=== PATIENT | female | born 1965 | race Caucasian/White ===

== ENCOUNTER → 2017-12-04 13:34 | Outpatient (CLI) | payer OTHER, SELFPAY ==
--- NOTE | 2017-12-04 13:34 | GANG_PTH ---
PATIENT: ТАТЬЯНА BUSTILLOS LOC: [facility] U#:[id number] AGE/SX: 59/F ROOM: RE12/04/[address]: Dr. Pio Orona DO : 1965 BED: DIS: SPEC #: [id number] RECD: 12/04/17 15:37 STATUS: DEREK RETrinity #: [id number] MACK: 12/04/17 13:[address]: Pio Orona DEPT: SURGICAL PATHOLOGY RECD BY: Rona Nicole ENTERED: 12/07/17 08:18 SP TYPE: GANGLION OTHR DR: Dr. Mikayla Varela, [facility] Tissues: GANGLION CYST Procedures: Surgery Specimen Level III HEADER OPERATION: Left hand removal ganglion cyst PRE-OP DIAGNOSIS: Ganglion left hand TISSUE SUBMITTED: Ganglion left hand MICROSCOPIC DIAGNOSIS Ganglion left hand, biopsy: Consistent with ganglion cyst. SJ:brianne 12/07/17 MICROSCOPIC DESCRIPTION Slides are reviewed. GROSS DESCRIPTION Received is one container labeled with the patient's name and not further designated. The specimen consists of a piece of garcia-pink cyst measuring 1.2 x 0.6 x 0.5 cm. The specimen is bisected and reveals a cyst containing garcia-pink mucoid fluid. The entire specimen is submitted in one cassette. / SJ:rg 12/04/17 TC:5 CPT: 56261
== END ==
PROVIDERS: Family Provider Internal Medicine; PCP Internal Medicine; Referring Provider Orthopaedic Surgery; Visit Provider Orthopaedic Surgery
DX: M67.442 Ganglion, left hand (principal)
CPT/HCPCS: 88304

== ENCOUNTER → 2018-04-22 15:56 | Outpatient (CLI) | payer OTHER, SELFPAY ==
--- NOTE | 2018-04-22 16:01 | BD_ITS ---
STUDY: DUAL ENERGY X-RAY ABSORPTIOMETRY / DXA REASON FOR EXAM: Female, 52 years old. The patient is postmenopausal. No loss of height. TECHNIQUE: Bone Mineral Density (BMD) measurements of lumbar spine and bilateral hips were obtained. COMPARISON: Comparison is made with prior study dated April 17, 2015. FINDINGS: Lumbar Spine (L1-L4): g/cm2 (0.916) / T-score (-2.2) / Z-score (-1.5) Findings are suggestive of osteopenia with a moderate fracture risk. Left Femur Total: g/cm2 (0.784) / T-score (-1.8) / Z-score (-1.2) Left Femoral Neck: g/cm2 (0.799) / T-score (-1.7) / Z-score (-0.8) Right Femur Total: g/cm2 (0.804) / T-score (-1.6) / Z-score (-1.0) Right Femoral Neck: g/cm2 (0.800) / T-score (-1.7) / Z-score (-0.8) The T-Scores on the most recent prior examination were: Lumbar Spine (L1-L4): There has been worsening of bone density since the previous examination. Left Femur Total: which represents an improvement of 0.9%. Right Femur Total: which represents a worsening of 3.7%. BD/Dexa Bone Density Study IMPRESSION: The patient is considered osteopenic as outlined below according to World [place] Organization (WHO) criteria with a moderate fracture risk. There has been worsening of bone density since the previous examination. Reference Information: The T-score is the number of standard deviations above or below the standard which is normal for young adults at their peak bone mineral density. The World Health Organization (WHO) interprets the T-scores as follows: Above -1 Normal bone density Between -1 and -2.5 Osteopenia Equal to / or below -2.5 Osteoporosis As a practical clinical guideline, osteopenia may be graded as follows: Mild -1 through -1.5 Moderate -1.6 through -2.0 Severe -2.1 through -2.4 The Z-score is the number of standard deviations above or below age-matched controls. A Z-score of less than -1.5 would be considered abnormal. References: 1. NIH Osteoporosis and Related Bone Diseases http://www.osteo.org 2. International Society for Clinical Densitometry http://www.iscd.org 3. National Osteoporosis Foundation http://www.nof.org Electronically Signed: Ramon Soler, at 13:34 EDT , Service support ,
== END ==
PROVIDERS: Family Provider Internal Medicine; PCP Internal Medicine; Visit Provider Nurse Practitioner
DX: Z78.0 Asymptomatic menopausal state (principal)
CPT/HCPCS: 77080

== ENCOUNTER → 2018-10-16 09:28 | Outpatient (CLI) | payer OTHER, SELFPAY ==
--- NOTE | 2018-10-16 09:34 | US_ITS ---
STUDY: ABDOMINAL ULTRASOUND - RIGHT UPPER QUADRANT REASON FOR VISIT: Female, 53 years old. Elevated bilirubin. TECHNIQUE: Ultrasound evaluation of the right upper quadrant was performed with real-time and static mendoza-scale imaging. TECHNICAL QUALITY: Adequate. COMPARISON: None. FINDINGS: Liver: The liver measures 14.6 cm. There is normal echogenicity of the liver. The bile ducts are within normal limits. There is hepatic color flow. The direction of portal flow is hepatopetal. 1.9 x 2.4 x 1.5 cm echogenic focus in the anterior right liver at the level of the right portal vein suggesting hemangioma. Gallbladder: Normal distended gallbladder. The gallbladder wall measures 2 mm. There is a negative sonographic Kline's sign. There is no pericholecystic fluid. There are multiple echogenic structures within the gallbladder, consistent with multiple gallstones. Common Bile Duct (C.B.D.): The common bile duct measures 3 mm. Pancreas: Normal size of the head, body and proximal tail of the pancreas. The distal tail is obscured by bowel gas. There is normal echogenicity of the pancreas. There is no demonstrated pancreatic mass or cyst. Right Kidney: Normal size of the right kidney. The right kidney measures 10.1 cm. Normal renal cortex. The right cortex measures 1.6 question of a small calcification in the upper pole without hydronephrosis. cm. There is no demonstrated renal mass or cyst. US/Abdomen Limited IMPRESSION: 1. Gallstones without evidence of acute cholecystitis. 2. Small hemangioma in the right liver. The liver is otherwise unremarkable. 3. Question nonobstructing right renal calculus. Electronically Signed: Modesto Hernandez DO at 10:05 EDT Tel [phone], Service support ,
== END ==
PROVIDERS: Family Provider Nurse Practitioner; PCP Nurse Practitioner; Referring Provider Nurse Practitioner; Visit Provider Nurse Practitioner
DX: R17 Unspecified jaundice (principal)
CPT/HCPCS: 76705

== ENCOUNTER → 2018-10-20 07:57 | Outpatient (CLI) | payer OTHER, SELFPAY ==
[2018-10-20 07:33] VITALS: BMI 20.9
[2018-10-20 08:28] LABS: Absolute Lymphocyte Count 1.96 X10^3/uL (0.83-4.51); Basophil# 0.04 X10^3/uL; Basophil% 0.7 % (0-1); Eosinophil# 0.24 X10^3/uL; Eosinophils% 4.2 % (0-5); Hematocrit 43.3 % (37-47); Hemoglobin 14.3 g/dL (12.0-15.0); Lymphocyte # 1.96 X10^3/ul (4.0); Lymphocyte % 34.3 % (19-41); Mean Corpuscular Hgb 29.2 pg (27.0-32.0); Mean Corpuscular Volume 88.5 fL (81-99); Mean Platelet Vol. 9.7 fl (6.2-12.0); Monocyte# 0.42 X10^3/uL; Monocyte% 7.3 % (0-10); NRBC Flagged by Analyzer 0 % (0-5); Neutrophil # 3.04 X10^3/uL (2.7-7.7); Neutrophil % 53.2 % (47-70); Platelet Count 301 K/mm3 (150-450); RBC Distribution Width CV 12.2 % (11.6-14.6); RBC Distribution Width SD 40.2 fl (35.1-43.9); Red Blood Count 4.89 M/mm3 (4.2-5.4); White Blood Count 5.7 K/mm3 (4.4-11.0)
[2018-10-20 08:49] LABS: ALB/GLOB Ratio 1.1 RATIO (0.9-2.4); AST(SGOT) 18 U/L (15-37); Alanine Aminotransfer ALT/SGPT 20 U/L (13-56); Albumin, Serum 3.8 g/dL (3.2-5.0); Alkaline Phosphatase 97 U/L (45-117); Amylase 50 U/L (25-115); Anion Gap 7 (5-15); BUN 17 mg/dL (7-18); BUN/Creat Ratio 23.4 RATIO (10-20); Calcium,Total 8.9 mg/dL (8.5-10.1); Chloride 103 mmol/L (98-107); Creatinine, Serum 0.72 mg/dL (0.55-1.02); EST Glomerular Filtration Rate 89 mL/min (>60); Est Glom Filt Rate - Afr Amer 108 mL/min (>60); Globulin 3.6 g/dL (2.2-4.2); Glucose 88 mg/dL (74-106); Lipase 171 U/L (73-393); Potassium 3.6 mmol/L (3.5-5.1); Protein, Total 7.4 g/dL (6.4-8.2); Sodium Level 140 mmol/L (136-145)
== END ==
PROVIDERS: Family Provider Nurse Practitioner; PCP Nurse Practitioner; Referring Provider Surgery; Visit Provider Surgery
DX: K80.20 Calculus of gallbladder without cholecystitis without obstruction (principal)
CPT/HCPCS: 36415; 80053; 82150; 83690; 85025

== ENCOUNTER → 2018-11-22 10:03 | Outpatient (CLI) | payer OTHER, SELFPAY ==
[2018-10-20 07:33] VITALS: BMI 20.9
[2018-11-22 10:10] LABS: Hematocrit 40.7 % (37-47); Hemoglobin 13.5 g/dL (12.0-15.0); Mean Corp Hgb Conc 33.2 g/dL (32-36); Mean Corpuscular Hgb 30.1 pg (27.0-32.0); Mean Corpuscular Volume 90.8 fL (81-99); Platelet Count 282 K/mm3 (150-450); RBC Distribution Width CV 12.9 % (11.6-14.6); RBC Distribution Width SD 42.9 fl (35.1-43.9); Red Blood Count 4.48 M/mm3 (4.2-5.4); White Blood Count 4.7 K/mm3 (4.4-11.0)
[2018-11-22 10:40] LABS: ALB/GLOB Ratio 1.2 RATIO (0.9-2.4); AST(SGOT) 21 U/L (15-37); Alanine Aminotransfer ALT/SGPT 23 U/L (13-56); Albumin, Serum 3.6 g/dL (3.2-5.0); Alkaline Phosphatase 79 U/L (45-117); Anion Gap 5 (5-15); BUN 10 mg/dL (7-18); BUN/Creat Ratio 17.6 RATIO (10-20); Calcium,Total 8.7 mg/dL (8.5-10.1); Chloride 110 mmol/L (98-107); Creatinine, Serum 0.57 mg/dL (0.55-1.02); EST Glomerular Filtration Rate 118 mL/min (>60); Est Glom Filt Rate - Afr Amer 143 mL/min (>60); Globulin 3.1 g/dL (2.2-4.2); Glucose 83 mg/dL (74-106); Potassium 4.6 mmol/L (3.5-5.1); Protein, Total 6.7 g/dL (6.4-8.2); Sodium Level 141 mmol/L (136-145); Thyroid Stim Hormone (TSH) 2.16 uIU/mL (0.358-3.74)
== END ==
PROVIDERS: Family Provider Nurse Practitioner; PCP Nurse Practitioner; Referring Provider Nurse Practitioner Gerontology; Visit Provider Nurse Practitioner Gerontology
DX: R00.2 Palpitations (principal)
CPT/HCPCS: 80053; 84443; 85027

== ENCOUNTER → 2018-11-29 11:21 | Outpatient (CLI) | payer OTHER, SELFPAY ==
[2018-10-20 07:33] VITALS: BMI 20.9
--- NOTE | 2018-11-29 19:25 | STRESSREP ---
Stress Test Report Exercise stress test. 53-year-old lady with a history of chest pain. Stress protocol: Resting EKG demonstrates normal sinus rhythm with a rate of 69 beats minute normal intervals noted resting blood pressures 118/82 mmHg. The patient exercised according to regular Rashawn protocol for total duration of 10 minutes completing 1 minute into stage IV of the Rashawn protocol the maximum heart rate attained was 166 bpm which was 100% of maximum predicted heart rate the maximum workload was 11.7 metabolic equivalents. The patient maintained sinus rhythm throughout the recording there were no ST or T wave changes at rest to suggest ischemia at peak exercise no ST or T wave changes were noted. No clinical angina was noted the test was taken terminated due to attainment of target heart rate. The resting blood pressures 118/82 with a peak blood pressure 124/74 mmHg. Conclusion: Exercise stress test with no EKG criteria for ischemia at a high workload. No clinical angina noted Good functional capacity.
== END ==
PROVIDERS: Family Provider Nurse Practitioner; PCP Nurse Practitioner; Referring Provider Nurse Practitioner; Visit Provider Nurse Practitioner
DX: R00.2 Palpitations (principal)
CPT/HCPCS: 93017; 93225; 93226

== ENCOUNTER → 2018-12-08 07:57 | Outpatient (CLI) | payer OTHER, SELFPAY ==
[2018-10-20 07:33] VITALS: BMI 20.9
--- NOTE | 2018-12-08 07:59 | ECHOD_ITS ---
Reason For Study: Palpitations Procedure This was a 2D Doppler, Color Flow transthoracic echocardiogram. Exam performed in department. Left Ventricle Normal size and thickness. The estimated ejection fraction is 55 %. Normal diastology for age. No regional wall motion abnormalities noted. Right Ventricle Normal size and thickness. Normal systolic function. Atria Normal left atrium. Normal right atrium. Normal atrial septum. Mitral Valve The mitral valve is structurally normal. No prolapse or stenosis seen. Trivial mitral valve insufficiency. Tricuspid Valve Normal tricuspid valve. Trivial tricuspid valve insufficiency. Unable to estimate RV systolic pressure due to insufficient tricuspid regurgitant envelope. Aortic Valve Normal aortic valve. Trisinus/trileaflet aortic valve. Pulmonic Valve Normal pulmonic valve. Great Vessels Normal aortic root. Normal arch. Normal inferior vena cava. Inferior vena cava collapse with sniff. Pericardium/Pleural No pericardial effusion. MMode/2D Measurements & Calculations LVIDd: 3.9 cm IVSd: 0.67 cm Ao root diam: 2.6 cm LVIDs: 2.9 cm LVPWd: 0.58 cm RVDd: 2.7 cm FS: 26.6 % LAV(MOD-bp): 9.5 ml LVAd ap4: 20.6 cm2 SV(MOD-sp4): 27.1 ml LAV(MOD-bp) Indexed: 6.1 ml/m2 EDV(MOD-sp4): 47.3 ml LAV(MOD-sp2): 9.5 ml EDV(sp4-el): 48.4 ml LAV(MOD-sp4): 9.7 ml LVAs ap4: 12.2 cm2 ESV(MOD-sp4): 20.2 ml ESV(sp4-el): 20.2 ml EF(MOD-sp4): 57.3 % EF(sp4-el): 58.3 % SV(sp4-el): 28.2 ml LA A4 area: 6.2 cm2 LA dimension(2D): 2.1 cm RA A4 area: 8.8 cm2 Doppler Measurements & Calculations MV E max barak: 62.7 cm/sec Lat Peak E' Barak: 14.5 cm/sec Med Peak E' Barak: 8.4 cm/sec MV A max barak: 45.3 cm/sec E/E' lat: 4.3 E/E' med: 7.5 MV E/A: 1.4 Ao V2 max: 102.2 cm/sec LV V1 max: 80.4 cm/sec PA V2 max: 65.5 cm/sec Ao max P.2 mmHg LV V1 max P.6 mmHg Ao V2 mean: 74.9 cm/sec Ao mean P.4 mmHg Ao V2 VTI: 21.6 cm PI end-d barak: 80.9 cm/sec Interpretation Summary The estimated ejection fraction is 55 %. Normal diastology for age. Trivial mitral valve insufficiency. Trivial tricuspid valve insufficiency. Unable to estimate RV systolic pressure due to insufficient tricuspid regurgitant envelope. There is no comparison study available. Ordering Physician: Nargis Hernandez Referring Physician: Nargis Hernandez Performed By: Shannon Alfaro, DIANA, RVT
== END ==
PROVIDERS: Family Provider Nurse Practitioner; PCP Nurse Practitioner; Referring Provider Nurse Practitioner; Visit Provider Nurse Practitioner
DX: R00.2 Palpitations (principal)
CPT/HCPCS: 93306

== ENCOUNTER → 2018-12-24 13:29 | Outpatient (CLI) | payer SELFPAY ==
[2018-10-20 07:33] VITALS: BMI 20.9
--- NOTE | 2018-12-24 13:36 | CT_ITS ---
STUDY: CARDIAC CALCIUM SCORING - CT CHEST REASON FOR EXAM: Female, 53 years old. Screening RADIATION DOSAGE (If Supplied By Facility): CTDIvol = ( 12.19 ) mGy, DLP = ( 195.04 ) mGycm TECHNIQUE: Axial non-enhanced images were acquired through the heart for the sole purpose of measuring coronary artery calcium. Individualized dose optimization techniques were used for this CT. COMPARISON: None. FINDINGS: Please see the patient's medical record for a personalized calcium score. There is a 4 mm nodule in the right lower lobe (image 33 series 3). The visualized lungs are otherwise clear. The visualized soft tissues are within normal limits. CT/Limited Chest CT w/CCTA IMPRESSION: Please see the patient's medical record for a personalized calcium score. 4 mm nodule in the right lower lobe. A dedicated chest CT is recommended. Please go to: [email or web address] , for a description of the calculator. Electronically Signed: Reid Talbot, at 15:39 EST Tel , Service support ,
[2018-12-24 13:46] VITALS: BP 100/73; PULSE 68; RESP 18; TEMP 36.9; O2SAT 98; BMI 20.7
--- NOTE | 2018-12-24 15:14 | CA.SCORE ---
Calcium Scoring Date of Study:: 12/24/18 Coronary Calcium Scoring: High-resolution Computed Tomographic imaging of the chest was performed on 12/24/2018 with particular attention paid to the coronary arteries. Images from the examination were analyzed for the presence and extent of coronary artery calcification , using coronary calcium quantification software. The patient tolerated the procedure well and there were no complications. The results of the coronary calcification analysis are provided below. - Findings Left Main (LM): 0 Left Anterior Descending (LAD): 0 Left Circumflex (LCX): 0 Right Coronary Artery (RCA): 0 Total Agatston Score: 0 Percentile Ranking: Percentile rankin%: 50% of patients of the same gender/similar age had the same/lower scores Calcium Scoring Interpretation: 0 No identifiable atherosclerotic plaque. Very low cardiovascular disease risk. <5% chance of presence coronary artery disease A Negative Examination 1-10 Minimal Plaque burden. Significant coronary artery disease very unlikely. 11-100 Mild plaque burden. Likely mild or minimal coronary atherosclerosis. 101-400 Moderate plaque burden Moderate non-obstructive coronary artery disease highly likely. Over 400 Extensive plaque burden. High likelihood of at least one significant coronary stenosis (>50% diameter) Calcium Score: 0 Negative Examination - Continue cardiovascular evaluation / care as deemed appropriate
== END ==
PROVIDERS: Family Provider Nurse Practitioner; PCP Nurse Practitioner; Referring Provider Nurse Practitioner; Visit Provider Nurse Practitioner
DX: Z82.49 Family history of ischemic heart disease and other diseases of the circulatory system (principal)
CPT/HCPCS: 75571; 76380

== ENCOUNTER 2018-12-31 09:30 | Day surgery (SDC) | payer OTHER, SELFPAY ==
[2018-10-20 07:33] VITALS: BMI 20.9
[2018-12-24 13:46] VITALS: BMI 20.7
[2018-12-31] VITALS (7 sets, daily range): BP systolic 104–139; BP diastolic 81–94; PULSE 48–72; RESP 14–16; TEMP 36.1–37; O2SAT 98–100; BMI 21.0
--- NOTE | 2018-12-31 09:39 | EKG12_ITS ---
Test Reason : PRE OP Blood Pressure : / mmHG Vent. Rate : 085 BPM Atrial Rate : 085 BPM P-R Int : 158 ms QRS Dur : 074 ms QT Int : 354 ms P-R-T Axes : 026 056 -47 degrees QTc Int : 421 ms Normal sinus rhythm Septal infarct , age undetermined T wave abnormality, consider lateral ischemia Abnormal ECG No previous ECGs available Confirmed by DAVY CHEEK, EVY ([id number]), general expeditor JOEY LINDA ([id number]) on 01/03/2019 10:15:51 AM Referred By: Graeme Anderson Confirmed By:EVY BHATTI MD
[2018-12-31] MEDS: Lactated Ringers 1,000 ML 100 ML IV ×2 (10:14→13:18)
--- NOTE | 2018-12-31 10:28 | HP.PCM_ITS ---
History and Physical Date of Admission: 12/31/18 [facility] [address] [place] [id number] MR#: [id number] Acct: [id number] Name: ТАТЬЯНА BUSTILLOS Rep #: [id number] : 1965 Provider: Graeme flores MD Age/Sex: 53/F Location: [facility] Status: Signed Intake Vital Signs 10/20/18 Height 5 ft 3.25 in 10/20/18 Weight: 119 lb 2 oz 10/20/18 Body Mass Index (BMI) 20.9 10/20/18 Blood Pressure 110/72 10/20/18 Blood Pressure Location Rt brachial 10/20/18 Respiratory Rate 16 10/20/18 Pulse Ox 98 Intake Visit Reasons: Gall Stones US 10/16/2018 Chief Complaint: gallstones Yarn Weight And Strength Tester Required: No Is patient in pain?: No Allergies No Known Allergies Allergy (Verified 10/20/18 07:35) Medications cholecalciferol (vitamin D3) 1,000 unit capsule 1,000 unit PO DAILY 10/20/18 [History Confirmed 10/20/18] lorazepam 0.5 mg tablet 0.5 mg PO .as dir tab 10/20/18 [History Confirmed 10/20/18] multivitamin,kx-alwh-dkgjudgn tablet 1 tab PO DAILY PRN 10/20/18 [History Confirmed 10/20/18] potassium 99 mg tablet 2.5 meq PO DAILY 10/20/18 [History Confirmed 10/20/18] Is last menstrual period known: No Post menopausal: Yes Patient : No [facility] Medical History Anxiety (Acute) Cataract (Acute) Gall stones (Acute) Hypercalcemia (Acute) Osteopenia (Acute) Surgical History History of section (Acute) History of colonoscopy (Acute ~2014) History of dilation and curettage (Acute) History of hysterectomy (Acute) History of tubal ligation (Acute) Family History Brother Hypertension Father Hypertension Diabetes CAD (coronary artery disease) Myocardial infarction CVA (cerebral vascular accident) Cancer prostate Mother Hypertension Social History (Updated 10/24/18 @ 10:52 by Graeme Anderson MD) Smoking Status: Never smoker HPI HPI HPI: ТАТЬЯНА BUSTILLOS, is a 53 F who presents to the office today for HPI HPI Surgical H&P: Yes HPI: ТАТЬЯНА BUSTILLOS, is a 53 F who presents to the office today for Evaluation of a symptomatic cholelithiasis. Patient has had an episode of increasing bilirubin which worked up by her primary care physician showed that she had multiple gallstones within the gallbladder. The common bile duct measured 3 mm in size and there was no pericholecystic fluid. She had not been having any pain nor nausea vomiting or diarrhea she has had no bloating. ROS General General: No weight change, appetite, fatigue, colon cancer, breast cancer or weakness HEENT HEENT: No difficulty swallowing, eye injury, eye surgery, swollen glands or hoarseness Endo Endocrine: No thyroid disease, diabetes mellitus, thyroid cancer, Hair loss, heat intolerance or cold intolerance Cardio Cardiovascular: No murmur, pacemaker, heart disease, atrial fibrillation, high blood pressure, heart attack, heart stent, palpitations, shortness of breat with exertion or chest pain Resp Respiratory: No shortness of breath, No sleep apnea, No cough, No COPD, No asthma, No emphysema, No wheezing Gastro Gastrointestinal: No abdominal pain, No nausea or vomiting, No diarrhea, No constipation, No blood in stool, No acid reflux, No hemorrhoids, No ulcers, Yes gallbladder problem, No black,tarry stools Carl Hematologic: No blood thinners, No blood disorders, No bleeding, No anemia, No blood clots Neuro Neurologic: No weakness Exam Const General: no acute distress, well developed, well hydrated Orientation: oriented to person, oriented to place, oriented to time [facility] Head: normocephalic, atraumatic Ears: external ears normal Mouth: moist mucous membranes Eyes Sclera: sclerae normal Pupils: normal by confrontation Neck Neck: no lymphadenopathy noted Neck mass: No Thyroid: thyroid normal, symmetrical Chest Chest palpation & inspection: normal inspection of the chest Resp Effort & Inspection: normal respiratory effort Auscultation: clear to auscultation bilaterally Percussion: percussion normal Cardio Rate: regular rate Rhythm: regular rhythm Heart Sounds: no murmurs GI Palpation: soft, no hepatosplenomegaly, no masses, nontender Auscultation: normal bowel sounds Rectal Exam: other Other: Rectal exam deferred. Extrem General: normal to inspection, no clubbing, cyanosis or edema Assessment & Plan Problems 1. Calculus of gallbladder with chronic cholecystitis without obstruction K80.10 Plan My plan is to perform a laparoscopic cholecystectomy with intraoperative cholangiogram. The planned surgical procedure was discussed extensively with the patient. The risks, benefits, anticipated outcomes and possible complication were mentioned. My staff has also explained the procedure in understandable terms and the patient was given the option to take printed material concerning the planned procedure. The patient had the opportunity to ask questions concerning the planned procedure. The patient freely consents to the planned procedure. I am going to recheck some liver function test on her to make sure her total bilirubin is normal at this time. 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 Orders Orders: Amylase 10/20/18 K80.20 Comprehensive Metabolic Profil 10/20/18 K80.20 Lipase 10/20/18 K80.20 CBC W/Diff, Automated 10/20/18 K80.20 Coding Level of Care Code Off vis,new,level 3 Diagnoses Calculus of gallbladder with chronic cholecystitis without obstruction K80.10 ??Cholelithiasis location: gallbladder ??Cholecystitis acuity: chronic CC: WATER POLLUTION CONTROL INSPECTORLuis Manuel Hernandez ~ I have re-examined the patient. There are no clinical changes since date of exam.
[2018-12-31] MEDS: Cefazolin 2 GM in 0.9% Normal Saline 100 ML IV (11:35)
--- NOTE | 2018-12-31 11:35 | RAD_ITS ---
CLINICAL HISTORY: Female, 53 years old. Gallstones. PROCEDURE: CHOLANGIOGRAM - intraoperative. FLUOROSCOPY TIME (if supplied): (0/13) minutes/seconds. TECHNIQUE: (Single cine loop) Findings: Fluoroscopy utilized during intraoperative cholangiogram. There is contrast seen within nondilated intra and extrahepatic bile ducts and extending into the duodenum. Multiple gallstones are present. RAD/Cholangiogram/ O R,Initial IMPRESSION: Intraoperative fluoroscopy. Electronically Signed: Shamar Quevedo MD at 12:55 EST , Service support ,
--- NOTE | 2018-12-31 11:35 | GALL_PTH ---
PATIENT: ТАТЬЯНА BUSTILLOS LOC: [facility] [place] U#:[id number] AGE/SX: 53/F ROOM: RE12/31/[address]: Dr. Graeme Anderson MD : 1965 BED: DIS: 12/31/2018 SPEC #: [id number] RECD: 12/31/18 16:18 STATUS: DEREK COLTEN #: [id number] MACK: 12/31/18 11:[address]: Graeme Anderson DEPT: SURGICAL PATHOLOGY RECD BY: Mic Walsh ENTERED: 01/03/19 11:05 SP TYPE: HERVE PAUL DR: Nargis Hernandez, MC KAY MACHINE OPERATOR-C Tissues: Gallbladder, NOS Procedures: Surgery Specimen Level III HEADER OPERATION: Laparoscopic, cholecystectomy with possible IOC PRE-OP DIAGNOSIS: Calculus of gallbladder with chronic cholecystitis without obstruction TISSUE SUBMITTED: Gallbladder MICROSCOPIC DIAGNOSIS Gallbladder, cholecystectomy: Mild chronic cholecystitis and cholelithiasis. SJ:brianne 01/04/19 MICROSCOPIC DESCRIPTION Slides are reviewed. GROSS DESCRIPTION Received is one container labeled with the patient's name and designated gallbladder. The specimen consists of a gallbladder measuring 8 cm in length and 3 cm in diameter. The external surface is pink-garcia, smooth and glistening for the most part. Focally it is granular, hemorrhagic and contains cautery artifact. The gallbladder contains green-yellow mucoid bile and multiple multifaceted, irregular black stones and stone fragments measuring in aggregate 4 x 4 x 1 cm and 0.1 to 0.5 cm in greatest dimension. The mucosa is bile-stained and without any mass lesions. The gallbladder wall measures 0.1 cm in thickness. Ammonium Sulfate Operator sections from the gallbladder and the cystic duct are submitted in one cassette. / CARLOS:brianne 01/03/19 TC:3 CPT: 10787
[2018-12-31] MEDS: Bupivacaine Mpf 0.5% 30 ML VIAL (12:20)
--- NOTE | 2018-12-31 12:20 | PCM.OPRPT ---
Problem List (1) Calculus of gallbladder with chronic cholecystitis without obstruction Status: Chronic Report of Operation Date of Procedure: 12/31/18 Pre-Operative Diagnosis: Somatic cholelithiasis Post-Operative Diagnosis: Same Surgery/Procedure Performed:: Laparoscopic cholecystectomy with intraoperative cholangiograms Type of Anesthesia:: General Anesthesiologist: Hussain Escalona Specimen's removed: Gallbladder Drains: None Estimated Blood Loss (mL): < 25 cc Fluids Replaced: 800 cc lr Description of Procedure: Patient was brought into the operating room. Placed in the supine position. Under excellent general trach intubation the abdomen was sterilely prepped draped in usual fashion. Local was injected infraumbilically. Incision was made dissection was carried out to the fascia the fascia was grasped with a Matty. Varies needle was placed inside the abdomen. The abdomen was insufflated to 15 torr. A 10/12 trocar was placed. Patient was placed in the head up and rotated to the left. Subxiphoid #5 trochars placed inferior to this another #5 trocar was placed laterally a #5 trocar was placed. All these under direct visualization without injury to underlying structures. Patient was noted to have moderate amount of adhesions of with the duodenum to the gallbladder these were taken down without difficulty. Fundus of the gallbladder was grasped retracted cephalad direction. Infundibulum was grasped retracted laterally. I dissected out the cystic duct. Placed a Hemoclip proximally. Homer in the duct was made. Angiogram catheter was placed into the abdomen. [employer] Matt catheter through this. Cholangiogram was shot showing normal ductal anatomy. Remove the claims Matt catheter and another hemo-lock clip was placed distally on the duct. Cystic artery was identified hemoclips placed proximally distally was ligated. Deliver the gallbladder from the gallbladder bed with use of electrocautery. I had excellent hemostasis placed a specimen specimen bag delivered through the umbilical port without difficulty. Irrigated out the right upper quadrant good hemostasis was noted. I did not lose any stones I did lose a little bit of bile but that was all easily retrieved through the suction assistant toddler teacher. I remove the trochars under direct visualization good hemostasis was noted. I closed the fascia the umbilical port with a figure stitch of 0 Vicryl. Skin incisions were closed with subcuticular stitches of 4-0 Monocryl. Steri-Strips were applied sterile dressings were applied and the patient tolerated the procedure well. - Admit VTE Documentation VTE Present on Admission: No VTE Mechan Device Prophylaxis: SCD's VTE Pharm Prophylaxis ordered?: No Reason prophylaxis not ordered:: Procedure Not Indicated
--- NOTE | 2018-12-31 12:25 | DCINST_ITS ---
Discharge Diet: Light diet - advance as tolerated Discharge Activity: May Not Drive - for 2-3 days or while taking narcotic pain medications., - - Do not drive, work heavy equipment or sign legal documents for 24 hours. May shower in (days): 1 - with the bandage in place. Additional Activity Instructions:: Pain medication may cause nausea. You should typically eat light foods as you take your pain medications. Pain medication may also cause constipation. If this is a problem for you, please discuss with your doctor. Call your doctor if your incision/area has: Continuous Slow Oozing, Sudden Increased Bleeding, Increased Pain/ Swelling, Increased Redness, Foul Smelling Discharge Call your doctor if you observe: Fever of 101 or Higher Suture Line Care: Avoid Pulling/Pushing, Avoid Pinching/Bending Additional Dressing/Incision Instructions:: Leave operative bandaids on for 2 days. When you remove dressing, leave Steri-Strips on until your follow-up appointment, or until the Steri-Strips fall off on their own. Allergies/Adverse Reactions: Allergies No Known Allergies Allergy (Verified 12/31/18 09:53) Medications to take at Discharge cholecalciferol (vitamin D3) 1,000 unit capsule 1,000 unit PO DAILY 10/20/18 lorazepam 0.5 mg tablet 0.5 mg PO .as dir tab 10/20/18 multivitamin,yj-osgz-haihltyl tablet 1 tab PO DAILY 10/20/18 potassium 99 mg tablet 2.5 meq PO DAILY 10/20/18 Indapamide [Lozol] 2.5 mg PO DAILY 12/27/18 Oxycodone HCl/Acetaminophen [Percocet 5/325] 1 - 2 tab PO Q4H PRN PRN 7 Days #30 tab 12/31/18 The following prescriptions were given: Oxycodone HCl/Acetaminophen [Percocet 5/325] 1 - 2 tab PO Q4H PRN PRN 7 Days #30 tab PRN Reason: Pain Transmission Status: Received by [id number] Primary Care Physician: Nargis Hernandez NP-C [Primary Care Provider] - Test Results: Test results from this visit will be discussed in further detail at your follow- up appointment, if applicable. Please Follow Up With: Graeme Anderson MD - Please call [phone] to schedule an appointment. When: 7 days after your surgery.
[2018-12-31] MEDS: oxyCODONE 5 MG Tablet PO (14:22)
[2018-12-31] MEDS: Acetaminophen 325 MG Tablet PO (14:23)
== END 2018-12-31 15:53 | disposition home or self-care (01) ==
LOC: SDC 09:31 → AC 09:32
PROVIDERS: Family Provider Nurse Practitioner; PCP Nurse Practitioner; Referring Provider Surgery; Visit Provider Surgery
PROC: (CPT 47610; principal; 2018-12-31 11:15)
DX: K80.10 Calculus of gallbladder with chronic cholecystitis without obstruction (principal); F41.9 Anxiety disorder, unspecified; M85.80 Other specified disorders of bone density and structure, unspecified site; I49.3 Ventricular premature depolarization; E83.52 Hypercalcemia; Z86.2 Personal history of diseases of the blood and blood-forming organs and certain disorders involving the immune mechanism; Z78.0 Asymptomatic menopausal state; Z87.442 Personal history of urinary calculi; Z79.899 Other long term (current) drug therapy
CPT/HCPCS: 47563; 74300; 76000; 88304; 93005; J7120; J2405

== ENCOUNTER → 2019-11-22 09:55 | Outpatient (CLI) | payer OTHER, SELFPAY ==
[2018-12-31 09:54] VITALS: BMI 21.0
--- NOTE | 2019-11-22 10:06 | US_ITS ---
HISTORY: abdomen pain COMPARISON: 10/16/2018 TECHNIQUE: Sonographic images of the right upper quadrant of the abdomen using grayscale and color Doppler imaging. Number of images including paperwork: 90 FINDINGS: LIVER: Echogenic lesion measuring 2.2 x 1.4 x 1.8 cm, previously 2.4 x 1.6 x 1.8 cm near the same level and orientation. Right lobe measures 14.7 cm. GALLBLADDER: Surgically absent. BILE DUCTS: No significant biliary dilatation. CBD 3.1 mm. PANCREAS: Unremarkable visualized pancreas. Tail partially obscured by bowel gas. RIGHT KIDNEY: Normal in length measuring 10.3 cm. 8 mm simple appearing right renal cyst. Cortical thinning measuring 6 mm. AORTA: Unremarkable visualized portions of the aorta. INFERIOR VENA CAVA: Unremarkable visualized portions of the inferior vena cava. FREE FLUID: None detected. US/Abdomen Limited IMPRESSION: No acute abdominal abnormality is sonographically apparent. Unchanged hepatic lesion suggestive of hemangioma. Additional findings above. at 0628 Reported and signed by: Xiomara Alcaraz MD Electronically Signed: Xiomara Alcaraz MD at 6:27 EDT Tel , Service support ,
== END ==
PROVIDERS: PCP Nurse Practitioner; Referring Provider Nurse Practitioner; Visit Provider Nurse Practitioner
DX: R10.9 Unspecified abdominal pain (principal)
CPT/HCPCS: 76705

== ENCOUNTER → 2019-12-02 06:29 | Outpatient (CLI) | payer OTHER, SELFPAY ==
[2018-12-31 09:54] VITALS: BMI 21.0
--- NOTE | 2019-12-02 06:46 | MRI_ITS ---
STUDY: MR MRCP WITHOUT CONTRAST REASON FOR EXAM: Female, 54 years old. PAIN NEAR CHOLECYSTECTOMY SITE, ? BILE DUCT ISSUE TECHNIQUE: Standard MRCP technique was utilized. COMPARISON: None. FINDINGS: Gall Bladder: Gall bladder is surgically absent. Cystic duct: Normal with no demonstrated fixed filling defect. Intrahepatic ducts: Normal visualized intrahepatic ducts with no demonstrated fixed filling defect, dilation or stricture. Common hepatic duct: Normal with no demonstrated fixed filling defect, dilation or stricture. Common bile duct: Normal with no demonstrated fixed filling defect, dilation or stricture. Pancreatic duct: Normal with no demonstrated fixed filling defect, dilation or stricture. MRI/MRCP Abdomen without Contrast IMPRESSION: Normal MR Cholangiopancreatography (MRCP) after cholecystectomy.. Electronically Signed: Edwin Carr MD at 8:41 EDT Tel , Service support ,
== END ==
PROVIDERS: PCP Nurse Practitioner; Referring Provider Nurse Practitioner; Visit Provider Nurse Practitioner
DX: R10.9 Unspecified abdominal pain (principal)
CPT/HCPCS: 74181

== ENCOUNTER → 2019-12-26 08:23 | Outpatient (CLI) | payer OTHER, SELFPAY ==
[2018-12-31 09:54] VITALS: BMI 21.0
--- NOTE | 2019-12-26 08:26 | CT_ITS ---
STUDY: CT CHEST WITH CONTRAST REASON FOR EXAM: Female, 54 years old. FOLLOW UP LUNG NODULE RADIATION DOSAGE (If Supplied By Facility): CTDIvol = ( 10.12 ) mGy, DLP = ( 249.83 ) mGycm TECHNIQUE: Transaxial imaging was performed following intravenous administration of IV 100mL Isovue-300. Multiplanar coronal and sagittal images were reformatted. Individualized dose optimization techniques were used for this CT. COMPARISON: Comparison is made with prior examination dated 12/24/2018. FINDINGS: The lungs are normal. The previously seen 4 mm nodule in the peripheral aspect of the right lower lobe is not seen at this time. There is no demonstrated pleural abnormality. Normal heart and pericardium. Normal mediastinum. Normal hilar regions. Normal enhanced pulmonary arteries. Normal aorta arch and descending thoracic aorta. There are mild degenerative changes of the thoracic spine. There is no demonstrated abnormality of the visualized upper abdomen. CT/Chest WITH Contrast IMPRESSION: The previously seen 4 mm nodule in the peripheral aspect of the right lower lobe is not seen at this time. Electronically Signed: Ramon Soler, at 11:03 EST , Service support ,
== END ==
PROVIDERS: PCP Nurse Practitioner; Referring Provider Nurse Practitioner; Visit Provider Nurse Practitioner
DX: R91.1 Solitary pulmonary nodule (principal)
CPT/HCPCS: 71260; Q9967

== ENCOUNTER → 2020-04-25 08:56 | Outpatient (CLI) | payer OTHER, SELFPAY ==
[2018-12-31 09:54] VITALS: BMI 21.0
--- NOTE | 2020-04-25 08:59 | BD_ITS ---
STUDY: DUAL ENERGY X-RAY ABSORPTIOMETRY / DXA REASON FOR EXAM: Female, 54 years old. Z780. Patient is postmenopausal. Family history of osteoporosis porosis. TECHNIQUE: Bone Mineral Density (BMD) measurements of lumbar spine and bilateral hips were obtained. COMPARISON: Comparison is made with prior examination dated 04/22/2018. FINDINGS: Lumbar Spine (L1-L4): g/cm2 (0.917) / T-score (-2.2) / Z-score (-1.4) Findings are suggestive of osteopenia with a high fracture risk. Increased thoracic kyphosis. Left Femur Total: g/cm2 (0.767) / T-score (-1.9) / Z-score (-1.2) Left Femoral Neck: g/cm2 (0.812) / T-score (-1.6) / Z-score (-0.6) Right Femur Total: g/cm2 (0.74) / T-score (-1.8) / Z-score (-1.1) Right Femoral Neck: g/cm2 (0.830) / T-score (-1.5) / Z-score (-0.5) The T-Scores on the most recent prior examination were: Lumbar Spine (L1-L4): There has been no change of bone density since the previous examination. Left Femur Total: which represents a worsening of 2.2%. Right Femur Total: which represents a worsening of 2.5%. BD/Dexa Bone Density Study IMPRESSION: The patient is considered osteopenic as outlined below according to World [place] Organization (WHO) criteria with a high fracture risk. There has been worsening of bone density since the previous examination. Reference Information: The T-score is the number of standard deviations above or below the standard which is normal for young adults at their peak bone mineral density. The World Health Organization (WHO) interprets the T-scores as follows: Above -1 Normal bone density Between -1 and -2.5 Osteopenia Equal to / or below -2.5 Osteoporosis As a practical clinical guideline, osteopenia may be graded as follows: Mild -1 through -1.5 Moderate -1.6 through -2.0 Severe -2.1 through -2.4 The Z-score is the number of standard deviations above or below age-matched controls. A Z-score of less than -1.5 would be considered abnormal. References: 1. NIH Osteoporosis and Related Bone Diseases www osteo.org 2. International Society for Clinical Densitometry www iscd.org 3. National Osteoporosis Foundation www nof.org Electronically Signed: Ramon Soler MD at 15:11 EDT , Service support ,
== END ==
PROVIDERS: PCP Nurse Practitioner; Referring Provider Nurse Practitioner; Visit Provider Nurse Practitioner
DX: Z78.0 Asymptomatic menopausal state (principal)
CPT/HCPCS: 77080

== ENCOUNTER → 2020-11-19 | Outpatient (CLI) | payer OTHER, SELFPAY | END | disposition home or self-care (01) | LOC: LABSPEC 15:18 | PROVIDERS: PCP Nurse Practitioner; Referring Provider Internal Medicine; Visit Provider Internal Medicine | DX: Z20.822 Contact with and (suspected) exposure to COVID-19 (principal) | CPT/HCPCS: 87635; U0005; U0003 ==

== ENCOUNTER → 2022-06-03 | Outpatient (CLI) | payer OTHER, SELFPAY ==
--- NOTE | 2022-06-03 16:06 | BD_ITS ---
STUDY: DUAL ENERGY X-RAY ABSORPTIOMETRY / DXA REASON FOR EXAM: Female, 56 years old. M85.89 TECHNIQUE: Bone Mineral Density (BMD) measurements of lumbar spine and bilateral hips were obtained. COMPARISON: Comparison is made with prior study from April 25, 2020. FINDINGS: Lumbar Spine (L1-L4): g/cm2 (0.648) / T-score (-4.1) / Z-score (-2.8) Findings are suggestive of osteoporosis with a high fracture risk. Left Femur Total: g/cm2 (0.677) / T-score (-2.2) / Z-score (-1.4) Left Femoral Neck: g/cm2 (0.604) / T-score (-2.2) / Z-score (-1.0) Right Femur Total: g/cm2 (0.713) / T-score (-1.9) / Z-score (-1.1) Right Femoral Neck: g/cm2 (0.627) / T-score (-2.0) / Z-score (-0.8) The T-Scores on the most recent prior examination were: Lumbar Spine (L1-L4): There has been worsening of bone density since the previous examination. Left Femur Total: which represents a worsening of 4.3%. Right Femur Total: which represents a worsening of 1.4%. BD/Dexa Bone Density Study IMPRESSION: The patient is considered osteoporotic as outlined below according to World [employer] Organization (WHO) criteria with a high fracture risk. There has been worsening of bone density since the previous examination. Reference Information: The T-score is the number of standard deviations above or below the standard which is normal for young adults at their peak bone mineral density. The World Health Organization (WHO) interprets the T-scores as follows: Above -1 Normal bone density Between -1 and -2.5 Osteopenia Equal to / or below -2.5 Osteoporosis As a practical clinical guideline, osteopenia may be graded as follows: Mild -1 through -1.5 Moderate -1.6 through -2.0 Severe -2.1 through -2.4 The Z-score is the number of standard deviations above or below age-matched controls. A Z-score of less than -1.5 would be considered abnormal. References: 1. NIH Osteoporosis and Related Bone Diseases www osteo.org 2. International Society for Clinical Densitometry www iscd.org 3. National Osteoporosis Foundation www nof.org Electronically Signed: Ramon Soler MD at 14:54 EDT ,
== END | disposition home or self-care (01) ==
PROVIDERS: PCP Nurse Practitioner; Referring Provider Nurse Practitioner Family; Visit Provider Nurse Practitioner Family
DX: M85.89 Other specified disorders of bone density and structure, multiple sites (principal)
CPT/HCPCS: 77080

== ENCOUNTER → 2024-06-08 | Outpatient (CLI) | payer OTHER, SELFPAY ==
--- NOTE | 2024-06-08 10:28 | BD_ITS ---
PROCEDURE: DEXA BONE DENSITY STUDY 06/08/2024 REASON FOR EXAM: F, age 58 y/o . Postmenopausal. TECHNIQUE: DEXA scan of sites with data reported below. Scanner utilized: [employer]. REFERENCE LINKS: [facility] COMPARISON: DEXA examination dated 06/03/2022 FINDINGS: BMD and T-SCORES Lumbar spine: 0.691 g/cm2, T-score -3.7 Levels: L1 through L4 Change from prior: 6.5%. Left femoral neck: 0.561 g/cm2, T-score -2.6 Left total hip: 0.671 g/cm2, T-score -2.2 Change from prior: -0.9%. Right femoral neck: 0.586 g/cm2, T-score -2.4 Right total hip: 0.678 g/cm2, T-score -2.2 Change from prior:-5%. The World Health Organization has defined the following categories based on bone density: Normal bone density: T-score equal to or greater than -1.0 Osteopenia: T-score between -1.0 and -2.5 Osteoporosis: T-score equal to or less than -2.5 FRAX (or Comparable) Fracture Risk Assessment: 10 Year Probability of Fracture: Major Osteoporotic Fracture: 28% Hip Fracture: 7% (Note: FRAX is not to be reported in setting of normal range bone density, osteoporosis on DEXA, known history of osteoporosis, prior osteoporotic hip or vertebral fracture, or for any patient undergoing pharmacological treatment for bone loss.) The National Osteoporosis Foundation (NOF) recommends pharmacological treatment for patients with a FRAX 10-year risk of 3% or higher for a hip fracture, or 20% or higher for a major osteoporotic fracture, to prevent osteoporosis and reduce fracture risk. The patient does meet the pharmacological treatment recommendations for prevention of osteoporosis. BD/Dexa Bone Density Study IMPRESSION: OSTEOPOROSIS. Recommend follow-up as clinically warranted. Reading Location: [id number]
== END | disposition home or self-care (01) ==
LOC: OPBD 10:22
PROVIDERS: PCP Nurse Practitioner Family; Referring Provider Nurse Practitioner Family; Visit Provider Nurse Practitioner Family
DX: M81.0 Age-related osteoporosis without current pathological fracture (principal)
CPT/HCPCS: 77080

== ENCOUNTER → 2025-01-27 | Outpatient (CLI) | payer OTHER, SELFPAY ==
--- OUTSIDE RECORDS SUMMARY | 2025-01-27 07:24 | XMS RPT_ITS | CCD ---
Author Organization [facility] Care Team Providers Care Mechanical Detailer Name Role Phone Fast, Mikayla A Unavailable Cihayder Dorie Unavailable Connor Bravo Unavailable Heriberto Ferraro Unavailable Pio Orona Unavailable Kathy Baker Unavailable Unavailable Teodora Yun Unavailable Unavailable Unavailable Unavailable Cesar Corrales Unavailable Unavailable Aleena Molina Unavailable Unavailable Gia Gorman Unavailable Unavailable Graeme Anderson III Unavailable Sonja, Tasia Unavailable Unavailable Jennifer Sheriff Unavailable Unavailable Cesar Corrales Unavailable Unavailable Cesar Yun Unavailable Unavailable Unavailable Unavailable Gravius Aleena Unavailable Unavailable Star, Marie Unavailable Unavailable Graeme Anderson III P Unavailable Fast DO, Mikayla A Unavailable CiPaulo singletary CNP E Unavailable Dr. Connor Bravo Unavailable Dr. Heriberto Ferraro Unavailable Pio Orona DO Unavailable [phone] Justin MURILLO MD , Graeme Hooker Unavailable Cesar Yun LPN Unavailable Unavailable TIM Ware LPN Unavailable Unavailable Unavailable Unavailable Justin MURILLO MD , Graeme Hooker Unavailable [phone] Cesar Corrales Unavailable Unavailable Gia Gorman Unavailable Unavailable Sonja DOSS, Tasia Unavailable Unavailable Unavailable Unavailable Marie Graves LPN Unavailable Unavailable Ciesa CAROLINA, Dorie Primary Care Provider Fast DO, Mikayla A Unavailable Paulo Hernandez Unavailable Jesse FRAGOSO, Aleena Unavailable Unavailable David Paulo Unavailable Jose Gutierrez CNP Unavailable Geovany [employer] FACER, Byronyela Unavailable Unavailable Paulaesa CAROLINA, Dorie Primary Care Provider David Paulo Attending Unavailable Fast DO, Mikayla A Referring Unavailable Fast DO, Mikayla A Consulting Unavailable Khushi Lewis MA Unavailable Unavailable Tamra Gutierrez CNPyn Unavailable David FIGUEROA, Dorie Primary Care Provider Ciesa CAROLINA, Dorie Primary Care Provider Jose Gutierrez CNP Primary Care Provider Jose Fletcher E Unavailable JOSE GUTIERREZ E Referring Unavailable PIPER BO Referring Unavailable JOSE GUTIERREZ Primary Care Unavailable FLASH VERMA Attending Unavailable PIPER BO Referring Unavailable JOSE GUTIERREZ Primary Care Unavailable HIRAM GILBERT Attending Unavailable MATT, JOSE Primary Care Unavailable CORAL WARE Referring Unavailable PAULAESA, DORIE Primary Care Unavailable CORAL WARE Referring Unavailable PAULAESA, DORIE Primary Care Unavailable JOSE GUTIERREZ Primary Care Unavailable Jose Gutierrez Referring Unavailable Jose Gutierrez Attending Unavailable Matt Jose Primary Care Unavailable Allergies Allergy Classification Reported Allergen(s) Allergy Type Date of Onset Reaction(s) Facility (6 sources) environmental [Other] Propensity to adverse reactions 6 [facility] Work Phone: (1 source) ALLERGIES NOT ON FILE; Translations: [ALLERGIES NOT ON FILE] Propensity to adverse reactions (disorder) [facility] 2 Repository Medications Current Medications Medication Drug Class(es) Dates Sig (Normalized) Sig (Original) benzonatate 100 mg oral capsule (1 source) Non-narcotic Antitussive Start: 03-08-2023 End: 03-15-2023 take 1 capsule by mouth every eight hours as needed benzonatate (TESSALON PERLE) 100 mg capsule Take 1 capsule by mouth three times a day as needed for cough for up to 7 days. 21 capsule 0 03/08/2023 03/15/2023 Active Comment on above: Take 1 capsule by mo ut three times a day as needed for cough for up to 7 days. Calcium Carbonate / vitamin D3 (1 source) End: 05-31-2021 CALCIUM CARBONATE/VITAMIN D3 (VITAMIN D-3 ORAL) Take by mouth. 0 05/31/2021 Discontinued (Other) Comment on above: Take by mouth. cholecalciferol 0.025 mg oral capsule (20 sources) Vitamin D Start: 10-20-2018 take 1000 [IU] by mouth once daily Cholecalciferol (Vitamin D3) Active 1000 UNIT PO DAILY October 20, 2018 12:00am take 1 capsule by mouth every we ek Vitamin D3 25 MCG (1000 UT) Oral Tablet 1 cap 3x per week (25 MCG (1000 UT)) Active take 1 capsule by mouth once desire ly Vitamin D3 1000 UNIT Oral Tablet 1 cap daily (1000 UNIT) Active estradiol 0.1 mg/ml vaginal cream (5 sources) Estrogen Start: 04-07-2024 estradiol (EST RACE) 0.01 % (0.1 mg/gram) vaginal cream Indications: atrophic vaginitis associated with menopause Use 1g vaginally. Nightly for 2 weeks. Then every other day for 2 weeks. Then 2 times per week ongoing. 42.5 g 11 04/07/2024 Active LORazepam 0.5 mg oral tablet (20 sources) Benzodiazepine Start: 12-21-2023 LORazepam (ATI VAN) 0.5 mg 1 (one) Tablet 1hr before procedure or flight 12/21/2023 Active Start: 04-25-2022 Ativan 0.5 mg oral tablet 1 (one) Tablet 1hr before procedure or flight for 0 days Quantity: 5 {Tablet} Refills: 0 Ordered: 25-Apr-2022 Jose Gutierrez CNP Start : 25-Apr-2022 Active Comments: Manuel [id number] Start: 11-16-2019 Ativan 0.5 MG Oral Tablet 1 (one) Tablet 1hr before procedure for 0 days Quantity: 5 {Tablet} Refills: 0 Ordered: 16-Nov-2019 Paulo Hernandez Start : 16-Nov-2019 Active Comments: Manuel [id number] Start: 06-14-2018 End: 11-09-2019 Ativan 0.5 MG Oral Tablet 1 (one) Tablet 1 1/2 hr before flight for 0 days Quantity: 5 {Tablet} Refills: 0 Ordered: 09-Nov-2019 Jama DOSSCesar Start : 04-Feb-2019 End : 09-Nov-2019 Inactive Comments: Oarichmond kauffman Start: 07-21-2016 End: 11-17-2016 Ativan 0.5 MG Oral Tablet 1 (one) Tablet 1 1/2 hr before flight for 0 days Quantity: 5 {Tablet} Refills: 0 Ordered: 17-Nov-2016 Jama Teodora Start : 21-Jul-2016 End : 17-Nov-2016 Discontinued Comment on above: Oarrs run Oarrs [id number] Oarrs [id number] Multivitamin,Tx-Iron-M inerals (Complete Multivitamin) tablet (1 source) Start: take 1 tablet by mouth once daily Multivitamin,Tx-Iron-M inerals (Complete Multivitamin) tablet Active 1 TABLET PO DAILY October 20, 2018 12:00am nitrofurantoin, macrocrystals 25 mg / nitrofurantoin, monohydrate 75 mg oral capsule (1 source) Nitrofuran Antibacterial Start: End: take 1 capsule by mouth twice daily nitrofurantoin monohydrate and macrocrystal (MACROBID) 100 mg capsule Take 1 capsule by mouth two times a day for 5 days. 10 capsule 09/29/2023 10/04/2023 Active phenazopyridine hydrochloride 100 mg oral tablet (1 source) Start: End: take 100-200 mg by mouth every eight hours as needed phenazopyridine (PYRIDIUM) 100 mg tablet Take 1-2 tablets by mouth three times a day as needed for pain for up to 3 days. 12 tablet 09/29/2023 10/02/2023 Active potassium gluconate 2.5 meq oral tablet (20 sources) Start: take 2.5 mEq by mouth once daily Potassium Active 2.5 MEQ PO DAILY October 20, 2018 12:00am Start: 07-21-2016 take 1 tablet by carol th once daily Potassium 99 MG Oral Tablet 1 (one) Tablet Tablet daily for 30 days Quantity: 30 {Tablet} Refills: 0 Ordered: 21-Jul-2016 Paulo Hernandez Start : 21-Jul-2016 Active RED YEAST RICE ORAL (14 sources) RED YEAST RICE O RAL Take by mouth. Active RED YEAST RICE O RAL Take by mouth. 0 Active Comment on above: Take by mouth. triamcinolone acetonide 1 mg/ml topical cream (1 source) Corticosteroid Start: 08-27-2021 End: 09-06-2021 triamcinolone acetonide (KENALOG) 0.1 % cream Indications: Rhus dermatitis Apply 1 application to affected area three times daily for 10 days. Apply sparingly to area for rash/itching. 80 g 1 08/27/2021 09/06/2021 Active Comment on above: Apply 1 application to affected area three times daily for 10 days. Apply sparingly to area for rash/itching. Completed/Discontinued Medications Medication Drug Class(es) Dates Sig (Normalized) Sig (Original) 1.56 ml abaloparatide 2 mg/ml pen injector (20 sources) Parathyroid Hormone-Related Peptide Analog Start: 12-12-2022 End: 06-09-2024 TYMLOS 80 mcg (3,120 mcg/1.56 mL) pen injector 12/12/2022 06/09/2024 Discontinued Start: 11-07-2022 inject 80 ug by subc utaneous injection once daily Tymlos 80 mcg/dose (3,120 mcg/1.56 mL) subcutaneous pen injector 80 mcg SC daily for 0 days Quantity: 30 {Each} Refills: 11 Ordered: 07-Nov-2022 Jose Gutierrez CNP Start : 07-Nov-2022 Active Comments: Mail order. M81.0one month supply Start: 11-05-2022 Tymlos 80 mcg/ dose (3,120 mcg/1.56 mL) subcutaneous pen injector 0.04 Milliliter once;inject into abdomen; do not inject within 2 inches of belly button/navel; rotate sites for 0 days Quantity: 3 {Each} Refills: 0 Ordered: 05-Nov-2022 Jose Gutierrez CNP Start : 05-Nov-2022 Active Comments: Mail order. M81.0 Start: 10-03-2022 Tymlos 80 mcg/ dose (3,120 mcg/1.56 mL) subcutaneous pen injector 0.04 Milliliter once;inject into abdomen; do not inject within 2 inches of belly button/navel; rotate sites for 0 days Quantity: 3 {Each} Refills: 0 Ordered: 10-Oct-2022 Matt CNPJose Start : 10-Oct-2022 Active Comments: Mail order. M81.0 Comment on above: Mail order. M81.0 Mail order. M81.0one month supply acetaminophen 325 mg / oxyCODONE hydrochloride 5 mg oral tablet (1 source) Opioid Agonist Start: 01-01-20 End: 01-08-20 take 1 tablet by mouth every four hours as needed Oxycodone-Acetaminop hen Discontinued 1 - 2 TABLET PO EVERY 4 HOURS NEEDED 30 7 December 31, 2018 January 07, 2019 1:09am alendronic acid 70 mg oral tablet (20 sources) Bisphosphonate Start: 06-12-19 23 End: 10-21-19 23 take 1 tablet by mouth every week alendronate 70 mg oral tablet 1 Tablet every week for 0 days Quantity: 12 {Tablet} Refills: 3 Ordered: 20-Oct-2022 TIM Ware LPN Start : 11-Jun-2022 End : 20-Oct-2022 Inactive amoxicillin 875 mg / clavulanate 125 mg oral tablet (20 sources) Penicillin-class Antibacterial Start: 06-20-19 End: 06-30-19 22 take 1 tablet by mouth twice daily Amoxicillin-Pot Clavulanate 875-125 MG Oral Tablet 1 (one) Tablet bid for 10 days Quantity: 20 {Tablet} Refills: 0 Ordered: 19-Jun-2021 Gravius [employer] FACER, Aleena Start : 19-Jun-2021 End : 29-Jun-2021 Inactive benzyl alcohol 0.1 ml/ml / camphor 5 mg/ml / menthol 2.5 mg/ml topical spray (20 sources) Pediculicide Start: 07-13-19 15 End: 06-20-19 16 MELINDA DRY SUPER, 2-10-0.5-0.25% (External Liquid) 1 (one) Liquid TAD for 0 days Quantity: 1 {Bottle} Refills: 0 Ordered: 20-Jun-2015 Oxana Suarez Start : 12-Jul-2014 End : 20-Jun-2015 Discontinued Comments: This order discontinued per [employer]. Comment on above: This order discontin ued per [employer]. CHOLECALCIFEROL, VITAMIN D3, (VITAMIN D3 ORAL) (19 sources) End: 06-10-19 25 CHOLECALCIFEROL, VITAMIN D3, (VITAMIN D3 ORAL) Take by mouth. 06/09/2024 Discontinued CHOLECALCIFEROL, VITAMIN D3, (VITAMIN D3 ORAL) Take by mouth. Active CHOLECALCIFEROL, VITAMIN D3, (VITAMIN D3 ORAL) Take by mouth. 0 Active Comment on above: Take by mouth. ciprofloxacin 500 mg oral tablet (20 sources) Quinolone Antimicrobial Start: 10-11-19 16 End: 07-22-19 17 take 1 tablet by mouth twice daily Cipro 500 MG Oral Tablet 1 (one) Tablet bid for 0 days Quantity: 20 {Tablet} Refills: 0 Ordered: 21-Jul-2016 Dayana Wellington CMA Start : 11-Oct-2015 End : 21-Jul-2016 Inactive clobetasol propionate 0.5 mg/ml topical cream (20 sources) Corticosteroid Start: 09-05-19 22 End: 05-10-19 23 clobetasoL 0.05 % topical cream 1 (one) Application twice per day until improvement up to 2 weeks duration for 0 days Quantity: 60 {Gram} Refills: 0 Ordered: 09-May-2022 Jose Gutierrez CNP Start : 04-Sep-2021 End : 09-May-2022 Inactive Comments: apply to affected areas after cleansing and pat dry skin Comment on above: apply to affected ar eas after cleansing and pat dry skin DAILY MULTIVITAMIN TAB (19 sources) Start: 04-15-19 06 End: 06-10-19 25 DAILY MULTIVITAMIN TAB 0 04/14/2005 06/09/2024 Discontinued Start: 04-14-2005 DAILY MULTIVIT MORALES TAB 0 04/14/2005 Active Start: 04-14-2005 DAILY MULTIVIT MORALES TAB diphenhydrAMINE hydrochloride 25 mg oral capsule (20 sources) Histamine-1 Receptor Antagonist Start: 07-18-2013 End: 06-20-2015 take 1 capsule by mouth once daily BENADRYL ALLERGY, 25MG (Oral Capsule) 1 (one) Capsule Capsule daily for 0 days Quantity: 30 {Capsule} Refills: 0 Ordered: 20-Jun-2015 Oxana Suarez Start : 18-Jul-2013 End : 20-Jun-2015 Discontinued hydroCHLOROthiazide 25 mg oral tablet (20 sources) Thiazide Diuretic Start: 04-12-2018 End: 10-05-2018 take 0.5 tablet by mouth once daily hydroCHLOROthiazide 25 MG Oral Tablet 1/2 (one half) Tablet daily for 30 days Quantity: 15 {Tablet} Refills: 6 Ordered: 05-Oct-2018 David Paulo Start : 12-Apr-2018 End : 05-Oct-2018 Inactive Start: 03-15-2018 take 0.5 tablet by m outh once daily HydroCHLOROthiazide 25 MG Oral Tablet 1/2 (one half) Tablet daily for 30 days Quantity: 15 {Tablet} Refills: 0 Ordered: 15-Mar-2018 David FIGUEROA Paulo Kohli Start : 15-Mar-2018 Active Start: 07-21-2017 take 0.5 tablet by m outh once daily HydroCHLOROthiazide 25 MG Oral Tablet 1/2 (one half) Tablet daily for 30 days Quantity: 30 {Tablet} Refills: 3 Ordered: 21-Jul-2017 David FIGUEROA Paulo Kohli Start : 21-Jul-2017 Active indapamide 2.5 mg oral tablet (20 sources) Thiazide-like Diuretic Start: 11-03-2022 take 1 tablet by mouth once daily indapamide 2.5 mg oral tablet 1 (one) Tablet daily for 0 days Quantity: 90 {Tablet} Refills: 3 Ordered: 03-Nov-2022 Jose Gutierrez CNP Start : 03-Nov-2022 Active Comments: Mail order. Start: 12-13-2018 take 1 tablet by carol th once daily Indapamide 2.5 MG Oral Tablet 1 (one) Tablet daily for 0 days Quantity: 30 {Tablet} Refills: 6 Ordered: 15-Nov-2021 Jose Gutierrez CNP Start : 15-Nov-2021 Active Start: 12-08-2018 take 1 tablet by carol th once daily Indapamide 2.5 MG Oral Tablet 1 (one) Tablet daily for 0 days Quantity: 30 {Tablet} Refills: 6 Ordered: 08-Dec-2018 David FIGUEROA Dorie Start : 08-Dec-2018 Active Start: 10-05-2018 take 1 tablet by carol th every twenty-four hours indapamide (LOZOL) 2.5 mg tablet Take by mouth q 24 HR. 10/05/2018 Active Start: 10-05-2018 take 1 tablet by carol th once daily Indapamide 2.5 MG Oral Tablet 1 (one) Tablet daily for 0 days Quantity: 30 {Tablet} Refills: 6 Ordered: 05-Oct-2018 Cesar Corrales Start : 05-Oct-2018 Active Comment on above: Mail order. Take by mouth q 24 H R. metoprolol tartrate 50 mg oral tablet (20 sources) beta-Adrenergic Pili Start: 12-13-2018 End: 11-09-2019 Metoprolol Tartrate 50 MG Oral Tablet 1 (one) Tablet take 1 hr before test for 0 days Quantity: 1 {Tablet} Refills: 0 Ordered: 09-Nov-2019 Cesar Yun LPN Start : 13-Dec-2018 End : 09-Nov-2019 Inactive Multivitamin preparation (20 sources) take 1 tablet by mouth once daily MULTIVITAMIN (PO Tab) 1 (one) daily Active potassium 99 mg extended release oral tablet (20 sources) Start: 07-21-2016 take 1 tablet by mouth once daily Potassium 99 MG Oral Tablet 1 (one) Tablet Tablet daily for 30 days Quantity: 30 {Tablet} Refills: 0 Ordered: 21-Jul-2016 Paulo Hernandez Start : 21-Jul-2016 Active POTASSIUM ORAL T evangelina by mouth. Active POTASSIUM ORAL T evangelina by mouth. 0 Active Comment on above: Take by mouth. potassium,chelated 99 mg oral tablet (20 sources) Start: 07-21-2016 take 1 tablet by mouth once daily Potassium 99 MG Oral Tablet 1 (one) Tablet Tablet daily for 30 days Quantity: 30 {Tablet} Refills: 0 Ordered: 21-Jul-2016 Paulo Hernandez CNP Start : 21-Jul-2016 Active predniSONE 10 mg oral tablet (20 sources) Start: 08-27-2021 End: 05-09-2022 predniSONE 10 mg oral tablet 1 (one) tablet as directed for 0 days Quantity: 30 {Tablet} Refills: 0 Ordered: 09-May-2022 Jose Gutierrez CNP Start : 04-Sep-2021 End : 09-May-2022 Inactive Comments: take 40mg by mouth for 3 days, 30mg x 3 days, 20mg x3 days, then 10mg x3 days Start: 07-17-2014 End: 07-24-2014 take 3 tablets by mouth once daily at mealtime PREDNISONE, 10MG (Oral Tablet) 3 (three) Tablet daily for 7 days Quantity: 21 {Tablet} Refills: 0 Ordered: 17-Jul-2014 Paulo Hernandez Start : 17-Jul-2014 End : 24-Jul-2014 Inactive Comments: with food Start: 07-18-2013 End: 07-25-2013 take 3 tablets by mouth once daily at mealtime PREDNISONE, 10MG (Oral Tablet) 3 (three) Tablet daily for 7 days Quantity: 21 {Tablet} Refills: 0 Ordered: 18-Jul-2013 Paulo Hernandez Start : 18-Jul-2013 End : 25-Jul-2013 Inactive Comments: take with food Comment on above: with food take with food Take 4 tabs daily fo r 3 days, then 2 tabs daily for 3 days, then 1 tab daily for 3 days with food. take 40mg by mouth f or 3 days, 30mg x 3 days, 20mg x3 days, then 10mg x3 days 72 hr scopolamine 0.0139 mg/hr transdermal system (20 sources) Anticholinergic Start: 07-21-2016 End: 11-17-2016 Transderm-Scop (1.5 MG) 1 MG/3DAYS Transdermal Patch 72 Hour 1 (one) Patch 72HR Apply 1 patch q3days prn for 0 days Quantity: 4 {Patch} Refills: 0 Ordered: 17-Nov-2016 Teodora Yun Start : 21-Jul-2016 End : 17-Nov-2016 Discontinued Comments: start >4 prior to event Comment on above: start >4 prior to ev ent Problems Active Problems Problem Classification Problem Date Documented Date Episodic/Chronic Abdominal pain (20 sources) Abdominal pain; Translations: [Abdominal pain] Resolved: 3 11-14-2019 Episodic Comment on above: at site of cholecyst ectomy and elevated bilirubin Anxiety disorders (20 sources) Anxiety; Translations: [Anxiety] 10-27-2017 Chronic Comment on above: with flying Biliary tract disease (20 sources) Gallstone; Translations: [Disorder of gallbladder] Resolved: 0 10-18-2018 Episodic Cardiac dysrhythmias (20 sources) Palpitations; Translations: [Palpitation] Resolved: 2 11-22-2018 Episodic Comment on above: resolved, work up st ress test, holter, echo good,all good, palpitations improved Cataract (20 sources) Cataract; Translations: [Cataract] 10-27-2017 Chronic Coronary atherosclerosis and other heart disease (18 sources) Coronary atherosclerosis and other heart disease Deficiency and other anemia (20 sources) Anemia; Translations: [Anemia] Resolved: 4 12-26-2014 Episodic Deficiency and other anemia (20 sources) Deficiency and other anemia Disorders of lipid metabolism (20 sources) Hypercholesterolemia; Translations: [Hypercholesteremia] Onset: 4 11-11-2019 Chronic Comment on above: lab with high HDL ma ke ratio ok, would consider ca score in future HDL/LDL ratio good m onitor yearly lab with high HDL ma ke ratio ok, would consider ca score in future04/19/21: chol 253, HDL 80, LDL 160, trig 78 Genitourinary symptoms and ill-defined conditions (20 sources) Dysuria; Translations: [Dysuria] Resolved: 2 10-27-2017 Episodic Headache; including migraine (20 sources) Headache; Translations: [Headache] 10-27-2017 Episodic Immunizations and screening for infectious disease (20 sources) Need for prophylactic vaccination and inoculation against influenza; Translations: [Contact with or exposure to other viral diseases] Onset: 5 Resolved: 3 11-19-2020 Episodic Nonmalignant breast conditions (1 source) Breast finding ; Translations: [Dense breast tissue] 06-08-2024 Episodic Nutritional deficiencies (20 sources) Vitamin D deficiency; Translations: [Vitamin D deficiency] 05-14-2020 Chronic Comment on above: back off on D back off on D in pas t, last level 89.9 04/2021.goal level 60 Osteoporosis (20 sources) Osteoporosis; Translations: [Osteoporosis] Onset: 5 06-11-2022 Chronic Comment on above: start alendronate 70 mg weeklyno contraindications to starting oral therapy. she is eating better and exercising. Med instructions given in detail. also gave handouts on osteoporosis and alendronate. Other and unspecified benign neoplasm (20 sources) Hemangioma; Translations: [Hemangioma] 11-23-2019 Episodic Comment on above: Unchanged in size wi th abd US now 2.2x1.8 was 2.4 Other connective tissue disease (20 sources) Ganglion, left hand; Translations: [Ganglion cyst of tendon sheath of left hand] Resolved: 9 10-27-2017 Episodic Other female genital disorders (1 source) Cyst of vulva; Translations: [Vulvar cyst] 01-08-2023 Episodic Other female genital disorders (1 source) Pruritus of vagina; Translations: [Other specified noninflammatory disorders of vagina] 04-07-2024 Episodic Other infections; including parasitic (20 sources) Personal history of other infectious and parasitic diseases; Translations: [History of COVID-19] 05-14-2020 Episodic Comment on above: Jan 31, 2020 Other inflammatory condition of skin (20 sources) Itching ; Translations: [Itching] Resolved: 6 06-20-2015 Episodic Other liver diseases (20 sources) Increased bilirubin level; Translations: [Elevated bilirubin] Resolved: 2 05-25-2020 Episodic Other lower respiratory disease (20 sources) Solitary pulmonary nodule; Translations: [Nodule of lung] Resolved: 3 11-09-2019 Episodic Comment on above: previously seen nodu le is gone per CT Other nutritional; endocrine; and metabolic disorders (20 sources) Hypercalcemia; Translations: [Hypercalcemia] 10-27-2017 Chronic Other nutritional; endocrine; and metabolic disorders (20 sources) Hypercalciuria; Translations: [Hypercalciuria] 10-27-2017 Chronic Other nutritional; endocrine; and metabolic disorders (20 sources) Gilbert's syndrome; 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 Other screening for suspected conditions (not mental disorders or infectious disease) (20 sources) Increased bilirubin level; Translations: [Elevated bilirubin] 10-04-2018 Chronic Other screening for suspected conditions (not mental disorders or infectious disease) (20 sources) Electrocardiogram abnormal; Translations: [Abnormal EKG] Onset: 4 Resolved: 2 11-22-2018 Episodic Other upper respiratory disease (20 sources) Allergic rhinitis; Translations: [Allergic rhinitis] 10-27-2017 Chronic Other upper respiratory disease (20 sources) Nasal congestion; Translations: [Nasal congestion] 01-31-2020 Episodic Other upper respiratory infections (1 source) Sore throat symptom; Translations: [Acute pharyngitis, unspecified] 03-08-2023 Episodic Residual codes; unclassified (20 sources) Family history of diabetes mellitus; Translations: [FH: Diabetes mellitus] 10-27-2017 Episodic Residual codes; unclassified (20 sources) Body Mass Index between 19-24, adult; Translations: [Finding of body mass index] 11-17-2016 Episodic Residual codes; unclassified (20 sources) Family history of ischemic heart disease; Translations: [Family history of ischemic heart disease] 10-27-2017 Episodic Comment on above: mother 78, f ather triple bypass age 82 Residual codes; unclassified (20 sources) Postmenopausal state; Translations: [Post-menopausal] 10-27-2017 Episodic Residual codes; unclassified (20 sources) Body mass index (BMI) 21.0-21.9, adult; Translations: [Body mass index 20-24 - normal] Resolved: 3 10-27-2017 Episodic Residual codes; unclassified (20 sources) History of cholecystectomy; Translations: [History of cholecystectomy] 11-09-2019 Episodic Comment on above: Dec 2018 Residual codes; unclassified (18 sources) Needs influenza immunization; Translations: [Need for prophylactic vaccination and inoculation against influenza (Renamed from Need for immunization against influenza)] 11-09-2019 Episodic Residual codes; unclassified (20 sources) Non-smoker; Translations: [Nonsmoker] 05-25-2020 Episodic Unclassified (20 sources) Nonsmoker; Translations: [Non-smoker] 10-27-2017 Unclassified (20 sources) Unclassified (20 sources) screening 10-27-2017 Unclassified (20 sources) Post-menopausal Unclassified (20 sources) skin check 10-27-2017 Unclassified (20 sources) 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,adult; Translations: [Finding of body mass index] 04-06-2018 Unclassified (20 sources) BMI 21.0-21.9, adult; Translations: [Body mass index 20-24 - normal] 10-04-2018 Unclassified (20 sources) Elevated bilirubin Unclassified (20 sources) Patient encounter status; Translations: [Encounter for screening for lipid disorder (Renamed from Screening for hyperlipidemia)] 11-09-2019 Unclassified (20 sources) Pulmonary nodule Unclassified (20 sources) Encounter for screening mammogram for breast cancer (Renamed from Encounter for screening mammogram for malignant neoplasm of breast) Unclassified (20 sources) Encounter for screening for other suspected endocrine disorder Unclassified (20 sources) Hypercholesteremia Unclassified (20 sources) BMI 20.0-20.9, adult Unclassified (11 sources) History of COVID-19 Urinary tract infections (20 sources) Acute hemorrhagic cystitis; Translations: [Acute cystitis with hematuria] Resolved: 3 10-27-2017 Episodic Viral infection (20 sources) Other specified viral infection; Translations: [COVID-19] 02-02-2020 Episodic Past or Other Problems Problem Classification Problem Date Documented Da te Episodic/Chronic Allergic reactions (20 sources) Contact dermatitis due to poison melinda; Translations: [Contact dermatitis due to poison melinda] Onset: 12-07-2006 Resolved: 05-09-2022 06-20-2015 Episodic Comment on above: -oatmeal baths and c ool, wet compresses-topical ointment such as calamine for symptomatic relief. avoid topical atb-send to derm if does not resolve. she sees Dr. Bardales in past for 2/2 infection r/t poison melinda-solu medrol injection today-longer steroid taper, 9 days too short of course Cancer of cervix (12 sources) Cervical atypism; Translations: [Atypical squamous cells of undetermined significance on cytologic smear of cervix (ASC-US)] Onset: 01-01-2011 Resolved: 01-05-2012 01-05-2012 Episodic Headache; including migraine (20 sources) Headache; including migraine Menopausal disorders (13 sources) Menopausal symptom; Translations: [Menopausal and female climacteric states] Onset: 01-01-2011 Resolved: 02-23-2019 02-23-2019 Chronic Menstrual disorders (20 sources) Excessive and frequent menstruation; Translations: [Excessive and frequent menstruation with regular cycle] Onset: 07-09-2007 Resolved: 01-05-2012 01-01-2011 Chronic Other and unspecified benign neoplasm (12 sources) Benign neoplasm of skin of trunk; Translations: [Other benign neoplasm of skin of trunk] Onset: 12-07-2006 Resolved: 01-05-2012 01-05-2012 Episodic Other and unspecified benign neoplasm (12 sources) Benign tumor of head and neck; Translations: [Other benign neoplasm of skin of scalp and neck] Onset: 12-07-2006 Resolved: 01-05-2012 01-05-2012 Episodic Other and unspecified benign neoplasm (12 sources) Benign neoplasm of skin of face; Translations: [Other benign neoplasm of skin of unspecified part of face] Onset: 12-07-2006 Resolved: 01-05-2012 01-05-2012 Episodic Other and unspecified benign neoplasm (12 sources) Benign neoplasm of skin of upper limb; Translations: [Other benign neoplasm of skin of unspecified upper limb, including shoulder] Onset: 12-07-2006 Resolved: 01-05-2012 01-05-2012 Episodic Other and unspecified benign neoplasm (20 sources) Benign neoplasm of skin of lower limb; Translations: [Other benign neoplasm of skin of unspecified lower limb, including hip] Onset: 12-07-2006 Resolved: 02-23-2019 01-05-2012 Episodic Other and unspecified benign neoplasm (12 sources) Melanocytic nevus of scalp; Translations: [Melanocytic nevi of scalp and neck] Onset: 08-05-2009 Resolved: 01-05-2012 01-05-2012 Episodic Other and unspecified benign neoplasm (20 sources) Melanocytic nevi of unspecified part of face; Translations: [Benign neoplasm of skin of other and unspecified parts of face] Onset: 08-05-2009 Resolved: 02-23-2019 08-18-2011 Episodic Other and unspecified benign neoplasm (12 sources) Melanocytic nevus of neck; Translations: [Melanocytic nevi of scalp and neck] Onset: 08-05-2009 Resolved: 01-05-2012 01-05-2012 Episodic Other and unspecified benign neoplasm (20 sources) Melanocytic nevus of upper limb; Translations: [Melanocytic nevi of unspecified upper limb, including shoulder] Onset: 08-05-2009 Resolved: 02-23-2019 01-05-2012 Episodic Other and unspecified benign neoplasm (20 sources) Melanocytic nevus of trunk; Translations: [Melanocytic nevi of trunk] Onset: 08-05-2009 Resolved: 02-23-2019 01-05-2012 Episodic Other and unspecified benign neoplasm (20 sources) Melanocytic nevus of lower limb; Translations: [Melanocytic nevi of unspecified lower limb, including hip] Onset: 08-05-2009 Resolved: 02-23-2019 08-18-2011 Episodic Other and unspecified benign neoplasm (12 sources) Dermatofibroma; Translations: [Other benign neoplasm of skin, unspecified] Onset: 08-05-2009 Resolved: 02-23-2019 02-23-2019 Episodic Other and unspecified benign neoplasm (12 sources) Melanocytic nevus of skin ; Translations: [Melanocytic nevi of scalp and neck] Onset: 03-23-2013 Resolved: 02-23-2019 02-23-2019 Episodic Other bone disease and musculoskeletal deformities (20 sources) Osteopenia; Translations: [Osteopenia] Onset: 05-04-2020 10-27-2017 Episodic Comment on above: worsening rt femur, on hctz worsening rt femur, on indapamide, potassium Vit D and multivit, bone density due April 2020 worsening rt femur, on indapamide, potassium Vit D and multivit, last BD 04/2020 Other congenital anomalies (12 sources) Benign neoplasm of skin of buttock; Translations: [Congenital non-neoplastic nevus] Onset: 03-23-2013 Resolved: 02-23-2019 02-23-2019 Chronic Other connective tissue disease (20 sources) Ganglion cyst of tendon sheath of left hand; Translations: [Ganglion cyst of tendon sheath of left hand] Resolved: 10-04-2018 04-06-2018 Other injuries and conditions due to external causes (12 sources) Open wound; Translations: [Other injury of unspecified body region, initial encounter] Onset: 02-20-2010 Resolved: 08-18-2011 08-18-2011 Episodic Other skin disorders (12 sources) Disorder of skin pigmentation; Translations: [Disorder of pigmentation, unspecified] Onset: 12-07-2006 Resolved: 01-05-2012 01-05-2012 Episodic Other skin disorders (12 sources) Epidermoid cyst of skin; Translations: [Epidermal cyst] Onset: 08-05-2009 Resolved: 01-05-2012 01-05-2012 Episodic Other skin disorders (20 sources) Solar lentigo; Translations: [Other melanin hyperpigmentation] Onset: 08-05-2009 Resolved: 02-23-2019 01-05-2012 Episodic Other skin disorders (20 sources) Cafe au lait spots; Translations: [Cafe au lait spots] Onset: 08-05-2009 Resolved: 02-23-2019 02-23-2019 Episodic Other skin disorders (12 sources) Seborrheic keratosis; Translations: [Other seborrheic keratosis] Onset: 03-23-2013 Resolved: 02-23-2019 02-23-2019 Episodic Other skin disorders (12 sources) Scar; Translations: [Scar conditions and fibrosis of skin] Onset: 03-23-2013 Resolved: 02-23-2019 02-23-2019 Episodic Unclassified (20 sources) menopausal 10-27-2017 Unclassified (20 sources) family hx of high chol 10-27-2017 Unclassified (20 sources) Deliveries (Parity); Translations: [Deliveries (Parity)] 10-27-2017 Comment on above: 4. Unclassified (20 sources) CONTACT DERMATITIS D/T POISON MELINDA, (692.6) Unclassified (20 sources) Pregnancies (); Translations: [Pregnancies ()] 10-27-2017 Comment on above: 4. Unclassified (20 sources) Ganglion cyst of tendon sheath of left hand Unclassified (20 sources) Body mass index 20-24 - normal; Translations: [BMI 22.0-22.9, adult] 11-22-2018 Unclassified (20 sources) Palpitation Unclassified (20 sources) Abnormal EKG Unclassified (20 sources) Unspecified Diagnosis 11-09-2019 Unclassified (3 sources) Screening status; Translations: [Encounter for screening for lipid disorder (Renamed from Screening for hyperlipidemia)] 11-09-2019 Unclassified (11 sources) COVID-19 virus detected Unclassified (5 sources) Exposure to COVID-19 virus Unclassified (1 source) Dermatitis due to plants, including poison melinda, sumac, and oak Unclassified (1 source) Breast finding 08-08-2024 Results Test Name Value Interpretation Reference Range Facility CNOVon 06-09-2024 CNOV Office Visit (OBGYWM ) ----- ТАТЬЯНА GONZALEZ ([id number]) 1965 F Date Time Provider Department 06/09/24 4:00 PM FLASH VERMA During your visit today, we recorded the following information about you: Blood pressure Weight Height 108/60 54.4 kg 1.635 m Flash Verma APRN.BUSINESS SERVICES SALES AGENT 06/09/2024 4:47 PM Signed Wire Repairer offered: Patient declines. 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 Has daughters as well. Mom was a [employer] M[employer] HELPER here. Postmenopausal: Yes hysterectomy at 45 yo HRT use: Yes, vaginal estrace cream Age at Menarche: 12 Still get period: No Menses: no menses- hysterectomy Sexually active: Yes Contraception: Surgical HPV vaccine: No Last pap smear: 01/01/2011 normal, HPV negative History of abnormal pap: No Colposcopy: No. Leep: No. Cone biopsy: No. Bothersome pelvic pain: No Last mammogram: 05/2024 [facility] normal History of abnormal mammogram: No OB History Gravida4 Para4 Term0 Preterm0 AB0 Living4 SAB0 IAB0 Ectopic0 Multiple0 Live Births0 FAMILY HISTORY Problem Relation Age of Onset Hypertension Mother Diabetes Father Hypertension Father Blood Disease Sister polycythenia Hypertension Sister Hypertension Brother Heart Maternal Grandfather Heart Paternal Grandmother CONGESTIVE HEART FAILURE Cancer Paternal Grandfather ? KIDNEY CANCER No Known Problems Daughter No Known Problems Daughter Hypertension Son No Known Problems Son SOCIAL HISTORY Social History Tobacco Use Smoking status: Never Smokeless tobacco: Never Vaping Use Vaping status: Never Used Substance Use Topics Alcohol use: Yes Comment: occasional Drug use: No REVIEW OF SYSTEMS Abdomen: No abdominal pain, nausea, vomiting, diarrhea, or constipation. No bloating, early satiety, indigestion, or increased flatulence. Bladder: No dysuria, gross hematuria, urinary frequency, urinary urgency, or incontinence Breast: No breast lumps, nipple d/c, overlying skin changes, redness or skin retraction Allergies and current medication updated:Yes SENSITIVE EXAM: The sensitive examination was discussed with the Patient or Patient's Authorized Toe Lining Closer. As applicable, any other physician, advance practice provider, medical student, or other health professional student that will be observing or involved in the sensitive examination for educational or training purposes was discussed with the Patient or Authorized Toe Lining Closer. The Patient or Authorized Toe Lining Closer has agreed to proceed with the sensitive examination. (Sensitive examination includes inspection and/or palpation of the breasts, pelvis, prostate and anorectal regions). EXAM: BP 108/60 Ht 5' 4.382 (1.64m) Wt 120 lb (54.4kg) LMP 06/27/2011 BMI 20.36 kg/(m2). GENERAL: pleasant, female in no apparent distress HEENT: Normocephalic, atraumatic, mucus membranes moist, and no lesions NECK: Supple, full range of motion, no adenopathy, and thyroid normal DERMATOLOGY: Normal, without lesions, non-icteric, and non-hirsute BREAST: soft, non-tender, symmetric, no dominant mass, normal nipple-areolar complex, no lymphadenopathy, and no nipple discharge CHEST: Normal inspiratory effort ABDOMEN: soft, non-tender, and no masses PELVIC: external genitalia normal, normal Bartholin's glands, urethra, Neola's glands, no vulvar lesions, good vaginal support, physiologic discharge present, normal appearing perineal body and perianal region, cervix surgically absent BIMANUAL: no adnexal masses, non-tender, and uterus surgically absent RECTOVAGINAL: deferred. NEURO: alert and oriented x3,exam grossly non-focal EXTREMITIES: normal ASSESSMENT/PLAN: 1) Health maintenance: Pap/HPV screening no longer needed Mammogram up to date Nutrition, exercise and routine health maintenance exams reviewed. Reviewed Vitamin D/Calcium. Colon cancer screening: planning for this year TSH/lipids/glucose: followed by PCP BMD: followed by PCP, osteoporosis 2) Follow up one year or sooner as needed Flash Verma APRN.CAROLINA Referring Provider: PIPER BO [[id number]] Allergies As of Date: 06/09/2024 (No Known Allergies) Date Reviewed: 06/09/2024 Reviewed by: Flash Verma APRN.BUSINESS SERVICES SALES AGENT - Fully Assessed Reason for Visit: Well Woman [[id number]] Primary Visit Diagnosis:Encounter for gynecological examination (general) (routine) without abnormal findings [Z01.419] Other Visit Diagnoses:Encounter for screening for human papillomavirus (HPV) [Z11.51] Pap smear for cervical cancer screening [Z12.4] Encounter for screening mammogram for breast cancer [Z12.31] Order(s):RAMIN SCREENING W MARÍA ELENA [[id number]] Order #: [id number] FUTURE Prescriptions as of 06/09/2024 - LORazepam (ATIVAN) 0.5 mg (more content not included)... Normal [facility] DBT Breast - bilateral scree naifn 06-08-2024 IMPRESSION: There is no mammographic evidence of malignancy in either breast. Routine screening mammogram is recommended. Annual mammogram will be due in 1 year. BI-RADS Category 1: Negative RISK: Based on the Tyrer-Cuzick (TC) risk assessment model, this patient has a 4.7% lifetime risk of developing breast cancer, meaning they are at average risk for developing breast cancer. However, this is only an estimate based on available history provided on the patient's questionnaire. We encourage all patients to talk with their providers about these results, further recommendations for managing breast health, and appropriate supplemental screening options if the patient has dense breast tissue. Interpreting Radiologist: Lonny Thomson M.D. Electronically signed on: 06/08/2024 Recyclable Products Sorter: VU Transcribe Date/Time: Jun 08 2024 8:54A Dictated by: LONNY THOMSON MD This examination was interpreted and the report reviewed and electronically signed by: LONNY THOMSON MD on Jun 08 2024 9:51AM [facility] DIVISION OF RADIOLOGY * * *Final Report* * * DATE OF EXAM: Jun 08 2024 9:20AM [facility] 0582 - [facility] SCREENING W MARÍA ELENA / PROCEDURE REASON: Encounter for screening mammogram for breast cancer * * * * Physician Interpretation * * * * RESULT: [place] [address] #[id number] - [facility]IN SCREENING W MARÍA ELENA HISTORY: 58 year-old patient seen for screening. Patient is asymptomatic in both breasts. Patient states no personal history of breast cancer. COMPARISON STUDIES: The present examination has been compared to prior imaging studies dated 05/28/2020 (mammogram), 05/31/2021 (mammogram), 06/05/2022 (mammogram), 06/08/2023 (mammogram) and 06/30/2023 (mammogram). MAMMOGRAM TECHNIQUE: The study was acquired using full field digital technology and interpreted from soft copy. Digital Breast Tomosynthesis (DBT) images were obtained and used to assist in the interpretation of this examination. MAMMOGRAM FINDINGS: The breasts are heterogeneously dense, which may obscure small masses. No suspicious masses, calcifications or other abnormalities are seen in either breast. There are no significant interval changes. DIVISION OF RADIOLOGY Provider, [facility] - 06/08/2024 * * *Final Report* * * DATE OF EXAM: Jun 08 2024 9:20AM [facility] 0582 - [facility] SCREENING W MARÍA ELENA / PROCEDURE REASON: Encounter for screening mammogram for breast cancer * * * * Physician Interpretation * * * * RESULT: [place] [address] #[id number] - [facility] SCREENING W MARÍA ELENA HISTORY: 58 year-old patient seen for screening. Patient is asymptomatic in both breasts. Patient states no personal history of breast cancer. COMPARISON STUDIES: The present examination has been compared to prior imaging studies dated 05/28/2020 (mammogram), 05/31/2021 (mammogram), 06/05/2022 (mammogram), 06/08/2023 (mammogram) and 06/30/2023 (mammogram). MAMMOGRAM TECHNIQUE: The study was acquired using full field digital technology and interpreted from soft copy. Digital Breast Tomosynthesis (DBT) images were obtained and used to assist in the interpretation of this examination. MAMMOGRAM FINDINGS: The breasts are heterogeneously dense, which may obscure small masses. No suspicious masses, calcifications or other abnormalities are seen in either breast. There are no significant interval changes. IMPRESSION IMPRESSION: There is no mammographic evidence of malignancy in either breast. Routine screening mammogram is recommended. Annual mammogram will be due in 1 year. BI-RADS Category 1: Negative RISK: Based on the Tyrer-Cuzick (TC) risk assessment model, this patient has a 4.7% lifetime risk of developing breast cancer, meaning they are at average risk for developing breast cancer. However, this is only an estimate based on available history provided on the patient's questionnaire. We encourage all patients to talk with their providers about these results, further recommendations for managing breast health, and appropriate supplemental screening options if the patient has dense breast tissue. Interpreting Radiologist: Lonny Thomson M.D. Electronically signed on: 06/08/2024 Recyclable Products Sorter: VU Transcribe Date/Time: Jun 08 2024 8:54A Dictated by: LONNY THOMSON MD This examination was interpreted and the report reviewed and electronically signed by: LONNY THOMSON MD on Jun 08 2024 9:51AM EST [facility] Radiology Study observation (narrative) [facility] DBT Breast - bilateral scree ningOrdered By: [facility] Provider on 06-08-2024 [facility] Dexa Bone Density Studyon Dexa Bone Density Study [facility] Imaging Services [address] [place] [address] [id number] Dexa Bone Density Study MR#: [id number] Acct: [id number] Name: ТАТЬЯНА GONZALEZ Rep #: [id number] : 1965 F 58 From: Doris Leon PCP: ANUSHA Ahumada Status: [facility] CLI Study: Dexa Bone Density Study Date of Exam: 06/08/24 Exam# [id number] Ordering Dr: Jose Gutierrez PROCEDURE: DEXA BONE DENSITY STUDY 06/08/2024 REASON FOR EXAM: F, age 58 y/o . Postmenopausal. TECHNIQUE: DEXA scan of sites with data reported below. Scanner utilized: [employer]. REFERENCE LINKS: [facility] Adult Positions COMPARISON: DEXA examination dated 06/03/2022 FINDINGS: BMD and T-SCORES Lumbar spine: 0.691 g/cm2, T-score -3.7 Levels: L1 through L4 Change from prior: 6.5%. Left femoral neck: 0.561 g/cm2, T-score -2.6 Left total hip: 0.671 g/cm2, T-score -2.2 Change from prior: -0.9%. Right femoral neck: 0.586 g/cm2, T-score -2.4 Right total hip: 0.678 g/cm2, T-score -2.2 Change from prior:-5%. The World Health Organization has defined the following categories based on bone density: Normal bone density: T-score equal to or greater than -1.0 Osteopenia: T-score between -1.0 and -2.5 Osteoporosis: T-score equal to or less than -2.5 FRAX (or Comparable) Fracture Risk Assessment: 10 Year Probability of Fracture: Major Osteoporotic Fracture: 28% Hip Fracture: 7% (Note: FRAX is not to be reported in setting of normal range bone density, osteoporosis on DEXA, known history of osteoporosis, prior osteoporotic hip or vertebral fracture, or for any patient undergoing pharmacological treatment for bone loss.) The National Osteoporosis Foundation (NOF) recommends pharmacological treatment for patients with a FRAX 10-year risk of 3% or higher for a hip fracture, or 20% or higher for a major osteoporotic fracture, to prevent osteoporosis and reduce fracture risk. The patient does meet the pharmacological treatment recommendations for prevention of osteoporosis. BD/Dexa Bone Density Study IMPRESSION: OSTEOPOROSIS. Recommend follow-up as clinically warranted. Reading Location: [facility] CC: ANUSHA Gutierrez Recyclable Products Sorter: Signed Normal [facility] SCREENING W TOMOon 06-08 [facility] SCREENING W MARÍA ELENA * * *Final Report* * * DATE OF EXAM: Jun 08 2024 9:20AM [facility] 0582 - [facility] SCREENING W MARÍA ELENA / PROCEDURE REASON: Encounter for screening mammogram for breast cancer * * * * Physician Interpretation * * * * RESULT: [facility] [address] [id number] #[id number] - [facility] SCREENING W MARÍA ELENA HISTORY: 58 year-old patient seen for screening. Patient is asymptomatic in both breasts. Patient states no personal history of breast cancer. COMPARISON STUDIES: The present examination has been compared to prior imaging studies dated 05/28/2020 (mammogram), 05/31/2021 (mammogram), 06/05/2022 (mammogram), 06/08/2023 (mammogram) and 06/30/2023 (mammogram). MAMMOGRAM TECHNIQUE: The study was acquired using full field digital technology and interpreted from soft copy. Digital Breast Tomosynthesis (DBT) images were obtained and used to assist in the interpretation of this examination. MAMMOGRAM FINDINGS: The breasts are heterogeneously dense, which may obscure small masses. No suspicious masses, calcifications or other abnormalities are seen in either breast. There are no significant interval changes. IMPRESSION: There is no mammographic evidence of malignancy in either breast. Routine screening mammogram is recommended. Annual mammogram will be due in 1 year. BI-RADS Category 1: Negative RISK: Based on the Tyrer-Cuzick (TC) risk assessment model, this patient has a 4.7% lifetime risk of developing breast cancer, meaning they are at average risk for developing breast cancer. However, this is only an estimate based on available history provided on the patient's questionnaire. We encourage all patients to talk with their providers about these results, further recommendations for managing breast health, and appropriate supplemental screening options if the patient has dense breast tissue. Interpreting Radiologist: Lonny Thomson M.D. Electronically signed on: 06/08/2024 Recyclable Products Sorter: VU Transcribe Date/Time: Jun 08 2024 8:54A Dictated by: LONNY THOMSON MD This examination was interpreted and the report reviewed and electronically signed by: LONNY THOMSON MD on Jun 08 2024 9:51AM EST [id number] Normal [facility] BACTERIAL VAGINOSIS NAATon 0 04-07-2024 Lactobacillus crispatus+gasseri+glenn senii + Gardnerella vaginalis + Atopobium vaginae rRNA MARGARITA+probe Ql (Vag fld) Not detected Normal Not detected [facility] Comment on above: Order Comment: Speci men Type: SWAB Ordering Facility: [facility] Address: [address] [place] [address] Performed By: #### C VTV, BVAMP #### [facility] CLIA [id number] [address] [place] [address] AB JOSE/TRICHOMONAS NAATon 0 04-07-2024 C. glabrata RNA MARGARITA+probe Ql (Vag fld) Not detected Normal Not detected [facility] Comment on above: Order Comment: Speci men Type: SWAB Ordering Facility: [facility] Address: [address] [place] [address] Performed By: #### C VTV, BVAMP #### [facility] CLIA [id number] [address] [place] [address] OF [facility] Jose sp DNA MARGARITA+probe Ql (Vag fld) Not detected Normal Not detected [facility] Comment on above: Order Comment: Speci men Type: SWAB Ordering Facility: [facility] Address: [address] [place] [address] Result Comment: The Jose species group target includes C. albicans, C. tropicalis, C. parapsilosis, and C. dubliniensis. Performed By: #### C VTV, BVAMP #### [facility] CLIA [id number] [address] [place] [address] OF [facility] T. vaginalis DNA MARGARITA+probe Ql (Unsp spec) Not detected Normal Not detected [facility] Comment on above: Order Comment: Speci men Type: SWAB Ordering Facility: [facility] Address: [address] [place] [address] Performed By: #### C VTV, BVAMP #### [facility] CLIA [id number] [address] [place] [address] [place] CNOVon 04-07-2024 CNOV Office Visit (OBGYWM ) ----- ТАТЬЯНА GONZALEZ ([id number]) 1965 F Date Time Provider Department 04/07/24 3:40 PM HIRAM GILBERT OBGYWAgueda During your visit today, we recorded the following information about you: Blood pressure Weight 110/66 55.3 kg Hiram Gilbert MD 04/07/2024 3:58 PM Signed Татьяна Gonzalez is a 58 year old female who presents for problem visit. HPI: Patient presents with vaginal irritation, itching and pain/dryness with intercourse. OB History Gravida4 Para4 Term0 Preterm0 AB0 Living4 SAB0 IAB0 Ectopic0 Multiple0 Live Births0 Delivery Room Supervisor History LMP: 06/27/2011, Hysterectomy Age at Menarche: Age at First : Age at Menopause: Delivery Room Supervisor History Comments: Sexual Activity: Yes; No partner data on record; TVH Contraception: Surgical PAST MEDICAL HISTORY Diagnosis Date Excessive or frequent menstruation Heavy periods resolved but prolonged High calcium levels Irregular menstrual cycle Irregular periods and prolonged Osteopenia Osteoporosis PAST SURGICAL HISTORY Procedure Laterality Date DELIVERY ONLY , low cervical X2 DILATION AND CURETTAGE DXAND/THER NONOBSTETRIC 07/11/2007 Dilation AND curettage LIG/TRNSXJ FLP TUBE ABDL/VAG APPR UNI/BI Tubal ligation NOVASURE 02/27/2009 hysteroscopy PAST SURGICAL HISTORY OF 01/09/2010 removal of cyst on (L) thigh REMOVAL GALLBLADDER 12/2018 VAGINAL HYSTERECTOMY UTERUS 250 GM/< 08/26/2011 TVH, heavy menses FAMILY HISTORY Problem Relation Age of Onset Hypertension Mother Diabetes Father Hypertension Father Blood Disease Sister polycythenia Hypertension Sister Hypertension Brother Heart Maternal Grandfather Heart Paternal Grandmother CONGESTIVE HEART FAILURE Cancer Paternal Grandfather ? KIDNEY CANCER No Known Problems Daughter No Known Problems Daughter Hypertension Son No Known Problems Son Social History Tobacco Use Smoking status: Never Smokeless tobacco: Never Vaping Use Vaping status: Never Used Substance Use Topics Alcohol use: Yes Comment: occasional Drug use: No Current Outpatient Medications Medication Sig TYMLOS 80 mcg (3,120 mcg/1.56 mL) pen injector RED YEAST RICE ORAL Take by mouth. indapamide (LOZOL) 2.5 mg tablet Take by mouth q 24 HR. CHOLECALCIFEROL, VITAMIN D3, (VITAMIN D3 ORAL) Take by mouth. (Patient not taking: Reported on 09/29/2023) POTASSIUM ORAL Take by mouth. DAILY MULTIVITAMIN TAB No current facility-administered medications for this visit. Allergies As of Date: 04/07/2024 (No Known Allergies) Fully Assessed 09/29/2023 Allergies and current medication updated:Yes SENSITIVE EXAM: The sensitive examination was discussed with the Patient or Patient's Authorized Toe Lining Closer. As applicable, any other physician, advance practice provider, medical student, or other health professional student that will be observing or involved in the sensitive examination for educational or training purposes was discussed with the Patient or Authorized Toe Lining Closer. The Patient or Authorized Toe Lining Closer has agreed to proceed with the sensitive examination. (Sensitive examination includes inspection and/or palpation of the breasts, pelvis, prostate and anorectal regions). EXAM: LMP 06/27/2011 GENERAL: pleasant, female in no apparent distress PELVIC: external genitalia normal, no vulvar lesions, no cervical lesions, normal appearing perineal body and perianal region; atrophic vagina ASSESSMENT AND PLAN: Assessment AND Plan Vaginal itching Orders: JOSE/TRICHOMONAS NAAT BACTERIAL VAGINOSIS NAAT Postmenopausal atrophic vaginitis Discussed R/B/a of treatment options. Estrace cream given AND use reviewed. Medical Decision Making: Problems: Moderate: New problem with uncertain prognosis Data: Unique test(s) ordered: 2 Risk: Moderate: Drug management Medical Decision Making Level: 4 - Moderate Hiram Gilbert MD Allergies As of Date: 04/07/2024 (No Known Allergies) Date Reviewed: 04/07/2024 Reviewed by: Hiram Gilbert MD - Fully Assessed Reason for Visit: Vaginal Problem [117] Cmt: Vaginal itching Primary Visit Diagnosis:Vaginal itching [N89.8] Other Visit Diagnosis:Postmenopausal atrophic vaginitis [N95.2] Order(s):JOSE/TRICHOMO OLIVER NAAT [SQCVTV] Order #: [id number] BACTERIAL VAGINOSIS NAAT [SQBVAMP] Order #: [id number] estradiol (ESTRACE) 0.01 % (0.1 mg/gram) vaginal creamUse 1g vaginally. Nightly for 2 weeks. Then every other day for 2 weeks. Then 2 times per week ongoing.Disp: 42.5 gRfl: 11 Prescriptions as of 04/07/2024 - LORazepam (ATIVAN) 0.5 mg 1 (one) Tablet 1hr before procedure or flight - estradiol (ESTRACE) 0.01 % (0.1 mg/gram) vaginal cream Use 1g vaginally. Nightly for 2 weeks. Then every other day for 2 weeks. Then 2 times per week ongoing. - TYMLOS 80 mcg (3,120 mcg/1.56 mL) pen injector - (more content not included)... Normal [facility] CT CARDIAC SCORING WO IV CON TRASTon 12-21-2023 CT CARDIAC SCORING WO IV CONTRAST Interpreted By: Usman Ramirez, STUDY: CT CARDIAC SCORING WO IV CONTRAST; 12/21/2023 8:15 am INDICATION: Signs/Symptoms:HYPERCHOLE STEROLEMIA. ,E78.00 Pure hypercholesterolemia, unspecified COMPARISON: None. ACCESSION NUMBER(S): [id number] ORDERING CLINICIAN: JOSE GUTIERREZ TECHNIQUE: Using prospective ECG gating, CT scan of the coronary arteries was performed without intravenous contrast. Coronary calcium scoring was performed according to the method of Agatston. FINDINGS: The score and distribution of calcium in the coronary arteries is as follows: LM 0 LAD 0 LCx 0 RCA 0 Total 0 The visualized mid/lower ascending thoracic aorta measures 3.4 cm in diameter. The heart is normal in size. No pericardial effusion is present. No gross evidence of mediastinal or hilar lymphadenopathy or masses is identified. The visualized segments of the lungs are normally expanded. The visualized subdiaphragmatic structures appear intact. IMPRESSION: 1. Coronary artery calcium score of 0*. *Coronary artery calcium scoring may be helpful in predicting the risk for future coronary heart disease events. According to the [employer] [employer] Clinical Expert Consensus Task Force, such testing provides important prognostic information in patients with more than one coronary heart disease risk factor. The coronary artery calcium score correlates with the annual risk of a non-fatal myocardial infarction or coronary heart disease . Coronary artery score Annual Risk 0-99 0.4% 100-399 1.3% >400 2.4% These three breakpoints correspond to lower, intermediate and high risk states for future coronary events. Such information should be used, along with appropriate clinical judgment, to make decisions regarding the intensity of risk factor management strategies to treat blood lipids and to modify other non-lipid coronary risk factors. Reference: Moses P et al. Circulation. 2007; 115:402-426 MACRO: None Signed by: Usman Ramirez 12/22/2023 2:06 PM Dictation workstation: [id number] [facility] Bacteria Ur Culton 4 Bacteria identified Cx Nom (U) ORGANISM ID: 1 >=100,000 CFU/ml Escherichia coli ORGANISM ID: 1 (ESCHERICHIA COLI) ANTIBIOTIC INTERPRETATION TENZIN STATUS REFERENCE RANGE Ampicillin R >=32 F Susceptible <=8 , Intermediate >8 , Resistant >16 Cefazolin S <=4 F Susceptible 0-16 , Intermediate <0 or >16 , Resistant >16 For uncomplicated urinary tract infections, cefazolin results can be used to predict susceptibility or resistance to cephalexin. Ceftriaxone S <=1 F Susceptible <=1 , Intermediate >1 , Resistant >=4 Cefepime S <=1 F Susceptible <=2 , Susceptible-Dose Dependent >2 , Resistant >=16 Ertapenem S <=0.5 F Susceptible <=0.5 , Intermediate >.5 , Resistant >1 Meropenem S <=0.25 F Susceptible <=1 , Intermediate >1 , Resistant >2 Ampicillin/Sulbact I 16 F Susceptible <=8 , Intermediate >8 , Resistant >16 Piperacillin/Tazobac S <=4 F Susceptible <16 , Susceptible-Dose Dependent >=16 , Resistant >=32 Gentamicin S <=1 F Susceptible <=2 , Intermediate >2 , Resistant >=8 Tobramycin S <=1 F Susceptible <4 , Intermediate >=4 , Resistant >=8 Trimeth sulfameth S <=20 F Susceptible <=40 , Resistant >40 Ciprofloxacin S <=0.25 F Susceptible <0.5 , Intermediate >=.5 , Resistant >=1 Nitrofurantoin S <=16 F Susceptible <=32 , Intermediate >32 , Resistant >64 Abnormal [facility] Comment on above: Performed By: #### 6 30-4 #### [facility] CANDACEIA [id number] [address] [place] [address] [place] CNOVon 09-29-2023 CNOV Office Visit (UCWSTR ) ----- ТАТЬЯНА GONZALEZ ([id number]) 1965 F Date Time Provider Department 09/29/23 8:00 AM RITA ZULUAGA WSTR During your visit today, we recorded the following information about you: Temperature Pulse Respiration Blood pressure 98.3 degrees 85/minute 18/minute 107/72 Weight 55 kg Rita Zuluaga, HEALTHCARE ACCOUNT MANAGER.BUSINESS SERVICES SALES AGENT 09/29/2023 8:31 AM Signed Patient presents with: Urinary Problem: Burning,frequency, hematuria,flank pain x 2 days Symptoms started yesterday Last week she had back pain and is wondering if she may have passed a kidney stone The history is provided by the patient. Review of Systems Constitutional: Negative for chills and fever. Genitourinary: Positive for dysuria, frequency, hematuria and urgency. Negative for flank pain. Physical Exam Vitals reviewed. Constitutional: Appearance: Normal appearance. HENT: Head: Normocephalic. Eyes: Extraocular Movements: Extraocular movements intact. Cardiovascular: Rate and Rhythm: Normal rate and regular rhythm. Heart sounds: Normal heart sounds. Pulmonary: Effort: Pulmonary effort is normal. No respiratory distress. Breath sounds: Normal breath sounds. No wheezing, rhonchi or rales. Abdominal: Palpations: Abdomen is soft. Tenderness: There is no abdominal tenderness. There is no right CVA tenderness or left CVA tenderness. Neurological: Mental Status: She is alert. ASSESSMENT/PLAN: 1. Burning with urination - ICD9: 788.1, ICD10: R30.0 acute - UA positive for gretchen esterase, hematuria, and proteinuria - Send urine for culture - Begin treatment with Macrobid 100 mg BID for 5 days - Patient education for prevention given - UA DIP, URINE (POC) - URINE CULTURE - Will notify patient if need to stop or change antibiotics based on culture results - Reviewed follow up instructions and symptoms to present to ER - She verbalized understanding and agreement with this plan. THU Cespedes Samantha L, APRN.CNP 09/29/2023 8:25 AM Signed - Macrobid twice daily for 5 days - Will call if need to stop or change your antibiotics based on culture - If your symptoms continue after treatment or worsen please follow up with your primary care doctor or [facility] - Follow up with your primary care doctor in 2-3 weeks to make sure there is no longer blood in your urine - ER if you are unable to urinate, fever, or other severe or concerning symptoms URINARY TRACT INFECTION PATIENT INSTRUCTIONS: BLADDER INFECTION OVERVIEW Bladder infections are one of the most common infections, causing symptoms of burning with urination and needing to urinate frequently. A bladder infection is a type of urinary tract infection (UTI). Bladder infections are more common is women than men. Most women have an uncomplicated bladder infection that is easily treated with a short course of antibiotics. In men, bladder infections may also affect the prostate gland, and a longer course of treatment may be needed. BLADDER INFECTION CAUSES The urinary tract includes the kidneys (which filter urine), ureters (the tube that carries urine from the kidneys to the bladder), the bladder (which stores urine), and urethra (the tube that carries urine out of the bladder). Bacteria do not normally live in these areas. However, bacteria normally live close to the urethra in women and men who are not circumcised. Bladder infections occur when bacteria travel up the urethra into the bladder. Factors that increase the risk of developing a bladder infection include: Vaginal sex Use of spermicides History of past bladder infections Diabetes In men, not being circumcised or having anal sex increase the risk of bladder infections. BLADDER INFECTION SYMPTOMS The typical symptoms of a bladder infection include: Pain or burning when urinating Frequent need to urinate Urgent need to urinate Blood in the urine Fever, back pain, nausea, or vomiting are not common symptoms of a bladder infection, but can occur in people with a kidney infection (pyelonephritis). If you have these symptoms, you should call your doctor or nurse immediately. Is it a bladder infection or something else? -- Burning with urination can also occur in people with vaginitis (eg, yeast infection) or urethritis (inflammation of the urethra). For this reason, it is important to call your healthcare provider before assuming you have a bladder infection. BLADDER INFECTION DIAGNOSIS Simple bladder infections are usually diagnosed based upon your symptoms alone. However, most patients, especially those who have bladder infection symptoms for the first time, should see a healthcare provider for urine testing. Urine culture -- A urine culture is a test that uses a sample of urine to try and grow bacteria in a laboratory. It usually requires about (more content not included)... Normal [facility] UA DIP, URINE (POC)on 2023 BILIRUBIN UA (POCT) Small Abnormal Negative [facility] CLARITY UA (POCT) Turbid [facility] COLOR UA (POCT) Red [facility] GLUCOSE UA (POCT) Negative Negative mg/dL [facility] Hemoglobin Ql (U) Large Abnormal Negative [facility] Interpretation and review of laboratory results Abnormal [facility] KETONE UA (POCT) Negative Negative mg/dL [facility] LEUKOCYTES UA (POCT) Large Abnormal Negative [facility] NITRITE UA (POCT) Negative Negative [facility] PH UA (POCT) 7.0 4.5 - 8.0 [facility] Protein Ql (U) 100 mg/dL Abnormal Negative [facility] SPECIFIC GRAVITY UA (POCT) 1.015 1.005 - 1.030 [facility] UROBILINOGEN UA (POCT) 0.2 Normal E.U./dL [facility] Location:[address], [place], [place], [id number] [place] [address] POINT OF CARE [facility] DBT Breast - left diagnostic for implanton 06-30-2023 * * *Final Report* * * DATE OF EXAM: Jun 30 2023 3:31PM ELINORW [id number] - [facility] BERTRAM W MARÍA ELENA LT / PROCEDURE REASON: Abnormal mammogram * * * * Physician Interpretation * * * * RESULT: #[id number] - [facility] BERTRAM W MARÍA ELENA LT #[id number] - [facility] BREAST LTD LT UNILATERAL LEFT DIGITAL DIAGNOSTIC MAMMOGRAM TOMOSYNTHESIS WITH CAD: 06/30/2023 HISTORY: Abnormal Mammogram / Call back/abnormal mamm: Left /priors available for comparison Abnormal Mammogram. RESULT: TECHNIQUE: The study was acquired using full field digital technology and interpreted from soft copy. Digital Breast Tomosynthesis (DBT) images were obtained and used to assist in the interpretation of this examination. Current study was also evaluated with a Computer Aided Detection (CAD). Comparison is made to exams dated: 06/08/2023 mammogram, 06/05/2022 mammogram, 05/31/2021 mammogram, and 05/28/2020 mammogram - [facility]. The left breast is heterogeneously dense, which may obscure small masses. Prior asymmetry is no longer seen in the left breast. No significant masses, calcifications, or other findings are seen in the breast. DIVISION OF RADIOLOGY Provider, [facility] - 06/30/2023 * * *Final Report* * * DATE OF EXAM: Jun 30 2023 3:31PM W [id number] - [facility] DIAG W MARÍA ELENA LT / PROCEDURE REASON: Abnormal mammogram * * * * Physician Interpretation * * * * RESULT: #[id number] - [facility] DIAG W MARÍA ELENA LT #[id number] - [facility] flux - neutrinity LTD LT UNILATERAL LEFT DIGITAL DIAGNOSTIC MAMMOGRAM TOMOSYNTHESIS WITH CAD: 06/30/2023 HISTORY: Abnormal Mammogram / Call back/abnormal mamm: Left /priors available for comparison Abnormal Mammogram. RESULT: TECHNIQUE: The study was acquired using full field digital technology and interpreted from soft copy. Digital Breast Tomosynthesis (DBT) images were obtained and used to assist in the interpretation of this examination. Current study was also evaluated with a Computer Aided Detection (CAD). Comparison is made to exams dated: 06/08/2023 mammogram, 06/05/2022 mammogram, 05/31/2021 mammogram, and 05/28/2020 mammogram - [facility]. The left breast is heterogeneously dense, which may obscure small masses. Prior asymmetry is no longer seen in the left breast. No significant masses, calcifications, or other findings are seen in the breast. IMPRESSION IMPRESSION: NEGATIVE There is no mammographic evidence of malignancy. LIMITED ULTRASOUND OF LEFT BREAST: 06/30/2023 RESULT: Comparison is made to exams dated: 06/08/2023 mammogram, 06/05/2022 mammogram, 05/31/2021 mammogram, and 05/28/2020 mammogram - [facility]. Color flow and real-time ultrasound of the left breast 12 o'clock region were performed. Mares scale images of the real-time examination were reviewed. IMPRESSION: NEGATIVE There is no sonographic evidence of malignancy. There is no abnormality seen in the left breast to correspond with the mammographic density. Return to annual mammogram screening schedule is recommended. Mely jordan/emil:06/30/2023 15:50:59 Multiple national specialty organizations have released breast cancer screening guidelines for women at average risk for developing breast cancer - guidelines that are based on both evidence and opinion, yet differ on when to start and how often to screen for breast cancer. With representation from Breast Imaging, Internal Medicine, Women's Health, Family Medicine, and Medical/Surgical Oncology, the [facility] has carefully reviewed the data and reached the following consensus: 1) All women should engage in shared decision-making with their providers to decide when to start and how often to screen; 2) All women should have the opportunity to start screening mammography at age 40; 3) For women ages 45-55, we recommend annual screening mammograms; 4) For women ages 55 and over, we support both the transition from an annual to a biennial interval if this aligns more with patient's values and preferences, or continuation with annual screening; 5) All women should discuss with their providers when to stop screening mammograms. Air Defense Specialist(s): Laura Faulkner, [facility]; Bere Hinton, [facility] OVERALL STUDY BIRADS: 1 Negative Recyclable Products Sorter: Emil Transcribe Date/Time: Jun 30 2023 3:31P Dictated by: MELY SHIELDS MD This examination was interpreted and the report reviewed and electronically signed by: MELY SHIELDS MD on Jun 30 2023 3:50PM [facility] RAMIN RING LTon 024 RAMIN BURDEN W MARÍA ELENA LT * * *Final Report* * * DATE OF EXAM: Jun 30 2023 3:31PM WRW 0628 - [facility] DIAG W MARÍA ELENA LT / PROCEDURE REASON: Abnormal mammogram * * * * Physician Interpretation * * * * RESULT: #[id number] - [facility] PATRICIAG W MARÍA ELENA LT #[id number] - [facility] US BREAST LTD LT UNILATERAL LEFT DIGITAL DIAGNOSTIC MAMMOGRAM TOMOSYNTHESIS WITH CAD: 06/30/2023 HISTORY: Abnormal Mammogram / Call back/abnormal mamm: Left /priors available for comparison Abnormal Mammogram. RESULT: TECHNIQUE: The study was acquired using full field digital technology and interpreted from soft copy. Digital Breast Tomosynthesis (DBT) images were obtained and used to assist in the interpretation of this examination. Current study was also evaluated with a Computer Aided Detection (CAD). Comparison is made to exams dated: 06/08/2023 mammogram, 06/05/2022 mammogram, 05/31/2021 mammogram, and 05/28/2020 mammogram - [facility]. The left breast is heterogeneously dense, which may obscure small masses. Prior asymmetry is no longer seen in the left breast. No significant masses, calcifications, or other findings are seen in the breast. IMPRESSION: NEGATIVE There is no mammographic evidence of malignancy. LIMITED ULTRASOUND OF LEFT BREAST: 06/30/2023 RESULT: Comparison is made to exams dated: 06/08/2023 mammogram, 06/05/2022 mammogram, 05/31/2021 mammogram, and 05/28/2020 mammogram - [facility]. Color flow and real-time ultrasound of the left breast 12 o'clock region were performed. Mares scale images of the real-time examination were reviewed. IMPRESSION: NEGATIVE There is no sonographic evidence of malignancy. There is no abnormality seen in the left breast to correspond with the mammographic density. Return to annual mammogram screening schedule is recommended. Mely jordan/emil:06/30/2023 15:50:59 Multiple national specialty organizations have released breast cancer screening guidelines for women at average risk for developing breast cancer - guidelines that are based on both evidence and opinion, yet differ on when to start and how often to screen for breast cancer. With representation from Breast Imaging, Internal Medicine, Women's Health, Family Medicine, and Medical/Surgical Oncology, the [facility] has carefully reviewed the data and reached the following consensus: 1) All women should engage in shared decision-making with their providers to decide when to start and how often to screen; 2) All women should have the opportunity to start screening mammography at age 40; 3) For women ages 45-55, we recommend annual screening mammograms; 4) For women ages 55 and over, we support both the transition from an annual to a biennial interval if this aligns more with patient's values and preferences, or continuation with annual screening; 5) All women should discuss with their providers when to stop screening mammograms. Air Defense Specialist(s): Laura Faulkner, [facility]; Bere Hinton, [facility] OVERALL STUDY BIRADS: 1 Negative Recyclable Products Sorter: Emil Transcribe Date/Time: Jun 30 2023 3:31P Dictated by: MELY SHIELDS MD This examination was interpreted and the report reviewed and electronically signed by: MELY SHIELDS MD on Jun 30 2023 3:50PM EST [id number] Normal [facility] [employer] BREAST LTD LTon 06-29 [employer] BREAST LTD LT * * *Final Report* * * DATE OF EXAM: Jun 30 2023 3:49PM WRU [id number] - [employer] BREAST LTD LT / PROCEDURE REASON: Abnormal mammogram * * * * Physician Interpretation * * * * #[id number] - [facility] DIAG W MARÍA ELENA LT #[id number] - [employer] [facility] BREAST LTD LT UNILATERAL LEFT DIGITAL DIAGNOSTIC MAMMOGRAM TOMOSYNTHESIS WITH CAD: 06/30/2023 HISTORY: Abnormal Mammogram / Call back/abnormal mamm: Left /priors available for comparison Abnormal Mammogram. RESULT: TECHNIQUE: The study was acquired using full field digital technology and interpreted from soft copy. Digital Breast Tomosynthesis (DBT) images were obtained and used to assist in the interpretation of this examination. Current study was also evaluated with a Computer Aided Detection (CAD). Comparison is made to exams dated: 06/08/2023 mammogram, 06/05/2022 mammogram, 05/31/2021 mammogram, and 05/28/2020 mammogram - [facility]. The left breast is heterogeneously dense, which may obscure small masses. Prior asymmetry is no longer seen in the left breast. No significant masses, calcifications, or other findings are seen in the breast. IMPRESSION: NEGATIVE There is no mammographic evidence of malignancy. LIMITED ULTRASOUND OF LEFT BREAST: 06/30/2023 RESULT: Comparison is made to exams dated: 06/08/2023 mammogram, 06/05/2022 mammogram, 05/31/2021 mammogram, and 05/28/2020 mammogram - [facility]. Color flow and real-time ultrasound of the left breast 12 o'clock region were performed. Mares scale images of the real-time examination were reviewed. IMPRESSION: NEGATIVE There is no sonographic evidence of malignancy. There is no abnormality seen in the left breast to correspond with the mammographic density. Return to annual mammogram screening schedule is recommended. Mely jordan/emil:06/30/2023 15:50:59 Multiple national specialty organizations have released breast cancer screening guidelines for women at average risk for developing breast cancer - guidelines that are based on both evidence and opinion, yet differ on when to start and how often to screen for breast cancer. With representation from Breast Imaging, Internal Medicine, Women's Health, Family Medicine, and Medical/Surgical Oncology, the [facility] has carefully reviewed the data and reached the following consensus: 1) All women should engage in shared decision-making with their providers to decide when to start and how often to screen; 2) All women should have the opportunity to start screening mammography at age 40; 3) For women ages 45-55, we recommend annual screening mammograms; 4) For women ages 55 and over, we support both the transition from an annual to a biennial interval if this aligns more with patient's values and preferences, or continuation with annual screening; 5) All women should discuss with their providers when to stop screening mammograms. Air Defense Specialist(s): Laura Faulkner, [facility]; Bere Hinton, [facility] OVERALL STUDY BIRADS: 1 Negative Recyclable Products Sorter: Emil Transcribe Date/Time: Jun 30 2023 3:31P Dictated by : MELY SHIELDS MD This examination was interpreted and the report reviewed and electronically signed by: MELY SHIELDS MD on Jun 30 2023 3:50PM EST [id number] Normal [facility] Panel Informationon 06-29 Radiology Study observation (narrative) [facility] IMPRESSION: NEGATIVE There is no mammographic evidence of malignancy. LIMITED ULTRASOUND OF LEFT BREAST: 06/30/2023 RESULT: Comparison is made to exams dated: 06/08/2023 mammogram, 06/05/2022 mammogram, 05/31/2021 mammogram, and 05/28/2020 mammogram - [facility]. Color flow and real-time ultrasound of the left breast 12 o'clock region were performed. Mares scale images of the real-time examination were reviewed. IMPRESSION: NEGATIVE There is no sonographic evidence of malignancy. There is no abnormality seen in the left breast to correspond with the mammographic density. Return to annual mammogram screening schedule is recommended. Mely jordan/emil:06/30/2023 15:50:59 Multiple national specialty organizations have released breast cancer screening guidelines for women at average risk for developing breast cancer - guidelines that are based on both evidence and opinion, yet differ on when to start and how often to screen for breast cancer. With representation from Breast Imaging, Internal Medicine, Women's Health, Family Medicine, and Medical/Surgical Oncology, the [facility] has carefully reviewed the data and reached the following consensus: 1) All women should engage in shared decision-making with their providers to decide when to start and how often to screen; 2) All women should have the opportunity to start screening mammography at age 40; 3) For women ages 45-55, we recommend annual screening mammograms; 4) For women ages 55 and over, we support both the transition from an annual to a biennial interval if this aligns more with patient's values and preferences, or continuation with annual screening; 5) All women should discuss with their providers when to stop screening mammograms. Air Defense Specialist(s): Laura Faulkner, [facility]; Bere Hinton, [facility] OVERALL STUDY BIRADS: 1 Negative Recyclable Products Sorter: Emil Transcribe Date/Time: Jun 30 2023 3:31P Dictated by : MELY SHIELDS MD This examination was interpreted and the report reviewed and electronically signed by: MELY SHIELDS MD on Jun 30 2023 3:50PM [facility] DIVISION OF RADIOLOGY No Panel InformationOrdered By: Ccf Provider on 06-30-2023 [facility] US Breast - left limitedon 0 06-30-2023 * * *Final Report* * * DATE OF EXAM: Jun 30 2023 3:49PM [facility] 0593 - [employer] BREAST LTD LT / PROCEDURE REASON: Abnormal mammogram * * * * Physician Interpretation * * * * #[id number] - RAMIN DIAG W MARÍA ELENA LT #[id number] - [facility] [employer] BREAST LTD LT UNILATERAL LEFT DIGITAL DIAGNOSTIC MAMMOGRAM TOMOSYNTHESIS WITH CAD: 06/30/2023 HISTORY: Abnormal Mammogram / Call back/abnormal mamm: Left /priors available for comparison Abnormal Mammogram. RESULT: TECHNIQUE: The study was acquired using full field digital technology and interpreted from soft copy. Digital Breast Tomosynthesis (DBT) images were obtained and used to assist in the interpretation of this examination. Current study was also evaluated with a Computer Aided Detection (CAD). Comparison is made to exams dated: 06/08/2023 mammogram, 06/05/2022 mammogram, 05/31/2021 mammogram, and 05/28/2020 mammogram - [facility]. The left breast is heterogeneously dense, which may obscure small masses. Prior asymmetry is no longer seen in the left breast. No significant masses, calcifications, or other findings are seen in the breast. DIVISION OF RADIOLOGY Provider, [facility] - 06/30/2023 * * *Final Report* * * DATE OF EXAM: Jun 30 2023 3:49PM [facility] 0593 [employer] LT / PROCEDURE REASON: Abnormal mammogram * * * * Physician Interpretation * * * * #[id number] - RAMIN DIAG W MARÍA ELENA LT #[id number] - [facility] [employer] BREAST LTD LT UNILATERAL LEFT DIGITAL DIAGNOSTIC MAMMOGRAM TOMOSYNTHESIS WITH CAD: 06/30/2023 HISTORY: Abnormal Mammogram / Call back/abnormal mamm: Left /priors available for comparison Abnormal Mammogram. RESULT: TECHNIQUE: The study was acquired using full field digital technology and interpreted from soft copy. Digital Breast Tomosynthesis (DBT) images were obtained and used to assist in the interpretation of this examination. Current study was also evaluated with a Computer Aided Detection (CAD). Comparison is made to exams dated: 06/08/2023 mammogram, 06/05/2022 mammogram, 05/31/2021 mammogram, and 05/28/2020 mammogram - [facility]. The left breast is heterogeneously dense, which may obscure small masses. Prior asymmetry is no longer seen in the left breast. No significant masses, calcifications, or other findings are seen in the breast. IMPRESSION IMPRESSION: NEGATIVE There is no mammographic evidence of malignancy. LIMITED ULTRASOUND OF LEFT BREAST: 06/30/2023 RESULT: Comparison is made to exams dated: 06/08/2023 mammogram, 06/05/2022 mammogram, 05/31/2021 mammogram, and 05/28/2020 mammogram - [facility]. Color flow and real-time ultrasound of the left breast 12 o'clock region were performed. Mares scale images of the real-time examination were reviewed. IMPRESSION: NEGATIVE There is no sonographic evidence of malignancy. There is no abnormality seen in the left breast to correspond with the mammographic density. Return to annual mammogram screening schedule is recommended. Mely jordan/emil:06/30/2023 15:50:59 Multiple national specialty organizations have released breast cancer screening guidelines for women at average risk for developing breast cancer - guidelines that are based on both evidence and opinion, yet differ on when to start and how often to screen for breast cancer. With representation from Breast Imaging, Internal Medicine, Women's Health, Family Medicine, and Medical/Surgical Oncology, the [facility] has carefully reviewed the data and reached the following consensus: 1) All women should engage in shared decision-making with their providers to decide when to start and how often to screen; 2) All women should have the opportunity to start screening mammography at age 40; 3) For women ages 45-55, we recommend annual screening mammograms; 4) For women ages 55 and over, we support both the transition from an annual to a biennial interval if this aligns more with patient's values and preferences, or continuation with annual screening; 5) All women should discuss with their providers when to stop screening mammograms. Air [employer] Specialist(s): Laura Faulkner, [facility]; Bere Hinton, [facility] OVERALL STUDY BIRADS: 1 Negative Recyclable Products Sorter: Emil Transcribe Date/Time: Jun 30 2023 3:31P Dictated by : MELY SHIELDS MD This examination was interpreted and the report reviewed and electronically signed by: MELY SHIELDS MD on Jun 30 2023 3:50PM EST [facility] DBT Breast - bilateral sunday leon 06-08-2023 * * *Final Report* * * DATE OF EXAM: Jun 08 2023 7:56AM W 0582 - RAMIN SCREENING W MARÍA ELENA / PROCEDURE REASON: multiple diagnoses * * * * Physician Interpretation * * * * RESULT: #[id number] - RAMIN SCREENING W MARÍA ELENA BILATERAL DIGITAL SCREENING MAMMOGRAM TOMOSYNTHESIS WITH CAD: 06/08/2023 HISTORY: /Screening Mammogram with MARÍA ELENA - patient reports NO breast symptoms /priors available for comparison Multiple Diagnoses. RESULT: TECHNIQUE: The study was acquired using full field digital technology and interpreted from soft copy. Digital Breast Tomosynthesis (DBT) images were obtained and used to assist in the interpretation of this examination. Current study was also evaluated with a Computer Aided Detection (CAD). Comparison is made to exams dated: 06/05/2022 mammogram, 05/31/2021 mammogram, 05/28/2020 mammogram, 03/11/2019 mammogram - [facility], and 03/04/2018 mammogram - [facility]. The breasts are heterogeneously dense, which may obscure small masses. There is a focal asymmetry in the left breast upper inner aspect. No other significant masses, calcifications, or other findings are seen in either breast. DIVISION OF RADIOLOGY Provider, [facility] - 06/08/2023 * * *Final Report* * * DATE OF EXAM: Jun 08 2023 7:56AM [facility] 0582 - [facility] SCREENING W MARÍA ELENA / PROCEDURE REASON: multiple diagnoses * * * * Physician Interpretation * * * * RESULT: #[id number] - RAMIN SCREENING W MARÍA ELENA BILATERAL DIGITAL SCREENING MAMMOGRAM TOMOSYNTHESIS WITH CAD: 06/08/2023 HISTORY: /Screening Mammogram with MARÍA ELENA - patient reports NO breast symptoms /priors available for comparison Multiple Diagnoses. RESULT: TECHNIQUE: The study was acquired using full field digital technology and interpreted from soft copy. Digital Breast Tomosynthesis (DBT) images were obtained and used to assist in the interpretation of this examination. Current study was also evaluated with a Computer Aided Detection (CAD). Comparison is made to exams dated: 06/05/2022 mammogram, 05/31/2021 mammogram, 05/28/2020 mammogram, 03/11/2019 mammogram - [facility], and 03/04/2018 mammogram - [facility]. The breasts are heterogeneously dense, which may obscure small masses. There is a focal asymmetry in the left breast upper inner aspect. No other significant masses, calcifications, or other findings are seen in either breast. IMPRESSION IMPRESSION: INCOMPLETE: NEEDS ADDITIONAL IMAGING EVALUATION The focal asymmetry in the left breast is indeterminate. Additional views with possible ultrasound are recommended. Isa dhillon/emil:06/08/2023 11:56:42 Air Defense Specialist(s): RT Melita(R)(M), [facility] letter sent: Additional Imaging Needed Mammogram BI-RADS: 0 Incomplete: needs additional imaging evaluation If this report indicates you need additional imaging, and it has NOT yet been performed, please call , to schedule. We sincerely thank you for choosing the [facility] for your breast imaging needs. Multiple national specialty organizations have released breast cancer screening guidelines for women at average risk for developing breast cancer - guidelines that are based on both evidence and opinion, yet differ on when to start and how often to screen for breast cancer. With representation from Breast Imaging, Internal Medicine, Women's Health, Family Medicine, and Medical/Surgical Oncology, the [facility] has carefully reviewed the data and reached the following consensus: 1) All women should engage in shared decision-making with their providers to decide when to start and how often to screen; 2) All women should have the opportunity to start screening mammography at age 40; 3) For women ages 45-55, we recommend annual screening mammograms; 4) For women ages 55 and over, we support both the transition from an annual to a biennial interval if this aligns more with patient's values and preferences, or continuation with annual screening; 5) All women should discuss with their providers when to stop screening mammograms. Recyclable Products Sorter: Emil Transcribe Date/Time: Jun 08 2023 7:40A Dictated by: ISA ZHONG MD This examination was interpreted and the report reviewed and electronically signed by: ISA ZHONG MD on Jun 08 2023 11:56AM EST [facility] Radiology Study observation (narrative) [facility] DBT Breast - bilateral scree ningOrdered By: Ccf Provider on 06-08-2023 [facility] STREP A MOLECULAR (POC)on Procedural Control Valid Clepending sale to [facility] Strep A (POCT) Negative Negative [facility] METABOLIC PANEL, COMPREHENSI VE ([id number])Ordered By: Phlebotomy Services Representative on 10-02-2022 Albumin [Mass/Vol] 5.1 g/dL Abnormal 3.8-4.9 [facility] Internal Medicine; [facility] Work Phone: Comment on above: PATIENT WAS FASTINGP ERFORMED BY: ELVIN Lab[place] [id number] [facility] [place] [id number] Albumin/Globulin [Mass ratio] 2.7 {ratio} Abnormal 1.2-2.2 [facility]; [facility] Work Phone: Comment on above: PATIENT WAS FASTINGP ERFORMED BY: ELVIN Labcoone[place] PatelDthrhv1579 [facility]At[facility] [id number] ALP [Catalytic activity/Vol] 81 U/L Normal 44-121 [facility]; [facility] Work Phone: Comment on above: PATIENT WAS FASTINGP ERFORMED BY: ELVIN [facility]co[place] Qfrfdq0880 [facility] [place] [id number] ALT [Catalytic activity/Vol] 17 U/L Normal 0-32 [facility]; [facility] Work Phone: Comment on above: PATIENT WAS FASTINGP ERFORMED BY: ELVIN Laballison PatelWctrxy7228 [facility] [id number] AST [Catalytic activity/Vol] 23 U/L Normal 0-40 [facility]; [facility] Work Phone: Comment on above: PATIENT WAS FASTINGP ERFORMED BY: ELVIN Labco[place] PatelMdipfw0146 [facility] [place] [id number] Bilirubin [Mass/Vol] 1.5 mg/dL Abnormal 0.0-1.2 [facility] Internal Medicine; [facility] Work Phone: Comment on above: PATIENT WAS FASTINGP ERFORMED BY: ELVIN [facility] Ufyjfe1125 [address] RoadDublin [place] [id number] Calcium [Mass/Vol] 9.9 mg/dL Normal 8.7-10.2 [facility] Internal Medicine; [facility] Work Phone: Comment on above: PATIENT WAS FASTINGP ERFORMED BY: ELVIN [facility] Myiekt9419 [address] RoadDublin [place] [id number] Chloride [Moles/Vol] 103 mmol/L Normal 96-106 [facility]; [facility] Work Phone: Comment on above: PATIENT WAS FASTINGP ERFORMED BY: ELVIN [facility] Aqjfgq6550 [address] RoadDublin [place] [id number] CO2 [Moles/Vol] 25 mmol/L Normal 20-29 [facility] Internal Medicine; [facility] Work Phone: Comment on above: PATIENT WAS FASTINGP ERFORMED BY: ELVIN [facility] Ppjqzk6865 [address] RoadD[address] [place] [id number] Creatinine [Mass/Vol] 0.67 mg/dL Normal 0.57-1.00 [facility] Internal Medicine; [facility] Work Phone: Comment on above: PATIENT WAS FASTINGP ERFORMED BY: ELVIN Labco Vpanbb1826 [address] Roadbl[address] [place] [id number] GFR/1.73 sq M.predicted among non-blacks MDRD (S/P/Bld) [Vol rate/Area] 102 mL/min/{1.73_m2} Normal [facility]; [facility] Work Phone: Comment on above: PATIENT WAS FASTINGP ERFORMED BY: [facility] Oytnli6436 [address] RoadD[address] [place] [id number] Globulin (S) [Mass/Vol] 1.9 g/dL Normal 1.5-4.5 [facility]; [facility] Work Phone: Comment on above: PATIENT WAS FASTINGP ERFORMED BY: ELVIN [facility] Lshkcg0203 [address] RoadD[address] [place] [id number] Glucose [Mass/Vol] 85 mg/dL Normal 70-99 [facility] Internal Medicine; [facility] Work Phone: Comment on above: PATIENT WAS FASTINGP ERFORMED BY: ELVIN [facility] Rfvjug8599 [address] Roadbl[address] [place] [id number] Potassium [Moles/Vol] 4.6 mmol/L Normal 3.5-5.2 [facility] Internal Medicine; [facility] Work Phone: Comment on above: PATIENT WAS FASTINGP ERFORMED BY: CB [facility] Qfxfxr0556 [address] RoadWashington [facility] Medical Centerin [place] [id number] Protein [Mass/Vol] 7.0 g/dL Normal 6.0-8.5 [facility] Internal Medicine; [facility] Work Phone: Comment on above: PATIENT WAS FASTINGP ERFORMED BY: ELVIN [facility] Qktsds9448 [address] RoadWashington Regional Medical Centerin [place] [id number] Sodium [Moles/Vol] 142 mmol/L Normal 134-144 [facility] Internal Medicine; [facility] Work Phone: Comment on above: PATIENT WAS FASTINGP ERFORMED BY: [facility] Qcxoyf9373 [address] [facility] [place] [id number] Urea nitrogen [Mass/Vol] 19 mg/dL Normal 6-24 [facility] Internal Medicine; [facility] Work Phone: Comment on above: PATIENT WAS FASTINGP ERFORMED BY: [facility] Podeer9357 [address] [facility] [place] [facility] [id number] Urea nitrogen/Creatinine [Mass ratio] 28 mg/mg Abnormal 9-23 [facility] Internal Medicine; [facility] Work Phone: Comment on above: PATIENT WAS FASTINGP ERFORMED BY: CB [facility] Awlguh1248 [facility] Hospitalbl[facility] [place] [id number] CBC, PLATELETS & AUT DIFF ([id number])Ordered By: Phlebotomy Services Representative on 05-16-2022 Basophils (Bld) [#/Vol] 0.1 10*3/uL Normal 0.0-0.2 [facility]; [facility] Work Phone: Comment on above: PATIENT WAS FASTINGP ERFORMED BY: ELVIN [facility] Emcvks4406 Good RoadDublin [place] [id number] BY: [facility] [address] [id number] Basophils/100 WBC (Bld) 1 % Normal [facility]; [facility] Work Phone: Comment on above: PATIENT WAS FASTINGP ERFORMED BY: ELVIN [facility] Pdqrrz5294 [address] RoadDublin [place] [id number] BY: [facility] [address] [id number] Eosinophils (Bld) [#/Vol] 0.2 10*3/uL Normal 0.0-0.4 [facility]; [facility] Work Phone: Comment on above: PATIENT WAS FASTINGP ERFORMED BY: ELVIN [facility] Ptmdfa1270 [address] RoadDublin [place] [id number] BY: Labco[address] [id number] Eosinophils/100 WBC (Bld) 4 % Normal [facility]; [facility] Work Phone: Comment on above: PATIENT WAS FASTINGP ERFORMED BY: ELVIN [facility] Pslkai2125 [address] RoadDublin [place] [id number] BY: Lab[facility] [id number] Erythrocyte distribution width (RBC) [Ratio] 12.7 % Normal 11.7-15.4 [facility]; [facility] Work Phone: Comment on above: PATIENT WAS FASTINGP ERFORMED BY: ELVIN [facility] Etzdqb9833 [address] RoadDublin [place] [id number] BY: Lab[address] [id number] Hematocrit (Bld) [Volume fraction] 43.4 % Normal 34.0-46.6 [facility]; [facility] Work Phone: Comment on above: PATIENT WAS FASTINGP ERFORMED BY: ELVIN [facility] Wugxur5897 Good RoadDuin [place] [id number] BY: [address] [id number] Hemoglobin (Bld) [Mass/Vol] 14.1 g/dL Normal 11.1-15.9 [facility]; [facility] Work Phone: Comment on above: PATIENT WAS FASTINGP ERFORMED BY: ELVIN [facility] Pqjggm1489 [facility] [id number] BY: [address] [id number] Immature granulocytes (Bld) [#/Vol] 0.0 10*3/uL Normal 0.0-0.1 [facility]; [facility] Work Phone: Comment on above: PATIENT WAS FASTINGP ERFORMED BY: ELVIN [facility] Dejlaq4243 [facility] [id number] BY: [address] [id number] Immature granulocytes/100 WBC (Bld) 0 % Normal [facility]; [facility] Work Phone: Comment on above: PATIENT WAS FASTINGP ERFORMED BY: ELVIN Labcoone[place] PatelNwonka9346 [facility] [id number] BY: [address] [id number] Lymphocytes (Bld) [#/Vol] 2.3 10*3/uL Normal 0.7-3.1 [facility]; [facility] Work Phone: Comment on above: PATIENT WAS FASTINGP ERFORMED BY: [facility] Gqzkxw8355 [facility] [id number] BY: [address] [id number] Lymphocytes/100 WBC (Bld) 43 % Normal [facility]; [facility] Work Phone: Comment on above: PATIENT WAS FASTINGP ERFORMED BY: [facility] Xlxnkl7529 [facility] [id number] BY: [address] [id number] MCH (RBC) [Entitic mass] 28.6 pg Normal 26.6-33.0 [facility]; [facility] Work Phone: Comment on above: PATIENT WAS FASTINGP ERFORMED BY: [facility] Tmtwoj6776 [facility] [id number] BY: [address] [id number] MCHC (RBC) [Mass/Vol] 32.5 g/dL Normal 31.5-35.[address] [facility] prehensive Internal Medicine; [facility] Work Phone: Comment on above: PATIENT WAS FASTINGP ERFORMED BY: ELVIN [facility] Uliwtw3271 [facility] [id number] BY: [address] [id number] MCV (RBC) [Entitic vol] 88 fL Normal 79-97 [facility]; [facility] Work Phone: Comment on above: PATIENT WAS FASTINGP ERFORMED BY: ELVIN LabJohn Ville 9842370 [facility] [id number] BY: [address] [id number] Monocytes (Bld) [#/Vol] 0.3 10*3/uL Normal 0.1-0.9 [facility]; [facility] Work Phone: Comment on above: PATIENT WAS FASTINGP ERFORMED BY: [facility] Mkszvs5097 [facility] [id number] BY: [address] [id number] Monocytes/100 WBC (Bld) 6 % Normal [facility]; [facility] Work Phone: Comment on above: PATIENT WAS FASTINGP ERFORMED BY: [facility] Xupuql5372 [facility] [id number] BY: [facility] [address] [id number] Neutrophils (Bld) [#/Vol] 2.5 10*3/uL Normal 1.4-7.0 [facility]; [facility] Work Phone: Comment on above: PATIENT WAS FASTINGP ERFORMED BY: ELVIN [facility] Okezny9948 [address] RoadD[address] [place] [id number] BY: [facility] [address] [id number] Neutrophils/100 WBC (Bld) 46 % Normal [facility]; [facility] Work Phone: Comment on above: PATIENT WAS FASTINGP ERFORMED BY: ELVIN [facility] Rundwc5992 [facility] [id number] BY: [facility] [id number] Platelets (Bld) [#/Vol] 343 10*3/uL Normal 150-450 [facility]; [facility] Work Phone: Comment on above: PATIENT WAS FASTINGP ERFORMED BY: ELVIN [facility] Umhsjo3735 [facility] [id number] BY: [facility] [address] [id number] RBC (Bld) [#/Vol] 4.93 10*6/uL Normal 3.77-5.28 Compr ehensive Internal Medicine; [facility] Work Phone: Comment on above: PATIENT WAS FASTINGP ERFORMED BY: CB [facility] Iwpabq7181 [facility] [id number] BY: [facility] [address] [id number] WBC (Bld) [#/Vol] 5.4 10*3/uL Normal 3.4-10.8 [facility]pre [facility] Internal [facility]; [facility] Work Phone: Comment on above: PATIENT WAS FASTINGP ERFORMED BY: CB [facility] Buknmh3362 [facility] [id number] BY: Lab[address] [id number] LIPID PANEL (33034)Ordered B y: Phlebotomy Services Representative on 05-16-2022 Cholesterol [Mass/Vol] 267 mg/dL Abnormal 100-199 [facility]; [facility] Work Phone: Comment on above: PATIENT WAS FASTINGP ERFORMED BY: ELVIN [facility] Ubtush0087 Good RoadDublin [place] [id number] BY: [facility] [address] [id number] Cholesterol in HDL [Mass/Vol] 78 mg/dL Normal [facility]; [facility] Work Phone: Comment on above: PATIENT WAS FASTINGP ERFORMED BY: ELVIN [facility] Phwkva4514 Good Roadblin [place] [id number] BY: [facility] [address] [id number] Triglyceride [Mass/Vol] 95 mg/dL Normal 0-149 [facility]; [facility] Work Phone: Comment on above: PATIENT WAS FASTINGP ERFORMED BY: ELVIN [facility] Oqzjbf1752 Good RoadDublin [place] [id number] BY: [facility] [address] [id number] LIPID PANEL (27806) 16 mg/dL Normal 5-40 Compr ehensive Internal Medicine; [facility] Work Phone: Comment on above: PATIENT WAS FASTINGP ERFORMED BY: ELVIN [facility] Hdimne1229 Good RoadDublin [place] [id number] BY: [facility] [address] [id number] LIPID PANEL (82349) 173 mg/dL Abnormal 0-99 Compr ehensive Internal Medicine; [facility] Work Phone: Comment on above: PATIENT WAS FASTINGP ERFORMED BY: ELVIN [facility] Fltnwf6714 Good RoadDublin [place] [id number] BY: Go[employer]y[address] [id number] LIPID PANEL (84899) 2.2 {ratio} Normal 0.0-3.2 [facility] Internal Medicine; [facility] Work Phone: Comment on above: LDL/HDL Ratio Men Wo men 1/2 Avg.Risk 1.0 1.5 Avg.Risk 3.6 3.2 2X Avg.Risk 6.2 5.0 3X Avg.Risk 8.0 6.1 PATIENT WAS FASTINGP ERFORMED BY: [employer] LabPatriot National Insurance Grouprp Tjfkok4224 [facility] [id number] BY: Go[employer] [id number] METABOLIC PANEL, COMPREHENSI VE (11203)Ordered By: Phlebotomy Services Representative on 05-16-2022 Albumin [Mass/Vol] 4.6 g/dL Normal 3.8-4.9 [facility] Internal Medicine; [facility] Work Phone: Comment on above: PATIENT WAS FASTINGP ERFORMED BY: [employer] LabPat[employer] National Insurance Grouprp Vshzar4134 [facility] [id number] BY: Go[employer] [id number] Albumin/Globulin [Mass ratio] 2.0 {ratio} Normal 1.2-2.2 [facility]; [facility] Work Phone: Comment on above: PATIENT WAS FASTINGP ERFORMED BY: [employer] LabPatriot National Insurance Grouprp Bmzbmk0883 [facility] [id number] BY: Go[employer] [id number] ALP [Catalytic activity/Vol] 93 U/L Normal 44-121 [facility]; [facility] Work Phone: Comment on above: PATIENT WAS FASTINGP ERFORMED BY: [employer] LabPat[employer] Grouprp Dfrarh2805 [facility] [id number] BY: Go[employer] [id number] ALT [Catalytic activity/Vol] 14 U/L Normal 0-32 [facility]; [facility] Work Phone: Comment on above: PATIENT WAS FASTINGP ERFORMED BY: [facility] Csrrjv7840 [facility] [id number] BY: [address] [id number] AST [Catalytic activity/Vol] 18 U/L Normal 0-40 [facility]; [facility] Work Phone: Comment on above: PATIENT WAS FASTINGP ERFORMED BY: [facility] Lmffjr7171 [facility] [id number] BY: [address] [id number] Bilirubin [Mass/Vol] 1.4 mg/dL Abnormal 0.0-1.2 Comp rehensive Internal Medicine; [facility] Work Phone: Comment on above: PATIENT WAS FASTINGP ERFORMED BY: [facility] Qvvpff8408 [facility] [id number] BY: [address] [id number] Calcium [Mass/Vol] 9.8 mg/dL Normal 8.7-10.2 [facility] Internal Medicine; [facility] Work Phone: Comment on above: PATIENT WAS FASTINGP ERFORMED BY: [facility] Jgggwi3041 [facility] [id number] BY: [address] [id number] Chloride [Moles/Vol] 101 mmol/L Normal 96-106 Comp rehensive Internal Medicine; [facility] Work Phone: Comment on above: PATIENT WAS FASTINGP ERFORMED BY: CB [facility] Cozspy3354 [facility] [id number] BY: [address] [id number] CO2 [Moles/Vol] 26 mmol/L Normal 20-29 Comprehen [facility] Internal Medicine; [facility] Work Phone: Comment on above: PATIENT WAS FASTINGP ERFORMED BY: CB [facility] Zvzngv7808 [facility] [id number] BY: Go[employer] [id number] Creatinine [Mass/Vol] 0.65 mg/dL Normal 0.57-1.00 [facility]; [facility] Work Phone: Comment on above: PATIENT WAS FASTINGP ERFORMED BY: CB [facility] Ikvwgb9079 [facility] [id number] BY: [employer] [id number] GFR/1.73 sq M.predicted among non-blacks MDRD (S/P/Bld) [Vol rate/Area] 103 mL/min/{1.73_m2} Normal Comprehensi Internal Medicine; [facility] Work Phone: Comment on above: PATIENT WAS FASTINGP ERFORMED BY: CB [facility] Frsflg5706 [facility] [id number] BY: Go[employer] [id number] Globulin (S) [Mass/Vol] 2.3 g/dL Normal 1.5-4.5 [facility]; [facility] Work Phone: Comment on above: PATIENT WAS FASTINGP ERFORMED BY: CB [facility] Sxbrxi9650 [facility] [id number] BY: LabPat[employer] [id number] Glucose [Mass/Vol] 82 mg/dL Normal 70-99 [facility] Internal [facility]; [facility] Work Phone: Comment on above: PATIENT WAS FASTINGP ERFORMED BY: CB [facility] Ldwntk7218 [facility] [id number] BY: [employer] [id number] Potassium [Moles/Vol] 3.9 mmol/L Normal 3.5-5.[address] [facility] prehensive Internal Medicine; [facility] Work Phone: Comment on above: PATIENT WAS FASTINGP ERFORMED BY: CB [facility] Xihwgw6316 [address] [facility] [place] [facility]in [place] [id number] BY: [employer] [id number] Protein [Mass/Vol] 6.9 g/dL Normal 6.0-8.5 [facility] Internal Medicine; [facility] Work Phone: Comment on above: PATIENT WAS FASTINGP ERFORMED BY: CB [facility] Exsfyq6691 [facility] [id number] BY: [employer] [id number] Sodium [Moles/Vol] 141 mmol/L Normal 134-144 [facility] Internal Medicine; [facility] Work Phone: Comment on above: PATIENT WAS FASTINGP ERFORMED BY: CB [facility] Lngtnm7398 [facility] [id number] BY: [employer] [id number] Urea nitrogen [Mass/Vol] 13 mg/dL Normal 6-24 [facility] Internal Medicine; [facility] Work Phone: Comment on above: PATIENT WAS FASTINGP ERFORMED BY: CB [facility] Mbrviw8776 [facility] [id number] BY: [facility] [address] [id number] Urea nitrogen/Creatinine [Mass ratio] 20 mg/mg Normal 9-23 [facility]; [facility] Work Phone: Comment on above: PATIENT WAS FASTINGP ERFORMED BY: CB [facility] Artyjz9435 [facility] [place] [facility] [id number] BY: Labco[address] [id number] TSH (THYROID STIMULATING HOR DESTINEE) (06889)Ordered By: Phlebotomy Services Representative on 05-16-2022 TSH Qn 3.540 {uIU/mL} Normal 0.450-4.50 0 [facility]; [facility] Work Phone: Comment on above: PATIENT WAS FASTINGP ERFORMED BY: [employer] LabAc[employer] Apvitc5370 Good RoadDublin [place] [id number] BY: [place] 708787 [facility] [id number] VITAMIN D, 1, 25-DIHYDROXY ( 51641)Ordered By: Phlebotomy Services Representative on 05-16-2022 1,25-dihydroxyvitamin D3 [Mass/Vol] 38.3 pg/mL Normal 24.8-81.5 [facility]; [facility] Work Phone: Comment on above: PATIENT WAS FASTINGP ERFORMED BY: [employer]6[address] RoadDublin [place] [id number] BY: WeShow[address] [id number] RAMIN SCREENING W TOMOon 05-31 [facility] CALCIFEDIOL (48336)Ordered B y: Phlebotomy Services Representative on 04-19-2021 25-hydroxyvitamin D [Mass/Vol] 89.9 ng/mL Normal 30.0-100.0 [facility]; [facility] Work Phone: Comment on above: Vitamin D deficiency has been defined by the [place] of[place]icine and an Endocrine Society practice guideline as alevel of serum 25-OH vitamin D less than 20 ng/mL (1,2).The Endocrine Society went on to further define vitamin Dinsufficiency as a level between 21 and 29 ng/mL (2).1. IOM ([place] [employer]). 2010. Dietary reference intakes for calcium and D. [place]: The National Academies Press.2. Thiago MF, Brigida LIMA, Harvey MONTEMAYOR, et al. Evaluation, treatment, and prevention of vitamin D deficiency: an Endocrine Society clinical practice guideline. JCEM. 2010; 96(7):1911-30. PATIENT WAS FASTINGP ERFORMED BY: [employer] [facility] Whrhkq5347 Good RoadDublin [place] [id number] CBC & PLATELETS (AUTO) (8502 7)Ordered By: Phlebotomy Services Representative on 04-19-2021 Erythrocyte distribution width (RBC) [Ratio] 12.6 % Normal 11.7-15.4 [facility]; [facility] Work Phone: Comment on above: PATIENT WAS FASTINGP ERFORMED BY: [facility] Vwsljh4018 [facility] [id number] Hematocrit (Bld) [Volume fraction] 43.8 % Normal 34.0-46.6 [facility]; [facility] Work Phone: Comment on above: PATIENT WAS FASTINGP ERFORMED BY: [facility] Ubqlma2539 [facility] [id number] Hemoglobin (Bld) [Mass/Vol] 14.9 g/dL Normal 11.1-15.9 [facility]; [facility] Work Phone: Comment on above: PATIENT WAS FASTINGP ERFORMED BY: [facility] Dyrrym8660 [facility] [id number] MCH (RBC) [Entitic mass] 29.7 pg Normal 26.6-33.0 [facility]; [facility] Work Phone: Comment on above: PATIENT WAS FASTINGP ERFORMED BY: [facility] Yxvpcy1642 [facility] [id number] MCHC (RBC) [Mass/Vol] 34.0 g/dL Normal 31.5-35.[address] [facility] prehensive Internal Medicine; [facility] Work Phone: Comment on above: PATIENT WAS FASTINGP ERFORMED BY: [facility] Psyqwa1655 [facility] [id number] MCV (RBC) [Entitic vol] 87 fL Normal 79-97 [facility]; [facility] Work Phone: Comment on above: PATIENT WAS FASTINGP ERFORMED BY: [facility] Fkwjcn3332 [facility] [id number] Platelets (Bld) [#/Vol] 327 10*3/uL Normal 150-450 [facility]; [facility] Work Phone: Comment on above: PATIENT WAS FASTINGP ERFORMED BY: ELVIN Patellin6[address] RoadDublin [place] [id number] RBC (Bld) [#/Vol] 5.02 10*6/uL Normal 3.77-5.28 [facility] Internal Medicine; [facility] Work Phone: Comment on above: PATIENT WAS FASTINGP ERFORMED BY: ELVIN Patellin6[address] RoadDublin [place] [id number] WBC (Bld) [#/Vol] 5.2 10*3/uL Normal 3.4-10.8 [facility] Internal Medicine; [facility] Work Phone: Comment on above: PATIENT WAS FASTINGP ERFORMED BY: ELVIN Palm6[address] RoadDublin [place] [id number] LIPID PANEL (36217)Ordered B y: Phlebotomy Services Representative on 04-19-2021 Cholesterol [Mass/Vol] 253 mg/dL Abnormal 100-199 [facility]; [facility] Work Phone: Comment on above: PATIENT WAS FASTINGP ERFORMED BY: ELVIN aPlm6370 [address] RoadDublin [place] [id number] Cholesterol in HDL [Mass/Vol] 80 mg/dL Normal [facility]; [facility] Work Phone: Comment on above: PATIENT WAS FASTINGP ERFORMED BY: ELVIN Palm6[address] RoadD[address] [place] [id number] Triglyceride [Mass/Vol] 78 mg/dL Normal 0-149 [facility]; [facility] Work Phone: Comment on above: PATIENT WAS FASTINGP ERFORMED BY: ELVIN Laballison PatelMpipzp7620 [address] RoadDublin [place] [id number] LIPID PANEL (62134) 13 mg/dL Normal 5-40 [facility]; [facility] Work Phone: Comment on above: PATIENT WAS FASTINGP ERFORMED BY: ELVIN Patellin6[address] RoadDublin [place] [id number] LIPID PANEL (32156) 160 mg/dL Abnormal 0-99 [facility]; [facility] Work Phone: Comment on above: PATIENT WAS FASTINGP ERFORMED BY: ELVIN Shelbyallison PatelStzsrg2515 [facility] [id number] LIPID PANEL (57314) 2.0 {ratio} Normal 0.0-3.2 [facility] Internal Medicine; [facility] Work Phone: Comment on above: LDL/HDL Ratio Men Wo men 1/2 Avg.Risk 1.0 1.5 Avg.Risk 3.6 3.2 2X Avg.Risk 6.2 5.0 3X Avg.Risk 8.0 6.1 PATIENT WAS FASTINGP ERFORMED BY: ELVIN Patellin6370 [facility] [id number] Metabolic Panel, Comprehensi ve (79119)Ordered By: Phlebotomy Services Representative on 04-19-2021 Albumin [Mass/Vol] 4.8 g/dL Normal 3.8-4.9 [facility] Internal Medicine; [facility] Work Phone: Comment on above: PATIENT WAS FASTINGP ERFORMED BY: ELVIN Patellin6370 [facility] [id number] Albumin/Globulin [Mass ratio] 2.1 {ratio} Normal 1.2-2.2 [facility]; [facility] Work Phone: Comment on above: PATIENT WAS FASTINGP ERFORMED BY: ELVIN Patellin6370 [facility] [id number] ALP [Catalytic activity/Vol] 91 U/L Normal 44-121 [facility]; [facility] Work Phone: Comment on above: PATIENT WAS FASTINGP ERFORMED BY: ELVIN Laballison PatelSkwsmi3000 [facility] [id number] ALT [Catalytic activity/Vol] 15 U/L Normal 0-32 [facility]; [facility] Work Phone: Comment on above: PATIENT WAS FASTINGP ERFORMED BY: ELVIN Laballison PatelIeuazh4676 [facility] [id number] AST [Catalytic activity/Vol] 16 U/L Normal 0-40 [facility]; [facility] Work Phone: Comment on above: PATIENT WAS FASTINGP ERFORMED BY: ELVIN Palm6[address] [place] [id number] Bilirubin [Mass/Vol] 1.2 mg/dL Normal 0.0-1.2 [facility] rehensive Internal Medicine; [facility] Work Phone: Comment on above: PATIENT WAS FASTINGP ERFORMED BY: [facility] Mknius6725 [facility] [id number] Calcium [Mass/Vol] 10.1 mg/dL Normal 8.7-10.2 [facility] Internal Medicine; [facility] Work Phone: Comment on above: PATIENT WAS FASTINGP ERFORMED BY: LabMcLaren Thumb Region6370 [facility] [id number] Chloride [Moles/Vol] 100 mmol/L Normal 96-106 [facility] rehensive Internal Medicine; [facility] Work Phone: Comment on above: PATIENT WAS FASTINGP ERFORMED BY: [facility] Isibar5836 [address] [facility] [place] [facility]in [place] [id number] CO2 [Moles/Vol] 23 mmol/L Normal 20-29 [facility] Internal Medicine; [facility] Work Phone: Comment on above: PATIENT WAS FASTINGP ERFORMED BY: [facility] Rknddy0919 [facility] [id number] Creatinine [Mass/Vol] 0.89 mg/dL Normal 0.57-1.00 [facility]; [facility] Work Phone: Comment on above: PATIENT WAS FASTINGP ERFORMED BY: [facility] Oismpi0733 [facility] [id number] GFR/1.73 sq M.predicted among non-blacks MDRD (S/P/Bld) [Vol rate/Area] 76 mL/min/{1.73_m2} Normal Comprehensiv e Internal Medicine; [facility] Work Phone: Comment on above: PATIENT WAS FASTINGP ERFORMED BY: [facility] Nxgjzb1513 [address] RoadDublin [place] [id number] Globulin (S) [Mass/Vol] 2.3 g/dL Normal 1.5-4.5 [facility]; [facility] Work Phone: Comment on above: PATIENT WAS FASTINGP ERFORMED BY: CB [facility] Nhpztd4180 [address] RoadD[address] [place] [id number] Glucose [Mass/Vol] 88 mg/dL Normal 65-99 [facility] Internal Medicine; [facility] Work Phone: Comment on above: PATIENT WAS FASTINGP ERFORMED BY: [facility] Susbnu5598 [address] RoadDublin [place] [id number] Potassium [Moles/Vol] 4.4 mmol/L Normal 3.5-5.2 [facility]; [facility] Work Phone: Comment on above: PATIENT WAS FASTINGP ERFORMED BY: [facility] Aaoxge9947 [address] RoadDublin [place] [id number] Protein [Mass/Vol] 7.1 g/dL Normal 6.0-8.5 [facility] Internal Medicine; [facility] Work Phone: Comment on above: PATIENT WAS FASTINGP ERFORMED BY: [facility] Lliggv4309 [address] RoadDublin [place] [id number] Sodium [Moles/Vol] 140 mmol/L Normal 134-144 [facility] Internal Medicine; [facility] Work Phone: Comment on above: PATIENT WAS FASTINGP ERFORMED BY: [facility] Pxphxq3219 [address] RoadDublin [place] [id number] Urea nitrogen [Mass/Vol] 19 mg/dL Normal 6-24 [facility] Internal Medicine; [facility] Work Phone: Comment on above: PATIENT WAS FASTINGP ERFORMED BY: [facility] Coeztz4222 [address] RoadDublin [place] [id number] Urea nitrogen/Creatinine [Mass ratio] 21 mg/mg Normal 9-23 [facility]; [facility] Work Phone: Comment on above: PATIENT WAS FASTINGP ERFORMED BY: ELVIN [facility] Hgbjbp4255 [address] Roadbl[address] [place] [id number] TSH (THYROID STIMULATING HOR DESTINEE) (02373)Ordered By: Phlebotomy Services Representative on 04-19-2021 TSH Qn 2.520 {uIU/mL} Normal 0.450-4.50 0 [facility]; [facility] Work Phone: Comment on above: PATIENT WAS FASTINGP ERFORMED BY: [facility] Lyuqdm5746 Good Roadblin [place] [id number] CALCIFEDIOL (99681)Ordered B y: Phlebotomy Services Representative on 05-17-2020 25-Hydroxyvitamin D2+25-Hydroxyvitamin D3 [Mass/Vol] 63.9 ng/mL Normal 30.0-100.0 [facility]; [facility] Work Phone: Comment on above: Vitamin D deficiency has been defined by the [place] of[place]icine and an Endocrine Society practice guideline as alevel of serum 25-OH vitamin D less than 20 ng/mL (1,2).The Endocrine Society went on to further define vitamin Dinsufficiency as a level between 21 and 29 ng/mL (2).1. IOM ([place] [employer]). 2010. Dietary reference intakes for calcium and D. [place]: The National Academies Press.2. Thiago MF, Brigida [place], Harvey MONTEMAYOR, et al. Evaluation, treatment, and prevention of vitamin D deficiency: an Endocrine Society clinical practice guideline. JCEM. 2010; 96(7):1911-30. PATIENT WAS FASTINGP ERFORMED BY: [facility] Ddkcnu5284 Good Sher[facility] HospitalDuin [place] [id number] LIPID PANEL (17901)Ordered B y: Phlebotomy Services Representative on 05-17-2020 Cholesterol [Mass/Vol] 239 mg/dL Abnormal 100-199 [facility]; [facility] Work Phone: Comment on above: PATIENT WAS FASTINGP ERFORMED BY: [facility] Uuzgdf4168 [address] RoadD[address] [place] [id number] Cholesterol in HDL [Mass/Vol] 81 mg/dL Normal [facility]; [facility] Work Phone: Comment on above: PATIENT WAS FASTINGP ERFORMED BY: ELVIN ShelbyAllison PatelLzikwt8418 Good BioSETAtrium Health [id number] Cholesterol in LDL/Cholesterol in HDL [Mass ratio] 1.8 {ratio} Normal 0.0-3.2 [facility]; [facility] Work Phone: Comment on above: LDL/HDL Ratio Men Wo men 1/2 Avg.Risk 1.0 1.5 Avg.Risk 3.6 3.2 2X Avg.Risk 6.2 5.0 3X Avg.Risk 8.0 6.1 PATIENT WAS FASTINGP ERFORMED BY: ELVIN LabAllison PatelLcsdzi2064 [facility] [id number] Triglyceride [Mass/Vol] 74 mg/dL Normal 0-149 [facility]; [facility] Work Phone: Comment on above: PATIENT WAS FASTINGP ERFORMED BY: ELVIN Patellin6370 Good BioSETAtrium Health [id number] LIPID PANEL (26063) 145 mg/dL Abnormal 0-99 [facility]; [facility] Work Phone: Comment on above: PATIENT WAS FASTINGP ERFORMED BY: ELVIN ShelbyAllison PatelUuvlru7290 [facility] [id number] LIPID PANEL (57651) 13 mg/dL Normal 5-40 [facility]; [facility] Work Phone: Comment on above: PATIENT WAS FASTINGP ERFORMED BY: ELVIN LabChris Loiwoi6390 [facility] [id number] LIPID PANEL (54092) 1.8 {ratio} Normal 0.0-3.2 [facility]; [facility] Work Phone: Comment on above: LDL/HDL Ratio Men Wo men 1/2 Avg.Risk 1.0 1.5 Avg.Risk 3.6 3.2 2X Avg.Risk 6.2 5.0 3X Avg.Risk 8.0 6.1 PATIENT WAS FASTINGP ERFORMED BY: ELVIN LabCo Apamgh0999 [address] RoadD[address] [place] [id number] Metabolic Panel, Comprehensi ve (51401)Ordered By: Phlebotomy Services Representative on 05-17-2020 Albumin [Mass/Vol] 4.6 g/dL Normal 3.8-4.9 [facility] Internal Medicine; [facility] Work Phone: Comment on above: PATIENT WAS FASTINGP ERFORMED BY: CB [facility] Eufwvm8047 [address] RoadDublin [place] [id number] Albumin/Globulin [Mass ratio] 1.9 {ratio} Normal 1.2-2.2 [facility]; [facility] Work Phone: Comment on above: PATIENT WAS FASTINGP ERFORMED BY: CB [facility] Npluvo9557 [address] RoadDublin [place] [id number] ALP [Catalytic activity/Vol] 75 [iU]/L Normal 39-117 [facility]; [facility] Work Phone: Comment on above: PATIENT WAS FASTINGP ERFORMED BY: CB [facility] Uwtgfk9743 [address] RoadDublin [place] [id number] ALP [Catalytic activity/Vol] 75 U/L Normal 39-117 [facility]; [facility] Work Phone: Comment on above: PATIENT WAS FASTINGP ERFORMED BY: CB [facility] Wyfjtq7651 [address] RoadDublin [place] [id number] ALT [Catalytic activity/Vol] 17 [iU]/L Normal 0-32 [facility]; [facility] Work Phone: Comment on above: PATIENT WAS FASTINGP ERFORMED BY: CB [facility] Whdwwc6849 [address] RoadDublin [place] [id number] ALT [Catalytic activity/Vol] 17 U/L Normal 0-32 [facility]; [facility] Work Phone: Comment on above: PATIENT WAS FASTINGP ERFORMED BY: CB [facility] Dsdnro9625 [address] RoadDublin [place] [id number] AST [Catalytic activity/Vol] 20 [iU]/L Normal 0-40 [facility]; [facility] Work Phone: Comment on above: PATIENT WAS FASTINGP ERFORMED BY: CB [facility] Ewevqt6987 [address] RoadDublin [place] [id number] AST [Catalytic activity/Vol] 20 U/L Normal 0-40 [facility]; [facility] Work Phone: Comment on above: PATIENT WAS FASTINGP ERFORMED BY: CB [facility] Fdjcwj6224 [address] RoadDublin [place] [id number] Bilirubin [Mass/Vol] 1.2 mg/dL Normal 0.0-1.2 Comp rehensive [facility]; [facility] Work Phone: Comment on above: PATIENT WAS FASTINGP ERFORMED BY: CB [facility] Agetkm9834 [address] RoadDublin [place] [id number] Calcium [Mass/Vol] 9.7 mg/dL Normal 8.7-10.2 [facility] Medicine; [facility] Work Phone: Comment on above: PATIENT WAS FASTINGP ERFORMED BY: [facility] Ejakiv1240 [address] RoadDublin [place] [id number] Chloride [Moles/Vol] 105 mmol/L Normal 96-106 Comp rehensive [facility]; [facility] Work Phone: Comment on above: PATIENT WAS FASTINGP ERFORMED BY: [facility] Omwhfn5482 [address] RoadD[address] [place] [id number] CO2 [Moles/Vol] 24 mmol/L Normal 20-29 [facility] Internal Medicine; [facility] Work Phone: Comment on above: PATIENT WAS FASTINGP ERFORMED BY: [facility] Sfylyo5769 [address] RoadD[address] [place] [id number] Creatinine [Mass/Vol] 0.69 mg/dL Normal 0.57-1.00 [facility]; [facility] Work Phone: Comment on above: PATIENT WAS FASTINGP ERFORMED BY: CB [facility] Bipgdz5506 [address] RoadDublin [place] [id number] GFR/1.73 sq M predicted among blacks CKD-EPI (S/P/Bld) [Vol rate/Area] 113 mL/min/1.73 Normal [facility]; [facility] Work Phone: Comment on above: PATIENT WAS FASTINGP ERFORMED BY: ELVIN [facility] Tsywwx9160 [address] [facility] Hospitalbl[facility] [place] [id number] GFR/1.73 sq M predicted among non-blacks CKD-EPI (S/P/Bld) [Vol rate/Area] 98 mL/min/1.73 Normal [facility]; [facility] Work Phone: Comment on above: PATIENT WAS FASTINGP ERFORMED BY: ELVIN [facility] Xqtfag7884 [address] RoadWashington Regional Medical Centerin [place] [id number] Globulin (S) [Mass/Vol] 2.4 g/dL Normal 1.5-4.5 [facility] Internal Medicine; [facility] Work Phone: Comment on above: PATIENT WAS FASTINGP ERFORMED BY: ELVIN [facility] Auijye[address] [facility]in [place] [id number] Glucose [Mass/Vol] 89 mg/dL Normal 65-99 [facility] Medicine; [facility] Work Phone: Comment on above: PATIENT WAS FASTINGP ERFORMED BY: ELVIN [facility] Bsuiia6[address] [place] Centerin [place] [id number] Potassium [Moles/Vol] 4.5 mmol/L Normal 3.5-5.[address] [facility] prehensive Internal Medicine; [facility] Work Phone: Comment on above: PATIENT WAS FASTINGP ERFORMED BY: ELVIN [facility] Gvidqn3630 [address] [place] Centerin [place] [id number] Protein [Mass/Vol] 7.0 g/dL Normal 6.0-8.5 [facility] Medicine; [facility] Work Phone: Comment on above: PATIENT WAS FASTINGP ERFORMED BY: ELVIN [facility] Tlgead1935 [address] [facility] Hospitalblin [place] [id number] Sodium [Moles/Vol] 144 mmol/L Normal 134-144 [facility]; [facility] Work Phone: Comment on above: PATIENT WAS FASTINGP ERFORMED BY: ELVIN [facility] Hgfhzy6436 [facility] [id number] Urea nitrogen [Mass/Vol] 12 mg/dL Normal 6-24 [facility]; [facility] Work Phone: Comment on above: PATIENT WAS FASTINGP ERFORMED BY: ELVIN [facility]6370 [facility] [id number] Urea nitrogen/Creatinine [Mass ratio] 17 mg/mg Normal 9-23 [facility]; [facility] Work Phone: Comment on above: PATIENT WAS FASTINGP ERFORMED BY: [facility]6370 [facility] [id number] 2019 Novel Coronavirus (COVI D-19), MARGARITA ([id number])Ordered By: Phlebotomy Services Representative on 01-31-20202018 Novel Coronavirus (COVID-19), MARGARITA ([id number]) Detected Abnormal [facility]; [facility] Work Phone: Comment on above: Client Requested Tna gThis nucleic acid amplification test was developed and its performancecharacteristics determined by [facility]. Nucleic acidamplification tests include PCR and TMA. This test has not been FDAcleared or approved. This test has been authorized by FDA under anEmergency Use Authorization (EUA). This test is only authorized forthe duration of time the declaration that circumstances existjustifying the authorization of the emergency use of in vitrodiagnostic tests for detection of SARS-CoV-2 virus and/or diagnosisof COVID-19 infection under section 564(b)(1) of the Act, 21 U.S.C.360bbb-3(b) (1), unless the authorization is terminated or revokedsooner.When diagnostic testing is negative, the possibility of a falsenegative result should be considered in the context of a patient'srecent exposures and the presence of clinical signs and symptomsconsistent with COVID-19. An individual without symptoms of COVID-19and who is not shedding SARS-CoV-2 virus would expect to have anegative (not detected) result in this assay. PATIENT NOT FASTINGP ERFORMED BY: [facility]6370 [facility] [id number] 2019 Novel Coronavirus (COVID-19), MARGARITA ([id number]) Detected Abnormal [facility]; [facility] Work Phone: Comment on above: Client Requested Flkandy gT nucleic acid amplification test was developed and its performancecharacteristics determined by [facility]. Nucleic acidamplification tests include PCR and TMA. This test has not been FDAcleared or approved. This test has been authorized by FDA under anEmergency Use Authorization (EUA). This test is only authorized forthe duration of time the declaration that circumstances existjustifying the authorization of the emergency use of in vitrodiagnostic tests for detection of SARS-CoV-2 virus and/or diagnosisof COVID-19 infection under section 564(b)(1) of the Act, 21 U.S.C.360bbb-3(b) (1), unless the authorization is terminated or revokedsooner.When diagnostic testing is negative, the possibility of a falsenegative result should be considered in the context of a patient'srecent exposures and the presence of clinical signs and symptomsconsistent with COVID-19. An individual without symptoms of COVID-19and who is not shedding SARS-CoV-2 virus would expect to have anegative (not detected) result in this assay. PATIENT NOT FASTINGP ERFORMED BY: [facility] Xnevad5880 [facility] [id number] CBC, PLATELETS & AUT DIFF ([id number])Ordered By: Phlebotomy Services Representative on 11-10-2019 Basophils (Bld) [#/Vol] 0.1 {x10E3/uL} Normal 0.0-0.2 [facility] Work Phone: Comment on above: PATIENT WAS FASTINGP ERFORMED BY: [employer] Ohdqjm3030 [facility] [id number] Basophils (Bld) [#/Vol] 0.1 10*3/uL Normal 0.0-0.2 [facility]; [facility] Work Phone: Comment on above: PATIENT WAS FASTINGP ERFORMED BY: [employer] Isoehd4530 [facility] [id number] Basophils/100 WBC (Bld) 1 % Normal [facility] Work Phone: Comment on above: PATIENT WAS FASTINGP ERFORMED BY: [facility] Yczrip9193 [address] RoadDublin [place] [id number] Eosinophils (Bld) [#/Vol] 0.2 {x10E3/uL} Normal 0.0-0.4 [facility] Work Phone: Comment on above: PATIENT WAS FASTINGP ERFORMED BY: [facility] Qzqapi2741 [address] RoadDublin [place] [id number] Eosinophils (Bld) [#/Vol] 0.2 10*3/uL Normal 0.0-0.4 [facility]; [facility] Work Phone: Comment on above: PATIENT WAS FASTINGP ERFORMED BY: LabCoClara Maass Medical CenterHpnnun7928 Good RoadWashington Regional Medical Centerin [place] [id number] Eosinophils/100 WBC (Bld) 3 % Normal [facility] Work Phone: Comment on above: PATIENT WAS FASTINGP ERFORMED BY: [facility] Aiozbj6[address] [place] Centerin [place] [id number] Erythrocyte distribution width (RBC) [Ratio] 12.5 % Normal 11.7-15.4 [facility] Work Phone: Comment on above: PATIENT WAS FASTINGP ERFORMED BY: [facility] Ceszub0441 [address] [facility]in [place] [id number] Hematocrit (Bld) [Volume fraction] 43.4 % Normal 34.0-46.6 [facility] Work Phone: Comment on above: PATIENT WAS FASTINGP ERFORMED BY: [facility] Kffbko6821 [address] RoadDublin [place] [id number] Hemoglobin (Bld) [Mass/Vol] 14.8 g/dL Normal 11.1-15.9 [facility] Work Phone: Comment on above: PATIENT WAS FASTINGP ERFORMED BY: [facility] Rdkfrx3813 [address] RoadDublin [place] [id number] Immature granulocytes (Bld) [#/Vol] 0.0 {x10E3/uL} Normal 0.0-0.1 [facility] Work Phone: Comment on above: PATIENT WAS FASTINGP ERFORMED BY: ELVIN LabCooneida PatelWomrkm6504 [address] RoadDublin [place] [id number] Immature granulocytes (Bld) [#/Vol] 0.0 10*3/uL Normal 0.0-0.1 [facility]; [facility] Work Phone: Comment on above: PATIENT WAS FASTINGP ERFORMED BY: ELVIN [facility] Svkcow5249 [address] RoadDublin [place] [id number] Immature granulocytes/100 WBC (Bld) 0 % Normal [facility] Work Phone: Comment on above: PATIENT WAS FASTINGP ERFORMED BY: ELVIN LabAllison Palm6370 [address] RoadD[address] [place] [id number] Lymphocytes (Bld) [#/Vol] 1.4 {x10E3/uL} Normal 0.7-3.1 [facility] Work Phone: Comment on above: PATIENT WAS FASTINGP ERFORMED BY: ELVIN [facility] Vircnx2883 [address] RoadDublin [place] [id number] Lymphocytes (Bld) [#/Vol] 1.4 10*3/uL Normal 0.7-3.1 [facility]; [facility] Work Phone: Comment on above: PATIENT WAS FASTINGP ERFORMED BY: [facility] Hfqyku3416 [address] RoadDublin [place] [id number] Lymphocytes/100 WBC (Bld) 24 % Normal [facility] Work Phone: Comment on above: PATIENT WAS FASTINGP ERFORMED BY: ELVIN [facility] Rbtqad4667 [address] RoadDublin [place] [id number] MCH (RBC) [Entitic mass] 29.6 pg Normal 26.6-33.0 [facility] Work Phone: Comment on above: PATIENT WAS FASTINGP ERFORMED BY: ELVIN [facility] Bhbzio8574 [address] RoadD[address] [place] [id number] MCHC (RBC) [Mass/Vol] 34.1 g/dL Normal 31.5-35.[address] [facility] prehensive Internal Medicine Work Phone: Comment on above: PATIENT WAS FASTINGP ERFORMED BY: ELVIN LabCooneida Nkeyzy9325 Good Roadblin [place] [id number] MCV (RBC) [Entitic vol] 87 fL Normal 79-97 [facility] Work Phone: Comment on above: PATIENT WAS FASTINGP ERFORMED BY: ELVIN [facility] Wmjpwi2829 [address] Roadblin [place] [id number] Monocytes (Bld) [#/Vol] 0.6 {x10E3/uL} Normal 0.1-0.9 [facility] Work Phone: Comment on above: PATIENT WAS FASTINGP ERFORMED BY: ELVIN [facility] Hqzvpb7250 Good RoadAtrium Health [id number] Monocytes (Bld) [#/Vol] 0.6 10*3/uL Normal 0.1-0.9 [facility]; [facility] Work Phone: Comment on above: PATIENT WAS FASTINGP ERFORMED BY: ELVIN [facility] Eczndv5512 [address] Roadbl[address] [place] [id number] Monocytes/100 WBC (Bld) 10 % Normal [facility] Work Phone: Comment on above: PATIENT WAS FASTINGP ERFORMED BY: ELVIN [facility] Hgnotc5545 [address] [place] Centerin [place] [id number] Neutrophils (Bld) [#/Vol] 3.7 {x10E3/uL} Normal 1.4-7.0 [facility] Work Phone: Comment on above: PATIENT WAS FASTINGP ERFORMED BY: [facility] Xvwwkv5336 [address] RoadD[address] [place] [id number] Neutrophils (Bld) [#/Vol] 3.7 10*3/uL Normal 1.4-7.0 [facility]; [facility] Work Phone: Comment on above: PATIENT WAS FASTINGP ERFORMED BY: [facility] Hbgnyh0493 [address] Roadbl[address] [place] [id number] Neutrophils/100 WBC (Bld) 62 % Normal [facility] Work Phone: Comment on above: PATIENT WAS FASTINGP ERFORMED BY: ELVIN ShelbyAllison Iqvlfq1140 Latisha RomanoAtrium Health [id number] Platelets (Bld) [#/Vol] 325 {x10E3/uL} Normal 150-450 [facility] Work Phone: Comment on above: PATIENT WAS FASTINGP ERFORMED BY: ELVIN LabAllison PatelTpmtto7790 [facility] [id number] Platelets (Bld) [#/Vol] 325 10*3/uL Normal 150-450 [facility]; [facility] Work Phone: Comment on above: PATIENT WAS FASTINGP ERFORMED BY: ELVIN Patellin6370 [facility] [id number] RBC (Bld) [#/Vol] 5.00 {x10E6/uL} Normal 3.77-5.28 [facility] Internal Medicine Work Phone: Comment on above: PATIENT WAS FASTINGP ERFORMED BY: ELVIN Patellin6370 [facility] [id number] RBC (Bld) [#/Vol] 5.00 10*6/uL Normal 3.77-5.28 [facility] Internal Medicine; [facility] Work Phone: Comment on above: PATIENT WAS FASTINGP ERFORMED BY: ELVIN LabAllison Bkueie6425 [facility] [id number] WBC (Bld) [#/Vol] 5.9 {x10E3/uL} Normal 3.4-10.8 [facility] Internal Medicine Work Phone: Comment on above: PATIENT WAS FASTINGP ERFORMED BY: ELVIN LabCooneida Sncanl9958 [facility] [id number] WBC (Bld) [#/Vol] 5.9 10*3/uL Normal 3.4-10.8 [facility] Internal Medicine; [facility] Work Phone: Comment on above: PATIENT WAS FASTINGP ERFORMED BY: ELVIN [facility] Jbloln4736 [address] RoadD[address] [place] [id number] IRON ([id number])Ordered By: Syst em Data Administrator on 11-10-2019 Iron [Mass/Vol] 73 ug/dL Normal 27-159 [facility] Work Phone: Comment on above: PATIENT WAS FASTINGP ERFORMED BY: ELVIN [facility] Vbvasc9732 [address] RoadD[address] [place] [id number] LIPID PANEL ([id number])Ordered B y: Phlebotomy Services Representative on 11-10-2019 Cholesterol [Mass/Vol] 239 mg/dL Abnormal 100-199 [facility] Work Phone: Comment on above: PATIENT WAS FASTINGP ERFORMED BY: ELVIN LabAllison PatelWfvtyi8591 [address] RoadDublin [place] [id number] Cholesterol in HDL [Mass/Vol] 75 mg/dL Normal [facility] Work Phone: Comment on above: PATIENT WAS FASTINGP ERFORMED BY: ELVIN LabCooneida Ngegyp4568 [address] [place] Centerin [place] [id number] Cholesterol in LDL/Cholesterol in HDL [Mass ratio] 1.9 {ratio} Normal 0.0-3.2 [facility] Work Phone: Comment on above: LDL/HDL Ratio Men Wo men 1/2 Avg.Risk 1.0 1.5 Avg.Risk 3.6 3.2 2X Avg.Risk 6.2 5.0 3X Avg.Risk 8.0 6.1 PATIENT WAS FASTINGP ERFORMED BY: ELVIN LabCooneida Tenprj0390 [address] [place] Centerin [place] [id number] Triglyceride [Mass/Vol] 119 mg/dL Normal 0-149 [facility] Work Phone: Comment on above: PATIENT WAS FASTINGP ERFORMED BY: ELVIN [facility] Wepbqq4396 [address] RoadDublin [place] [id number] LIPID PANEL (39205) 143 mg/dL Abnormal 0-99 [facility] Internal [facility] Work Phone: Comment on above: PATIENT WAS FASTINGP ERFORMED BY: ELVIN [facility] Ocyivy1356 [address] RoadDublin [place] [id number] LIPID PANEL (45140) 21 mg/dL Normal 5-40 [facility] Internal Medicine Work Phone: Comment on above: PATIENT WAS FASTINGP ERFORMED BY: ELVIN Sagar Palm6370 [facility] [id number] LIPID PANEL (04049) 1.9 {ratio} Normal 0.0-3.2 [facility] Internal Medicine; [facility] Work Phone: Comment on above: LDL/HDL Ratio Men Wo men 1/2 Avg.Risk 1.0 1.5 Avg.Risk 3.6 3.2 2X Avg.Risk 6.2 5.0 3X Avg.Risk 8.0 6.1 PATIENT WAS FASTINGP ERFORMED BY: ELVIN Lesley Fuhuyb2680 [facility] [id number] Metabolic Panel, Comprehensi ve (09161)Ordered By: Phlebotomy Services Representative on 11-10-2019 Albumin [Mass/Vol] 4.5 g/dL Normal 3.8-4.9 [facility] Internal Medicine Work Phone: Comment on above: PATIENT WAS FASTINGP ERFORMED BY: ELVIN Sagar Patellin6370 [facility] [id number] Albumin/Globulin [Mass ratio] 1.7 {ratio} Normal 1.2-2.2 [facility] Internal Medicine Work Phone: Comment on above: PATIENT WAS FASTINGP ERFORMED BY: [facility] Vobnkm7662 [facility] [id number] ALP [Catalytic activity/Vol] 84 [iU]/L Normal 39-117 [facility] Work Phone: Comment on above: PATIENT WAS FASTINGP ERFORMED BY: ELVIN [facility] Vrbscc9743 [facility] [id number] ALP [Catalytic activity/Vol] 84 U/L Normal 39-117 [facility]; [facility] Work Phone: Comment on above: PATIENT WAS FASTINGP ERFORMED BY: ELVIN [facility] Hbiyvc6197 [facility] [id number] ALT [Catalytic activity/Vol] 13 [iU]/L Normal 0-32 [facility] Work Phone: Comment on above: PATIENT WAS FASTINGP ERFORMED BY: [facility] Dnecwy7042 [address] RoadDublin [place] [id number] ALT [Catalytic activity/Vol] 13 U/L Normal 0-32 [facility]; [facility] Work Phone: Comment on above: PATIENT WAS FASTINGP ERFORMED BY: [facility] Snysan0590 [address] RoadD[address] [place] [id number] AST [Catalytic activity/Vol] 20 [iU]/L Normal 0-40 [facility] Work Phone: Comment on above: PATIENT WAS FASTINGP ERFORMED BY: [facility] Ciaojd2336 [address] RoadDublin [place] [id number] AST [Catalytic activity/Vol] 20 U/L Normal 0-40 [facility]; [facility] Work Phone: Comment on above: PATIENT WAS FASTINGP ERFORMED BY: [facility] Dhezvw5651 [address] RoadD[address] [place] [id number] Bilirubin [Mass/Vol] 1.9 mg/dL Abnormal 0.0-1.2 [facility] Work Phone: Comment on above: PATIENT WAS FASTINGP ERFORMED BY: [facility] Nejhyg7110 [address] RoadD[address] [place] [id number] Calcium [Mass/Vol] 10.0 mg/dL Normal 8.7-10.2 [facility] Internal Medicine Work Phone: Comment on above: PATIENT WAS FASTINGP ERFORMED BY: [facility] Ragnbk2355 [address] RoadD[address] [place] [id number] Chloride [Moles/Vol] 102 mmol/L Normal 96-106 [facility] Work Phone: Comment on above: PATIENT WAS FASTINGP ERFORMED BY: [facility] Xjtqwf7556 [address] RoadD[address] [place] [id number] CO2 [Moles/Vol] 26 mmol/L Normal 20-29 [facility] Internal Medicine Work Phone: Comment on above: PATIENT WAS FASTINGP ERFORMED BY: ELVIN [facility] Jrjwqh2332 [address] RoadDublin [place] [id number] Creatinine [Mass/Vol] 0.73 mg/dL Normal 0.57-1.00 [facility] Internal Medicine Work Phone: Comment on above: PATIENT WAS FASTINGP ERFORMED BY: CB [facility] Ydgdfa7645 [address] RoadD[address] [place] [id number] GFR/1.73 sq M predicted among blacks CKD-EPI (S/P/Bld) [Vol rate/Area] 107 mL/min/1.73 Normal [facility] Work Phone: Comment on above: PATIENT WAS FASTINGP ERFORMED BY: CB [facility] Oniryt9467 [address] RoadD[address] [place] [id number] GFR/1.73 sq M predicted among non-blacks CKD-EPI (S/P/Bld) [Vol rate/Area] 93 mL/min/1.73 Normal [facility] Internal Medicine Work Phone: Comment on above: PATIENT WAS FASTINGP ERFORMED BY: ELVIN [facility] Gptdut3550 [address] RoadD[address] [place] [id number] Globulin (S) [Mass/Vol] 2.6 g/dL Normal 1.5-4.5 [facility] Internal Medicine Work Phone: Comment on above: PATIENT WAS FASTINGP ERFORMED BY: CB [facility] Wxomvp7592 [address] RoadD[address] [place] [id number] Glucose [Mass/Vol] 99 mg/dL Normal 65-99 [facility] Internal Medicine Work Phone: Comment on above: PATIENT WAS FASTINGP ERFORMED BY: CB [facility] Fxzhrr2968 [address] RoadD[address] [place] [id number] Potassium [Moles/Vol] 4.6 mmol/L Normal 3.5-5.2 [facility] Internal Medicine Work Phone: Comment on above: PATIENT WAS FASTINGP ERFORMED BY: CB [facility] Mueqfg8657 [address] RoadD[address] [place] [id number] Protein [Mass/Vol] 7.1 g/dL Normal 6.0-8.5 [facility] Internal Medicine Work Phone: Comment on above: PATIENT WAS FASTINGP ERFORMED BY: [facility] Rrlcnk4751 [address] RoadD[address] [place] [id number] Sodium [Moles/Vol] 142 mmol/L Normal 134-144 [facility] Internal Medicine Work Phone: Comment on above: PATIENT WAS FASTINGP ERFORMED BY: [facility] Fjzwtr9855 [address] RoadD[address] [place] [id number] Urea nitrogen [Mass/Vol] 11 mg/dL Normal 6-24 [facility] Work Phone: Comment on above: PATIENT WAS FASTINGP ERFORMED BY: [facility] Bhplmn1020 [address] RoadD[address] [place] [id number] Urea nitrogen/Creatinine [Mass ratio] 15 mg/mg Normal 9-23 [facility] Work Phone: Comment on above: PATIENT WAS FASTINGP ERFORMED BY: [facility] Sgvyzd2227 [address] RoadDublin [place] [id number] TSH (THYROID STIMULATING HOR DESTINEE) ([id number])Ordered By: Phlebotomy Services Representative on 11-10-2019 TSH Qn 2.780 {uIU/mL} Normal 0.450-4.50 0 [facility] Work Phone: Comment on above: PATIENT WAS FASTINGP ERFORMED BY: [facility] Lxzbyq4847 [address] RoadDublin [place] [id number] VITAMIN B12 AND FOLATES (826 07)Ordered By: Phlebotomy Services Representative on 11-10-2019 Cobalamin (Vitamin B12) [Mass/Vol] 714 pg/mL Normal 232-1245 [facility] Work Phone: Comment on above: PATIENT WAS FASTINGP ERFORMED BY: [facility] Bpimjj9028 [address] RoadDublin [place] [id number] Folate [Mass/Vol] ng/mL Normal Compreh [facility] Internal Medicine Work Phone: Comment on above: A serum folate samantha ntration of less than 3.1 ng/mL isconsidered to represent clinical deficiency. PATIENT WAS FASTINGP ERFORMED BY: ELVIN [facility]6370 [facility] [id number] URINE CALCIUM ALVERTO TIMED (82 340)Ordered By: Phlebotomy Services Representative on 11-08-2018 Calcium (24H U) [Mass/Time] 257.0 {mg/24_hr} Normal 100.0-300. 0 [facility] Work Phone: Comment on above: PATIENT NOT FASTINGP ERFORMED BY: [facility]6370 [facility] [id number] Calcium (24H U) [Mass/Vol] 10.0 mg/dL Normal [facility] Work Phone: Comment on above: PATIENT NOT FASTINGP ERFORMED BY: [place] [id number] [facility] [id number] BILIRUBIN, TOTAL (51051)Orde red By: Phlebotomy Services Representative on 05-06-2018 Bilirubin [Mass/Vol] 1.5 mg/dL Abnormal 0.0-1.2 [facility] Work Phone: Comment on above: PATIENT NOT FASTINGP ERFORMED BY: ELVIN [facility]6370 [facility] [id number] Bilirubin.direct [Mass/Vol] 0.30 mg/dL Normal 0.00-0.40 [facility] Work Phone: Comment on above: PATIENT NOT FASTINGP ERFORMED BY: [facility]6370 [facility] [id number] Bilirubin.indirect [Mass/Vol] 1.20 mg/dL Abnormal 0.10-0.80 [facility] Work Phone: Comment on above: PATIENT NOT FASTINGP ERFORMED BY: [place] [id number] [facility] [id number] Bilirubin, Total/Direct, Ser umOrdered By: Phlebotomy Services Representative on 04-08-2018 Bilirubin mass conc 1.1 mg/dL Normal 0.0-1.2 [facility] Work Phone: Comment on above: PATIENT WAS FASTINGP ERFORMED BY: ELVIN [facility] Kyrepx8094 [address] RoadDublin [place] [id number] Bilirubin.direct mass conc 0.25 mg/dL Normal 0.00-0.40 [facility] Work Phone: Comment on above: PATIENT WAS FASTINGP ERFORMED BY: CB [facility] Mvnqtf2602 [address] RoadDublin [place] [id number] Bilirubin.indirect mass conc 0.85 mg/dL Abnormal 0.10-0.80 [facility] Work Phone: Comment on above: PATIENT WAS FASTINGP ERFORMED BY: CB [facility] Bwrzjn7065 Good RoadDublin [place] [id number] CALCIFEDIOL ([id number])Ordered B y: Phlebotomy Services Representative on 04-08-2018 25-Hydroxyvitamin D2+25-Hydroxyvitamin D3 mass conc 58.4 ng/mL Normal 30.0-100.0 [facility] Work Phone: Comment on above: Vitamin D deficiency has been defined by the [place] and an Endocrine Society practice guideline as alevel of serum 25-OH vitamin D less than 20 ng/mL (1,2).The Endocrine Society went on to further define vitamin Dinsufficiency as a level between 21 and 29 ng/mL (2).1. IOM ([place] [employer]). 2010. Dietary reference intakes for calcium and D. [place]: The National Academies Press.2. Thiago MF, Brigida NC, Harvey MONTEMAYOR, et al. Evaluation, treatment, and prevention of vitamin D deficiency: an Endocrine Society clinical practice guideline. JCEM. 2010; 96(7):1911-30. PATIENT WAS FASTINGP ERFORMED BY: CB [facility] Vzjwvo9617 [address] RoadDublin [place] [id number] CBC & PLATELETS (AUTO) ([id number])Ordered By: Phlebotomy Services Representative on 04-08-2018 Erythrocyte distribution width Ratio (RBC) 13.7 % Normal 12.3-15.4 [facility] Work Phone: Comment on above: PATIENT WAS FASTINGP ERFORMED BY: CB [facility] Jwgnpj2184 [address] RoadDublin [place] [id number] Hematocrit Volume Fraction (Bld) 42.0 % Normal 34.0-46.6 [facility] Work Phone: Comment on above: PATIENT WAS FASTINGP ERFORMED BY: ELVIN [facility] Wqnsov8914 [facility] [id number] Hemoglobin mass conc (Bld) 13.9 g/dL Normal 11.1-15.9 [facility] Work Phone: Comment on above: PATIENT WAS FASTINGP ERFORMED BY: CB [facility] Enuseh5700 [facility] [id number] MCH Entitic mass (RBC) 29.4 pg Normal 26.6-33.0 [facility] Work Phone: Comment on above: PATIENT WAS FASTINGP ERFORMED BY: [facility] Irycdn8431 [facility] [id number] MCHC mass conc (RBC) 33.1 g/dL Normal 31.5-35.7 [facility] Internal Medicine Work Phone: Comment on above: PATIENT WAS FASTINGP ERFORMED BY: [facility] Gginhz6419 [facility] [id number] MCV Entitic volume (RBC) 89 fL Normal 79-97 [facility] Work Phone: Comment on above: PATIENT WAS FASTINGP ERFORMED BY: [facility] Fantsw6977 [facility] [id number] Platelets #/vol (Bld) 290 {x10E3/uL} Normal 150-379 [facility] Work Phone: Comment on above: PATIENT WAS FASTINGP ERFORMED BY: [facility] Msfwhs3832 [facility] [id number] Platelets (Bld) [#/Vol] 290 10*3/uL Normal 150-379 [facility] Work Phone: Comment on above: PATIENT WAS FASTINGP ERFORMED BY: [facility] Clffgo3082 [facility] [id number] RBC #/vol (Bld) 4.73 {x10E6/uL} Normal 3.77-5.28 [facility] Internal Medicine Work Phone: Comment on above: PATIENT WAS FASTINGP ERFORMED BY: CB [facility] Ospdof0218 [address] RoadDublin [place] [id number] RBC (Bld) [#/Vol] 4.73 10*6/uL Normal 3.77-5.28 [facility] Internal Medicine Work Phone: Comment on above: PATIENT WAS FASTINGP ERFORMED BY: CB [facility] Soqbyt0761 [address] [place] [id number] WBC #/vol (Bld) 5.5 {x10E3/uL} Normal 3.4-10.8 [facility] Internal Medicine Work Phone: Comment on above: PATIENT WAS FASTINGP ERFORMED BY: CB [facility] Jfrdjx8426 [address] RoadDublin [place] [id number] WBC (Bld) [#/Vol] 5.5 10*3/uL Normal 3.4-10.8 [facility] Work Phone: Comment on above: PATIENT WAS FASTINGP ERFORMED BY: CB [facility] Cgmpfj0809 [address] RoadDublin [place] [id number] LIPID PANEL ([id number])Ordered B y: Phlebotomy Services Representative on 04-08-2018 Cholesterol in HDL mass conc 73 mg/dL Normal [facility] Work Phone: Comment on above: PATIENT WAS FASTINGP ERFORMED BY: CB [facility] Qxgkvu0736 [address] RoadDublin [place] [id number] Cholesterol in LDL mass conc 134 mg/dL Abnormal 0-99 [facility] Work Phone: Comment on above: PATIENT WAS FASTINGP ERFORMED BY: CB [facility] Bibvfb2439 [address] RoadD[address] [place] [id number] Cholesterol in LDL/Cholesterol in HDL mass ratio 1.8 {ratio} Normal 0.0-3.2 [facility] Work Phone: Comment on above: LDL/HDL Ratio Men Wo men 1/2 Avg.Risk 1.0 1.5 Avg.Risk 3.6 3.2 2X Avg.Risk 6.2 5.0 3X Avg.Risk 8.0 6.1 PATIENT WAS FASTINGP ERFORMED BY: ELIVN Patellin6370 [facility] [id number] Cholesterol in VLDL mass conc 14 mg/dL Normal 5-40 [facility] Work Phone: Comment on above: PATIENT WAS FASTINGP ERFORMED BY: ELVIN Patellin6370 [facility] [id number] Cholesterol mass conc 221 mg/dL Abnormal 100-199 Com prehensive Internal Medicine Work Phone: Comment on above: PATIENT WAS FASTINGP ERFORMED BY: ELVIN Patellin6370 [facility] [id number] Triglyceride mass conc 71 mg/dL Normal 0-149 [facility] Work Phone: Comment on above: PATIENT WAS FASTINGP ERFORMED BY: ELVIN Patellin6370 [facility] [id number] Metabolic Panel, Comprehensi ve ([id number])Ordered By: Phlebotomy Services Representative on 04-08-2018 Albumin mass conc 4.5 g/dL Normal 3.5-5.5 Compreh ensive Internal Medicine Work Phone: Comment on above: PATIENT WAS FASTINGP ERFORMED BY: ELVIN Patellin6370 [facility] [id number] Albumin/Globulin mass ratio 2.0 {ratio} Normal 1.2-2.2 [facility] Work Phone: Comment on above: PATIENT WAS FASTINGP ERFORMED BY: ELVIN [facility]6370 [facility] [id number] ALP [Catalytic activity/Vol] 71 U/L Normal 39-117 [facility] Work Phone: Comment on above: PATIENT WAS FASTINGP ERFORMED BY: ELVIN [facility] HealthChrisClara [facility] CenterCestxf6424 [facility] [id number] ALP enzyme act/vol 71 [iU]/L Normal 39-117 Compre [facility] Internal Medicine Work Phone: Comment on above: PATIENT WAS FASTINGP ERFORMED BY: CB [facility] Vesmkv4026 [address] RoadDublin [place] [id number] ALT [Catalytic activity/Vol] 10 U/L Normal 0-32 [facility] Work Phone: Comment on above: PATIENT WAS FASTINGP ERFORMED BY: [facility] Cyrrea6683 [address] RoadD[address] [place] [id number] ALT enzyme act/vol 10 [iU]/L Normal 0-32 [facility] Internal Medicine Work Phone: Comment on above: PATIENT WAS FASTINGP ERFORMED BY: [facility] Zmoxlm9773 [address] RoadD[address] [place] [id number] AST [Catalytic activity/Vol] 19 U/L Normal 0-40 [facility] Internal Medicine Work Phone: Comment on above: PATIENT WAS FASTINGP ERFORMED BY: [facility] Mxomta9974 [address] RoadD[address] [place] [id number] AST enzyme act/vol 19 [iU]/L Normal 0-40 [facility] Internal Medicine Work Phone: Comment on above: PATIENT WAS FASTINGP ERFORMED BY: [facility] Eiuegj6693 [address] RoadD[address] [place] [id number] Bilirubin mass conc 1.7 mg/dL Abnormal 0.0-1.2 Compr [facility] Internal Medicine Work Phone: Comment on above: PATIENT WAS FASTINGP ERFORMED BY: [facility] Zjlowi5493 [address] RoadD[address] [place] [id number] Calcium mass conc 9.6 mg/dL Normal 8.7-10.2 Compreh ensive Internal Medicine Work Phone: Comment on above: PATIENT WAS FASTINGP ERFORMED BY: [facility] Rfieku0540 [address] RoadD[address] [place] [id number] Chloride molar conc 103 mmol/L Normal 96-106 Compr ensive Internal Medicine Work Phone: Comment on above: PATIENT WAS FASTINGP ERFORMED BY: [facility] Ofolee4003 [address] RoadD[address] [place] [id number] CO2 molar conc 24 mmol/L Normal 20-29 Comprehens chris Internal Medicine Work Phone: Comment on above: PATIENT WAS FASTINGP ERFORMED BY: ELVIN [facility] Bnfycg0332 [address] RoadD[address] [place] [id number] Creatinine mass conc 0.73 mg/dL Normal 0.57-1.00 Comp rehensive Internal Medicine Work Phone: Comment on above: PATIENT WAS FASTINGP ERFORMED BY: ELVIN [facility] Pjectv9103 [address] RoadD[address] [place] [id number] GFR/1.73 sq M predicted among blacks CKD-EPI vol rate/area (S/P/Bld) 109 mL/min/1.73 Normal Comprehensiv e Internal Medicine Work Phone: Comment on above: PATIENT WAS FASTINGP ERFORMED BY: ELVIN [facility] Usdrup2224 [address] RoadD[address] [place] [id number] GFR/1.73 sq M predicted among non-blacks CKD-EPI vol rate/area (S/P/Bld) 94 mL/min/1.73 Normal [facility] Work Phone: Comment on above: PATIENT WAS FASTINGP ERFORMED BY: ELVIN [facility] Lbillx2698 [address] RoadD[address] [place] [id number] Globulin mass conc (S) 2.3 g/dL Normal 1.5-4.5 [facility] Work Phone: Comment on above: PATIENT WAS FASTINGP ERFORMED BY: [facility] Xtadqc6224 [address] RoadD[address] [place] [id number] Glucose mass conc 83 mg/dL Normal 65-99 Compreh ensive Internal Medicine Work Phone: Comment on above: PATIENT WAS FASTINGP ERFORMED BY: [facility] Lqlsls5982 [address] RoadD[address] [place] [id number] Potassium molar conc 4.4 mmol/L Normal 3.5-5.2 Comp rehensive Internal Medicine Work Phone: Comment on above: PATIENT WAS FASTINGP ERFORMED BY: [facility] Bpqwbt9762 [address] RoadD[address] [place] [id number] Protein mass conc 6.8 g/dL Normal 6.0-8.5 Compreh ensive Internal Medicine Work Phone: Comment on above: PATIENT WAS FASTINGP ERFORMED BY: CB [facility] Uduqso1893 [address] RoadD[address] [place] [id number] Sodium molar conc 142 mmol/L Normal 134-144 Compreh ensive Internal Medicine Work Phone: Comment on above: PATIENT WAS FASTINGP ERFORMED BY: CB [facility] Mrzipb2448 [address] RoadD[address] [place] [id number] Urea nitrogen mass conc 12 mg/dL Normal 6-24 [facility] Work Phone: Comment on above: PATIENT WAS FASTINGP ERFORMED BY: CB [facility] Fcddeh8525 [address] RoadD[address] [place] [id number] Urea nitrogen/Creatinine mass ratio 16 mg/mg Normal 9- [facility] Work Phone: Comment on above: PATIENT WAS FASTINGP ERFORMED BY: ELVIN [facility] Dlnxuz6180 Good BioSETWashington Regional Medical Centerin [place] [id number] Please noteOrdered By: Theresa m Data Administrator on 04-08-2018 Please note SPRCS Normal [facility] Work Phone: Comment on above: We have received you r request for additional testing or testverification. You will be notified if we are unable to processyour request. PATIENT WAS FASTINGP ERFORMED BY: ELVIN [facility] Xqtkov6740 Good BioSETDublin [place] [id number] Written AuthorizationOrdered By: Phlebotomy Services Representative on 04-08-2018 Written Authorization WAR Normal Com prehensive Internal Medicine Work Phone: Comment on above: Written Authorizatio n Received.Authorization received from Windy request [id number] by Marlene De Santiago PATIENT WAS FASTINGP ERFORMED BY: CB [facility] Qfdbmr7843 [address] [facility] Hospitalblin [place] [id number] GANGLIONOrdered By: Ines escoto on 12-04-2017 GANGLION See Note Normal [facility] Work Phone: Comment on above: Patient: RAJINDER GONZALEZ AM : 1965 (52/F) Acct Num: [id number] Phys: Pio Orona DO Unit Num: [id number] Loc: LABSPEC Specimen: [id number] Received: 12/04/171536 Spec Type: GANGLION TISSUES 1 TISSUES: GANGLION CYST - LEFT HAND GROSS DESCRIPTION Received is one container labeled with the patient's name and not further designated. The specimen consists of a piece of garcia-pink cyst measuring 1.2 x 0.6 x 0.5 cm. The specimen is bisected and reveals a cyst containing garcia-pink mucoid fluid. The entire specimen is submitted in one cassette. / SJ:brianne 12/04/17 TC:5 CPT: 36684 HEADER OPERATION: Left hand removal ganglion cyst PRE-OP DIAGNOSIS: Ganglion left hand TISSUE SUBMITTED: Ganglion left hand MICROSCOPIC DESCRIPTION Slides are reviewed. MICROSCOPIC DIAGNOSIS Ganglion left hand, biopsy: Consistent with ganglion cyst. SJ:brianne 12/07/17 Signed Steven Mason 12/07/17 [facility] Aorazuquxb8752 [facility] [place], [place], [address] BILIRUBIN, TOTAL ([id number])Orde red By: Phlebotomy Services Representative on 03-19-2017 Bilirubin mass conc 0.7 mg/dL Normal 0.0-1.2 [facility] Internal Medicine Work Phone: Comment on above: PATIENT NOT FASTINGP ERFORMED BY: ELVIN [facility] Gjbecc3187 [facility] [id number] Bilirubin.direct mass conc 0.17 mg/dL Normal 0.00-0.40 [facility] Work Phone: Comment on above: PATIENT NOT FASTINGP ERFORMED BY: ELVIN [facility] Yohwsx5352 [facility] [id number] Bilirubin.indirect mass conc 0.53 mg/dL Normal 0.10-0.80 [facility] Work Phone: Comment on above: PATIENT NOT FASTINGP ERFORMED BY: ELVIN [facility] Knoxyn8066 [facility] [id number] Metabolic Panel, Comprehensi ve ([id number])Ordered By: Phlebotomy Services Representative on 03-05-2017 Albumin mass conc 4.6 g/dL Normal 3.5-5.5 Compreh [facility] Internal Medicine Work Phone: Comment on above: Feb 2017; PATIENT WA S FASTINGPERFORMED BY: CB [facility] Gnxcsn9125 [address] RoadD[address] [place] [id number] Albumin/Globulin mass ratio 1.8 {ratio} Normal 1.2-2.2 [facility] Work Phone: Comment on above: Feb 2017; PATIENT WA S FASTINGPERFORMED BY: CB [facility] Mjxsgc9052 [address] RoadDublin [place] [id number] ALP [Catalytic activity/Vol] 73 U/L Normal 39-117 [facility] Work Phone: Comment on above: Feb 2017; PATIENT WA S FASTINGPERFORMED BY: CB [facility] Srydgv7887 [address] RoadDublin [place] [id number] ALP enzyme act/vol 73 [iU]/L Normal 39-117 [facility] Work Phone: Comment on above: Feb 2017; PATIENT WA S FASTINGPERFORMED BY: CB [facility] Fcktqr6570 [address] RoadD[address] [place] [id number] ALT [Catalytic activity/Vol] 14 U/L Normal 0-32 [facility] Work Phone: Comment on above: Feb 2017; PATIENT WA S FASTINGPERFORMED BY: CB [facility] Cgfqux8141 [address] RoadD[address] [place] [id number] ALT enzyme act/vol 14 [iU]/L Normal 0-32 [facility] Internal [facility] Work Phone: Comment on above: Feb 2017; PATIENT WA S FASTINGPERFORMED BY: CB [facility] Jqsiqy4251 [address] RoadD[address] [place] [id number] AST [Catalytic activity/Vol] 21 U/L Normal 0-40 [facility] Work Phone: Comment on above: Feb 2017; PATIENT WA S FASTINGPERFORMED BY: CB [facility] Skeabv7069 [address] RoadDublin [place] [id number] AST enzyme act/vol 21 [iU]/L Normal 0-40 Compre hensive Internal Medicine Work Phone: Comment on above: Feb 2017; PATIENT RAMON S FASTINGPERFORMED BY: CB [facility] Hmejmy7093 [address] RoadD[address] [place] [id number] Bilirubin mass conc 1.3 mg/dL Abnormal 0.0-1.2 Compr ensive Internal Medicine Work Phone: Comment on above: Feb 2017; PATIENT RAMON S FASTINGPERFORMED BY: CB [facility] Cwzlyg9548 [address] RoadDublin [place] [id number] Calcium mass conc 9.7 mg/dL Normal 8.7-10.2 Compreh ensive Internal Medicine Work Phone: Comment on above: Feb 2017; PATIENT RAMON S FASTINGPERFORMED BY: CB [facility] Thmzqr1113 [address] RoadD[address] [place] [id number] Chloride molar conc 99 mmol/L Normal 96-106 Compr ensive Internal Medicine Work Phone: Comment on above: Feb 2017; PATIENT RAMON S FASTINGPERFORMED BY: CB [facility] Vlkmva3702 [address] RoadDublin [place] [id number] CO2 molar conc 23 mmol/L Normal 18-29 Comprehens chris Internal Medicine Work Phone: Comment on above: Feb 2017; PATIENT RAMON S FASTINGPERFORMED BY: CB [facility] Grnhvj3231 [address] RoadDublin [place] [id number] Creatinine mass conc 0.71 mg/dL Normal 0.57-1.00 Comp [facility] Internal [facility] Work Phone: Comment on above: Feb 2017; PATIENT RAMON S FASTINGPERFORMED BY: CB [facility] Eerhww9257 [address] RoadD[address] [place] [id number] GFR/1.73 sq M predicted among blacks CKD-EPI vol rate/area (S/P/Bld) 113 mL/min/1.73 Normal Comprehensiv e Internal Medicine Work Phone: Comment on above: Feb 2017; PATIENT RAMON S FASTINGPERFORMED BY: CB [facility] Ptjfqm8627 [address] RoadD[address] [place] [id number] GFR/1.73 sq M predicted among non-blacks CKD-EPI vol rate/area (S/P/Bld) 98 mL/min/1.73 Normal [facility] Work Phone: Comment on above: Feb 2017; PATIENT WA S FASTINGPERFORMED BY: CB [facility] Amnnbd5586 [address] RoadD[address] [place] [id number] Globulin mass conc (S) 2.6 g/dL Normal 1.5-4.5 [facility] Work Phone: Comment on above: Feb 2017; PATIENT WA S FASTINGPERFORMED BY: CB [facility] Crgcoj8687 [address] RoadD[address] [place] [id number] Glucose mass conc 74 mg/dL Normal 65-99 Compreh ensive Internal Medicine Work Phone: Comment on above: Feb 2017; PATIENT WA S FASTINGPERFORMED BY: [facility] Xvsaht5158 Good RoadWashington Regional Medical Centerin [place] [id number] Potassium molar conc 4.2 mmol/L Normal 3.5-5.2 Comp rehensive Internal Medicine Work Phone: Comment on above: Feb 2017; PATIENT WA S FASTINGPERFORMED BY: CB [facility] Zqfvlj6595 [address] [facility] Centerin [place] [id number] Protein mass conc 7.2 g/dL Normal 6.0-8.5 Compreh ensive Internal Medicine Work Phone: Comment on above: Feb 2017; PATIENT WA S FASTINGPERFORMED BY: [facility] Nriyvo8678 [address] [facility] [place] [facility]in [place] [id number] Sodium molar conc 141 mmol/L Normal 134-144 Compreh ensive Internal Medicine Work Phone: Comment on above: Feb 2017; PATIENT WA S FASTINGPERFORMED BY: CB [facility] Muzsux9584 [address] [place] [place] [facility]in [place] [id number] Urea nitrogen mass conc 17 mg/dL Normal 6-24 [facility] Work Phone: Comment on above: Feb 2017; PATIENT WA S FASTINGPERFORMED BY: [facility] Xlettk6759 [address] [facility] [id number] Urea nitrogen/Creatinine mass ratio 24 mg/mg Abnormal 9- [facility] Work Phone: Comment on above: Feb 2017; PATIENT WA S FASTINGPERFORMED BY: [employer]6370 Controlusbl[address] [place] [id number] CALCIFEDIOL ([id number])Ordered B y: Phlebotomy Services Representative on 07-24-2016 25-Hydroxyvitamin D2+25-Hydroxyvitamin D3 mass conc 64.6 ng/mL Normal 30.0-100.0 [facility] Work Phone: Comment on above: Vitamin D deficiency has been defined by the [place] ofReg[facility] Companycine and an Endocrine Society practice guideline as alevel of serum 25-OH vitamin D less than 20 ng/mL (1,2).The Endocrine Society went on to further define vitamin Dinsufficiency as a level between 21 and 29 ng/mL (2).1. IOM ([place] [employer]). 2010. Dietary reference intakes for calcium and D. [place]: The National Academies Press.2. Thiago MF, Brigida LIMA, Harvey MONTEMAYOR, et al. Evaluation, treatment, and prevention of vitamin D deficiency: an Endocrine Society clinical practice guideline. JCEM. 2010; 96(7):1911-30. PATIENT WAS FASTINGP ERFORMED BY: [employer]6370 Controlusin [place] [id number] CBC, Platelets & Auto Diff ( [id number])Ordered By: Phlebotomy Services Representative on 07-24-2016 Basophils #/vol (Bld) 0.0 {x10E3/uL} Normal 0.0-0.2 [facility] Work Phone: Comment on above: PATIENT WAS FASTINGP ERFORMED BY: [employer]6370 Controlusbl[address] [place] [id number] Basophils (Bld) [#/Vol] 0.0 10*3/uL Normal 0.0-0.2 [facility] Work Phone: Comment on above: PATIENT WAS FASTINGP ERFORMED BY: IForem70 Good [facility] [place] [facility]in [place] [id number] Basophils/100 WBC (Bld) 0 % Normal [facility] Work Phone: Comment on above: PATIENT WAS FASTINGP ERFORMED BY: [facility] Tjjjsl3001 [address] [facility] [id number] Eosinophils #/vol (Bld) 0.2 {x10E3/uL} Normal 0.0-0.4 [facility] Work Phone: Comment on above: PATIENT WAS FASTINGP ERFORMED BY: [facility]6370 [facility] [id number] Eosinophils (Bld) [#/Vol] 0.2 10*3/uL Normal 0.0-0.4 [facility] Work Phone: Comment on above: PATIENT WAS FASTINGP ERFORMED BY: [facility]6370 [facility] [id number] Eosinophils/100 WBC (Bld) 4 % Normal [facility] Work Phone: Comment on above: PATIENT WAS FASTINGP ERFORMED BY: [facility]6370 [facility] [id number] Erythrocyte distribution width Ratio (RBC) 13.8 % Normal 12.3-15.4 [facility] Work Phone: Comment on above: PATIENT WAS FASTINGP ERFORMED BY: [facility]6370 [facility] [id number] Hematocrit Volume Fraction (Bld) 42.1 % Normal 34.0-46.6 [facility] Work Phone: Comment on above: PATIENT WAS FASTINGP ERFORMED BY: [facility]6370 [facility] [id number] Hemoglobin mass conc (Bld) 13.9 g/dL Normal 11.1-15.9 [facility] Work Phone: Comment on above: PATIENT WAS FASTINGP ERFORMED BY: LabCoClara Maass Medical CenterXpolev0860 [facility] [id number] Immature granulocytes #/vol (Bld) 0.0 {x10E3/uL} Normal 0.0-0.1 [facility] Work Phone: Comment on above: PATIENT WAS FASTINGP ERFORMED BY: ELVIN [facility]6370 [facility] [id number] Immature granulocytes (Bld) [#/Vol] 0.0 10*3/uL Normal 0.0-0.1 [facility] Work Phone: Comment on above: PATIENT WAS FASTINGP ERFORMED BY: [facility] Deijhd0922 [facility] [id number] Immature granulocytes/100 WBC (Bld) 0 % Normal [facility] Work Phone: Comment on above: PATIENT WAS FASTINGP ERFORMED BY: ELVIN [facility]Both[facility] Itscqb7452 [facility] [id number] Lymphocytes #/vol (Bld) 1.8 {x10E3/uL} Normal 0.7-3.1 [facility] Work Phone: Comment on above: PATIENT WAS FASTINGP ERFORMED BY: [facility] Ilzgkt7614 [facility] [id number] Lymphocytes (Bld) [#/Vol] 1.8 10*3/uL Normal 0.7-3.1 [facility] Work Phone: Comment on above: PATIENT WAS FASTINGP ERFORMED BY: ELVIN [facility]6370 [facility] [id number] Lymphocytes/100 WBC (Bld) 40 % Normal [facility] Work Phone: Comment on above: PATIENT WAS FASTINGP ERFORMED BY: [facility]6370 [facility] [id number] MCH Entitic mass (RBC) 29.0 pg Normal 26.6-33.0 [facility] Work Phone: Comment on above: PATIENT WAS FASTINGP ERFORMED BY: ELVIN [facility]6370 Saint [facility] [id number] MCHC mass conc (RBC) 33.0 g/dL Normal 31.5-35.7 Comp [facility] Internal Medicine Work Phone: Comment on above: PATIENT WAS FASTINGP ERFORMED BY: ELVIN LabCo Qfqbxk8740 Good RoadDublin [place] [id number] MCV Entitic volume (RBC) 88 fL Normal 79-97 [facility] Work Phone: Comment on above: PATIENT WAS FASTINGP ERFORMED BY: ELVIN Lab[facility] Lauqnp1073 Good RoadDublin [place] [id number] Monocytes #/vol (Bld) 0.3 {x10E3/uL} Normal 0.1-0.9 [facility] Work Phone: Comment on above: PATIENT WAS FASTINGP ERFORMED BY: EL[facility]IN [facility] Prjsbq3365 Good RoadDublin [place] [id number] Monocytes (Bld) [#/Vol] 0.3 10*3/uL Normal 0.1-0.9 [facility] Work Phone: Comment on above: PATIENT WAS FASTINGP ERFORMED BY: ELVIN RyanTnoneida PatelCbdfjr8842 Good RoadDublin [place] [id number] Monocytes/100 WBC (Bld) 7 % Normal [facility] Medicine Work Phone: Comment on above: PATIENT WAS FASTINGP ERFORMED BY: ELVIN [facility]Both[facility] Aiqebs6737 Good RoadDublin [place] [id number] Neutrophils #/vol (Bld) 2.2 {x10E3/uL} Normal 1.4-7.0 [facility] Medicine Work Phone: Comment on above: PATIENT WAS FASTINGP ERFORMED BY: [facility]Both[facility] Glvbun3906 [address] RoadDublin [place] [id number] Neutrophils (Bld) [#/Vol] 2.2 10*3/uL Normal 1.4-7.0 [facility] Medicine Work Phone: Comment on above: PATIENT WAS FASTINGP ERFORMED BY: LabCo Hdvdzq4377 [address] RoadDublin [place] [id number] Neutrophils/100 WBC (Bld) 49 % Normal [facility] Medicine Work Phone: Comment on above: PATIENT WAS FASTINGP ERFORMED BY: [facility]Both[facility] Jqufjq2235 [address] RoadDublin [place] [id number] Platelets #/vol (Bld) 320 {x10E3/uL} Normal 150-379 [facility] Medicine Work Phone: Comment on above: PATIENT WAS FASTINGP ERFORMED BY: ELVIN Palm6370 [address] [facility] [id number] Platelets (Bld) [#/Vol] 320 10*3/uL Normal 150-379 [facility] Internal Medicine Work Phone: Comment on above: PATIENT WAS FASTINGP ERFORMED BY: [facility] Fgbgry0788 [facility] [id number] RBC #/vol (Bld) 4.80 {x10E6/uL} Normal 3.77-5.28 Comp [facility] Internal Medicine Work Phone: Comment on above: PATIENT WAS FASTINGP ERFORMED BY: ELVIN ShelbyBoth[facility] Beckgk7338 [facility] [id number] RBC (Bld) [#/Vol] 4.80 10*6/uL Normal 3.77-5.28 Compr [facility] Internal Medicine Work Phone: Comment on above: PATIENT WAS FASTINGP ERFORMED BY: [facility]Both[facility] Gcpafk9405 [facility] [id number] WBC #/vol (Bld) 4.6 {x10E3/uL} Normal 3.4-10.8 Compr [facility] Internal Medicine Work Phone: Comment on above: PATIENT WAS FASTINGP ERFORMED BY: [facility]Former[facility]6370 [facility] [id number] WBC (Bld) [#/Vol] 4.6 10*3/uL Normal 3.4-10.8 [facility] Work Phone: Comment on above: PATIENT WAS FASTINGP ERFORMED BY: [facility] Klcojz6170 [facility] [id number] Lipid Panel ([id number])Ordered B y: Phlebotomy Services Representative on 07-24-2016 Cholesterol in HDL mass conc 58 mg/dL Normal [facility] Medicine Work Phone: Comment on above: PATIENT WAS FASTINGP ERFORMED BY: ELVIN [facility] Omwswe6450 [address] RoadDublin [place] [id number] Cholesterol in LDL mass conc 99 mg/dL Normal 0-99 [facility] Medicine Work Phone: Comment on above: PATIENT WAS FASTINGP ERFORMED BY: ELVIN LabCooneida Muvnlc4693 [address] RoadD[address] [place] [id number] Cholesterol in LDL/Cholesterol in HDL mass ratio 1.7 {ratio_units} Normal 0.0-3.2 [facility] Medicine Work Phone: Comment on above: LDL/HDL Ratio Men Wo men 1/2 Avg.Risk 1.0 1.5 Avg.Risk 3.6 3.2 2X Avg.Risk 6.2 5.0 3X Avg.Risk 8.0 6.1 PATIENT WAS FASTINGP ERFORMED BY: ELVIN LabCooneida Ibotjt1024 Good RoadWashington Regional Medical Centerin [place] [id number] Cholesterol in VLDL mass conc 29 mg/dL Normal 5-40 [facility] Medicine Work Phone: Comment on above: PATIENT WAS FASTINGP ERFORMED BY: ELVIN LabCooneida Xvknew8957 [address] RoadDublin [place] [id number] Cholesterol mass conc 186 mg/dL Normal 100-[address] [facility] prehensive Internal Medicine Work Phone: Comment on above: PATIENT WAS FASTINGP ERFORMED BY: ELVIN LabCooneida Qkafnp6351 Good [facility] [place] [id number] Triglyceride mass conc 143 mg/dL Normal 0-149 [facility] Medicine Work Phone: Comment on above: PATIENT WAS FASTINGP ERFORMED BY: ELVIN [facility] Pabhst7268 Good [facility] HospitalDublin [place] [id number] Metabolic Panel, Comprehensi ve ([id number])Ordered By: Phlebotomy Services Representative on 07-24-2016 Albumin mass conc 4.2 g/dL Normal 3.5-5.5 Compreh ensive Internal Medicine Work Phone: Comment on above: PATIENT WAS FASTINGP ERFORMED BY: ELVIN [facility] Aoadrg6806 [address] RoadDublin [place] [id number] Albumin/Globulin mass ratio 1.7 {ratio} Normal 1.2-2.2 [facility] Work Phone: Comment on above: PATIENT WAS FASTINGP ERFORMED BY: ELVIN Sagar Palm6370 [address] Roadbl[address] [place] [id number] ALP [Catalytic activity/Vol] 66 U/L Normal 39-117 [facility] Internal Medicine Work Phone: Comment on above: PATIENT WAS FASTINGP ERFORMED BY: ELVIN Lesley Nbpptl3352 Good RoadWashington Regional Medical Centerin [place] [id number] ALP enzyme act/vol 66 [iU]/L Normal 39-117 [facility] Internal Medicine Work Phone: Comment on above: PATIENT WAS FASTINGP ERFORMED BY: ELVIN Lesley Wvyekt2659 Good RoadWashington Regional Medical Centerin [place] [id number] ALT [Catalytic activity/Vol] 17 U/L Normal 0-32 [facility] Internal Medicine Work Phone: Comment on above: PATIENT WAS FASTINGP ERFORMED BY: ELVIN RyanBoth[facility] Rlukxz3548 Good [facility] [id number] ALT enzyme act/vol 17 [iU]/L Normal 0-32 [facility] Internal Medicine Work Phone: Comment on above: PATIENT WAS FASTINGP ERFORMED BY: ELVIN Lesley Yvjzcz5346 Good [facility] [id number] AST [Catalytic activity/Vol] 22 U/L Normal 0-40 [facility] Internal Medicine Work Phone: Comment on above: PATIENT WAS FASTINGP ERFORMED BY: ELVIN ShelbyBoth[facility] Copjgj5631 Good [facility] [id number] AST enzyme act/vol 22 [iU]/L Normal 0-40 [facility] Internal Medicine Work Phone: Comment on above: PATIENT WAS FASTINGP ERFORMED BY: ELVIN Lesley Kcizsx6377 Good [facility]in [place] [id number] Bilirubin mass conc 0.8 mg/dL Normal 0.0-1.2 [facility] Internal Medicine Work Phone: Comment on above: PATIENT WAS FASTINGP ERFORMED BY: ELVIN [facility] Ugwwse2372 [address] RoadDublin [place] [id number] Calcium mass conc 9.2 mg/dL Normal 8.7-10.2 Compreh ensive Internal Medicine Work Phone: Comment on above: PATIENT WAS FASTINGP ERFORMED BY: ELVIN [facility] Qnssxo0474 Good RoadDublin [place] [id number] Chloride molar conc 101 mmol/L Normal 96-106 Compr ehensive Internal Medicine Work Phone: Comment on above: PATIENT WAS FASTINGP ERFORMED BY: ELVIN [facility] Ueldqb3588 [address] RoadDublin [place] [id number] CO2 molar conc 22 mmol/L Normal 18-29 Comprehens chris Internal Medicine Work Phone: Comment on above: PATIENT WAS FASTINGP ERFORMED BY: ELVIN [facility] Uszuhw4461 [address] Roadblin [place] [id number] Creatinine mass conc 0.70 mg/dL Normal 0.57-1.00 Comp [facility] Internal [facility] Work Phone: Comment on above: PATIENT WAS FASTINGP ERFORMED BY: ELVIN [facility] Cvhdwa3513 Good Roadblin [place] [id number] GFR/1.73 sq M predicted among blacks CKD-EPI vol rate/area (S/P/Bld) 116 mL/min/1.73 Normal Comprehensiv e Internal Medicine Work Phone: Comment on above: PATIENT WAS FASTINGP ERFORMED BY: LabCo Fcmqty2217 Good RoadWashington Regional Medical Centerin [place] [id number] GFR/1.73 sq M predicted among non-blacks CKD-EPI vol rate/area (S/P/Bld) 101 mL/min/1.73 Normal [facility] Medicine Work Phone: Comment on above: PATIENT WAS FASTINGP ERFORMED BY: ELVIN [facility] Pljwvx1946 [address] RoadD[address] [place] [id number] Globulin mass conc (S) 2.5 g/dL Normal 1.5-4.5 [facility] Work Phone: Comment on above: PATIENT WAS FASTINGP ERFORMED BY: [facility] Wvgzis4083 Good RoadDublin [place] [id number] Glucose mass conc 82 mg/dL Normal 65-99 Compreh ensive Internal Medicine Work Phone: Comment on above: PATIENT WAS FASTINGP ERFORMED BY: [facility] Vodegt1626 [address] RoadDublin [place] [id number] Potassium molar conc 4.4 mmol/L Normal 3.5-5.2 Comp rehensive Internal Medicine Work Phone: Comment on above: PATIENT WAS FASTINGP ERFORMED BY: [facility] Rlblso1736 [address] RoadDublin [place] [id number] Protein mass conc 6.7 g/dL Normal 6.0-8.5 Compreh ensive Internal Medicine Work Phone: Comment on above: PATIENT WAS FASTINGP ERFORMED BY: [facility] Rrtamj9057 [address] RoadDublin [place] [id number] Sodium molar conc 141 mmol/L Normal 134-144 Compreh ensive Internal Medicine Work Phone: Comment on above: PATIENT WAS FASTINGP ERFORMED BY: [facility] Emubpq1544 Good RoadDuin [place] [id number] Urea nitrogen mass conc 16 mg/dL Normal 6-24 [facility] Medicine Work Phone: Comment on above: PATIENT WAS FASTINGP ERFORMED BY: [facility] Tzdoas2901 [address] RoadDublin [place] [id number] Urea nitrogen/Creatinine mass ratio 23 mg/mg Normal 9-23 [facility] Medicine Work Phone: Comment on above: PATIENT WAS FASTINGP ERFORMED BY: [facility] Vvquex7541 Good RoadDublin [place] [id number] URINE ERICA CULTURE-IDENTIFICA TN (80073)Ordered By: Phlebotomy Services Representative on 10-11-2015 Bacteria identified Cx Nom (U) Escherichia coli Abnormal [facility] Medicine Work Phone: Comment on above: Greater than 100,000 colony forming units per mL PERFORMED BY: Lab Allison Uxmkyl2149 [address] RoadDublin [place] [id number] Information: SRC:UC Bacteria identified Cx Nom (U) Final report Abnormal [facility] Medicine Work Phone: Comment on above: PERFORMED BY: [employer]70 ControlusWakeMed North Hospital [id number] Information: SRC:ABRIL Other Antibiotic susc MIHEAD Normal Com prehensive Internal Medicine Work Phone: Comment on above: S = Susceptible; I = Intermediate; R = Resistant P = Positive; N = Negative MICS are expressed in micrograms per mL Antibiotic RSLT#1 RSLT#2 RSLT#3 RSLT#4Amoxicillin/Clavulanic Acid SAmpicillin SCefepime SCeftriaxone SCefuroxime SCephalothin SCiprofloxacin SErtapenem SGentamicin SImipenem SLevofloxacin SNitrofurantoin SPiperacillin STetracycline STobramycin STrimethoprim/Sulfa S PERFORMED BY: [employer]6370 ControlusWakeMed North Hospital [id number] Information: SRC:ABRIL Urinalysis, Office ([id number])Or dered By: Lizabeth Knott on 10-11-2015 Bilirubin Ql (U) Negative Normal Comprehe nsive Internal Medicine Work Phone: Bilirubin Ql (U) Negative Normal Comprehe nsive Internal Medicine Work Phone: Glucose Test strip (U) [Mass/Vol] Negative Normal [facility] Work Phone: Glucose Test strip mass conc (U) Negative Normal [facility] Work Phone: Hemoglobin Ql (U) Hemolyzed Small Normal Co mprehensive Internal Medicine Work Phone: Ketones Ql (U) Negative Normal Comprehens chris Internal Medicine Work Phone: Ketones Ql (U) Negative Normal Comprehens chris Internal Medicine Work Phone: Leukocyte esterase Test strip Ql (U) Small Normal [facility] Medicine Work Phone: Nitrite Ql (U) Negative Normal Comprehens chris Internal Medicine Work Phone: Nitrite Ql (U) Negative Normal Comprehens chris Internal Medicine Work Phone: pH (U) 6 [pH] Abnormal [facility] Work Phone: Protein Ql (U) Negative Normal Comprehens chris Internal Medicine Work Phone: Protein Ql (U) Negative Normal Comprehens chris Internal Medicine Work Phone: Specific gravity Relative Density (U) 1.010 1 Normal Comprehensi ve Internal Medicine Work Phone: Urobilinogen mass/time (24H U) Normal Normal [facility] Work Phone: CBC with auto diff ([id number])Or dered By: Phlebotomy Services Representative on 08-08-2015 Basophils #/vol (Bld) 0.0 {x10E3/uL} Normal 0.0-0.2 [facility] Work Phone: Comment on above: PATIENT WAS FASTINGP ERFORMED BY: [address] [id number] Information: [id number] Basophils (Bld) [#/Vol] 0.0 10*3/uL Normal 0.0-0.2 [facility] Work Phone: Comment on above: PATIENT WAS FASTINGP ERFORMED BY: [address] [id number] Information: [id number] Basophils/100 WBC (Bld) 1 % Normal [facility] Medicine Work Phone: Comment on above: PATIENT WAS FASTINGP ERFORMED BY: [facility]6370 [facility] [id number] Information: [id number] Eosinophils #/vol (Bld) 0.2 {x10E3/uL} Normal 0.0-0.4 [facility] Work Phone: Comment on above: PATIENT WAS FASTINGP ERFORMED BY: [place] 8248170 [facility] [id number] Information: [id number] Eosinophils (Bld) [#/Vol] 0.2 10*3/uL Normal 0.0-0.4 [facility] Work Phone: Comment on above: PATIENT WAS FASTINGP ERFORMED BY: ELVIN Ryan[address] [id number] Information: [id number] Eosinophils/100 WBC (Bld) 4 % Normal [facility] Work Phone: Comment on above: PATIENT WAS FASTINGP ERFORMED BY: [address] [id number] Information: [id number] Erythrocyte distribution width Ratio (RBC) 13.5 % Normal 12.3-15.4 [facility] Work Phone: Comment on above: PATIENT WAS FASTINGP ERFORMED BY: [address] [id number] Information: [id number] Hematocrit Volume Fraction (Bld) 43.0 % Normal 34.0-46.6 [facility] Work Phone: Comment on above: PATIENT WAS FASTINGP ERFORMED BY: [address] [id number] Information: [id number] Hemoglobin mass conc (Bld) 14.4 g/dL Normal 11.1-15.9 [facility] Work Phone: Comment on above: PATIENT WAS FASTINGP ERFORMED BY: [address] [id number] Information: [id number] Immature granulocytes #/vol (Bld) 0.0 {x10E3/uL} Normal 0.0-0.1 [facility] Work Phone: Comment on above: PATIENT WAS FASTINGP ERFORMED BY: [address] [id number] Information: [id number] Immature granulocytes (Bld) [#/Vol] 0.0 10*3/uL Normal 0.0-0.1 [facility] Work Phone: Comment on above: PATIENT WAS FASTINGP ERFORMED BY: ELVIN Sagar Desouza [facility] [id number] Information: [id number] Immature granulocytes/100 WBC (Bld) 0 % Normal [facility] Work Phone: Comment on above: PATIENT WAS FASTINGP ERFORMED BY: Shelby[address] [id number] Information: [id number] Lymphocytes #/vol (Bld) 2.4 {x10E3/uL} Normal 0.7-3.1 [facility] Work Phone: Comment on above: PATIENT WAS FASTINGP ERFORMED BY: ELVIN [facility]Both[facility] Oghaeb38[address] [id number] Information: [id number] Lymphocytes (Bld) [#/Vol] 2.4 10*3/uL Normal 0.7-3.1 [facility] Work Phone: Comment on above: PATIENT WAS FASTINGP ERFORMED BY: ELIVN Lesley Ggovqp3003 [facility] [id number] Information: [id number] Lymphocytes/100 WBC (Bld) 38 % Normal [facility] Work Phone: Comment on above: PATIENT WAS FASTINGP ERFORMED BY: ELVIN Shelby[address] [id number] Information: [id number] MCH Entitic mass (RBC) 30.1 pg Normal 26.6-33.0 [facility] Work Phone: Comment on above: PATIENT WAS FASTINGP ERFORMED BY: ELVIN [facility] Jjspyw7201 [facility] [id number] Information: [id number] MCHC mass conc (RBC) 33.5 g/dL Normal 31.5-35.7 Comp [facility] Work Phone: Comment on above: PATIENT WAS FASTINGP ERFORMED BY: ELVIN [facility] Gxhuhk2587 [facility] [id number] Information: [id number] MCV Entitic volume (RBC) 90 fL Normal 79-97 [facility] Work Phone: Comment on above: PATIENT WAS FASTINGP ERFORMED BY: [facility] Wqbglt6860 [facility] [id number] Information: [id number] Monocytes #/vol (Bld) 0.5 {x10E3/uL} Normal 0.1-0.9 [facility] Work Phone: Comment on above: PATIENT WAS FASTINGP ERFORMED BY: [facility] Jegfsz0023 [facility] [id number] Information: [id number] Monocytes (Bld) [#/Vol] 0.5 10*3/uL Normal 0.1-0.9 [facility] Work Phone: Comment on above: PATIENT WAS FASTINGP ERFORMED BY: [facility] Vlpwar5145 [facility] [id number] Information: [id number] Monocytes/100 WBC (Bld) 7 % Normal [facility] Work Phone: Comment on above: PATIENT WAS FASTINGP ERFORMED BY: [facility] Mrxusf1890 [facility] [id number] Information: [id number] Morphology Interp Maicol (Bld) Note: Normal [facility] Work Phone: Comment on above: Verified by microsco pic examination. PATIENT WAS FASTINGP ERFORMED BY: [facility] Ibwoct5140 [facility] [id number] Information: [id number] Neutrophils #/vol (Bld) 3.2 {x10E3/uL} Normal 1.4-7.0 [facility] Work Phone: Comment on above: PATIENT WAS FASTINGP ERFORMED BY: ELVIN Patellin6370 [facility] [id number] Information: [id number],[id number] Neutrophils (Bld) [#/Vol] 3.2 10*3/uL Normal 1.4-7.0 [facility] Work Phone: Comment on above: PATIENT WAS FASTINGP ERFORMED BY: ELVIN ShelbyAllison PatelZxgnsp5213 [facility] [id number] Information: [id number] Neutrophils/100 WBC (Bld) 50 % Normal [facility] Work Phone: Comment on above: PATIENT WAS FASTINGP ERFORMED BY: ELVIN Patel[address] [id number] Information: [id number] Platelets #/vol (Bld) 271 {x10E3/uL} Normal 150-379 [facility] Work Phone: Comment on above: PATIENT WAS FASTINGP ERFORMED BY: ELVIN Patellin6370 [facility] [id number] Information: [id number] Platelets (Bld) [#/Vol] 271 10*3/uL Normal 150-379 [facility] Work Phone: Comment on above: PATIENT WAS FASTINGP ERFORMED BY: ELVIN Patellin6370 [facility] [id number] Information: [id number] RBC #/vol (Bld) 4.79 {x10E6/uL} Normal 3.77-5.28 [facility] Internal Medicine Work Phone: Comment on above: PATIENT WAS FASTINGP ERFORMED BY: ELVIN ShelbyAllison PatelCmqyqw3675 [facility] [id number] Information: [id number] RBC (Bld) [#/Vol] 4.79 10*6/uL Normal 3.77-5.28 [facility] Internal Medicine Work Phone: Comment on above: PATIENT WAS FASTINGP ERFORMED BY: ELVIN Palm6370 [facility] [id number] Information: [id number] WBC #/vol (Bld) 6.2 {x10E3/uL} Normal 3.4-10.8 [facility] Internal Medicine Work Phone: Comment on above: PATIENT WAS FASTINGP ERFORMED BY: ELVIN Sutton Xiypdj8547 [facility] [id number] Information: [id number] WBC (Bld) [#/Vol] 6.2 10*3/uL Normal 3.4-10.8 Compre [facility] Internal Medicine Work Phone: Comment on above: PATIENT WAS FASTINGP ERFORMED BY: ELVIN Patellin6370 [facility] [id number] Information: [id number] LIPID PANEL ([id number])Ordered B y: Phlebotomy Services Representative on 08-08-2015 Cholesterol in HDL mass conc 63 mg/dL Normal [facility] Work Phone: Comment on above: According to ATP-III Guidelines, HDL-C >59 mg/dL is considered anegative risk factor for CHD. PATIENT WAS FASTINGP ERFORMED BY: ELVIN Palm6370 [facility] [id number] Cholesterol in LDL mass conc 128 mg/dL Abnormal 0-99 [facility] Work Phone: Comment on above: PATIENT WAS FASTINGP ERFORMED BY: ELVIN [facility]Both[facility] Ehxvsr5470 [facility] [id number] Cholesterol in LDL/Cholesterol in HDL mass ratio 2.0 {ratio_units} Normal 0.0-3.2 [facility] Work Phone: Comment on above: LDL/HDL Ratio Men Wo men 1/2 Avg.Risk 1.0 1.5 Avg.Risk 3.6 3.2 2X Avg.Risk 6.2 5.0 3X Avg.Risk 8.0 6.1 PATIENT WAS FASTINGP ERFORMED BY: [place] 8248170 [facility] [id number] Cholesterol in VLDL mass conc 18 mg/dL Normal 5-40 [facility] Work Phone: Comment on above: PATIENT WAS FASTINGP ERFORMED BY: ELVIN [facility] Hgqlzg4532 [facility] [place] [id number] Cholesterol mass conc 209 mg/dL Abnormal 100-199 Com prehensive Internal Medicine Work Phone: Comment on above: PATIENT WAS FASTINGP ERFORMED BY: ELVIN [facility] Jkjkzs0151 Good [facility] [place] [id number] Triglyceride mass conc 89 mg/dL Normal 0-149 [facility] Work Phone: Comment on above: PATIENT WAS FASTINGP ERFORMED BY: ELVIN [facility] Okhfif7758 Good [facility] [id number] METABOLIC PANEL, COMPREHENSI VE ([id number])Ordered By: Phlebotomy Services Representative on 08-08-2015 Albumin mass conc 4.5 g/dL Normal 3.5-5.5 Compreh ensive Internal Medicine Work Phone: Comment on above: PATIENT WAS FASTINGP ERFORMED BY: ELVIN [facility] Mrqqqk9162 Good [facility] [place] [id number] Albumin/Globulin mass ratio 1.8 {ratio} Normal 1.1-2.5 [facility] Work Phone: Comment on above: PATIENT WAS FASTINGP ERFORMED BY: ELVIN [facility] Oyrxqs7827 Good [facility] [place] [id number] ALP [Catalytic activity/Vol] 65 U/L Normal 39-117 [facility] Work Phone: Comment on above: PATIENT WAS FASTINGP ERFORMED BY: ELVIN [facility] Ttlvgf1882 [facility] [place] [id number] ALP enzyme act/vol 65 [iU]/L Normal 39-117 Compre [facility] Internal Medicine Work Phone: Comment on above: PATIENT WAS FASTINGP ERFORMED BY: ELVIN [facility] Tuvlxh3038 [facility] [place] [id number] ALT [Catalytic activity/Vol] 17 U/L Normal 0-32 [facility] Work Phone: Comment on above: PATIENT WAS FASTINGP ERFORMED BY: ELVIN [facility] Pnhdbi7867 [address] RoadDublin [place] [id number] ALT enzyme act/vol 17 [iU]/L Normal 0-32 [facility] Internal Medicine Work Phone: Comment on above: PATIENT WAS FASTINGP ERFORMED BY: ELVIN [facility] Islrmr3642 [address] RoadD[address] [place] [id number] AST [Catalytic activity/Vol] 23 U/L Normal 0-40 [facility] Work Phone: Comment on above: PATIENT WAS FASTINGP ERFORMED BY: ELVIN [facility] Adeilf9536 [address] RoadD[address] [place] [id number] AST enzyme act/vol 23 [iU]/L Normal 0-40 [facility] Internal Medicine Work Phone: Comment on above: PATIENT WAS FASTINGP ERFORMED BY: ELVIN [facility] Tdpohw1902 [address] RoadDublin [place] [id number] Bilirubin mass conc 1.2 mg/dL Normal 0.0-1.2 Compr [facility] [facility] Internal Medicine Work Phone: Comment on above: PATIENT WAS FASTINGP ERFORMED BY: ELVIN [facility] Kmwujf8575 Good RoadDublin [place] [id number] Calcium mass conc 9.4 mg/dL Normal 8.7-10.[address] [facility] Work Phone: Comment on above: PATIENT WAS FASTINGP ERFORMED BY: ELVIN [facility] Ydmrql2950 Good RoadDublin [place] [id number] Chloride molar conc 99 mmol/L Normal 97-108 Compr ensive Internal Medicine Work Phone: Comment on above: PATIENT WAS FASTINGP ERFORMED BY: CB [facility] Csqjrg9164 [address] RoadDublin [place] [id number] CO2 molar conc 20 mmol/L Normal 18-29 Comprehens chris Internal Medicine Work Phone: Comment on above: PATIENT WAS FASTINGP ERFORMED BY: ELVIN [facility] Wpamie4914 [address] RoadDublin [place] [id number] Creatinine mass conc 0.71 mg/dL Normal 0.57-1.00 Comp rehensive Internal Medicine Work Phone: Comment on above: PATIENT WAS FASTINGP ERFORMED BY: ELVIN Sagar Palm[address] [facility] [place] [facility] [id number] GFR/1.73 sq M predicted among blacks CKD-EPI vol rate/area (S/P/Bld) 115 mL/min/1.73 Normal Comprehensiv e Internal Medicine Work Phone: Comment on above: PATIENT WAS FASTINGP ERFORMED BY: ELVIN ShelbyChris Ebcehx1581 Good [facility] [id number] GFR/1.73 sq M predicted among non-blacks CKD-EPI vol rate/area (S/P/Bld) 100 mL/min/1.73 Normal [facility] Work Phone: Comment on above: PATIENT WAS FASTINGP ERFORMED BY: ELVIN ShelbyAllison PatelGuwdoy4430 [facility] [id number] Globulin mass conc (S) 2.5 g/dL Normal 1.5-4.5 [facility] Work Phone: Comment on above: PATIENT WAS FASTINGP ERFORMED BY: ELVIN Lesleyoneida PatelPhirld1453 [facility] [id number] Glucose mass conc 76 mg/dL Normal 65-99 Compreh ensive Internal Medicine Work Phone: Comment on above: PATIENT WAS FASTINGP ERFORMED BY: ELVIN Lesley Kmrqpr5977 [facility] [id number] Potassium molar conc 4.3 mmol/L Normal 3.5-5.2 Comp rehensive Internal Medicine Work Phone: Comment on above: PATIENT WAS FASTINGP ERFORMED BY: ELVIN LabChrisoneida Dvuwoo8867 [facility] [id number] Protein mass conc 7.0 g/dL Normal 6.0-8.5 Compreh ensive Internal Medicine Work Phone: Comment on above: PATIENT WAS FASTINGP ERFORMED BY: ELVIN LabChris Lcwuul4862 [facility] [id number] Sodium molar conc 140 mmol/L Normal 134-144 Compreh ensive Internal Medicine Work Phone: Comment on above: PATIENT WAS FASTINGP ERFORMED BY: ELVIN [facility] Taogal3136 [address] RoadDublin [place] [id number] Urea nitrogen mass conc 16 mg/dL Normal 6-24 [facility] Work Phone: Comment on above: PATIENT WAS FASTINGP ERFORMED BY: ELVIN [facility] Lpfnul0516 [address] RoadD[address] [place] [id number] Urea nitrogen/Creatinine mass ratio 23 mg/mg Normal 9-23 [facility] Work Phone: Comment on above: PATIENT WAS FASTINGP ERFORMED BY: ELVIN [facility] Qelerb6083 [address] RoadDublin [place] [id number] PARATHORMONE ([id number])Ordered By: Phlebotomy Services Representative on 08-08-2015 Parathyrin.intact mass conc 16 pg/mL Normal 15-65 [facility] Work Phone: Comment on above: PATIENT WAS FASTINGP ERFORMED BY: ELVIN [facility] Oomttn6804 [address] RoadDublin [place] [id number] SPEP ([id number])Ordered By: Syst em Data Administrator on 08-08-2015 Albumin mass conc 4.0 g/dL Normal 2.9-4.4 Compreh ensive Internal Medicine Work Phone: Comment on above: PATIENT WAS FASTINGP ERFORMED BY: ELVIN [facility] Mhatit3637 [address] RoadDublin [place] [id number] Albumin/Globulin mass ratio 1.3 {ratio} Normal 0.7-1.7 [facility] Work Phone: Comment on above: PATIENT WAS FASTINGP ERFORMED BY: ELVIN [facility] Giaond4322 [address] RoadDublin [place] [id number] Alpha 1 globulin Elph mass conc 0.2 g/dL Normal 0.0-0.4 [facility] Work Phone: Comment on above: PATIENT WAS FASTINGP ERFORMED BY: ELVIN [facility] Dtvqkh7173 [address] RoadDublin [place] [id number] Alpha 2 globulin Elph mass conc 0.7 g/dL Normal 0.4-1.0 [facility] Work Phone: Comment on above: PATIENT WAS FASTINGP ERFORMED BY: [facility] Oynpfc2437 [address] [facility] [place] [facility] [id number] Beta globulin Elph mass conc 1.0 g/dL Normal 0.7-1.3 [facility] Work Phone: Comment on above: PATIENT WAS FASTINGP ERFORMED BY: CB [facility] Zljygd7312 [address] [facility] [id number] Gamma globulin Elph mass conc 1.0 g/dL Normal 0.4-1.8 [facility] Work Phone: Comment on above: PATIENT WAS FASTINGP ERFORMED BY: [facility] Eorohl4886 [address] [facility] [id number] Globulin mass conc (S) 3.0 g/dL Normal 2.2-3.9 [facility] Work Phone: Comment on above: PATIENT WAS FASTINGP ERFORMED BY: [facility] Xtjbvj5690 [address] [facility] [id number] Protein.monoclonal Elph mass conc Not Observed Normal [facility] Work Phone: Comment on above: PATIENT WAS FASTINGP ERFORMED BY: [facility] Qtdcwy0684 Good [facility] [id number] TSH ([id number])Ordered By: Syste m Data Administrator on 08-08-2015 Thyrotropin Qn 2.830 {uIU/mL} Normal 0.450-4.50 0 [facility] Work Phone: Comment on above: PATIENT WAS FASTINGP ERFORMED BY: [facility] Usfpei6111 [address] [facility] [place] [facility] [id number] UPEP ([id number])Ordered By: Syst em Data Administrator on 08-08-2015 Albumin/Protein.total Elph mass fraction (U) 27.4 % Normal [facility] Work Phone: Comment on above: PATIENT WAS FASTINGP ERFORMED BY: [facility] Fnjmjh8010 [address] RoadD[address] [place] [id number] Alpha 1 globulin/Protein.tota l Elph mass fraction (U) 5.8 % Normal [facility] Work Phone: Comment on above: PATIENT WAS FASTINGP ERFORMED BY: CB [facility] Pehzew5261 [address] RoadD[address] [place] [id number] Alpha 2 globulin/Protein.tota l Elph mass fraction (U) 24.6 % Normal [facility] Work Phone: Comment on above: PATIENT WAS FASTINGP ERFORMED BY: CB [facility] Zturjn7978 [address] RoadD[address] [place] [id number] Beta globulin/Protein.tota l Elph mass fraction (U) 32.8 % Normal [facility] Work Phone: Comment on above: PATIENT WAS FASTINGP ERFORMED BY: CB [facility] Ipjiwx8420 [address] RoadD[address] [place] [id number] Gamma globulin/Protein.tota l Elph mass fraction (U) 9.4 % Normal [facility] Work Phone: Comment on above: PATIENT WAS FASTINGP ERFORMED BY: CB [facility] Onewgl0655 [address] RoadDublin [place] [id number] Laboratory comment Maicol (Report) SPR Normal [facility] Work Phone: Comment on above: Protein electrophore sis scan will follow via computer, mail, orcourier delivery. PATIENT WAS FASTINGP ERFORMED BY: CB [facility] Ttowyu1714 [address] RoadD[address] [place] [id number] Protein mass conc (U) 10.1 mg/dL Normal [facility] prehensive Internal Medicine Work Phone: Comment on above: PATIENT WAS FASTINGP ERFORMED BY: CB [facility] Xhdhjv6645 [address] RoadD[address] [place] [id number] Protein.monoclonal/Pr otein.total Elph mass fraction (U) Not Observed Normal [facility] Work Phone: Comment on above: PATIENT WAS FASTINGP ERFORMED BY: CB [facility] Iqxkev3368 [address] RoadDublin [place] [id number] URINE CALCIUM ALVERTO TIMED 24 Hour (09598)Ordered By: Phlebotomy Services Representative on 08-08-2015 Calcium mass conc (24H U) 9.8 mg/dL Normal [facility] Work Phone: Comment on above: PATIENT NOT FASTINGP ERFORMED BY: ELVIN [facility] Wwlthm8915 [facility] [id number] Information: [id number] 3,000ML S TART Calcium mass/time (24H U) 294.0 {mg/24_hr} Normal 100.0-300. 0 [facility] Work Phone: Comment on above: PATIENT NOT FASTINGP ERFORMED BY: [facility] Bubwkf4907 [facility] [id number] Information: [id number] 3,000ML S TART Vitamin D Hydroxy (87045)Ord ered By: Phlebotomy Services Representative on 08-08-2015 25-Hydroxyvitamin D2+25-Hydroxyvitamin D3 mass conc 57.3 ng/mL Normal 30.0-100.0 [facility] Work Phone: Comment on above: Vitamin D deficiency has been defined by the [place] and an Endocrine Society practice guideline as alevel of serum 25-OH vitamin D less than 20 ng/mL (1,2).The Endocrine Society went on to further define vitamin Dinsufficiency as a level between 21 and 29 ng/mL (2).1. IOM ([place] [employer]). 2010. Dietary reference intakes for calcium and D. [place]: The National Academies Press.2. Thiago MF, Brigida LIMA, Harvey MONTEMAYOR, et al. Evaluation, treatment, and prevention of vitamin D deficiency: an Endocrine Society clinical practice guideline. JCEM. 2010; 96(7):1911-30. PATIENT WAS FASTINGP ERFORMED BY: [facility] Wysyut8899 [facility] [id number] CBC W/Diff, AutomatedOrdered By: Phlebotomy Services Representative on 07-01-2014 Absolute Neut 3.2 {X10_3/uL} Normal 2.0-7.7 Compreh ensive Internal Medicine Work Phone: Comment on above: Test performed at:[facility] [address] [place] [address] Basophils/100 WBC (Bld) 0.5 % Normal 0-1 [facility] Work Phone: Comment on above: Test performed at:[facility] [address] [place] [address] Eosinophils/100 WBC (Bld) 3.2 % Normal 0-5 [facility] Work Phone: Comment on above: Test performed at:[facility] [address] [place] [address] Erythrocyte distribution width Ratio (RBC) 12.7 % Normal 11.6-14.6 [facility] Work Phone: Comment on above: Test performed at:[facility] [address] [place] [address] Hematocrit Volume Fraction (Bld) 41.7 % Normal 37-47 [facility] Work Phone: Comment on above: Test performed at:[facility] [address] [place] [address] Hemoglobin mass conc (Bld) 14.0 g/dL Normal 12.0-15.0 [facility] Work Phone: Comment on above: Test performed at:[facility] [address] [place] [address] IM GRAN % 0.300 % Normal 0.0-0.9 [facility] Work Phone: Comment on above: IG% - Immature Granu locytes (promyelocytes, myelocytes andmetamyelocytes) > 1% indicates that a LEFT SHIFT is Present. Test performed at:[facility] [address] [place] [address] Lymphocytes #/vol (Bld) 2.04 {X10_3/ul} Normal 0.83-4.51 [facility] Work Phone: Comment on above: Test performed at:[facility] [address] [place] [address] Lymphocytes/100 WBC (Bld) 34.5 % Normal 19-41 [facility] Work Phone: Comment on above: Test performed at:[facility] [address] [place] [address] MCH Entitic mass (RBC) 29.9 pg Normal 27.0-32.0 [facility] Work Phone: Comment on above: Test performed at:[facility] [address] [place] [address] MCHC mass conc (RBC) 33.6 {g/gl} Normal 32-[address] [facility] prehensive Internal Medicine Work Phone: Comment on above: Test performed at:[facility] [address] [place] [address] MCV Entitic volume (RBC) 88.9 fL Normal 81-99 [facility] Work Phone: Comment on above: Test performed at:[facility] [address] [place] [address] Monocytes/100 WBC (Bld) 6.9 % Normal 0-10 [facility] Work Phone: Comment on above: Test performed at:[facility] [address] [place] [address] Neutrophils/100 WBC (Bld) 54.6 % Normal 47-70 [facility] Work Phone: Comment on above: Test performed at:[facility] [address] [place] [address] Platelet mean volume Entitic volume (Bld) 10.0 fL Normal 6.2-12.0 Comprehensi Internal Medicine Work Phone: Comment on above: Test performed at:[facility] [address] [place] [address] Platelets #/vol (Bld) 302 10*3/uL Normal 150-450 Co mprehensive Internal Medicine Work Phone: Comment on above: Test performed at:[facility] [address] [place] [address] RBC #/vol (Bld) 4.69 {M/mm3} Normal 4.2-5.4 Compreh ensive Internal Medicine Work Phone: Comment on above: Test performed at:[facility] [address] [place] [address] RDW SD 40.7 fL Normal 35.1-43.9 [facility] Work Phone: Comment on above: Test performed at:[facility] [address] [place] [address] WBC #/vol (Bld) 5.9 10*3/uL Normal 4.4-11.0 Comprehe nsive Internal Medicine Work Phone: Comment on above: Test performed at:[facility] [address] [place] [address] Comprehensive Metabolic Prof ilOrdered By: Phlebotomy Services Representative on 07-01-2014 Comprehensive metabolic 2000 panel 6 1 Normal 5-15 Comprehensi ve Internal Medicine Work Phone: Comment on above: Test performed at:[facility] [address] [place] [address] Comprehensive metabolic 2000 panel 86 U/L Normal 50-136 Comprehensi ve Internal Medicine Work Phone: Comment on above: Test performed at:[facility] [address] [place] [address] Comprehensive metabolic 2000 panel 25 U/L Normal 12-78 Comprehensi ve Internal Medicine Work Phone: Comment on above: Test performed at:[facility] [address] [place] [address] Comprehensive metabolic 2000 panel 20 U/L Normal 15-37 Comprehensi ve Internal Medicine Work Phone: Comment on above: Test performed at:[facility] [address] [place] [address] Comprehensive metabolic 2000 panel 8.6 mg/dL Normal 8.5-10.1 Comprehensi ve Internal Medicine Work Phone: Comment on above: Test performed at:[facility] [address] [place] [address] Comprehensive metabolic 2000 panel 0.80 mg/dL Normal 0.00-4.00 Comprehensi ve Internal Medicine Work Phone: Comment on above: Test performed at:[facility] [address] [place] [address] Comprehensive metabolic 2000 panel 1.1 {RATIO} Normal 0.9-2.4 Comprehensi ve Internal Medicine Work Phone: Comment on above: Test performed at:[facility] [address] [place] [address] Comprehensive metabolic 2000 panel 138 mmol/L Normal 136-145 Comprehensi ve Internal Medicine Work Phone: Comment on above: Test performed at:[facility] [address] [place] [address] Comprehensive metabolic 2000 panel 3.4 g/dL Normal 2.7-4.2 Comprehensi ve Internal Medicine Work Phone: Comment on above: Test performed at:[facility] [address] [place] [address] Comprehensive metabolic 2000 panel 3.8 g/dL Normal 3.4-5.0 Comprehensi ve Internal Medicine Work Phone: Comment on above: Test performed at:[facility] [address] [place] [address] Comprehensive metabolic 2000 panel 3.9 mmol/L Normal 3.5-5.1 Comprehensi ve Internal Medicine Work Phone: Comment on above: Test performed at:[facility] [address] [place], [place] [address] Comprehensive metabolic 2000 panel 7.2 g/dL Normal 6.4-8.2 Comprehensi ve Internal Medicine Work Phone: Comment on above: Test performed at:[facility] [address] [place], [place] [address] Comprehensive metabolic 2000 panel 23.8 {RATIO} Abnormal 10-20 Comprehensi ve Internal Medicine Work Phone: Comment on above: Test performed at:[facility] [address] [place], [place] [address] Comprehensive metabolic 2000 panel 104 mmol/L Normal 98-107 Comprehensi ve Internal Medicine Work Phone: Comment on above: Test performed at:[facility] [address] [place], [place] [address] Comprehensive metabolic 2000 panel 98 mL/min Normal Comprehensi ve Internal Medicine Work Phone: Comment on above: Test performed at:[facility] [address] [place], [place] [address] Comprehensive metabolic 2000 panel 81 mL/min Normal Comprehensi ve Internal Medicine Work Phone: Comment on above: Test performed at:[facility] [address] [place], [place] [address] Comprehensive metabolic 2000 panel 0.8 mg/dL Normal 0.6-1.0 Comprehensi ve Internal Medicine Work Phone: Comment on above: Test performed at:[facility] [address] [place], [place] [address] Comprehensive metabolic 2000 panel 19 mg/dL Abnormal 7-18 Comprehensi ve Internal Medicine Work Phone: Comment on above: Test performed at:[facility] [address] [place], [place] [address] Comprehensive metabolic 2000 panel 87 mg/dL Normal 70-110 Comprehensi ve Internal Medicine Work Phone: Comment on above: Test performed at:[facility] [address] [place] [id number] Comprehensive metabolic 2000 panel 28.0 mmol/L Normal 21.0-32.0 Comprehensi ve Internal Medicine Work Phone: Comment on above: Test performed at:[facility] [address] [place] [id number] Thyroid Stim Hormone (TSH)Or dered By: Phlebotomy Services Representative on 07-01-2014 Thyrotropin Qn 2.85 {uIU/mL} Normal 0.358-3.74 Compreh ensive Internal Medicine Work Phone: Comment on above: Test performed at:[facility] [address] [place] [address] CALCIUM SERUM (47958)Ordered By: Phlebotomy Services Representative on 08-29-2013 Calcium mass conc 8.9 mg/dL Normal 8.7-10.2 Compreh ensive Internal Medicine Work Phone: Comment on above: PATIENT NOT FASTINGP ERFORMED BY: ELVIN Desouza [facility] [id number] Information: [id number] URINE CALCIUM ALVERTO TIMED 24 Hour (20641)Ordered By: Phlebotomy Services Representative on 07-25-2013 Calcium mass conc (24H U) 29.0 mg/dL Normal [facility] Work Phone: Comment on above: PATIENT NOT FASTINGP ERFORMED BY: ELVIN Ruiz70 [facility] [id number] Information: [id number] START 07/22/13@8AM E ND 07/23/13@8AM 1650ML Calcium mass/time (24H U) 478.5 {mg/24_hr} Abnormal 100.0-300. 0 [facility] Work Phone: Comment on above: PATIENT NOT FASTINGP ERFORMED BY: ELVIN WiFi RailAllison PatelRtepfj4977 [facility] [id number] Information: [id number] START 07/22/13@8AM E ND 07/23/13@8AM 1650ML CALCIFEDIOL (33918)Ordered B y: Phlebotomy Services Representative on 05-25-2013 25-Hydroxyvitamin D2+25-Hydroxyvitamin D3 mass conc 42.5 ng/mL Normal 30.0-100.0 [facility] Work Phone: Comment on above: Vitamin D deficiency has been defined by the [place] and an Endocrine Society practice guideline as alevel of serum 25-OH vitamin D less than 20 ng/mL (1,2).The Endocrine Society went on to further define vitamin Dinsufficiency as a level between 21 and 29 ng/mL (2).1. IOM ([place] [employer]). 2010. Dietary reference intakes for calcium and D. [place]: The National Academies Press.2. Thiago MF, Brigida [place], Harvey MONTEMAYOR, et al. Evaluation, treatment, and prevention of vitamin D deficiency: an Endocrine Society clinical practice guideline. JCEM. 2010; 96(7):1911-30. PATIENT NOT FASTINGP ERFORMED BY: [employer] [facility] Rtugsl6474 [address] RoadDublin [place] [id number] PARATHORMONE (64430)Ordered By: Phlebotomy Services Representative on 05-25-2013 Parathyrin.intact mass conc 20 pg/mL Normal 15-65 [facility] Work Phone: Comment on above: PATIENT NOT FASTINGP ERFORMED BY: CB [facility] Snemns4539 [address] RoadDublin [place] [id number] Protein Electrophoresis, Ser um (SPEP) (63814)Ordered By: Phlebotomy Services Representative on 05-25-2013 Albumin mass conc 4.1 g/dL Normal 3.2-5.6 Compreh ensive Internal Medicine Work Phone: Comment on above: PATIENT NOT FASTINGP ERFORMED BY: CB [facility] Jqagnl8842 [address] RoadD[address] [place] [id number] Information: [id number] Albumin/Globulin mass ratio 1.6 {ratio} Normal 0.7-2.0 [facility] Work Phone: Comment on above: PATIENT NOT FASTINGP ERFORMED BY: ELVIN ShelbyCo Gqegnb3268 [facility] [id number] Information: [id number] Alpha 1 globulin Elph mass conc 0.2 g/dL Normal 0.1-0.4 [facility] Work Phone: Comment on above: PATIENT NOT FASTINGP ERFORMED BY: LabCoClara [facility]ass Medical CenterFtrfue4167 [facility] [id number] Information: [id number] Alpha 2 globulin Elph mass conc 0.6 g/dL Normal 0.4-1.2 [facility] Work Phone: Comment on above: PATIENT NOT FASTINGP ERFORMED BY: ELVIN Lesley Tiumop5068 [facility] [id number] Information: [id number] Beta globulin Elph mass conc 0.8 g/dL Normal 0.6-1.3 [facility] Work Phone: Comment on above: PATIENT NOT FASTINGP ERFORMED BY: ELVIN LesleyClara Maass Medical CenterDzenkr3038 [facility] [id number] Information: [id number] Gamma globulin Elph mass conc 1.0 g/dL Normal 0.5-1.6 [facility] Work Phone: Comment on above: PATIENT NOT FASTINGP ERFORMED BY: ELVIN ShelbyFormerly [facility]6370 [facility] [id number] Information: [id number] Globulin mass conc (S) 2.6 g/dL Normal 2.0-4.5 [facility] Work Phone: Comment on above: PATIENT NOT FASTINGP ERFORMED BY: LabFormerly [facility]6370 [facility] [id number] Information: [id number] Protein mass conc 6.7 g/dL Normal 6.0-8.5 Compreh ensive Internal Medicine Work Phone: Comment on above: PATIENT NOT FASTINGP ERFORMED BY: [facility] Tagcfo7222 [address] RoadD[address] [place] [id number] Information: [id number] Protein.monoclonal Elph mass conc Not Observed Normal [facility] Work Phone: Comment on above: PATIENT NOT FASTINGP ERFORMED BY: CB [facility] Pcsptd0880 [address] Roadbl[address] [place] [id number] Information: [id number] TSH (THYROID STIMULATING HOR DESTINEE) (10726)Ordered By: Phlebotomy Services Representative on 05-25-2013 Thyrotropin Qn 2.650 {uIU/mL} Normal 0.450-4.50 0 [facility] Work Phone: Comment on above: PATIENT NOT FASTINGP ERFORMED BY: CB [facility] Iflsvu9147 [facility]bl[facility] [place] [id number] UPEP (72333)Ordered By: Syst em Data Administrator on 05-25-2013 Albumin/Protein.total Elph mass fraction (U) 25.7 % Normal [facility] Work Phone: Comment on above: PATIENT NOT FASTINGP ERFORMED BY: [facility] Jxzyrv8692 [address] RoadWashington [facility] Medical Centerin [place] [id number] Alpha 1 globulin/Protein.tota l Elph mass fraction (U) 1.4 % Normal [facility] Work Phone: Comment on above: PATIENT NOT FASTINGP ERFORMED BY: [facility] Rbekvo[address] [facility] [place] [id number] Alpha 2 globulin/Protein.tota l Elph mass fraction (U) 33.8 % Normal [facility] Work Phone: Comment on above: PATIENT NOT FASTINGP ERFORMED BY: [facility] Xfuyph2279 [address] Road[address] [place] [id number] Beta globulin/Protein.tota l Elph mass fraction (U) 25.5 % Normal [facility] Work Phone: Comment on above: PATIENT NOT FASTINGP ERFORMED BY: CB [facility] Kcrsow9270 [address] RoadD[address] [place] [id number] Gamma globulin/Protein.tota l Elph mass fraction (U) 13.6 % Normal [facility] Work Phone: Comment on above: PATIENT NOT FASTINGP ERFORMED BY: ELVIN LabChris Ofjzfh6569 [facility] [id number] Laboratory comment Maicol (Report) [facility] Normal [facility] Work Phone: Comment on above: Protein electrophore sis scan will follow via computer, mail, orcourier delivery. PATIENT NOT FASTINGP ERFORMED BY: ELVIN [facility] Zegjke2921 [facility] [id number] PATIENT NOT FASTINGP ERFORMED BY: [facility]6370 [facility] [id number] Information: [id number] Protein mass conc (U) 16.6 mg/dL Abnormal 0.0-15.0 Com prehensive Internal Medicine Work Phone: Comment on above: PATIENT NOT FASTINGP ERFORMED BY: [facility]IN [facility] Rbjzhd5873 [facility] [id number] Protein.monoclonal/Pr otein.total Elph mass fraction (U) Not Observed Normal [facility] Work Phone: Comment on above: PATIENT NOT FASTINGP ERFORMED BY: ELVIN LabCo Ixsoto6271 [facility] [id number] CBC With Differential/Platel etOrdered By: Phlebotomy Services Representative on 04-08-2013 Basophils #/vol (Bld) 0.0 {x10E3/uL} Normal 0.0-0.2 [facility] Work Phone: Comment on above: PATIENT WAS FASTINGP ERFORMED BY: [facility]IN [facility] Wyzofc1388 [facility] [id number] Information: [id number], [id number] Basophils/100 WBC (Bld) 1 % Normal 0-3 [facility] Work Phone: Comment on above: PATIENT WAS FASTINGP ERFORMED BY: [facility]IN [facility] Lmlhop1238 [facility] [id number] Information: [id number], [id number] Eosinophils #/vol (Bld) 0.2 {x10E3/uL} Normal 0.0-0.4 [facility] Work Phone: Comment on above: PATIENT WAS FASTINGP ERFORMED BY: [facility]6370 [facility] [id number] Information: [id number], [id number] Eosinophils/100 WBC (Bld) 3 % Normal 0-5 [facility] Work Phone: Comment on above: PATIENT WAS FASTINGP ERFORMED BY: [address] [id number] Information: [id number], [id number] Erythrocyte distribution width Ratio (RBC) 14.5 % Normal 12.3-15.4 [facility] Work Phone: Comment on above: PATIENT WAS FASTINGP ERFORMED BY: [address] [id number] Information: [id number], [id number] Hematocrit Volume Fraction (Bld) 41.9 % Normal 34.0-46.6 [facility] Work Phone: Comment on above: PATIENT WAS FASTINGP ERFORMED BY: [address] [id number] Information: [id number], [id number] Hemoglobin mass conc (Bld) 13.8 g/dL Normal 11.1-15.9 [facility] Work Phone: Comment on above: PATIENT WAS FASTINGP ERFORMED BY: [place] 8248170 [facility] [id number] Information: [id number], [id number] Immature granulocytes #/vol (Bld) 0.0 {x10E3/uL} Normal 0.0-0.1 [facility] Work Phone: Comment on above: PATIENT WAS FASTINGP ERFORMED BY: [place] 8248170 [facility] [id number] Information: [id number], [id number] Immature granulocytes/100 WBC (Bld) 0 % Normal 0-2 [facility] Work Phone: Comment on above: PATIENT WAS FASTINGP ERFORMED BY: [place] 8248170 [facility] [id number] Information: [id number], [id number] Lymphocytes #/vol (Bld) 1.7 {x10E3/uL} Normal 0.7-3.1 [facility] Work Phone: Comment on above: PATIENT WAS FASTINGP ERFORMED BY: [place] 8248170 [facility] [id number] Information: [id number], [id number] Lymphocytes/100 WBC (Bld) 25 % Normal 14-46 [facility] Work Phone: Comment on above: PATIENT WAS FASTINGP ERFORMED BY: [address] [id number] Information: [id number], [id number] MCH Entitic mass (RBC) 29.2 pg Normal 26.6-33.0 [facility] Work Phone: Comment on above: PATIENT WAS FASTINGP ERFORMED BY: [place] 8248170 [facility] [id number] Information: [id number], [id number] MCHC mass conc (RBC) 32.9 g/dL Normal 31.5-35.7 [facility] Internal Medicine Work Phone: Comment on above: PATIENT WAS FASTINGP ERFORMED BY: [facility]6370 [facility] [id number] Information: [id number], [id number] MCV Entitic volume (RBC) 89 fL Normal 79-97 [facility] Work Phone: Comment on above: PATIENT WAS FASTINGP ERFORMED BY: [facility]6370 [facility] [id number] Information: [id number], [id number] Monocytes #/vol (Bld) 0.4 {x10E3/uL} Normal 0.1-0.9 [facility] Work Phone: Comment on above: PATIENT WAS FASTINGP ERFORMED BY: ELVIN Lesley Yzbzfp1892 [facility] [id number] Information: [id number], [id number] Monocytes/100 WBC (Bld) 6 % Normal 4-12 [facility] Work Phone: Comment on above: PATIENT WAS FASTINGP ERFORMED BY: ELVIN [facility] Knmufk5079 [facility] [id number] Information: [id number], [id number] Neutrophils #/vol (Bld) 4.4 {x10E3/uL} Normal 1.4-7.0 [facility] Work Phone: Comment on above: PATIENT WAS FASTINGP ERFORMED BY: ELVIN Sagar Patellin6370 [facility] [id number] Information: [id number], [id number] Neutrophils/100 WBC (Bld) 65 % Normal 40-74 [facility] Work Phone: Comment on above: PATIENT WAS FASTINGP ERFORMED BY: ELVIN Lesley Deggjv7507 [facility] [id number] Information: [id number], [id number] Platelets #/vol (Bld) 300 {x10E3/uL} Normal 155-379 [facility] Work Phone: Comment on above: PATIENT WAS FASTINGP ERFORMED BY: [facility]IN [facility] Docgdd8198 [facility] [id number] Information: [id number], [id number] RBC #/vol (Bld) 4.73 {x10E6/uL} Normal 3.77-5.28 [facility] Internal Medicine Work Phone: Comment on above: PATIENT WAS FASTINGP ERFORMED BY: ELVIN Lesley Udhwcs6560 [facility] [id number] Information: [id number], [id number] WBC #/vol (Bld) 6.8 {x10E3/uL} Normal 3.4-10.8 [facility] Internal Medicine Work Phone: Comment on above: PATIENT WAS FASTINGP ERFORMED BY: CB [facility] Boyqpg9847 [address] RoadD[address] [place] [id number] Information: [id number], [id number] Comp. Metabolic Panel (14)Or dered By: Phlebotomy Services Representative on 04-08-2013 Albumin mass conc 4.5 g/dL Normal 3.5-5.5 Compreh ensive Internal Medicine Work Phone: Comment on above: PATIENT WAS FASTINGP ERFORMED BY: CB [facility] Ihmbqg0420 [address] RoadDublin [place] [id number] Albumin/Globulin mass ratio 1.9 {ratio} Normal 1.1-2.5 [facility] Work Phone: Comment on above: PATIENT WAS FASTINGP ERFORMED BY: CB [facility] Lcaane0875 [address] RoadD[address] [place] [id number] ALP enzyme act/vol 72 [iU]/L Normal 39-117 Compre [facility] Internal Medicine Work Phone: Comment on above: PATIENT WAS FASTINGP ERFORMED BY: CB [facility] Xqvkrj6305 [address] RoadDublin [place] [id number] ALT enzyme act/vol 12 [iU]/L Normal 0-32 Compre [facility] Internal Medicine Work Phone: Comment on above: PATIENT WAS FASTINGP ERFORMED BY: CB [facility] Scqwfh0097 [address] RoadD[address] [place] [id number] AST enzyme act/vol 16 [iU]/L Normal 0-40 Compre [facility] Internal [facility] Work Phone: Comment on above: PATIENT WAS FASTINGP ERFORMED BY: CB [facility] Furgdy7631 [address] RoadD[address] [place] [id number] Bilirubin mass conc 0.7 mg/dL Normal 0.0-1.2 Compr [facility] Internal Medicine Work Phone: Comment on above: PATIENT WAS FASTINGP ERFORMED BY: CB [facility] Utayar3629 [address] RoadD[address] [place] [id number] Calcium mass conc 9.2 mg/dL Normal 8.7-10.[address] [facility] Work Phone: Comment on above: PATIENT WAS FASTINGP ERFORMED BY: CB [facility] Yjsozi3187 [address] RoadDublin [place] [id number] Chloride molar conc 103 mmol/L Normal 97-108 Compr ehensive Internal Medicine Work Phone: Comment on above: PATIENT WAS FASTINGP ERFORMED BY: CB [facility] Jhoonv9634 [address] RoadD[address] [place] [id number] CO2 molar conc 24 mmol/L Normal 19-28 Comprehens chris Internal Medicine Work Phone: Comment on above: PATIENT WAS FASTINGP ERFORMED BY: CB [facility] Nkqcru8779 [address] RoadD[address] [place] [id number] Creatinine mass conc 0.66 mg/dL Normal 0.57-1.00 Comp [facility] Work Phone: Comment on above: PATIENT WAS FASTINGP ERFORMED BY: CB [facility] Jqicdg7788 [address] RoadD[address] [place] [id number] GFR/1.73 sq M predicted among blacks CKD-EPI vol rate/area (S/P/Bld) 121 mL/min/1.73 Normal Comprehensiv e Internal Medicine Work Phone: Comment on above: PATIENT WAS FASTINGP ERFORMED BY: CB [facility] Dzusax4424 [address] RoadD[address] [place] [id number] GFR/1.73 sq M predicted among non-blacks CKD-EPI vol rate/area (S/P/Bld) 105 mL/min/1.73 Normal [facility] Work Phone: Comment on above: PATIENT WAS FASTINGP ERFORMED BY: CB [facility] Cxdkvo3667 [address] RoadD[address] [place] [id number] Globulin mass conc (S) 2.4 g/dL Normal 1.5-4.5 [facility] Work Phone: Comment on above: PATIENT WAS FASTINGP ERFORMED BY: CB [facility] Aufgzh4746 [address] RoadD[address] [place] [id number] Glucose mass conc 74 mg/dL Normal 65-99 Compreh ensive Internal Medicine Work Phone: Comment on above: PATIENT WAS FASTINGP ERFORMED BY: ELVIN LabCooneida Ynpsiv1050 Good [facility] [id number] Potassium molar conc 4.3 mmol/L Normal 3.5-5.2 Comp rehensive Internal Medicine Work Phone: Comment on above: PATIENT WAS FASTINGP ERFORMED BY: ELVIN [facility] Edrzlz4759 Good [facility] [id number] Protein mass conc 6.9 g/dL Normal 6.0-8.5 Compreh ensive Internal Medicine Work Phone: Comment on above: PATIENT WAS FASTINGP ERFORMED BY: ELVIN LabCooneida PatelNwkxni3444 Good [facility] [id number] Sodium molar conc 141 mmol/L Normal 134-144 Compreh ensive Internal Medicine Work Phone: Comment on above: PATIENT WAS FASTINGP ERFORMED BY: ELVIN LabAllison PatelCajwfs2186 [facility] [id number] Urea nitrogen mass conc 15 mg/dL Normal 6-24 [facility] Work Phone: Comment on above: PATIENT WAS FASTINGP ERFORMED BY: ELVIN LabAllison PatelKaascl2197 [facility] [id number] Urea nitrogen/Creatinine mass ratio 23 mg/mg Normal 9-23 [facility] Work Phone: Comment on above: PATIENT WAS FASTINGP ERFORMED BY: ELVIN LabAllison PatelHxrhbw1920 [facility] [id number] Lipid Panel With LDL/HDL Rat ioOrdered By: Phlebotomy Services Representative on 04-08-2013 Cholesterol in HDL mass conc 66 mg/dL Normal [facility] Work Phone: Comment on above: According to ATP-III Guidelines, HDL-C >59 mg/dL is considered anegative risk factor for CHD. PATIENT WAS FASTINGP ERFORMED BY: ELVIN [facility] Kkueve6083 [facility] [id number] Cholesterol in LDL mass conc 115 mg/dL Abnormal 0-99 [facility] Work Phone: Comment on above: PATIENT WAS FASTINGP ERFORMED BY: CB [facility] Lbknsv5356 [address] RoadD[address] [place] [id number] Cholesterol in LDL/Cholesterol in HDL mass ratio 1.7 {ratio_units} Normal 0.0-3.2 [facility] Work Phone: Comment on above: PATIENT WAS FASTINGP ERFORMED BY: CB [facility] Ccvdli2286 [address] RoadD[address] [place] [id number] Cholesterol in VLDL mass conc 16 mg/dL Normal 5-40 [facility] Work Phone: Comment on above: PATIENT WAS FASTINGP ERFORMED BY: CB [facility] Rmcjhm4773 [address] RoadD[address] [place] [id number] Cholesterol mass conc 197 mg/dL Normal 100-199 [facility] Internal Medicine Work Phone: Comment on above: PATIENT WAS FASTINGP ERFORMED BY: CB [facility] Lhtdsq0629 [address] RoadD[address] [place] [id number] Triglyceride mass conc 79 mg/dL Normal 0-149 [facility] Work Phone: Comment on above: PATIENT WAS FASTINGP ERFORMED BY: CB [facility] Qnifpk6215 [address] RoadD[address] [place] [id number] Vital Signs Date Time Vital Sign Value Performing Clinician Facility 06-09-2024 15:57-0400 Body height 163.5 cm Flash Verma APRN.BUSINESS SERVICES SALES AGENT Work Phone: [facility] 06-09-2024 15:57-0400 Body mass index (BMI) [Ratio] 20.35 kg/m2 Flash Verma APRN.BUSINESS SERVICES SALES AGENT Work Phone: [facility] 06-09-2024 15:57-0400 Body weight 54.43 kg Flash Verma APRN.BUSINESS SERVICES SALES AGENT Work Phone: [facility] 06-09-2024 15:57-0400 Diastolic blood pressure 60 mm[Hg] Flash Verma APRN.BUSINESS SERVICES SALES AGENT Work Phone: [facility] 06-09-2024 15:57-0400 Systolic blood pressure 108 mm[Hg] Flash Verma APRN.BUSINESS SERVICES SALES AGENT Work Phone: [facility] 04-07-2024 15:37-0500 Body mass index (BMI) [Ratio] 21.27 kg/m2 Hiram Gilbert MD Work Phone: [facility] 04-07-2024 15:37-0500 Body weight 55.34 kg Hiram Gilbert MD Work Phone: [facility] 04-07-2024 15:37-0500 Diastolic blood pressure 66 mm[Hg] Hiram Gilbert MD Work Phone: [facility] 04-07-2024 15:37-0500 Systolic blood pressure 110 mm[Hg] Hiram Gilbert MD Work Phone: [facility] 09-29-2023 08:05-0400 Body mass index (BMI) [Ratio] 21.14 kg/m2 Rita Brigotti HEALTHCARE ACCOUNT MANAGER.BUSINESS SERVICES SALES AGENT Work Phone: [facility] 09-29-2023 08:05-0400 Body temperature 98.29 [degF] Rita Brigotti HEALTHCARE ACCOUNT MANAGER.BUSINESS SERVICES SALES AGENT Work Phone: [facility] 09-29-2023 08:05-0400 Body weight 55 kg Rita Brigotti HEALTHCARE ACCOUNT MANAGER.BUSINESS SERVICES SALES AGENT Work Phone: [facility] 09-29-2023 08:05-0400 Diastolic blood pressure 72 mm[Hg] Rita Brigotti HEALTHCARE ACCOUNT MANAGER.BUSINESS SERVICES SALES AGENT Work Phone: [facility] 09-29-2023 08:05-0400 Heart rate 85 /min Rita Brigotti HEALTHCARE ACCOUNT MANAGER.BUSINESS SERVICES SALES AGENT Work Phone: [facility] 09-29-2023 08:05-0400 Respiratory rate 18 /min Rita Brigotti HEALTHCARE ACCOUNT MANAGER.BUSINESS SERVICES SALES AGENT Work Phone: [facility] 09-29-2023 08:05-0400 SaO2% (BldA) [Mass fraction] 100 % Rita Brigotti HEALTHCARE ACCOUNT MANAGER.BUSINESS SERVICES SALES AGENT Work Phone: [facility] 09-29-2023 08:05-0400 Systolic blood pressure 107 mm[Hg] Rita Zuluaga HEALTHCARE ACCOUNT MANAGER.BUSINESS SERVICES SALES AGENT Work Phone: [facility] 06-08-2023 08:00-0400 Body height 161.3 cm Piper Realjasbir HEALTHCARE ACCOUNT MANAGER.CNM Work Phone: [facility] 06-08-2023 08:00-0400 Body mass index (BMI) [Ratio] 20.92 kg/m2 Piper Bo HEALTHCARE ACCOUNT MANAGER.CNM Work Phone: [facility] 06-08-2023 08:00-0400 Body weight 54.43 kg Piper Realjasbir HEALTHCARE ACCOUNT MANAGER.CNM Work Phone: [facility] 06-08-2023 08:00-0400 Diastolic blood pressure 70 mm[Hg] Piper Bo HEALTHCARE ACCOUNT MANAGER.CNM Work Phone: [facility] 06-08-2023 08:00-0400 Systolic blood pressure 106 mm[Hg] Piper Bo HEALTHCARE ACCOUNT MANAGER.CNM Work Phone: [facility] 03-08-2023 08:21-0500 Body temperature 100.09 [degF] Cb Zimmer HEALTHCARE ACCOUNT MANAGER.BUSINESS SERVICES SALES AGENT Work Phone: [facility] 03-08-2023 08:21-0500 Body weight 55.79 kg Cb Zimmer HEALTHCARE ACCOUNT MANAGER.BUSINESS SERVICES SALES AGENT Work Phone: [facility] 03-08-2023 08:21-0500 Diastolic blood pressure 77 mm[Hg] Cb Zimmer HEALTHCARE ACCOUNT MANAGER.BUSINESS SERVICES SALES AGENT Work Phone: [facility] 03-08-2023 08:21-0500 Heart rate 97 /min Cb Zimmer HEALTHCARE ACCOUNT MANAGER.BUSINESS SERVICES SALES AGENT Work Phone: [facility] 03-08-2023 08:21-0500 Respiratory rate 18 /min Cb Zimmer HEALTHCARE ACCOUNT MANAGER.BUSINESS SERVICES SALES AGENT Work Phone: [facility] 03-08-2023 08:21-0500 SaO2% (BldA) [Mass fraction] 99 % Cb Zimmer HEALTHCARE ACCOUNT MANAGER.BUSINESS SERVICES SALES AGENT Work Phone: [facility] 03-08-2023 08:21-0500 Systolic blood pressure 120 mm[Hg] Cb Sandyaleidajim WALKERBUSINESS SERVICES SALES AGENT Work Phone: [facility] 01-08-2023 14:25-0500 Body weight 54.88 kg Coral Ware MD Work Phone: [facility] 01-08-2023 14:25-0500 Diastolic blood pressure 76 mm[Hg] Coral Ware MD Work Phone: [facility] 01-08-2023 14:25-0500 Systolic blood pressure 112 mm[Hg] Coral Ware MD Work Phone: [facility] 06-11-2022 14:03-0400 Body height 160.02 cm Khushi Lewis MA [facility]; [facility] Work Phone: 06-11-2022 14:03-0400 Body mass index (BMI) [Ratio] 21.61 kg/m2 Khushi Lewis MA [facility]; [facility] Work Phone: 06-11-2022 14:03-0400 Body surface area Derived from formula 1.57 m2 Khushi Lewis MA [facility]; [facility] Work Phone: 06-11-2022 14:03-0400 Body temperature 96.5 [degF] Khushi Lewis MA [facility]; [facility] Work Phone: 06-11-2022 14:03-0400 Body weight 55.34 kg Khushi Lewis MA [facility]; [facility] Work Phone: 06-11-2022 14:03-0400 Diastolic blood pressure 82 mm[Hg] Khushi Lewis MA [facility]; [facility] Work Phone: Comment on above: Patient Position: Sitting; Cuff Location : Left Arm; Cuff Size: Standard 06-11-2022 14:03-0400 Heart rate 87 /min Khushi Lewis MA [facility]; [facility] Work Phone: Comment on above: Pattern: Regular 06-11-2022 14:03-0400 SaO2% (BldA) [Mass fraction] 99 % Khushi Lewis MA [facility]; [facility] Work Phone: Comment on above: Room air 06-11-2022 14:03-0400 Systolic blood pressure 120 mm[Hg] Khushi Lewis MA [facility]; [facility] Work Phone: Comment on above: Patient Position: Sitting; Cuff Location : Left Arm; Cuff Size: Standard 06-05-2022 09:06-0400 Body height 161.3 cm Coral Ware MD Work Phone: [facility] 06-05-2022 09:06-0400 Body weight 53.52 kg Coral Ware MD Work Phone: [facility] 06-05-2022 09:06-0400 Diastolic blood pressure 66 mm[Hg] Coral Ware MD Work Phone: [facility] 06-05-2022 09:06-0400 Systolic blood pressure 114 mm[Hg] Coral Ware MD Work Phone: [facility] 05-09-2022 14:28-0400 Body height 160.02 cm Tasia Casillas LPN [facility]; [facility] Work Phone: 05-09-2022 14:28-0400 Body mass index (BMI) [Ratio] 21.61 kg/m2 Tasia Miltonrb SELAM [facility]; [facility] Work Phone: 05-09-2022 14:28-0400 Body surface area Derived from formula 1.57 m2 Tasia Slarb PRINTING WORKER SUPERVISOR [facility]; [facility] Work Phone: 05-09-2022 14:28-0400 Body temperature 97.7 [degF] Tasia Slarb PRINTING WORKER SUPERVISOR [facility]; [facility] Work Phone: Comment on above: Method: Temporal 05-09-2022 14:28-0400 Body weight 55.34 kg Tasia Slarb PRINTING WORKER SUPERVISOR [facility]; [facility] Work Phone: 05-09-2022 14:28-0400 Diastolic blood pressure 72 mm[Hg] Tasia Slarb PRINTING WORKER SUPERVISOR [facility]; [facility] Work Phone: Comment on above: Patient Position: Sitting; Cuff Location : Left Arm; Cuff Size: Standard 05-09-2022 14:28-0400 Heart rate 78 /min Tasia Slarb PRINTING WORKER SUPERVISOR [facility]; [facility] Work Phone: Comment on above: Pattern: Regular 05-09-2022 14:28-0400 Respiratory rate 17 /min Tasia Slarb PRINTING WORKER SUPERVISOR [facility]; [facility] Work Phone: Comment on above: Pattern: Unlabored 05-09-2022 14:28-0400 SaO2% (BldA) [Mass fraction] 99 % Tasia Slarb PRINTING WORKER SUPERVISOR [facility]; [facility] Work Phone: Comment on above: Room air 05-09-2022 14:28-0400 Systolic blood pressure 116 mm[Hg] Tasia Slarb PRINTING WORKER SUPERVISOR [facility]; [facility] Work Phone: Comment on above: Patient Position: Sitting; Cuff Location : Left Arm; Cuff Size: Standard 09-04-2021 09:08-0400 Body height 160.02 cm Tasia Slarb PRINTING WORKER SUPERVISOR [facility]; [facility] Work Phone: 09-04-2021 09:08-0400 Body mass index (BMI) [Ratio] 21.15 kg/m2 Tasia Slarb PRINTING WORKER SUPERVISOR [facility]; [facility] Work Phone: 09-04-2021 09:08-0400 Body surface area Derived from formula 1.55 m2 Tasia Slarb PRINTING WORKER SUPERVISOR [facility]; [facility] Work Phone: 09-04-2021 09:08-0400 Body temperature 97.1 [degF] Tasia Slarb PRINTING WORKER SUPERVISOR [facility]; [facility] Work Phone: 09-04-2021 09:08-0400 Body weight 54.15 kg Tasia Slarb PRINTING WORKER SUPERVISOR [facility]; [facility] Work Phone: 09-04-2021 09:08-0400 Diastolic blood pressure 76 mm[Hg] Tasia Slarb PRINTING WORKER SUPERVISOR [facility]; [facility] Work Phone: Comment on above: Patient Position: Sitting; Cuff Location : Left Arm; Cuff Size: Standard 09-04-2021 09:08-0400 Heart rate 78 /min Tasia Slarb PRINTING WORKER SUPERVISOR [facility]; [facility] Work Phone: Comment on above: Pattern: Regular 09-04-2021 09:08-0400 Respiratory rate 16 /min Tasia Slarb PRINTING WORKER SUPERVISOR [facility]; [facility] Work Phone: Comment on above: Pattern: Unlabored 09-04-2021 09:08-0400 SaO2% (BldA) [Mass fraction] 98 % Tasia Slarb PRINTING WORKER SUPERVISOR [facility]; [facility] Work Phone: Comment on above: Room air 09-04-2021 09:08-0400 Systolic blood pressure 116 mm[Hg] Tasia Slarb PRINTING WORKER SUPERVISOR [facility]; [facility] Work Phone: Comment on above: Patient Position: Sitting; Cuff Location : Left Arm; Cuff Size: Standard 08-27-2021 08:16-0400 Body temperature 97.11 [degF] Raman Dhaliwal HEALTHCARE ACCOUNT MANAGER.BUSINESS SERVICES SALES AGENT Work Phone: [facility] 08-27-2021 08:16-0400 Body weight 52.53 kg Raman Dhaliwal HEALTHCARE ACCOUNT MANAGER.BUSINESS SERVICES SALES AGENT Work Phone: [facility] 08-27-2021 08:16-0400 Diastolic blood pressure 72 mm[Hg] Raman Isra HEALTHCARE ACCOUNT MANAGER.BUSINESS SERVICES SALES AGENT Work Phone: [facility] 08-27-2021 08:16-0400 Heart rate 76 /min Raman Isra HEALTHCARE ACCOUNT MANAGER.BUSINESS SERVICES SALES AGENT Work Phone: [facility] 08-27-2021 08:16-0400 Respiratory rate 16 /min Raman Isra HEALTHCARE ACCOUNT MANAGER.BUSINESS SERVICES SALES AGENT Work Phone: [facility] 08-27-2021 08:16-0400 SaO2% (BldA) [Mass fraction] 100 % Raman Isra HEALTHCARE ACCOUNT MANAGER.BUSINESS SERVICES SALES AGENT Work Phone: [facility] 08-27-2021 08:16-0400 Systolic blood pressure 118 mm[Hg] Raman Dhaliwal APRN.BUSINESS SERVICES SALES AGENT Work Phone: [facility] 05-31-2021 08:47-0400 Body height 162.6 cm Coral Ware MD Work Phone: [facility] 05-31-2021 08:47-0400 Body weight 53.98 kg Coral Ware MD Work Phone: [facility] 05-31-2021 08:47-0400 Diastolic blood pressure 78 mm[Hg] Coral Ware MD Work Phone: [facility] 05-31-2021 08:47-0400 Systolic blood pressure 122 mm[Hg] Coral Ware MD Work Phone: [facility] 04-29-2021 11:36-0400 Body height 160.02 cm [facility]; [facility] Work Phone: Comment on above: virtual, none reported 04-29-2021 11:36-0400 Body mass index (BMI) [Ratio] 21.15 kg/m2 [facility]; [facility] Work Phone: Comment on above: virtual, none reported 04-29-2021 11:36-0400 Body surface area Derived from formula 1.55 m2 [facility]; [facility] Work Phone: Comment on above: virtual, none reported 04-29-2021 11:36-0400 Body weight 54.15 kg [facility]; [facility] Work Phone: Comment on above: virtual, none reported 04-15-2021 14:33-0500 Body height 160.02 cm [facility]; [facility] Work Phone: 04-15-2021 14:33-0500 Body mass index (BMI) [Ratio] 21.15 kg/m2 Marie Graves PRINTING WORKER SUPERVISOR [facility]; [facility] Work Phone: 04-15-2021 14:33-0500 Body surface area Derived from formula 1.55 m2 Marie Graves PRINTING WORKER SUPERVISOR [facility]; [facility] Work Phone: 04-15-2021 14:33-0500 Body temperature 97.1 [degF] Marie Graves PRINTING WORKER SUPERVISOR [facility]; [facility] Work Phone: 04-15-2021 14:33-0500 Body weight 54.15 kg Marie Graves PRINTING WORKER SUPERVISOR [facility]; [facility] Work Phone: 04-15-2021 14:33-0500 Diastolic blood pressure 82 mm[Hg] Marie Graves PRINTING WORKER SUPERVISOR [facility]; [facility] Work Phone: Comment on above: Patient Position: Sitting; Cuff Location : Left Arm; Cuff Size: Standard 04-15-2021 14:33-0500 Heart rate 78 /min Marie Graves PRINTING WORKER SUPERVISOR [facility]; [facility] Work Phone: Comment on above: Pattern: Regular 04-15-2021 14:33-0500 Respiratory rate 16 /min Marie Graves PRINTING WORKER SUPERVISOR [facility]; [facility] Work Phone: Comment on above: Pattern: Unlabored 04-15-2021 14:33-0500 SaO2% (BldA) [Mass fraction] 98 % Marie Graves PRINTING WORKER SUPERVISOR [facility]; [facility] Work Phone: Comment on above: Room air 04-15-2021 14:33-0500 Systolic blood pressure 118 mm[Hg] Marie Graves PRINTING WORKER SUPERVISOR [facility]; [facility] Work Phone: Comment on above: Patient Position: Sitting; Cuff Location : Left Arm; Cuff Size: Standard 05-25-2020 10:06-0400 BMI (Body Mass Index) 20.55 kg/m2 Cesar Jama DOSS [facility]; [facility] Work Phone: 05-25-2020 10:06-0400 Body weight 52.62 kg Cesar Yun LPN [facility]; [facility] Work Phone: 05-25-2020 10:06-0400 BSA (Body Surface Area) 1.53 m2 Cesar Yun LPN [facility]; [facility] Work Phone: 05-25-2020 10:06-0400 Height 160.02 cm Cesar Yun LPN [facility]; [facility] Work Phone: 05-14-2020 15:15-0400 BMI (Body Mass Index) 21.26 kg/m2 Mikayla Varela [facility]; [facility] Work Phone: 05-14-2020 15:15-0400 BMI (Body Mass Index) 20.55 kg/m2 Cesar Yun LPN [facility]; [facility] Work Phone: 05-14-2020 15:15-0400 Body Temperature 97.8 [degF] Cesar Yun LPN [facility]; [facility] Work Phone: Comment on above: Method: Infrared 05-14-2020 15:15-0400 Body weight 54.44 kg Mikayla Varela [facility]; [facility] Work Phone: 05-14-2020 15:15-0400 Body weight 52.62 kg Cesar Yun LPN [facility]; [facility] Work Phone: 05-14-2020 15:15-0400 BP Diastolic 70 mm[Hg] Cesar Yun LPN [facility]; [facility] Work Phone: Comment on above: Patient Position: Sitting; Cuff Location : Left Arm; Cuff Size: Standard 05-14-2020 15:15-0400 BP Systolic 100 mm[Hg] Cesar Yun LPN [facility]; [facility] Work Phone: Comment on above: Patient Position: Sitting; Cuff Location : Left Arm; Cuff Size: Standard 05-14-2020 15:15-0400 BSA (Body Surface Area) 1.56 m2 Mikayla Varela [facility]; [facility] Work Phone: 05-14-2020 15:15-0400 BSA (Body Surface Area) 1.53 m2 Cesar Yun LPN [facility]; [facility] Work Phone: 05-14-2020 15:15-0400 Height 160.02 cm Cesar Yun LPN [facility]; [facility] Work Phone: 05-14-2020 15:15-0400 Pulse (Heart Rate) 72 /min Cesar Yun LPN [facility]; [facility] Work Phone: Comment on above: Pattern: Regular 05-14-2020 15:15-0400 Pulse Oximetry 99 % Mikayla Fast [facility]; [facility] Work Phone: Comment on above: Room air 05-14-2020 15:15-0400 Respiratory Rate 16 /min Cesar Yun LPN [facility]; [facility] Work Phone: Comment on above: Pattern: Unlabored 05-14-2020 15:15-0400 SaO2% (BldA) [Mass fraction] 99 % Cesar Yun LPN [facility]; [facility] Work Phone: Comment on above: Room air 01-31-2020 10:04-0500 BMI (Body Mass Index) 21.26 kg/m2 DorieSeun Hernandez CNP Work Phone: [facility]; [facility] Work Phone: 01-31-2020 10:04-0500 Body Temperature 98.3 [degF] DorieSeun Hernandez BUSINESS SERVICES SALES AGENT Work Phone: [facility]; [facility] Work Phone: 01-31-2020 10:04-0500 Body weight 54.44 kg DorieSeun Hernandez BUSINESS SERVICES SALES AGENT Work Phone: [facility]; [facility] Work Phone: 01-31-2020 10:04-0500 BSA (Body Surface Area) 1.56 m2 Paulo Hernandez CNP Work Phone: [facility]; [facility] Work Phone: 01-31-2020 10:04-0500 Height 160.02 cm Paulo Hernandez BUSINESS SERVICES SALES AGENT Work Phone: [facility]; [facility] Work Phone: 01-11-2020 09:16-0500 BMI (Body Mass Index) 21.26 kg/m2 Cesar Yun LPN [facility] Work Phone: 01-11-2020 09:16-0500 Body weight 54.44 kg Cesar Yun LPN [facility] Work Phone: 01-11-2020 09:16-0500 BSA (Body Surface Area) 1.56 m2 Cesar Yun LPN [facility] Work Phone: 01-11-2020 09:16-0500 Height 160.02 cm Cesar Yun LPN [facility] Work Phone: 11-09-2019 07:45-0400 BMI (Body Mass Index) 21.26 kg/m2 Cesar Yun LPN [facility] Work Phone: 11-09-2019 07:45-0400 Body Temperature 97.8 [degF] Cesar Yun LPN [facility] Work Phone: Comment on above: Method: Infrared 11-09-2019 07:45-0400 Body weight 54.44 kg Cesar Yun LPN [facility] Work Phone: 11-09-2019 07:45-0400 BP Diastolic 78 mm[Hg] Cesar Yun LPN [facility] Work Phone: Comment on above: Patient Position: Sitting; Cuff Location : Left Arm; Cuff Size: Standard 11-09-2019 07:45-0400 BP Systolic 122 mm[Hg] Cesar Yun LPN [facility] Work Phone: Comment on above: Patient Position: Sitting; Cuff Location : Left Arm; Cuff Size: Standard 11-09-2019 07:45-0400 BSA (Body Surface Area) 1.56 m2 Cesar Yun LPN [facility] Work Phone: 11-09-2019 07:45-0400 Height 160.02 cm Cesar Yun LPN [facility] Work Phone: 11-09-2019 07:45-0400 Pulse (Heart Rate) 88 /min eCsar Yun LPN [facility] Work Phone: Comment on above: Pattern: Regular 11-09-2019 07:45-0400 Pulse Oximetry 98 % Mikayla Fast [facility] Work Phone: Comment on above: Room air 11-09-2019 07:45-0400 Respiratory Rate 16 /min Cesar Yun LPN [facility] Work Phone: Comment on above: Pattern: Unlabored 11-09-2019 07:45-0400 SaO2% (BldA) [Mass fraction] 98 % Cesar Yun LPN [facility]; [facility] Work Phone: Comment on above: Room air 12-13-2018 13:29-0500 BMI (Body Mass Index) 21.62 kg/m2 Cesar Yun LPN [facility] Work Phone: 12-13-2018 13:29-0500 Body Temperature 97.8 [degF] Cesar Yun LPN [facility] Work Phone: Comment on above: Method: Temporal 12-13-2018 13:29-0500 Body weight 55.35 kg Cesar Yun LPN [facility] Work Phone: 12-13-2018 13:29-0500 BP Diastolic 68 mm[Hg] Cesar Yun LPN [facility] Work Phone: Comment on above: Patient Position: Sitting; Cuff Location : Left Arm; Cuff Size: Standard 12-13-2018 13:29-0500 BP Systolic 122 mm[Hg] Cesar Yun LPN [facility] Work Phone: Comment on above: Patient Position: Sitting; Cuff Location : Left Arm; Cuff Size: Standard 12-13-2018 13:29-0500 BSA (Body Surface Area) 1.57 m2 Cesar Yun LPN [facility] Work Phone: 12-13-2018 13:29-0500 Height 160.02 cm Cesar Yun LPN [facility] Work Phone: 12-13-2018 13:29-0500 Pulse (Heart Rate) 100 /min Cesar Yun LPN [facility] Work Phone: Comment on above: Pattern: Regular 12-13-2018 13:29-0500 Pulse Oximetry 98 % Mikayla Varela [facility] Work Phone: Comment on above: Room air 12-13-2018 13:29-0500 Respiratory Rate 16 /min Cesar Yun LPN [facility] Work Phone: Comment on above: Pattern: Unlabored 12-13-2018 13:29-0500 SaO2% (BldA) [Mass fraction] 98 % Cesar Yun LPN [facility]; [facility] Work Phone: Comment on above: Room air 11-22-2018 08:13-0400 BMI (Body Mass Index) 22.33 kg/m2 Cesar Yun LPN [facility] Work Phone: 11-22-2018 08:13-0400 Body Temperature 97.9 [degF] Cesar Yun LPN [facility] Work Phone: Comment on above: Method: Temporal 11-22-2018 08:13-0400 Body weight 57.17 kg Cesar Yun LPN [facility] Work Phone: 11-22-2018 08:13-0400 BP Diastolic 78 mm[Hg] Cesar Yun LPN [facility] Work Phone: Comment on above: Patient Position: Sitting; Cuff Location : Left Arm; Cuff Size: Standard 11-22-2018 08:13-0400 BP Systolic 120 mm[Hg] Cesar Yun LPN [facility] Work Phone: Comment on above: Patient Position: Sitting; Cuff Location : Left Arm; Cuff Size: Standard 11-22-2018 08:13-0400 BSA (Body Surface Area) 1.59 m2 Cesar Yun LPN [facility] Work Phone: 11-22-2018 08:13-0400 Height 160.02 cm Cesar Yun LPN [facility] Work Phone: 11-22-2018 08:13-0400 Pulse (Heart Rate) 89 /min Cesar Yun LPN [facility] Work Phone: Comment on above: Pattern: Regular 11-22-2018 08:13-0400 Pulse Oximetry 99 % Mikayla Varela [facility] Work Phone: Comment on above: Room air 11-22-2018 08:13-0400 Respiratory Rate 16 /min Cesar Jama DOSS [facility] Work Phone: Comment on above: Pattern: Unlabored 11-22-2018 08:13-0400 SaO2% (BldA) [Mass fraction] 99 % Cesar Jama PRINTING WORKER SUPERVISOR [facility]; [facility] Work Phone: Comment on above: Room air 10-04-2018 09:49-0400 BMI (Body Mass Index) 21.43 kg/m2 Mikayla Varela [facility] Work Phone: 10-04-2018 09:49-0400 BMI (Body Mass Index) 21.35 kg/m2 Gia Fidbacks [facility] Work Phone: 10-04-2018 09:49-0400 Body Temperature 97.7 [degF] Gia Fidbacks [facility] Work Phone: Comment on above: Method: Temporal 10-04-2018 09:49-0400 Body weight 54.89 kg Mikayla Varela [facility] Work Phone: 10-04-2018 09:49-0400 Body weight 54.66 kg Gia Fidbacks [facility] Work Phone: 10-04-2018 09:49-0400 BP Diastolic 78 mm[Hg] [employer]li [facility] Work Phone: Comment on above: Patient Position: Sitting; Cuff Location : Left Arm; Cuff Size: Standard 10-04-2018 09:49-0400 BP Systolic 124 mm[Hg] [employer] [facility] Work Phone: Comment on above: Patient Position: Sitting; Cuff Location : Left Arm; Cuff Size: Standard 10-04-2018 09:49-0400 BSA (Body Surface Area) 1.56 m2 [employer] [facility] Work Phone: 10-04-2018 09:49-0400 Height 160.02 cm Gia Gorman [facility] Work Phone: 10-04-2018 09:49-0400 Pulse (Heart Rate) 80 /min Gia Gorman [facility] Work Phone: Comment on above: Pattern: Regular 10-04-2018 09:49-0400 Pulse Oximetry 96 % Mikayla Fast [facility] Work Phone: Comment on above: Room air 10-04-2018 09:49-0400 Respiratory Rate 16 /min Gia Gorman [facility] Work Phone: Comment on above: Pattern: Unlabored 10-04-2018 09:49-0400 SaO2% (BldA) [Mass fraction] 96 % Gia Gorman [facility] Work Phone: Comment on above: Room air 04-06-2018 13:20-0500 BMI (Body Mass Index) 21.43 kg/m2 Aleena Molina [facility] Work Phone: 04-06-2018 13:20-0500 Body Temperature 97.5 [degF] Aleena Molina [facility] Work Phone: Comment on above: Method: Temporal 04-06-2018 13:20-0500 Body weight 54.89 kg Aleena Molina [facility] Work Phone: 04-06-2018 13:20-0500 BP Diastolic 80 mm[Hg] Aleena Molina [facility] Work Phone: Comment on above: Patient Position: Sitting; Cuff Location : Left Arm; Cuff Size: Standard 04-06-2018 13:20-0500 BP Systolic 118 mm[Hg] Aleena Molina [facility] Work Phone: Comment on above: Patient Position: Sitting; Cuff Location : Left Arm; Cuff Size: Standard 04-06-2018 13:20-0500 BSA (Body Surface Area) 1.56 m2 Aleena Molina [facility] Work Phone: 04-06-2018 13:20-0500 Height 160.02 cm Aleena Molina [facility] Work Phone: 04-06-2018 13:20-0500 Pulse (Heart Rate) 79 /min Aleena Molina CMA [facility] Work Phone: Comment on above: Pattern: Regular 04-06-2018 13:20-0500 Pulse Oximetry 100 % Mikayla Fast [facility] Work Phone: Comment on above: Room air 04-06-2018 13:20-0500 Respiratory Rate 16 /min Aleena Molina CMA [facility] Work Phone: Comment on above: Pattern: Unlabored 04-06-2018 13:20-0500 SaO2% (BldA) [Mass fraction] 100 % Aleena Molina [facility] Work Phone: Comment on above: Room air 04-06-2018 13:20-0500 Weight 54.89 kg [facility] Work Phone: 10-27-2017 15:17-0400 BMI (Body Mass Index) 21.43 kg/m2 Aleena Molina [facility] Work Phone: 10-27-2017 15:17-0400 Body Temperature 98.8 [degF] Aleena Molina CMA [facility] Work Phone: Comment on above: Method: Temporal 10-27-2017 15:17-0400 Body weight 54.89 kg Aleena Molina [facility] Work Phone: 10-27-2017 15:17-0400 BP Diastolic 82 mm[Hg] Aleena Molina [facility] Work Phone: Comment on above: Patient Position: Sitting; Cuff Location : Left Arm; Cuff Size: Standard 10-27-2017 15:17-0400 BP Systolic 110 mm[Hg] Aleena Molina [facility] Work Phone: Comment on above: Patient Position: Sitting; Cuff Location : Left Arm; Cuff Size: Standard 10-27-2017 15:17-0400 BSA (Body Surface Area) 1.56 m2 Aleena Molina [facility] Work Phone: 10-27-2017 15:17-0400 Height 160.02 cm Aleena Molina CMA [facility] Work Phone: 10-27-2017 15:17-0400 Pulse (Heart Rate) 80 /min Aleena Molina CMA [facility] Work Phone: Comment on above: Pattern: Regular 10-27-2017 15:17-0400 Pulse Oximetry 98 % Mikayla [facility] Work Phone: Comment on above: Room air 10-27-2017 15:17-0400 Respiratory Rate 16 /min Aleena Molina CMA [facility] Work Phone: Comment on above: Pattern: Unlabored 10-27-2017 15:17-0400 SaO2% (BldA) [Mass fraction] 98 % Aleena Molina [facility] Work Phone: Comment on above: Room air 10-27-2017 15:17-0400 Weight 54.89 kg Mikayla [facility] Work Phone: 11-17-2016 15:27-0400 BMI (Body Mass Index) 21.48 kg/m2 [facility] Work Phone: 11-17-2016 15:27-0400 Body Temperature 96.3 [degF] [facility] Work [facility]: 11-17-2016 15:27-0400 Body weight 55 kg [facility] Work Phone: 11-17-2016 15:27-0400 BP Diastolic 68 mm[Hg] [facility] Work Phone: Comment on above: Patient Position: Sitting; Cuff Location : Left Arm; Cuff Size: Standard 11-17-2016 15:27-0400 BP Systolic 92 mm[Hg] [facility] Work Phone: Comment on above: Patient Position: Sitting; Cuff Location : Left Arm; Cuff Size: Standard 11-17-2016 15:27-0400 BSA (Body Surface Area) 1.56 m2 Teodora Yun [facility] Work Phone: 11-17-2016 15:27-0400 Height 160.02 cm Teodora Yun [facility] Medicine Work Phone: 11-17-2016 15:27-0400 Pulse (Heart Rate) 69 /min Teodora Yun [facility] Medicine Work Phone: Comment on above: Pattern: Regular 11-17-2016 15:27-0400 Pulse Oximetry 98 % Mikayla Varela [facility] Work Phone: Comment on above: Room air 11-17-2016 15:27-0400 Respiratory Rate 18 /min Teodora Yun [facility] Medicine Work Phone: Comment on above: Pattern: Unlabored 11-17-2016 15:27-0400 SaO2% (BldA) [Mass fraction] 98 % Teodora Yun [facility] Medicine Work Phone: Comment on above: Room air 11-17-2016 15:27-0400 Weight 55 kg Mikayla Varela [facility] Medicine Work Phone: 07-21-2016 09:27-0400 BMI (Body Mass Index) 20.73 kg/m2 Dayana Wellington [facility] Work Phone: 07-21-2016 09:27-0400 Body Temperature 98.5 [degF] Dayana Wellington [facility] Work Phone: Comment on above: Method: Temporal 07-21-2016 09:27-0400 Body weight 53.07 kg Dayana Wellington [facility] Work Phone: 07-21-2016 09:27-0400 BP Diastolic 68 mm[Hg] Dayana Wellington [facility] Work Phone: Comment on above: Patient Position: Sitting; Cuff Location : Left Arm; Cuff Size: Standard 07-21-2016 09:27-0400 BP Systolic 115 mm[Hg] Dayana Wellington [facility] Work Phone: Comment on above: Patient Position: Sitting; Cuff Location : Left Arm; Cuff Size: Standard 07-21-2016 09:27-0400 BSA (Body Surface Area) 1.54 m2 Dayana Wellington [facility] Work Phone: 07-21-2016 09:27-0400 Height 160.02 cm Dayana Wellington [facility] Work Phone: 07-21-2016 09:27-0400 Pulse (Heart Rate) 73 /min Dayana Wellington [facility] Work Phone: Comment on above: Pattern: Regular 07-21-2016 09:27-0400 Pulse Oximetry 98 % Mikayla Varela [facility] Work Phone: Comment on above: Room air 07-21-2016 09:27-0400 Respiratory Rate 16 /min Dayana Wellington [facility] Work Phone: Comment on above: Pattern: Unlabored 07-21-2016 09:27-0400 SaO2% (BldA) [Mass fraction] 98 % Dayana Wellington [facility] Work Phone: Comment on above: Room air 07-21-2016 09:27-0400 Weight 53.07 kg Mikayla Varela [facility] Work Phone: 10-11-2015 14:17-0400 BMI (Body Mass Index) 21.26 kg/m2 Jennifer Junior RN [facility] Work Phone: 10-11-2015 14:17-0400 Body weight 54.43 kg Jennifer Junior RN [facility] Work Phone: 10-11-2015 14:17-0400 BP Diastolic 62 mm[Hg] Jennifer Junior RN [facility] Work Phone: Comment on above: Patient Position: Sitting; Cuff Location : Left Arm; Cuff Size: Standard 10-11-2015 14:17-0400 BP Systolic 102 mm[Hg] Jennifer Junior RN [facility] Work Phone: Comment on above: Patient Position: Sitting; Cuff Location : Left Arm; Cuff Size: Standard 10-11-2015 14:17-0400 BSA (Body Surface Area) 1.56 m2 Jennifer Junior RN [facility] Work Phone: 10-11-2015 14:17-0400 Height 160.02 cm Jennifer Junior RN [facility] Work Phone: 10-11-2015 14:17-0400 Pulse (Heart Rate) 93 /min Jennifer Junior RN [facility] Work Phone: Comment on above: Pattern: Regular 10-11-2015 14:17-0400 Pulse Oximetry 99 % Mikayla Fast [facility] Work Phone: Comment on above: Room air 10-11-2015 14:17-0400 Respiratory Rate 18 /min Jennifer Junior RN [facility] Work Phone: Comment on above: Pattern: Unlabored 10-11-2015 14:17-0400 SaO2% (BldA) [Mass fraction] 99 % Jennifer Junior RN [facility] Work Phone: Comment on above: Room air 10-11-2015 14:17-0400 Weight 54.43 kg Mikayla [facility] Work Phone: 06-20-2015 15:48-0400 BMI (Body Mass Index) 21.26 kg/m2 Oxana Suarez [facility] Work Phone: 06-20-2015 15:48-0400 Body Temperature 99.4 [degF] Oxana Suarez [facility] Work Phone: Comment on above: Method: Temporal 06-20-2015 15:48-0400 Body weight 54.43 kg Oxana Suarez [facility] Work Phone: 06-20-2015 15:48-0400 BP Diastolic 68 mm[Hg] Oxana Suarez [facility] Work Phone: Comment on above: Patient Position: Sitting; Cuff Location : Left Arm; Cuff Size: Standard 06-20-2015 15:48-0400 BP Systolic 102 mm[Hg] Oxana Suarez [facility] Work Phone: Comment on above: Patient Position: Sitting; Cuff Location : Left Arm; Cuff Size: Standard 06-20-2015 15:48-0400 BSA (Body Surface Area) 1.56 m2 Oxana Suarez [facility] Work Phone: 06-20-2015 15:48-0400 Height 160.02 cm Oxana Suarez [facility] Work Phone: 06-20-2015 15:48-0400 Pulse (Heart Rate) 78 /min Oxana Suarez [facility] Work Phone: Comment on above: Pattern: Regular 06-20-2015 15:48-0400 Pulse Oximetry 99 % Mikayla Varela [facility] Work Phone: Comment on above: Room air 06-20-2015 15:48-0400 Respiratory Rate 15 /min Oxana Suarez [facility] Internal Medicine Work Phone: Comment on above: Pattern: Unlabored 06-20-2015 15:48-0400 SaO2% (BldA) [Mass fraction] 99 % Oxana Suarez [facility] Internal Medicine Work Phone: Comment on above: Room air 06-20-2015 15:48-0400 Weight 54.43 kg Mikayla Varela [facility] Medicine Work Phone: 07-12-2014 14:03-0400 BMI (Body Mass Index) 20.39 kg/m2 Tasia Miltonrb PRINTING WORKER SUPERVISOR [facility] Internal Medicine Work Phone: 07-12-2014 14:03-0400 Body Temperature 97.8 [degF] Tasia Slarb PRINTING WORKER SUPERVISOR [facility] Work Phone: 07-12-2014 14:03-0400 Body weight 52.62 kg Tasia Slarb PRINTING WORKER SUPERVISOR [facility] Work Phone: 07-12-2014 14:03-0400 BP Diastolic 78 mm[Hg] Tasia Slarb PRINTING WORKER SUPERVISOR [facility] Internal Medicine Work Phone: Comment on above: Patient Position: Sitting; Cuff Location : Left Arm; Cuff Size: Standard 07-12-2014 14:03-0400 BP Systolic 110 mm[Hg] Tasia Slarb PRINTING WORKER SUPERVISOR [facility] Work Phone: Comment on above: Patient Position: Sitting; Cuff Location : Left Arm; Cuff Size: Standard 07-12-2014 14:03-0400 BSA (Body Surface Area) 1.54 m2 Tasia Casillas LPN [facility] Internal Medicine Work Phone: 07-12-2014 14:03-0400 Height 160.66 cm Tasia Casillas LPN [facility] Work Phone: 07-12-2014 14:03-0400 Pulse (Heart Rate) 96 /min Tasia Casillas LPN [facility] Work Phone: Comment on above: Pattern: Regular 07-12-2014 14:03-0400 Pulse Oximetry 98 % Mikayla Varela [facility] Internal Medicine Work Phone: Comment on above: Room air 07-12-2014 14:03-0400 Respiratory Rate 16 /min Tasia Casillas LPN [facility] Internal Medicine Work Phone: Comment on above: Pattern: Unlabored 07-12-2014 14:03-0400 SaO2% (BldA) [Mass fraction] 98 % Tasia Casillas LPN [facility] Internal Medicine Work Phone: Comment on above: Room air 07-12-2014 14:03-0400 Weight 52.62 kg Mikayla Varela [facility] Medicine Work Phone: 06-12-2014 16:49-0400 BMI (Body Mass Index) 20.91 kg/m2 Oxana Erick [facility] Medicine Work Phone: 06-12-2014 16:49-0400 Body Temperature 96.9 [degF] Oxana Erick [facility] Medicine Work Phone: 06-12-2014 16:49-0400 Body weight 53.98 kg Oxana Erick [facility] Medicine Work Phone: 06-12-2014 16:49-0400 BP Diastolic 72 mm[Hg] Oxana Erick [facility] Internal Medicine Work Phone: Comment on above: Patient Position: Sitting; Cuff Location : Left Arm; Cuff Size: Standard 06-12-2014 16:49-0400 BP Systolic 108 mm[Hg] Oxana Suarez [facility] Internal Medicine Work Phone: Comment on above: Patient Position: Sitting; Cuff Location : Left Arm; Cuff Size: Standard 06-12-2014 16:49-0400 BSA (Body Surface Area) 1.56 m2 Oxana Suarez [facility] Medicine Work Phone: 06-12-2014 16:49-0400 Height 160.66 cm Oxana Suarez [facility] Internal Medicine Work Phone: 06-12-2014 16:49-0400 Pulse (Heart Rate) 74 /min Oxana Suarez [facility] Internal Medicine Work Phone: Comment on above: Pattern: Regular 06-12-2014 16:49-0400 Respiratory Rate 16 /min Oxana Suarez [facility] Internal Medicine Work Phone: Comment on above: Pattern: Unlabored 06-12-2014 16:49-0400 Weight 53.98 kg [facility] Internal Medicine Work Phone: 07-18-2013 15:06-0400 BMI (Body Mass Index) 20.91 kg/m2 [facility] Medicine Work Phone: 07-18-2013 15:06-0400 Body Temperature 98.9 [degF] [facility] Internal Medicine Work Phone: Comment on above: Method: Oral 07-18-2013 [id number]:060400 Body weight 53.98 kg [facility] Internal Medicine Work Phone: 07-18-2013 15:06-0400 BP Diastolic 78 mm[Hg] Mikayla Fast [facility] Medicine Work Phone: Comment on above: Patient Position: Sitting; Cuff Location : Left Arm; Cuff Size: Standard 07-18-2013 15:06-0400 BP Systolic 110 mm[Hg] [facility] Internal Medicine Work Phone: Comment on above: Patient Position: Sitting; Cuff Location : Left Arm; Cuff Size: Standard 07-18-2013 15:06-0400 BSA (Body Surface Area) 1.56 m2 Mikayla Fast [facility] Work Phone: 07-18-2013 15:06-0400 Height 160.66 cm Mikayla Fast [facility] Work Phone: 07-18-2013 15:06-0400 Pulse (Heart Rate) 76 /min Mikayla Fast [facility] Work Phone: Comment on above: Pattern: Regular 07-18-2013 15:06-0400 Pulse Oximetry 98 % Mikayla Fast [facility] Work Phone: Comment on above: Room air 07-18-2013 15:06-0400 Respiratory Rate 16 /min Mikayla Fast [facility] Work Phone: 07-18-2013 15:06-0400 SaO2% (BldA) [Mass fraction] 98 % Mikayla Fast DO Work Phone: [facility] Medicine Work Phone: Comment on above: Room air 07-18-2013 15:06-0400 Weight 53.98 kg Mikayla Varela [facility] Medicine Work Phone: 06-20-2013 16:14-0400 BMI (Body Mass Index) 20.91 kg/m2 Oxana Suarez [facility] Medicine Work Phone: 06-20-2013 16:14-0400 Body Temperature 98.4 [degF] Oxana Suarez [facility] Work Phone: 06-20-2013 16:14-0400 Body weight 53.98 kg Oxana Suarez [facility] Medicine Work Phone: 06-20-2013 16:14-0400 BP Diastolic 70 mm[Hg] Oxana Suarez [facility] Medicine Work Phone: Comment on above: Patient Position: Sitting; Cuff Location : Left Arm; Cuff Size: Standard 06-20-2013 16:14-0400 BP Systolic 106 mm[Hg] Oxana Suarez [facility] Work Phone: Comment on above: Patient Position: Sitting; Cuff Location : Left Arm; Cuff Size: Standard 06-20-2013 16:14-0400 BSA (Body Surface Area) 1.56 m2 Oxana Suarez [facility] Work Phone: 06-20-2013 16:140400 Height 160.66 cm Oxana Suarez [facility] Medicine Work Phone: 06-20-2013 16:14-0400 Pulse (Heart Rate) 76 /min Oxana Suarez [facility] Internal Medicine Work Phone: Comment on above: Pattern: Regular 06-20-2013 16:14-0400 Respiratory Rate 16 /min Oxana Suarez [facility] Medicine Work Phone: Comment on above: Pattern: Unlabored 06-20-2013 16:14-0400 Weight 53.98 kg Mikayla Varela [facility] Medicine Work Phone: 04-04-2013 16:02-0500 BMI (Body Mass Index) 20.91 kg/m2 Oxana Suarez [facility] Work Phone: 04-04-2013 16:02-0500 Body Temperature 97.2 [degF] Oxana Suarez [facility] Work Phone: 04-04-2013 16:02-0500 Body weight 53.98 kg Oxana Suarez [facility] Medicine Work Phone: 04-04-2013 16:02-0500 BP Diastolic 76 mm[Hg] Oxana Suarez [facility] Work Phone: Comment on above: Patient Position: Sitting; Cuff Location : Left Arm; Cuff Size: Standard 04-04-2013 16:02-0500 BP Systolic 108 mm[Hg] Oxana Suarez [facility] Work Phone: Comment on above: Patient Position: Sitting; Cuff Location : Left Arm; Cuff Size: Standard 04-04-2013 16:02-0500 BSA (Body Surface Area) 1.56 m2 Oxana Suarez [facility] Work Phone: 04-04-2013 16:02-0500 Height 160.66 cm Oxana Suarez [facility] Medicine Work Phone: 04-04-2013 16:02-0500 Pulse (Heart Rate) 72 /min Oxana Suarez [facility] Internal Medicine Work Phone: Comment on above: Pattern: Regular 04-04-2013 16:02-0500 Respiratory Rate 16 /min Oxana Suarez [facility] Work Phone: Comment on above: Pattern: Unlabored 04-04-2013 16:02-0500 Weight 53.98 kg Mikayla Varela [facility] Work Phone: Encounters Encounter Date Encounter Type Care Provider Facility Start: 06-09-2024 End: 06-09-2024 Patient encounter procedure Flash Verma APRN.BUSINESS SERVICES SALES AGENT Work Phone: OB/Gynecology Comment on above: Encounter for gyneco logical examination (general) (routine) without abnormal findings (Primary Dx); Encounter for screening for human papillomavirus (HPV); Pap smear for cervical cancer screening; Encounter for screening mammogram for breast cancer Start: 06-09-2024 End: 06-09-2024 Patient encounter status Flash Verma APRN.BUSINESS SERVICES SALES AGENT Work Phone: [facility] Start: 06-09-2024 End: 06-09-2024 ambulatory FLASH VERMA Facility:[facility] Start: 06-09-2024 Encounter for gynecological examination (general) (routine) without abnormal findings FLASH VERMA [facility] Start: 06-08-2024 End: 08-08-2024 Follow-up encounter Piper Bo APRN.CNM Work Phone: OB/Gynecology Start: 06-08-2024 ambulatory PIPER BO Facilit y:[facility] Start: 06-08-2024 End: 06-08-2024 Subsequent hospital visit by physician Screen Mammo [facility] Comment on above: Encounter for screen ing mammogram for breast cancer [Z12.31] Start: 06-08-2024 End: 06-08-2024 ambulatory Jose Gutierrez Facility:[facility] Start: 04-08-2024 End: 06-08-2024 Follow-up encounter Flash Verma APRN.BUSINESS SERVICES SALES AGENT Work Phone: OB/Gynecology Start: 04-07-2024 End: 04-07-2024 ambulatory HIRAM GILBERT Facility:[facility] Start: 04-07-2024 End: 04-07-2024 Patient encounter procedure Hiram Gilbert MD Work Phone: OB/Gynecology Comment on above: Vaginal itching (Mireya paulo Dx); Postmenopausal atrophic vaginitis Start: 12-21-2023 End: 12-21-2023 Subsequent hospital visit by physician [address] Comment on above: Pure hypercholestero lemia, unspecified Start: 12-21-2023 End: 12-21-2023 ambulatory [facility] Start: 09-29-2023 End: 09-29-2023 ambulatory [facility] Facility:[facility] Start: 09-29-2023 End: 09-29-2023 Patient encounter procedure Rita Zuluaga APRN.BUSINESS SERVICES SALES AGENT Work Phone: [facility] Comment on above: Burning with urinati on (Primary Dx) Start: 06-30-2023 End: 06-30-2023 ambulatory CORAL CHAZ Facility:[facility] Start: 06-30-2023 End: 06-30-2023 Subsequent hospital visit by physician [facility] Work Phone: Radiology Comment on above: Abnormal mammogram [ R92.8] Start: 06-08-2023 Documentation procedure Mammog krystal Coordinator [facility] Department Start: 06-08-2023 Letter encounter Mammography Coordinator [facility] Department Start: 06-08-2023 End: 06-08-2023 Patient encounter procedure Piper Bo HEALTHCARE ACCOUNT MANAGER.CNM Work Phone: OB/Gynecology Comment on above: Encounter for gyneco logical examination (general) (routine) without abnormal findings (Primary Dx); Encounter for screening mammogram for breast cancer Abnormal mammogram ( Primary Dx) Start: 06-08-2023 End: 06-08-2023 Patient encounter status Piper Bo HEALTHCARE ACCOUNT MANAGER.CNM Work Phone: [facility] Start: 06-08-2023 End: 06-08-2023 Subsequent hospital visit by physician Screen Mammo [facility] Comment on above: Encounter for gyneco logical examination (general) (routine) without abnormal findings [Z01.419] Start: 03-08-2023 End: 03-08-2023 Office outpatient visit 25 minutes Cb Zimmer THU Work Phone: [facility] Comment on above: Sore throat (Primary Dx); Viral illness Start: 01-08-2023 End: 01-08-2023 Patient encounter procedure Coral Ware MD Work Phone: OB/Gynecology Comment on above: Inclusion cyst of vu lva (Primary Dx) Start: 10-03-2022 End: 10-03-2022 Annotation/Addendum Mikayla Fast DO Work Phone: [facility] Start: 10-03-2022 End: 10-03-2022 Annotation/Addendum Mikayla Fast DO Work Phone: [facility] Start: 10-02-2022 End: 10-02-2022 Office outpatient visit 5 minutes Mikayla Fast DO Work Phone: [facility] Start: 08-05-2022 End: 08-05-2022 Annotation/Addendum Mikayla Fast DO Work Phone: [facility] Start: 06-11-2022 End: 06-11-2022 Office outpatient visit 15 minutes Mikayla Fast DO Work Phone: [facility] Start: 06-10-2022 ambulatory Paulo David Richie perez Internal Med Start: 06-05-2022 Documentation procedure Mammog krystal Coordinator [facility] Start: 06-05-2022 Letter encounter Mammography Coordinator [facility] Department Start: 06-05-2022 End: 06-05-2022 Patient encounter procedure Coral Ware MD Work Phone: OB/Gynecology Comment on above: Encounter for gyneco logical examination (general) (routine) without abnormal findings (Primary Dx); Encounter for screening mammogram for breast cancer Start: 06-05-2022 End: 06-05-2022 Patient encounter status Coral Ware MD Work Phone: OB/Gynecology Start: 06-03-2022 End: 06-03-2022 ambulatory [facility] Work Phone: Start: 06-03-2022 End: 06-03-2022 Patient encounter procedure [facility] Bone Densitometry Start: 06-03-2022 End: 06-04-2022 Nursing evaluation of patient and report Mikayla Fast DO Work Phone: [facility] Start: 05-20-2022 End: 05-20-2022 Annotation/Addendum Mikayla Fast DO Work Phone: [facility] Start: 05-19-2022 End: 05-19-2022 Annotation/Addendum Mikayla Fast DO Work Phone: [facility] Start: 05-09-2022 End: 05-09-2022 Office outpatient visit 15 minutes Mikayla Fast DO Work Phone: [facility] Start: 05-09-2022 Review Mikayla Fast DO Work Phone: [facility] Start: 04-25-2022 End: 04-25-2022 Patient encounter procedure Mikayla Fast DO Work Phone: [facility] Start: 02-12-2022 End: 02-13-2022 Nursing evaluation of patient and report Mikayla Fast DO Work Phone: [facility] Start: 09-04-2021 End: 09-04-2021 Office outpatient visit 10 minutes Mikayla Fast DO Work Phone: [facility] Start: 08-27-2021 End: 08-27-2021 Patient encounter procedure Raman Dhaliwal APRN.CNP Work Phone: [facility] Comment on above: Rhus dermatitis (Mireya paulo Dx) Start: 06-19-2021 End: 06-19-2021 Phone Encounter Mikayla Fast DO Work Phone: [facility] Start: 05-31-2021 Documentation procedure Mammog krystal Coordinator [facility] Start: 05-31-2021 Letter encounter Mammography Coordinator [facility] Department Start: 05-31-2021 End: 05-31-2021 Subsequent hospital visit by physician Screen Mammo [facility] Comment on above: Annual Start: 05-31-2021 End: 05-31-2021 Patient encounter procedure Coral Ware MD Work Phone: OB/Gynecology Comment on above: Encounter for gyneco logical examination (general) (routine) without abnormal findings; Encounter for screening mammogram for breast cancer Start: 05-31-2021 End: 05-31-2021 Patient encounter status Coral Ware MD Work Phone: OB/Gynecology Start: 04-29-2021 End: 04-29-2021 Office outpatient visit 10 minutes Mikayla Fast DO Work Phone: [facility] Start: 04-15-2021 End: 04-15-2021 Office outpatient visit 15 minutes Mikayal Fast DO Work Phone: [facility] Start: 11-19-2020 End: 11-19-2020 Lab Order Mikayla Fast DO Work Phone: [facility] Start: 05-25-2020 End: 05-25-2020 Office outpatient visit 10 minutes Mikayla Fast [facility] Start: 05-14-2020 End: 05-14-2020 Office outpatient visit 25 minutes Mikayla Fast [facility] Start: 05-14-2020 Review Mikayla Varela [facility] Start: 04-16-2020 End: 04-16-2020 Annotation/Addendum Mikayla Fast [facility] [employer] [facility] Start: 02-02-2020 End: 02-02-2020 Annotation/Addendum Mikayla Fast [facility] [employer] [facility] Start: 01-31-2020 End: 01-31-2020 Office outpatient visit 15 minutes Mikayla Fast [facility] Start: 01-11-2020 End: 01-11-2020 Office outpatient visit 25 minutes Mikayla Fast [facility] Start: 11-29-2019 End: 11-29-2019 Annotation/Addendum Mikayla Fast [facility] [employer] [facility] Start: 11-23-2019 End: 11-23-2019 Patient encounter procedure Mikayla Fast [facility] Start: 11-17-2019 End: 11-17-2019 Phone Encounter Mikayla Fast [facility] [employer] [facility] Start: 11-16-2019 End: 11-16-2019 Patient encounter procedure Mikayla Fast [facility] Start: 11-14-2019 End: 11-14-2019 Annotation/Addendum Mikayla Fast [facility] [employer] Start: 11-11-2019 End: 11-11-2019 Lab Order Mikayla Fast [facility] [employer] [facility] Start: 11-09-2019 End: 11-09-2019 Office outpatient visit 25 minutes Mikayla Fast [facility] Start: 02-04-2019 End: 02-04-2019 Annotation/Addendum Mikayla Fast [facility] Start: 12-13-2018 End: 12-13-2018 Office outpatient visit 25 minutes Mikayla Fast [facility] Start: 12-13-2018 Review Mikayla Fast [facility] Start: 11-22-2018 End: 11-22-2018 Office outpatient visit 15 minutes Mikayla Fast [facility] Start: 11-22-2018 Review Mikayla Fast [facility] Start: 10-18-2018 End: 10-18-2018 Annotation/Addendum Mikayla Fast [facility] [employer] Start: 10-05-2018 End: 10-05-2018 Annotation/Addendum Mikayla Fast [facility] Start: 10-04-2018 End: 10-04-2018 Office outpatient visit 25 minutes Mikayla Fast [facility] Start: 10-04-2018 Review Mikayla Fast [facility] Start: 04-12-2018 End: 04-12-2018 Lab Order Mikayla Fast [facility] Start: 04-06-2018 End: 04-06-2018 Office outpatient visit 15 minutes Mikayla Fast [facility] Start: 04-06-2018 Review Mikayla Fast [facility] Start: 10-27-2017 End: 10-27-2017 Office outpatient visit 15 minutes Mikayla Fast [facility] Start: 03-13-2017 End: 03-13-2017 Annotation/Addendum Mikayla Fast [facility] [employer] [facility] Start: 11-17-2016 End: 11-17-2016 Office outpatient visit 15 minutes Mikayla Fast [facility] Start: 07-21-2016 End: 07-21-2016 Office outpatient visit 25 minutes Mikayla Fast [facility] Start: 10-11-2015 End: 10-11-2015 Office outpatient visit 15 minutes Mikayla Fast [facility] Start: 06-20-2015 End: 06-21-2015 Office outpatient visit 25 minutes Mikayla Fast [facility] Start: 04-13-2015 End: 04-13-2015 Phone Encounter Mikayla Fast [facility] Start: 02-16-2015 End: 02-16-2015 Phone Encounter Mikayla Fast [facility] Start: 07-12-2014 End: 07-12-2014 Office outpatient visit 15 minutes Mikayla Fast [facility] Start: 06-12-2014 End: 06-12-2014 Office outpatient visit 25 minutes Mikayla Fast [facility] Start: 07-27-2013 End: 07-27-2013 Patient encounter procedure Mikayla Fast [facility] Start: 07-26-2013 End: 07-26-2013 Phone Encounter Mikayla Fast [facility] Start: 07-18-2013 End: 07-18-2013 Office outpatient visit 25 minutes Mikayla Fast [facility] Start: 06-20-2013 End: 06-20-2013 Patient encounter procedure Mikayla Fast [facility] Start: 05-18-2013 End: 05-18-2013 Phone Encounter Mikayla Fast [facility] Start: 04-04-2013 End: 04-04-2013 Patient encounter procedure Mikayla Fast [facility] Procedures Date Procedure Procedure Detail Performing Clinician Start: 06-08-2024 Screening digital breast tomosynthesis bi Piper Bo HEALTHCARE ACCOUNT MANAGER.CNM Work Phone: Start: 09-29-2023 Urnls dip stick/tablet rgnt auto w/o microscopy Gia Yeung HEALTHCARE ACCOUNT MANAGER.BUSINESS SERVICES SALES AGENT Work Phone: Start: 06-30-2023 End: 06-30-2023 Digital breast tomosynthesis unilateral Coral Ware MD Work Phone: Start: 06-30-2023 Us breast uni real time with image limited Coral Ware MD Work Phone: Start: 06-08-2023 Screening digital breast tomosynthesis bi Coral Ware MD Work Phone: Start: 03-08-2023 STREP A MOLECULAR (POC) Clementine Gilbert HEALTHCARE ACCOUNT MANAGER.BUSINESS SERVICES SALES AGENT Work Phone: Start: 06-05-2022 Mammography Coral Ware MD Work Phone: Start: 06-03-2022 End: 06-04-2022 Dexa Bone Density Study Procedure Note: See Note; NOTES: [facility] Imaging Services [address] [place] [address] Dexa Bone Density Study MR#: [id number] Acct: [id number] Name: ТАТЬЯНА GNOZALEZ Rep #: [id number] : 1965 F 56 From: Ramon mccarthy MD PCP: ANUSHA Treviño Status: REG CLI Study: Dexa Bone Density Study Date of Exam: 06/03/22 Exam# [id number] Ordering Dr: Jose Gutierrez STUDY: DUAL ENERGY X-RAY ABSORPTIOMETRY / DXA REASON FOR EXAM: Female, 56 years old. M85.89 TECHNIQUE: Bone Mineral Density (BMD) measurements of lumbar spine and bilateral hips were obtained. COMPARISON: Comparison is made with prior study from April 25, 2020. ____ FINDINGS: Lumbar Spine (L1-L4): g/cm2 (0.648) / T-score (-4.1) / Z-score (-2.8) Findings are suggestive of osteoporosis with a high fracture risk. Left Femur Total: g/cm2 (0.677) / T-score (-2.2) / Z-score (-1.4) Left Femoral Neck: g/cm2 (0.604) / T-score (-2.2) / Z-score (-1.0) Right Femur Total: g/cm2 (0.713) / T-score (-1.9) / Z-score (-1.1) Right Femoral Neck: g/cm2 (0.627) / T-score (-2.0) / Z-score (-0.8) The T-Scores on the most recent prior examination were: Lumbar Spine (L1-L4): There has been worsening of bone density since the previous examination. Left Femur Total: which represents a worsening of 4.3%. Right Femur Total: which represents a worsening of 1.4%. ____ BD/Dexa Bone Density Study IMPRESSION: The patient is considered osteoporotic as outlined below according to World [employer] Organization (WHO) criteria with a high fracture risk. There has been worsening of bone density since the previous examination. ____ Reference Information: The T-score is the number of standard deviations above or below the standard which is normal for young adults at their peak bone mineral density. The World Health Organization (WHO) interprets the T-scores as follows: Above -1 Normal bone density Between -1 and -2.5 Osteopenia Equal to / or below -2.5 Osteoporosis As a practical clinical guideline, osteopenia may be graded as follows: Mild -1 through -1.5 Moderate -1.6 through -2.0 Severe -2.1 through -2.4 The Z-score is the number of standard deviations above or below age-matched controls. A Z-score of less than -1.5 would be considered abnormal. References: 1. NIH Osteoporosis and Related Bone Diseases www osteo.org 2. International Society for Clinical Densitometry www iscd.org 3. National Osteoporosis Foundation www nof.org Electronically Signed: aRmon Soler MD at 14:54 EDT , CC: ANUSHA Gutierrez; ANUSHA Hernnadez Recyclable Products Sorter: Signed Jose Gutierrez [facility] Work Phone: Start: 06-03-2022 Dual energy X-ray absorptiometry Start: 05-31-2021 RAMIN SCREENING W MARÍA ELENA Coral Ware MD Work Phone: Start: 05-31-2021 Mammography Coral Ware MD Work Phone: Start: 04-25-2020 End: 04-25-2020 Dexa Bone Density Study Comments: See Note; NOTES: [facility] Imaging Services [address] [place] [address] Dexa Bone Density Study MR#: [id number] Acct: [id number] Name: ТАТЬЯНА GONZALEZ Rep #: [id number] : 1965 F 54 From: Ramon mccarthy MD PCP: ANUSHA Treviño Status: REG CLI Study: Dexa Bone Density Study Date of Exam: 04/25/20 Exam# [id number] Ordering Dr: Paulo Hernandez NP MOLD CAPPER HELPERLuis Manuel STUDY: DUAL ENERGY X-RAY ABSORPTIOMETRY / DXA REASON FOR EXAM: Female, 54 years old. Z780. Patient is postmenopausal. Family history of osteoporosis porosis. TECHNIQUE: Bone Mineral Density (BMD) measurements of lumbar spine and bilateral hips were obtained. COMPARISON: Comparison is made with prior examination dated 04/22/2018. ____ FINDINGS: Lumbar Spine (L1-L4): g/cm2 (0.917) / T-score (-2.2) / Z-score (-1.4) Findings are suggestive of osteopenia with a high fracture risk. Increased thoracic kyphosis. Left Femur Total: g/cm2 (0.767) / T-score (-1.9) / Z-score (-1.2) Left Femoral Neck: g/cm2 (0.812) / T-score (-1.6) / Z-score (-0.6) Right Femur Total: g/cm2 (0.74) / T-score (-1.8) / Z-score (-1.1) Right Femoral Neck: g/cm2 (0.830) / T-score (-1.5) / Z-score (-0.5) The T-Scores on the most recent prior examination were: Lumbar Spine (L1-L4): There has been no change of bone density since the previous examination. Left Femur Total: which represents a worsening of 2.2%. Right Femur Total: which represents a worsening of 2.5%. ____ BD/Dexa Bone Density Study IMPRESSION: The patient is considered osteopenic as outlined below according to World Erlin Organization (WHO) criteria with a high fracture risk. There has been worsening of bone density since the previous examination. ____ Reference Information: The T-score is the number of standard deviations above or below the standard which is normal for young adults at their peak bone mineral density. The World Health Organization (WHO) interprets the T-scores as follows: Above -1 Normal bone density Between -1 and -2.5 Osteopenia Equal to / or below -2.5 Osteoporosis As a practical clinical guideline, osteopenia may be graded as follows: Mild -1 through -1.5 Moderate -1.6 through -2.0 Severe -2.1 through -2.4 The Z-score is the number of standard deviations above or below age-matched controls. A Z-score of less than -1.5 would be considered abnormal. References: 1. NIH Osteoporosis and Related Bone Diseases www osteo.org 2. International Society for Clinical Densitometry www iscd.org 3. National Osteoporosis Foundation www nof.org Electronically Signed: Ramon Soler MD at 15:11 EDT , Service support , CC: ANUSHA Hernandez Recyclable Products Sorter: Signed Paulo Hernandez Work Phone: Start: 12-26-2019 End: 12-26-2019 Chest WITH Contrast Comments: See Note; NOTES: [facility] Imaging Services [address] [place] [address] Chest WITH Contrast MR#: [id number] Acct: [id number] Name: ТАТЬЯНА GONZALEZ Rep #: [id number] : 1965 F 54 From: Ramon mccarthy MD PCP: ANUSHA Treviño Status: REG CLI Study: Chest WITH Contrast Date of Exam: 12/26/19 Exam# [id number] Ordering Dr: Paulo Hernandez NP STUDY: CT CHEST WITH CONTRAST REASON FOR EXAM: Female, 54 years old. FOLLOW UP LUNG NODULE RADIATION DOSAGE (If Supplied By Facility): CTDIvol = ( 10.12 ) mGy, DLP = ( 249.83 ) mGycm TECHNIQUE: Transaxial imaging was performed following intravenous administration of IV 100mL Isovue-300. Multiplanar coronal and sagittal images were reformatted. Individualized dose optimization techniques were used for this CT. COMPARISON: Comparison is made with prior examination dated 12/24/2018. ____ FINDINGS: The lungs are normal. The previously seen 4 mm nodule in the peripheral aspect of the right lower lobe is not seen at this time. There is no demonstrated pleural abnormality. Normal heart and pericardium. Normal mediastinum. Normal hilar regions. Normal enhanced pulmonary arteries. Normal aorta arch and descending thoracic aorta. There are mild degenerative changes of the thoracic spine. There is no demonstrated abnormality of the visualized upper abdomen. ____ CT/Chest WITH Contrast IMPRESSION: The previously seen 4 mm nodule in the peripheral aspect of the right lower lobe is not seen at this time. Electronically Signed: Ramon Soler, at 11:03 EST , Service support , CC: ANUSHA Hernandez Recyclable Products Sorter: Signed Paulo Hernandez Work Phone: Start: 12-02-2019 End: 12-07-2019 MRCP Abdomen without Contrast Comments: See Note; NOTES: [facility] Imaging Services [address] [place] [address] MRCP Abdomen without Contrast MR#: [id number] Acct: [id number] Name: ТАТЬЯНА GONZALEZ Rep #: [id number] : 1965 F 54 From: Edwin Carr MD PCP: ANUSHA Treviño Status: REG CLI Study: MRCP Abdomen without Contrast Date of Exam: Exam# [id number] Ordering Dr: Paulo Hernandez NP STUDY: MR MRCP WITHOUT CONTRAST REASON FOR EXAM: Female, 54 years old. PAIN NEAR CHOLECYSTECTOMY SITE, ? BILE DUCT ISSUE TECHNIQUE: Standard MRCP technique was utilized. COMPARISON: None. ____ FINDINGS: Gall Bladder: Gall bladder is surgically absent. Cystic duct: Normal with no demonstrated fixed filling defect. Intrahepatic ducts: Normal visualized intrahepatic ducts with no demonstrated fixed filling defect, dilation or stricture. Common hepatic duct: Normal with no demonstrated fixed filling defect, dilation or stricture. Common bile duct: Normal with no demonstrated fixed filling defect, dilation or stricture. Pancreatic duct: Normal with no demonstrated fixed filling defect, dilation or stricture. ____ MRI/MRCP Abdomen without Contrast IMPRESSION: Normal MR Cholangiopancreatography (MRCP) after cholecystectomy.. Electronically Signed: Edwin Carr MD at 8:41 EDT Tel , Service support , CC: ANUSHA Hernandez Recyclable Products Sorter: Signed Paulo Hernandez Work Phone: Start: 11-22-2019 End: 11-23-2019 Abdomen Limited Comments: See Note; NOTES: [facility] Imaging Services [address] [place] [address] Abdomen Limited MR#: [id number] Acct: [id number] Name: ТАТЬЯНА GONZALEZ Rep #: [id number] : 1965 F 54 From: Xiomara taylor MD PCP: ANUSHA Treviño Status: REG CLI Study: Abdomen Limited Date of Exam: 11/22/19 Exam# [id number] Ordering Dr: Paulo Hernandez NPC HISTORY: abdomen pain COMPARISON: 10/16/2018 TECHNIQUE: Sonographic images of the right upper quadrant of the abdomen using grayscale and color Doppler imaging. Number of images including paperwork: 90 FINDINGS: LIVER: Echogenic lesion measuring 2.2 x 1.4 x 1.8 cm, previously 2.4 x 1.6 x 1.8 cm near the same level and orientation. Right lobe measures 14.7 cm. GALLBLADDER: Surgically absent. BILE DUCTS: No significant biliary dilatation. CBD 3.1 mm. PANCREAS: Unremarkable visualized pancreas. Tail partially obscured by bowel gas. RIGHT KIDNEY: Normal in length measuring 10.3 cm. 8 mm simple appearing right renal cyst. Cortical thinning measuring 6 mm. AORTA: Unremarkable visualized portions of the aorta. INFERIOR VENA CAVA: Unremarkable visualized portions of the inferior vena cava. FREE FLUID: None detected. US/Abdomen Limited IMPRESSION: No acute abdominal abnormality is sonographically apparent. Unchanged hepatic lesion suggestive of hemangioma. Additional findings above. at 0628 Reported and signed by: Xiomara Alcaraz MD Electronically Signed: Xiomara Alcaraz MD at 6:27 EDT Tel , Service support , CC: ANUSHA Hernandez Recyclable Products Sorter: Signed Paulo Hernandez Work Phone: Start: 01-10-2019 End: 01-10-2019 Surgery Visit Report Comments: See Note; NOTES: [facility] [address] [place] [address]. [address] [place] [address] OFFICE VISIT Date of Service: 01/10/19 MR#: [id number] Acct: [id number] Name: ТАТЬЯНА GONZALEZ Rep #: [id number] : 1965 Provider: Tuyet Cadet PA-C Age/Sex: 53/F Location: [facility] Status: Signed Intake Intake Visit Reasons: f/u lap lidia 12/31/18 DP Chief Complaint: F/U Lap Lidia 12/31/18 Reservations Agent Required: No Is patient in pain?: No Allergies No Known Allergies Allergy (Verified 01/10/19 09:03) Medications cholecalciferol (vitamin D3) 1,000 unit capsule 1,000 unit PO DAILY 10/20/18 [History Confirmed 01/10/19] lorazepam 0.5 mg tablet 0.5 mg PO .as dir tab 10/20/18 [History Confirmed 01/10/19] multivitamin,co-ywyu-timetkii tablet 1 tab PO DAILY 10/20/18 [History Confirmed 01/10/19] potassium 99 mg tablet 2.5 meq PO DAILY 10/20/18 [History Confirmed 01/10/19] Indapamide [Lozol] 2.5 mg PO DAILY 12/27/18 [History Confirmed 01/10/19] Subjective Details: Patient is a 53 y/o F I am following for right upper quadrant pain. Dr. Anderson performed a laparoscopic cholecystectomy with intraoperative cholangiogram on 12/31/18. Patient tolerated the procedure well. Pathology demonstrated chronic cholecystitis and cholelithiasis. Patient notes umbilical incisional pain. Patient noted appetite has returned to normal. Bowel habits are normal. Objective Details: Abdomen- soft, nontender. Incisions c/d/i. No erythema or infection noted. Assessment AND Plan Problems 1. Calculus of gallbladder with chronic cholecystitis without obstruction K80.10 Plan - Follow-up as needed Coding Level of Care Code Global Post Op Diagnoses Calculus of gallbladder with chronic cholecystitis without obstruction K80.10 01/10/19 1452 <Electronically signed by Tuyet Cadet PA-C> Date ____ Tuyet Cadet PA-C Cosigner Signature: Date ____ (if applicable) CC: ANUSHA Barillas Jonathankandy Mikayla Varela Start: 01-03-2019 End: 01-03-2019 12 lead ECG Comments: See Note; NOTES: [facility] Cardiovascular Services [address] [place] [address] 12 Lead EKG 12/31/18 0957 MR#: [id number] Acct: [id number] Name: ТАТЬЯНА GONZALEZ Rep #: [id number] : 1965 53 From: Cliff Bingham MD Attending Dr: Graeme Anderson MD Status: DEP [facility] Ordering Dr: Kt Garza MD Date: 12/31/18 Location: [facility] Sex: F C Admitted: Test Reason : PRE OP Blood Pressure : / mmHG Vent. Rate : 085 BPM Atrial Rate : 085 BPM P-R Int : 158 ms QRS Dur : 074 ms QT Int : 354 ms P-R-T Axes : 026 056 -47 degrees QTc Int : 421 ms Normal sinus rhythm Septal infarct , age undetermined T wave abnormality, consider lateral ischemia Abnormal ECG No previous ECGs available Confirmed by DAVY CHEEK, CLIFF ([id number]), market editor JOEY LINDA ([id number]) on 01/03/2019 10:15:51 AM Referred By: Graeme Anderson Confirmed By:CLIFF BINGHAM MD 01/03/19 1015 Date ____ Cliff Bingham MD CC: MOLD CAPPER HELPER-C Paulo Hernandez; Kt Garza MD; Graeme Anderson MD Signed Mikayla Fast Start: 12-31-2018 End: 12-31-2018 Discharge Instruction Comments: See Note; NOTES: [facility] Medical Records Department [address] [place] [address] Instructions for Home/Discharge Instructions 12/31/18 1225 MR#: [id number] Acct: [id number] Name: ТАТЬЯНА GONZALEZ Rep #: [id number] : 1965 53 From: Graeme Anderson MD PCP: ANUSHA Treviño Status: REG [facility] Discharge Diet: Light diet - advance as tolerated Discharge Activity: May Not Drive - for 2-3 days or while taking narcotic pain medications., - - Do not drive, work heavy equipment or sign legal documents for 24 hours. May shower in (days): 1 - with the bandage in place. Additional Activity Instructions:: Pain medication may cause nausea. You should typically eat light foods as you take your pain medications. Pain medication may also cause constipation. If this is a problem for you, please discuss with your doctor. Call your doctor if your incision/area has: Continuous Slow Oozing, Sudden Increased Bleeding, Increased Pain/ Swelling, Increased Redness, Foul Smelling Discharge Call your doctor if you observe: Fever of 101 or Higher Suture Line Care: Avoid Pulling/Pushing, Avoid Pinching/Bending Additional Dressing/Incision Instructions:: Leave operative bandaids on for 2 days. When you remove dressing, leave Steri-Strips on until your follow-up appointment, or until the Steri-Strips fall off on their own. Allergies/Adverse Reactions: Allergies No Known Allergies Allergy (Verified 12/31/18 09:53) Medications to take at Discharge cholecalciferol (vitamin D3) 1,000 unit capsule 1,000 unit PO DAILY 10/20/18 lorazepam 0.5 mg tablet 0.5 mg PO .as dir tab 10/20/18 multivitamin,ad-ytxg-wfdvhaqk tablet 1 tab PO DAILY 10/20/18 potassium 99 mg tablet 2.5 meq PO DAILY 10/20/18 Indapamide [Lozol] 2.5 mg PO DAILY 12/27/18 Oxycodone HCl/Acetaminophen [Percocet 5/325] 1 - 2 tab PO Q4H PRN PRN 7 Days #30 tab 12/31/18 The following prescriptions were given: Oxycodone HCl/Acetaminophen [Percocet 5/325] 1 - 2 tab PO Q4H PRN PRN 7 Days #30 tab PRN Reason: Pain Transmission Status: Received by [email or web address] Primary Care Physician: Paulo Hernandez NP-C [Primary Care Provider] - Test Results: Test results from this visit will be discussed in further detail at your follow-up appointment, if applicable. Please Follow Up With: Graeme Anderson MD - Please call [phone] to schedule an appointment. When: 7 days after your surgery. 12/31/18 9246 <Electronically signed by Graeme Anderson MD> Date ____ Graeme Anderson MD CC: ANUSHA Hernandez Signed Mikayla Fast Start: 12-31-2018 End: 12-31-2018 Operative Report Comments: See Note; NOTES: [facility] Medical Records Department [address] [place] [address] Operative Report 12/31/18 1220 MR#: [id number] Acct: [id number] Name: ТАТЬЯНА GONZALEZ Rep #: [id number] : 1965 53 From: Graeme Anderson MD PCP: ANUSHA Treviño Status: REG [facility] Y Location: [place] [address] Problem List (1) Calculus of gallbladder with chronic cholecystitis without obstruction Status: Chronic Report of Operation Date of Procedure: 12/31/18 Pre-Operative Diagnosis: Somatic cholelithiasis Post-Operative Diagnosis: Same Surgery/Procedure Performed:: Laparoscopic cholecystectomy with intraoperative cholangiograms Type of Anesthesia:: General Anesthesiologist: Hussain Escalona Specimen's removed: Gallbladder Drains: None Estimated Blood Loss (mL): < 25 cc Fluids Replaced: 800 cc lr Description of Procedure: Patient was brought into the operating room. Placed in the supine position. Under excellent general trach intubation the abdomen was sterilely prepped draped in usual fashion. Local was injected infraumbilically. Incision was made dissection was carried out to the fascia the fascia was grasped with a Matty. Varies needle was placed inside the abdomen. The abdomen was insufflated to 15 torr. A 10/12 trocar was placed. Patient was placed in the head up and rotated to the left. Subxiphoid #5 trochars placed inferior to this another #5 trocar was placed laterally a #5 trocar was placed. All these under direct visualization without injury to underlying structures. Patient was noted to have moderate amount of adhesions of with the duodenum to the gallbladder these were taken down without difficulty. Fundus of the gallbladder was grasped retracted cephalad direction. Infundibulum was grasped retracted laterally. I dissected out the cystic duct. Placed a Hemoclip proximally. Homer in the duct was made. Angiogram catheter was placed into the abdomen. Claims Matt catheter through this. Cholangiogram was shot showing normal ductal anatomy. Remove the claims Matt catheter and another hemo-lock clip was placed distally on the duct. Cystic artery was identified hemoclips placed proximally distally was ligated. Deliver the gallbladder from the gallbladder bed with use of electrocautery. I had excellent hemostasis placed a specimen specimen bag delivered through the umbilical port without difficulty. Irrigated out the right upper quadrant good hemostasis was noted. I did not lose any stones I did lose a little bit of bile but that was all easily retrieved through the suction tube molder fiberglass. I remove the trochars under direct visualization good hemostasis was noted. I closed the fascia the umbilical port with a figure stitch of 0 Vicryl. Skin incisions were closed with subcuticular stitches of 4-0 Monocryl. Steri-Strips were applied sterile dressings were applied and the patient tolerated the procedure well. - Admit VTE Documentation VTE Present on Admission: No VTE Mechan Device Prophylaxis: SCD's VTE Pharm Prophylaxis ordered?: No Reason prophylaxis not ordered:: Procedure Not Indicated 12/31/18 1225 <Electronically signed by Graeme Anderson MD> Date ____ Graeme Anderson MD CC: ANUSHA Hernandez; Graeme Anderson MD Signed Mikayla [facility] Start: 12-31-2018 End: 12-31-2018 History and Physical Exam Comments: See Note; NOTES: [facility] Medical Records Department [address] [place] [address] History and Physical 12/31/18 1028 MR#: [id number] Acct: [id number] Name: ТАТЬЯНА GONZALEZ Rep #: [id number] : 1965 53 From: Graeme Anderson MD PCP: ANUSHA Treviño Status: REG SD Y Location: [place] [address] History and Physical Date of Admission: 12/31/18 [facility] [address] [place] [address] MR#: [id number] Acct: [id number] Name: ТАТЬЯНА GONZALEZ Rep #: [id number] : 1965 Provider: Graeme Anderson MD Age/Sex: 53/F Location: [facility] Status: Signed Intake Vital Signs 10/20/18 Height 5 ft 3.25 in 10/20/18 Weight: 119 lb 2 oz Intake Visit Reasons: Gall Stones US 10/16/2018 Chief Complaint: gallstones Reservations Agent Required: No Is patient in pain?: No Allergies No Known Allergies Allergy (Verified 10/20/18 07:35) Medications cholecalciferol (vitamin D3) 1,000 unit capsule 1,000 unit PO DAILY 10/20/18 [History Confirmed 10/20/18] lorazepam 0.5 mg tablet 0.5 mg PO .as dir tab 10/20/18 [History Confirmed 10/20/18] multivitamin,hd-xity-zjztvehr tablet 1 tab PO DAILY PRN 10/20/18 [History Confirmed 10/20/18] potassium 99 mg tablet 2.5 meq PO DAILY 10/20/18 [History Confirmed 10/20/18] Is last menstrual period known: No Post menopausal: Yes Patient : No PFSH Medical History Anxiety (Acute) Cataract (Acute) Gall stones (Acute) Hypercalcemia (Acute) Osteopenia (Acute) Surgical History History of section (Acute) History of colonoscopy (Acute 2014) History of dilation and curettage (Acute) History of hysterectomy (Acute) History of tubal ligation (Acute) Family History Brother Hypertension Father Hypertension Diabetes CAD (coronary artery disease) Myocardial infarction CVA (cerebral vascular accident) Cancer prostate Mother Hypertension Social History (Updated 10/24/18 @ 10:52 by Graeme Anderson MD) Smoking Status: Never smoker HPI HPI HPI: ТАТЬЯНА GONZALEZ, is a 53 F who presents to the office today for HPI HPI Surgical H AND P: Yes HPI: ТАТЬЯНА GONZALEZ, is a 53 F who presents to the office today for Evaluation of a symptomatic cholelithiasis. Patient has had an episode of increasing bilirubin which worked up by her primary care physician showed that she had multiple gallstones within the gallbladder. The common bile duct measured 3 mm in size and there was no pericholecystic fluid. She had not been having any pain nor nausea vomiting or diarrhea she has had no bloating. ROS General General: No weight change, appetite, fatigue, colon cancer, breast cancer or weakness HEENT HEENT: No difficulty swallowing, eye injury, eye surgery, swollen glands or hoarseness Endo Endocrine: No thyroid disease, diabetes mellitus, thyroid cancer, Hair loss, heat intolerance or cold intolerance Cardio Cardiovascular: No murmur, pacemaker, heart disease, atrial fibrillation, high blood pressure, heart attack, heart stent, palpitations, shortness of breat with exertion or chest pain Resp Respiratory: No shortness of breath, No sleep apnea, No cough, No COPD, No asthma, No emphysema, No wheezing Gastro Gastrointestinal: No abdominal pain, No nausea or vomiting, No diarrhea, No constipation, No blood in stool, No acid reflux, No hemorrhoids, No ulcers, Yes gallbladder problem, No black,tarry stools Carl Hematologic: No blood thinners, No blood disorders, No bleeding, No anemia, No blood clots Neuro Neurologic: No weakness Exam Const General: no acute distress, well developed, well hydrated Orientation: oriented to person, oriented to place, oriented to time [facility] Head: normocephalic, atraumatic Ears: external ears normal Mouth: moist mucous membranes Eyes Sclera: sclerae normal Pupils: normal by confrontation Neck Neck: no lymphadenopathy noted Neck mass: No Thyroid: thyroid normal, symmetrical Chest Chest palpation AND inspection: normal inspection of the chest Resp Effort AND Inspection: normal respiratory effort Auscultation: clear to auscultation bilaterally Percussion: percussion normal Cardio Rate: regular rate Rhythm: regular rhythm Heart Sounds: no murmurs GI Palpation: soft, no hepatosplenomegaly, no masses, nontender Auscultation: normal bowel sounds Rectal Exam: other Other: Rectal exam deferred. Extrem General: normal to inspection, no clubbing, cyanosis or edema Assessment AND Plan Problems 1. Calculus of gallbladder with chronic cholecystitis without obstruction K80.10 Plan My plan is to perform a laparoscopic cholecystectomy with intraoperative cholangiogram. The planned surgical procedure was discussed extensively with the patient. The risks, benefits, anticipated outcomes and possible complication were mentioned. My staff has also explained the procedure in understandable terms and the patient was given the option to take printed material concerning the planned procedure. The patient had the opportunity to ask questions concerning the planned procedure. The patient freely consents to the planned procedure. I am going to recheck some liver function test on her to make sure her total bilirubin is normal at this time. 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 Orders Orders: Coding Level of Care Code Off vis,new,level 3 Diagnoses Calculus of gallbladder with chronic cholecystitis without obstruction K80.10 Cholelithiasis location: gallbladder Cholecystitis acuity: chronic CC: MOLD CAPPER HELPER-C Paulo Hernandez I have re-examined the patient. There are no clinical changes since date of exam. 12/31/18 1029 <Electronically signed by Graeme Anderson MD> Date ____ Graeme Anderson MD Cosign Signature: Date ____ (if applicable) CC: MOLD CAPPER HELPER-C Paulo Hernandez; Graeme Anderson MD Signed Mikayla [facility] Start: 12-31-2018 End: 12-31-2018 Cholangiogram/ O R,Initial Comments: See Note; NOTES: [facility] Imaging Services [address] [place] [address] Cholangiogram/ O R,Initial MR#: [id number] Acct: [id number] Name: ТАТЬЯНА GONZALEZ Rep #: [id number] : 1965 F 53 From: Shamar Quevedo MD PCP: ANUSHA Treviño Status: [facility] Study: Cholangiogram/ O R,Initial Date of Exam: 12/31/18 Exam# [id number] Ordering Dr: Graeme Anderson MD CLINICAL HISTORY: Female, 53 years old. Gallstones. PROCEDURE: CHOLANGIOGRAM - intraoperative. FLUOROSCOPY TIME (if supplied): (0/13) minutes/seconds. TECHNIQUE: (Single cine loop) Findings: Fluoroscopy utilized during intraoperative cholangiogram. There is contrast seen within nondilated intra and extrahepatic bile ducts and extending into the duodenum. Multiple gallstones are present. ____ RAD/Cholangiogram/ O R,Initial IMPRESSION: Intraoperative fluoroscopy. Electronically Signed: Shamar Quevedo MD at 12:55 EST , Service support , CC: ANUSHA Hernandez; Graeme Anderson MD Recyclable Products Sorter: Signed Mikayla Fast Start: 12-24-2018 End: 12-24-[address] w/CCTA Comments: See Note; NOTES: [facility] Imaging Services [address] [place] [address] w/CCTA MR#: [id number] Acct: [id number] Name: ТАТЬЯНА GONZALEZ Rep #: [id number] : 1965 F 53 From: Reid Talbot MD PCP: ANUSHA Treviño Status: REG CLI Study: Limited Chest CT w/CCTA Date of Exam: 12/24/18 Exam# [id number] Ordering Dr: Paulo Hernandez STUDY: CARDIAC CALCIUM SCORING - CT CHEST REASON FOR EXAM: Female, 53 years old. Screening RADIATION DOSAGE (If Supplied By Facility): CTDIvol = ( 12.19 ) mGy, DLP = ( 195.04 ) mGycm TECHNIQUE: Axial non-enhanced images were acquired through the heart for the sole purpose of measuring coronary artery calcium. Individualized dose optimization techniques were used for this CT. COMPARISON: None. ____ FINDINGS: Please see the patient's medical record for a personalized calcium score. There is a 4 mm nodule in the right lower lobe (image 33 series 3). The visualized lungs are otherwise clear. The visualized soft tissues are within normal limits. ____ CT/Limited Chest CT w/CCTA IMPRESSION: Please see the patient's medical record for a personalized calcium score. 4 mm nodule in the right lower lobe. A dedicated chest CT is recommended. ____ Please go to: [email or web address] , for a description of the calculator. Electronically Signed: Reid Talbot, at 15:39 EST Tel , Service support , CC: ANUSHA Hernandez Recyclable Products Sorter: Signed Paulo Hernandez Work Phone: Start: 12-08-2018 End: 12-08-2018 Echocardiogram Complete Comments: See Note; NOTES: [facility] Cardiovascular Services [address] [place] [address] Echo Complete 12/08/18 0804 MR#: [id number] Acct: [id number] Name: ТАТЬЯНА GONZALEZ Rep #: [id number] : 1965 53 From: Graeme Kelly MD Attending Dr: ANUSHA Treviño Status: REG CLI Ordering Dr: Paulo Hernandez Date: 12/08/18 Location: [facility] Sex: F C Admitted: Reason For Study: Palpitations Procedure This was a 2D Doppler, Color Flow transthoracic echocardiogram. Exam performed in department. Left Ventricle Normal size and thickness. The estimated ejection fraction is 55 %. Normal diastology for age. No regional wall motion abnormalities noted. Right Ventricle Normal size and thickness. Normal systolic function. Atria Normal left atrium. Normal right atrium. Normal atrial septum. Mitral Valve The mitral valve is structurally normal. No prolapse or stenosis seen. Trivial mitral valve insufficiency. Tricuspid Valve Normal tricuspid valve. Trivial tricuspid valve insufficiency. Unable to estimate RV systolic pressure due to insufficient tricuspid regurgitant envelope. Aortic Valve Normal aortic valve. Trisinus/trileaflet aortic valve. Pulmonic Valve Normal pulmonic valve. Great Vessels Normal aortic root. Normal arch. Normal inferior vena cava. Inferior vena cava collapse with sniff. Pericardium/Pleural No pericardial effusion. MMode/2D Measurements AND Calculations LVIDd: 3.9 cm IVSd: 0.67 cm Ao root diam: 2.6 cm LVIDs: 2.9 cm LVPWd: 0.58 cm RVDd: 2.7 cm FS: 26.6 % LAV(MOD-bp): 9.5 ml LVAd ap4: 20.6 cm2 SV(MOD-sp4): 27.1 ml LAV(MOD-bp) Indexed: 6.1 ml/m2 EDV(MOD-sp4): 47.3 ml LAV(MOD-sp2): 9.5 ml EDV(sp4-el): 48.4 ml LAV(MOD-sp4): 9.7 ml LVAs ap4: 12.2 cm2 ESV(MOD-sp4): 20.2 ml ESV(sp4-el): 20.2 ml EF(MOD-sp4): 57.3 % EF(sp4-el): 58.3 % SV(sp4-el): 28.2 ml LA A4 area: 6.2 cm2 LA dimension(2D): 2.1 cm RA A4 area: 8.8 cm2 Doppler Measurements AND Calculations MV E max rox: 62.7 cm/sec Lat Peak E' Rox: 14.5 cm/sec Med Peak E' Rox: 8.4 cm/sec MV A max rox: 45.3 cm/sec E/E' lat: 4.3 E/E' med: 7.5 MV E/A: 1.4 Ao V2 max: 102.2 cm/sec LV V1 max: 80.4 cm/sec PA V2 max: 65.5 cm/sec Ao max P.2 mmHg LV V1 max P.6 mmHg Ao V2 mean: 74.9 cm/sec Ao mean P.4 mmHg Ao V2 VTI: 21.6 cm PI end-d rox: 80.9 cm/sec Interpretation Summary The estimated ejection fraction is 55 %. Normal diastology for age. Trivial mitral valve insufficiency. Trivial tricuspid valve insufficiency. Unable to estimate RV systolic pressure due to insufficient tricuspid regurgitant envelope. There is no comparison study available. __ Ordering Physician: Paulo Hernandez Referring Physician: Paulo Hernandez Performed By: Shannon Alfaro, RDCS, RVT 12/08/181117 Date ____ Graeme Kelly MD CC: MOLD CAPPER HELPER-C Paulo Hernandez Date Dictated: 12/08/18 08 Date Transcribed: 12/08/181117 Recyclable Products Sorter: Signed Paulo Kohli Paulahayder Work Phone: Start: 11-29-2018 End: 11-30-2018 Stress Report Comments: See Note; NOTES: [facility] Cardiovascular Services [address] [place] [address] MR#: [id number] Acct: [id number] Name: ТАТЬЯНА GONZALEZ Rep #: [id number] : 1965 53 From: Cliff Bingham MD Primary Care: ANUSHA Treviño Status: REG CLI Referring Dr: Paulo Hernandez MOLD CAPPER HELPERLuis Manuel Sex: F C Stress Test Report Exercise stress test. 53-year-old lady with a history of chest pain. Stress protocol: Resting EKG demonstrates normal sinus rhythm with a rate of 69 beats minute normal intervals noted resting blood pressures 118/82 mmHg. The patient exercised according to regular Rashawn protocol for total duration of 10 minutes completing 1 minute into stage IV of the Rashawn protocol the maximum heart rate attained was 166 bpm which was 100% of maximum predicted heart rate the maximum workload was 11.7 metabolic equivalents. The patient maintained sinus rhythm throughout the recording there were no ST or T wave changes at rest to suggest ischemia at peak exercise no ST or T wave changes were noted. No clinical angina was noted the test was taken terminated due to attainment of target heart rate. The resting blood pressures 118/82 with a peak blood pressure 124/74 mmHg. Conclusion: Exercise stress test with no EKG criteria for ischemia at a high workload. No clinical angina noted Good functional capacity. 11/29/181927 <Electronically signed by Cliff Bingham MD> Date ____ Cliff Bingham MD CC: ANUSHA Barillas David Date Dictated: 11/29/181924 Date Transcribed: 11/29/181924 Recyclable Products Sorter: CHRIS Signed Mikayla Varela Start: 10-24-2018 End: 10-24-2018 Surgery Visit Report Comments: See Note; NOTES: [facility] [address] [place] [address] OFFICE VISIT Date of Service: 10/20/18 MR#: [id number] Acct: [id number] Name: ТАТЬЯНА GONZALEZ Rep #: [id number] : 1965 Provider: Graeme Anderson MD Age/Sex: 53/F Location: [facility] Status: Signed Intake Vital Signs10/20/18 Height 5 ft 3.25 in 10/20/18 Weight: 119 lb 2 oz Intake Visit Reasons: Gall Stones US 10/16/2018 Chief Complaint: gallstones Reservations Agent Required: No Is patient in pain?: No Allergies No Known Allergies Allergy (Verified 10/20/18 07:35) Medications cholecalciferol (vitamin D3) 1,000 unit capsule 1,000 unit PO DAILY 10/20/18 [History Confirmed 10/20/18] lorazepam 0.5 mg tablet 0.5 mg PO .as dir tab 10/20/18 [History Confirmed 10/20/18] multivitamin,yb-ujyt-uusgmkzd tablet 1 tab PO DAILY PRN 10/20/18 [History Confirmed 10/20/18] potassium 99 mg tablet 2.5 meq PO DAILY 10/20/18 [History Confirmed 10/20/18] Is last menstrual period known: No Post menopausal: Yes Patient : No PFSH Medical History Anxiety (Acute) Cataract (Acute) Gall stones (Acute) Hypercalcemia (Acute) Osteopenia (Acute) Surgical History History of section (Acute) History of colonoscopy (Acute 2014) History of dilation and curettage (Acute) History of hysterectomy (Acute) History of tubal ligation (Acute) Family History Brother Hypertension Father Hypertension Diabetes CAD (coronary artery disease) Myocardial infarction CVA (cerebral vascular accident) Cancer prostate Mother Hypertension Social History (Updated 10/24/18 @ 10:52 by Graeme Anderson MD) Smoking Status: Never smoker HPI HPI HPI: ТАТЬЯНА GONZALEZ, is a 53 F who presents to the office today for HPI HPI Surgical H AND P: Yes HPI: ТАТЬЯНА GONZALEZ, is a 53 F who presents to the office today for Evaluation of a symptomatic cholelithiasis. Patient has had an episode of increasing bilirubin which worked up by her primary care physician showed that she had multiple gallstones within the gallbladder. The common bile duct measured 3 mm in size and there was no pericholecystic fluid. She had not been having any pain nor nausea vomiting or diarrhea she has had no bloating. ROS General General: No weight change, appetite, fatigue, colon cancer, breast cancer or weakness HEENT HEENT: No difficulty swallowing, eye injury, eye surgery, swollen glands or hoarseness Endo Endocrine: No thyroid disease, diabetes mellitus, thyroid cancer, Hair loss, heat intolerance or cold intolerance Cardio Cardiovascular: No murmur, pacemaker, heart disease, atrial fibrillation, high blood pressure, heart attack, heart stent, palpitations, shortness of breat with exertion or chest pain Resp Respiratory: No shortness of breath, No sleep apnea, No cough, No COPD, No asthma, No emphysema, No wheezing Gastro Gastrointestinal: No abdominal pain, No nausea or vomiting, No diarrhea, No constipation, No blood in stool, No acid reflux, No hemorrhoids, No ulcers, Yes gallbladder problem, No black,tarry stools Carl Hematologic: No blood thinners, No blood disorders, No bleeding, No anemia, No blood clots Neuro Neurologic: No weakness Exam Const General: no acute distress, well developed, well hydrated Orientation: oriented to person, oriented to place, oriented to time [facility] Head: normocephalic, atraumatic Ears: external ears normal Mouth: moist mucous membranes Eyes Sclera: sclerae normal Pupils: normal by confrontation Neck Neck: no lymphadenopathy noted Neck mass: No Thyroid: thyroid normal, symmetrical Chest Chest palpation AND inspection: normal inspection of the chest Resp Effort AND Inspection: normal respiratory effort Auscultation: clear to auscultation bilaterally Percussion: percussion normal Cardio Rate: regular rate Rhythm: regular rhythm Heart Sounds: no murmurs GI Palpation: soft, no hepatosplenomegaly, no masses, nontender Auscultation: normal bowel sounds Rectal Exam: other Other: Rectal exam deferred. Extrem General: normal to inspection, no clubbing, cyanosis or edema Assessment AND Plan Problems 1. Calculus of gallbladder with chronic cholecystitis without obstruction K80.10 Plan My plan is to perform a laparoscopic cholecystectomy with intraoperative cholangiogram. The planned surgical procedure was discussed extensively with the patient. The risks, benefits, anticipated outcomes and possible complication were mentioned. My staff has also explained the procedure in understandable terms and the patient was given the option to take printed material concerning the planned procedure. The patient had the opportunity to ask questions concerning the planned procedure. The patient freely consents to the planned procedure. I am going to recheck some liver function test on her to make sure her total bilirubin is normal at this time. 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 Orders Orders: Coding Level of Care Code Off vis,new,level 3 Diagnoses Calculus of gallbladder with chronic cholecystitis without obstruction K80.10 Cholelithiasis location: gallbladder Cholecystitis acuity: chronic 10/24/18 1052 <Electronically signed by Graeme Anderson MD> Date ____ Graeme Anderson MD Cosigner Signature: Date ____ (if applicable) CC: MOLD CAPPER HELPER-C Paulo Sandovalhayder Degroot Avery Start: 10-16-2018 End: 10-16-2018 Abdomen Limited Comments: See Note; NOTES: [facility] Imaging Services [address] [place] [id number] Abdomen Limited MR#: [id number] Acct: [id number] Name: ТАТЬЯНА GONZALEZ Rep #: [id number] : 1965 F 53 From: Modesto Hernandez DO PCP: ANUSHA Treviño Status: REG CLI Study: Abdomen Limited Date of Exam: 10/16/18 Exam# [id number] Ordering Dr: Paulo Hrenandez STUDY: ABDOMINAL ULTRASOUND - RIGHT UPPER QUADRANT REASON FOR VISIT: Female, 53 years old. Elevated bilirubin. TECHNIQUE: Ultrasound evaluation of the right upper quadrant was performed with real-time and static mares-scale imaging. TECHNICAL QUALITY: Adequate. COMPARISON: None. ____ FINDINGS: Liver: The liver measures 14.6 cm. There is normal echogenicity of the liver. The bile ducts are within normal limits. There is hepatic color flow. The direction of portal flow is hepatopetal. 1.9 x 2.4 x 1.5 cm echogenic focus in the anterior right liver at the level of the right portal vein suggesting hemangioma. Gallbladder: Normal distended gallbladder. The gallbladder wall measures 2 mm. There is a negative sonographic Kline's sign. There is no pericholecystic fluid. There are multiple echogenic structures within the gallbladder, consistent with multiple gallstones. Common Bile Duct (C.B.D.): The common bile duct measures 3 mm. Pancreas: Normal size of the head, body and proximal tail of the pancreas. The distal tail is obscured by bowel gas. There is normal echogenicity of the pancreas. There is no demonstrated pancreatic mass or cyst. Right Kidney: Normal size of the right kidney. The right kidney measures 10.1 cm. Normal renal cortex. The right cortex measures 1.6 question of a small calcification in the upper pole without hydronephrosis. cm. There is no demonstrated renal mass or cyst. ____ US/Abdomen Limited IMPRESSION: 1. Gallstones without evidence of acute cholecystitis. 2. Small hemangioma in the right liver. The liver is otherwise unremarkable. 3. Question nonobstructing right renal calculus. Electronically Signed: Modesto Hernandez DO at 10:05 EDT Tel [phone], Service support , CC: ANUSHA Hernandez Recyclable Products Sorter: Signed Paulo Hernandez Work Phone: Start: 04-22-2018 End: 04-23-2018 Dexa Bone Density Study Comments: See Note; NOTES: [facility] Imaging Services [address] [place] [address] Dexa Bone Density Study MR#: [id number] Acct: [id number] Name: ТАТЬЯНА GONZALEZ Rep #: [id number] : 1965 F 52 From: Ramon Soler MD PCP: Mikayla Varela DO Status: [facility] CL Study: Dexa Bone Density Study Date of Exam: 04/22/18 Exam# [id number] Ordering Dr: Paulo Hernandez STUDY: DUAL ENERGY X-RAY ABSORPTIOMETRY / DXA REASON FOR EXAM: Female, 52 years old. The patient is postmenopausal. No loss of height. TECHNIQUE: Bone Mineral Density (BMD) measurements of lumbar spine and bilateral hips were obtained. COMPARISON: Comparison is made with prior study dated April 17, 2015. ____ FINDINGS: Lumbar Spine (L1-L4): g/cm2 (0.916) / T-score (-2.2) / Z-score (-1.5) Findings are suggestive of osteopenia with a moderate fracture risk. Left Femur Total: g/cm2 (0.784) / T-score (-1.8) / Z-score (-1.2) Left Femoral Neck: g/cm2 (0.799) / T-score (-1.7) / Z-score (-0.8) Right Femur Total: g/cm2 (0.804) / T-score (-1.6) / Z-score (-1.0) Right Femoral Neck: g/cm2 (0.800) / T-score (-1.7) / Z-score (-0.8) The T-Scores on the most recent prior examination were: Lumbar Spine (L1-L4): There has been worsening of bone density since the previous examination. Left Femur Total: which represents an improvement of 0.9%. Right Femur Total: which represents a worsening of 3.7%. ____ BD/Dexa Bone Density Study IMPRESSION: The patient is considered osteopenic as outlined below according to World Erlin Organization (WHO) criteria with a moderate fracture risk. There has been worsening of bone density since the previous examination. ____ Reference Information: The T-score is the number of standard deviations above or below the standard which is normal for young adults at their peak bone mineral density. The World Health Organization (WHO) interprets the T-scores as follows: Above -1 Normal bone density Between -1 and -2.5 Osteopenia Equal to / or below -2.5 Osteoporosis As a practical clinical guideline, osteopenia may be graded as follows: Mild -1 through -1.5 Moderate -1.6 through -2.0 Severe -2.1 through -2.4 The Z-score is the number of standard deviations above or below age-matched controls. A Z-score of less than -1.5 would be considered abnormal. References: 1. NIH Osteoporosis and Related Bone Diseases http://www.osteo.org 2. International Society for Clinical Densitometry http://www.iscd.org 3. National Osteoporosis Foundation http://www.nof.org Electronically Signed: Ramon Soler, at 13:34 EDT , Service support , CC: Paulo Hernandez MOLD CAPPER HELPER; Mikayla Varela DO Recyclable Products Sorter: Signed Paulo Hernandez Work Phone: Start: 04-17-2015 End: 04-18-2015 Dexa Bone Density Study (HP) Comments: See Note; NOTES: [facility] Imaging Services [address] [place] [address] Verdana 4d Dexa Bone Density Study () MR#: [id number] Acct: [id number] Name: ТАТЬЯНА GONZALEZ Rep #: [id number] : 1965 F 49 From: Ramon Soler MD PCP: Mikayla Varela DO Status: REG CLI Study: Dexa Bone Density Study () Date of Exam: 04/17/15 Exam# [id number] Ordering Dr: Mikayla Varela DO STUDY: DUAL ENERGY X-RAY ABSORPTIOMETRY / DXA REASON FOR EXAM: Female, 49 years old. The patient is postmenopausal. TECHNIQUE: Bone Mineral Density (BMD) measurements of lumbar spine and bilateral hips were obtained. COMPARISON: Comparison is made with prior study dated April 12, 2013. ____ FINDINGS: Lumbar Spine (L1-L4): g/cm2 (0.997) / T-score (-1.5) / Z-score (-1.1) Findings are suggestive of osteopenia with a moderate fracture risk. Left Femur Total: g/cm2 (0.777) / T-score (-1.8) / Z-score (-1.4) Left Femoral Neck: g/cm2 (0.828) / T-score (-1.5) / Z-score (-0.7) Right Femur Total: g/cm2 (0.835) / T-score (-1.4) / Z-score (-0.9) Right Femoral Neck: g/cm2 (0.836) / T-score (-1.5) / Z-score (-0.6) The T-Scores on the most recent prior examination were: Lumbar Spine (L1-L4): There has been improvement of bone density since the previous examination. Left Femur Total: which represents a worsening of 6.5%. Right Femur Total: which represents a worsening of 0.7%. ____ IMPRESSION: The patient is considered osteopenic as outlined below according to World Erlin Organization (WHO) criteria with a moderate fracture risk. There has been worsening of bone density since the previous examination. ____ Reference Information: The T-score is the number of standard deviations above or below the standard which is normal for young adults at their peak bone mineral density. The World Health Organization (WHO) interprets the T-scores as follows: Above -1 Normal bone density Between -1 and -2.5 Osteopenia Equal to / or below -2.5 Osteoporosis As a practical clinical guideline, osteopenia may be graded as follows: Mild -1 through -1.5 Moderate -1.6 through -2.0 Severe -2.1 through -2.4 The Z-score is the number of standard deviations above or below age-matched controls. A Z-score of less than -1.5 would be considered abnormal. References: 1. NIH Osteoporosis and Related Bone Diseases http://www.osteo.org 2. International Society for Clinical Densitometry http://www.iscd.org 3. National Osteoporosis Foundation http://www.nof.org Electronically Signed: Ramon Soler MD at 8:09 EST Tel [phone], Service support [phone], CC: Mikayla Varela DO Recyclable Products Sorter: Signed Mikayla Varela Work Phone: Start: 04-12-2013 End: 04-13-2013 Dexa Bone Density Study (HP) Comments: See Note; NOTES: [facility] Imaging Services [address] [place] [id number] Bone Density Report MR#: [id number] Acct: [id number] Name: ARNALDO GONZALEZIAM Kandy Rep #: [id number] : 1965 F 47 From: Ramon Soler MD PCP: Mikyala Varela DO Status: REG CLI Study: Dexa Bone Density Study (HP) Date of Exam: 04/12/13 Exam# [id number] Ordering Dr: Mikayla Varela DO STUDY: DUAL ENERGY X-RAY ABSORPTIOMETRY / DXA REASON FOR EXAM: Female, 47 years old. Baseline study. TECHNIQUE: Bone Mineral Density (BMD) measurements of lumbar spine and bilateral hips were obtained. COMPARISON: None. ____ FINDINGS: Lumbar Spine (L1-L4): g/cm2 (0.961) / T-score (-1.8) / Z-score (-1.5) Findings are suggestive of osteopenia with a moderate fracture risk. Left Femur Total: g/cm2 (0.831) / T-score (-1.4) / Z-score (-1.0) Left Femoral Neck: g/cm2 (0.775) / T-score (-1.9) / Z-score (-1.2) Right Femur Total: g/cm2 (0.841) / T-score (-1.3) / Z-score (-0.9) Right Femoral Neck: g/cm2 (0.787) / T-score (-1.8) / Z-score (-1.1) ____ IMPRESSION: The patient is considered osteopenic as outlined below according to World Erlin Organization (WHO) criteria with a moderate fracture risk. ____ Reference Information: The T-score is the number of standard deviations above or below the standard which is normal for young adults at their peak bone mineral density. The World Health Organization (WHO) interprets the T-scores as follows: Above -1 Normal bone density Between -1 and -2.5 Osteopenia Equal to / or below -2.5 Osteoporosis As a practical clinical guideline, osteopenia may be graded as follows: Mild -1 through -1.5 Moderate -1.6 through -2.0 Severe -2.1 through -2.4 The Z-score is the number of standard deviations above or below age-matched controls. A Z-score of less than -1.5 would be considered abnormal. References: 1. NIH Osteoporosis and Related Bone Diseases http://www.osteo.org 2. International Society for Clinical Densitometry http://www.iscd.org 3. National Osteoporosis Foundation http://www.nof.org Electronically Signed: Ramon Soler M.D. at 15:29 EST , Service support [phone], CC: Mikayla Varela DO Recyclable Products Sorter: Signed Mikayla Varela Work Phone: Abdominal hysterectomy Anali Baker Comment on above: still has ovaries- 2012 Abdominal hysterectomy Marce Corrales Comment on above: still has ovaries- 2012 Abdominal hysterectomy Marce Corrales Comment on above: still has ovaries- 2012 Abdominal hysterectomy Marce Corrales Comment on above: still has ovaries- 2012 Abdominal hysterectomy Marce Corrales Comment on above: still has ovaries- 2012 Abdominal hysterectomy Marce n Jama Comment on above: still has ovaries- 2012 Abdominal hysterectomy Parish a Sonja Comment on above: still has ovaries- 2012 Abdominal hysterectomy Marce n Jama Comment on above: still has ovaries- 2012 Abdominal hysterectomy Marce n Jama Comment on above: still has ovaries- 2012 Abdominal hysterectomy Marce n Jama Comment on above: still has ovaries- 2012 Abdominal hysterectomy Marie Star DOSS Comment on above: still has ovaries- 2012 Abdominal hysterectomy Marie Star SELAM Comment on above: still has ovaries- 2012 Abdominal hysterectomy Parish a Sonja BUCKN Comment on above: still has ovaries- 2012 Abdominal hysterectomy Tamra Gutierrez [facility] Work Phone: Comment on above: still has ovaries- 2012 Abdominal hysterectomy Arelis Lewis MA Comment on above: still has ovaries- 2012 section Kathy simon Comment on above: 2 section Cesar pacheco Comment on above: 2 section Cesar pacheco Comment on above: 2 section Cesar pacheco Comment on above: 2 section Cesar pacheco Comment on above: 2 section Cesar contreras Comment on above: 2 section Tasia esteves Comment on above: 2 section Cesar contreras Comment on above: 2 section Ceasr contreras Comment on above: 2 section Cesar contreras Comment on above: 2 section Marie Coffagueda an PRINTING WORKER SUPERVISOR Comment on above: 2 section Mariexi Kidd an PRINTING WORKER SUPERVISOR Comment on above: 2 section Tasia Miltonr b PRINTING WORKER SUPERVISOR Comment on above: 2 section Jose Nicolasa virgen BUSINESS SERVICES SALES AGENT Work Phone: Comment on above: 2 section Khushi simon MA Comment on above: 2 Colonoscopy Kathy Samuel Comment on above: Normal. 01/30/15 with [facility] and repeat in 10 years Colonoscopy Cesar Corrales Comment on above: Normal. 01/30/15 with [facility] and repeat in 10 years Colonoscopy Cesar Corrales Comment on above: Normal. 01/30/15 with [facility] and repeat in 10 years Colonoscopy Cesar Corrales Comment on above: Normal. 01/30/15 with [facility] and repeat in 10 years Colonoscopy Cesar Corrales Comment on above: Normal. 01/30/15 with [facility] and repeat in 10 years Colonoscopy Cesar Yun Comment on above: Normal. 01/30/15 with [facility] and repeat in 10 years Colonoscopy Tasia Casillas Comment on above: Normal. 01/30/15 with [facility] and repeat in 10 years Colonoscopy Cesar Yun Comment on above: Normal. 01/30/15 with [facility] and repeat in 10 years Colonoscopy Cesar Yun Comment on above: Normal. 01/30/15 with [facility] and repeat in 10 years Colonoscopy Cesar Yun Comment on above: Normal. 01/30/15 with [facility] and repeat in 10 years Colonoscopy Marie Graves L PN Comment on above: Normal. 01/30/15 with [facility] and repeat in 10 years Colonoscopy Marie Graves L PN Comment on above: Normal. 01/30/15 with [facility] and repeat in 10 years Colonoscopy Tasia Casillas LP N Comment on above: Normal. 01/30/15 with [facility] and repeat in 10 years Colonoscopy Jose Matt BUSINESS SERVICES SALES AGENT Work Phone: Comment on above: Normal. 01/30/15 with [facility] and repeat in 10 years Colonoscopy Khushi Lewis MA Comment on above: Normal. 01/30/15 with [facility] and repeat in 10 years D&C Kathy Samuel D&C Cesar Corrales D&C Cesar Corrales D&C Cesar Corrales D&C Cesar Corrales D&C Cesar Yun D&C Tasia Casillas D&C Cesar Yun D&C Cesar Yun D&C Cesar Yun D&C Marie Graves L PN D&C Marie Star L PN D&C Tasia Slarb LP N D&C Jose Gutierrez BUSINESS SERVICES SALES AGENT Work Phone: D&C Khushi Lewis MA History of cholecystectomy History of cholecystectomy Cesar Yun LPN Comment on above: Dec 2018 History of cholecystectomy History of cholecystectomy Mikayla Fast DO Work Phone: History of cholecystectomy History of cholecystectomy Marie Graves LPN Comment on above: Dec 2018 History of cholecystectomy History of cholecystectomy Marie Star BUCKN Comment on above: Dec 2018 History of cholecystectomy History of cholecystectomy Tasia Slarb PRINTING WORKER SUPERVISOR Comment on above: Dec 2018 History of cholecystectomy History of cholecystectomy Jose Gutierrez BUSINESS SERVICES SALES AGENT Work Phone: Comment on above: Dec 2018 History of cholecystectomy History of cholecystectomy Khushi Lewis MA Comment on above: Dec 2018 Ligation of fallopia n tube Kathy Samuel Ligation of fallopia n tube Cesar Corrales Ligation of fallopia n tube Cesar Corrales Ligation of fallopia n tube Cesar Corrales Ligation of fallopia n tube Cesar Corrales Ligation of fallopia n tube Cesar Yun Ligation of fallopia n tube Tasia Slarb Ligation of fallopia n tube Cesar Yun Ligation of fallopia n tube Cesar Yun Ligation of fallopia n tube Cesar Yun Ligation of fallopia n tube Marie Star PRINTING WORKER SUPERVISOR Ligation of fallopia n tube Marie Star PRINTING WORKER SUPERVISOR Ligation of fallopia n tube Tasia Slarb PRINTING WORKER SUPERVISOR Ligation of fallopia n tube Jose Gutierrez BUSINESS SERVICES SALES AGENT Work Phone: Ligation of fallopia n tube Khushi Lewis MA Plan of Treatment Date Care Activity Detail Author Start: 02-13-2032 DTaP/Tdap/Td Vaccine s (7 - Td or Tdap) DTaP/Tdap/Td Vaccines (7 - Td or Tdap) [facility] Start: 06-12-2025 End: 06-12-2025 Patient encounter procedure Mammogram Comment on above: Encounter for screen ing mammogram for breast cancer [Z12.31] Annual Start: 06-08-2025 Screening for malign ant neoplasm of breast Mammogram Screening [facility] Start: 2024 Influenza vaccination Influenz a Vaccine (Season Ended) [facility] Start: 06-29-2024 Screening for malign ant neoplasm of breast Mammogram [facility] Start: 06-09-2024 End: 06-09-2024 Patient encounter procedure 06/09/2024 4:00 PM EDT Office Visit OB/Gynecology [address] [place] [id number] Flash Verma APRN.BUSINESS SERVICES SALES AGENT [address] [place] [address] Annual OB/Gynecology Comment on above: Annual Start: 06-08-2024 End: 06-08-2024 Patient encounter procedure 06/08/2024 8:50 AM EDT Appointment Mammogram [address] [place] [id number] Encounter for screening mammogram for breast cancer [Z12.31] Mammogram Comment on above: Encounter for screen ing mammogram for breast cancer [Z12.31] Start: 06-07-2024 Screening for malign ant neoplasm of breast Mammogram Screening [facility] Start: 06-07-2024 End: 06-07-2024 Patient encounter procedure Mammogram Comment on above: Encounter for screen ing mammogram for breast cancer [Z12.31] Annual Start: 06-03-2024 Screening for osteoporosis Bone Density Scan [facility] Start: 10-11-2023 COVID-19 Vaccine ( season) COVID-19 Vaccine ( season) [facility] Start: 10-11-2023 Influenza vaccination Influenza Vacc ine (#1) [facility] Start: 06-30-2023 End: 06-30-2023 Patient encounter procedure 06/30/2023 3:30 PM EDT Appointment Mammogram [address] [place] [id number] COMP CB LT Mammogram Comment on above: COMP CB LT Start: 06-06-2023 Mammography [facility] Start: 06-06-2023 Screening for malign ant neoplasm of breast Mammogram Screening [facility] Start: 03-08-2023 End: 03-22-2023 COVID & INFLUENZA A/B & RSV NAAT, ROUTINE COVID & INFLUENZA A/B & RSV NAAT, ROUTINE Microbiology Routine Sore throat Viral illness Expected: 03/08/2023, Expires: 03/22/2023 [facility] Work Phone: Comment on above: Expected: 03/08/2023 , Expires: 03/22/2023 Start: 02-09-2023 Behavioral Health Screening Behavioral Health Screening [facility] Start: 02-09-2023 Depression Assessment Depression Ass essment [facility] Start: 2022 Covid-19 Vaccine () Covid-19 Vaccine () [facility] Start: 10-03-2022 Hepatic function panel HEPATIC FUNCTION PANEL (90267) : Do in 4-6 months [facility] Work Phone: Start: 06-11-2022 Comprehensive metabo lic panel METABOLIC PANEL, COMPREHENSIVE (54020) : in September 2022 [facility] Work Phone: Start: 06-11-2022 Procedure Education Eprescribe d prescriptions (G8553) [facility] Work Phone: Start: 06-11-2022 Provider Instruction s for Treatment [facility] Work Phone: Start: 05-31-2022 Mammography MAMMOGRAM [facility] Start: 05-20-2022 Lipid panel LIPID PANEL (13033) [facility] Work Phone: Comment on above: Do around September Start: 05-09-2022 1 25 dihydroxy inclu min fractions if performed VITAMIN D, 1, 25-DIHYDROXY (49522) [facility] Work Phone: Start: 05-09-2022 Assay of thyroid stimulating hormone tsh TSH (THYROID STIMULATING HORMONE) (15010) [facility] Work Phone: Start: 05-09-2022 Blood count complete auto&auto difrntl wbc CBC, PLATELETS & AUT DIFF (94814) [facility] Work Phone: Start: 05-09-2022 Comprehensive metabo lic panel METABOLIC PANEL, COMPREHENSIVE (66921) [facility] Work Phone: Start: 05-09-2022 Lipid panel LIPID PANEL (89522) [facility]; [facility] Work Phone: Start: 05-09-2022 Procedure Education Eprescribe d prescriptions (G8553) [facility] Work Phone: Start: 05-09-2022 Provider Instruction s for Treatment Follow up in 1 year or as needed [facility] Work Phone: Start: 02-09-2022 DEPRESSION ASSESSMENT DEPRESSION ASS ESSMENT [facility] Start: 2021 Influenza vaccination INFLUENZA (#1) [facility] Start: 09-04-2021 Procedure Education Eprescribe d prescriptions (G8553) [facility] Work Phone: Start: 09-04-2021 Provider Instruction s for Treatment Poison Melinda Education [facility]; [facility] Work Phone: Start: 04-25-2021 COVID-19 VACCINE (4 - Booster for Pfizer series) COVID-19 VACCINE (4 - Booster for Pfizer series) [facility] Start: 04-15-2021 Assay of thyroid stimulating hormone tsh TSH (THYROID STIMULATING HORMONE) (65274) [facility] Work Phone: Start: 04-15-2021 Comprehensive metabo lic panel Metabolic Panel, Comprehensive (47290) [facility] Work Phone: Start: 04-15-2021 Blood count complete automated CBC & PLATELETS (AUTO) (52582) [facility] Work Phone: Start: 04-15-2021 25 hydroxy includes fractions if performed CALCIFEDIOL (99510) [facility] Work Phone: Start: 04-15-2021 Lipid panel LIPID PANEL (01250) [facility]; [facility] Work Phone: Start: 04-15-2021 Procedure Education Eprescribe d prescriptions (G8553) [facility] Work Phone: Start: 04-15-2021 Provider Instruction s for Treatment Follow up in 1 week [facility] Work Phone: Start: 02-20-2021 COVID-19 VACCINE (4 - Booster for Pfizer series) COVID-19 VACCINE (4 - Booster for Pfizer series) [facility] Start: 11-19-2020 [place]oo influenza 2019 Novel Coronavirus (COVID-19), MARGARITA (42287) [facility] Work Phone: Start: 05-25-2020 Procedure Education Eprescribe d prescriptions (G8553) [facility] Work Phone: Start: 05-14-2020 25 hydroxy includes fractions if performed CALCIFEDIOL (30652) [facility]; [facility] Work Phone: Start: 05-14-2020 Comprehensive metabo lic panel Metabolic Panel, Comprehensive (37085) [facility] Work Phone: Start: 05-14-2020 Lipid panel LIPID PANEL (91682) [facility] Work Phone: Start: 05-14-2020 Procedure Education Eprescribe d prescriptions (G8553) [facility] Work Phone: Start: 05-14-2020 Provider Instruction s for Treatment [facility] Work Phone: Start: 01-31-2020 Procedure Education Eprescribe d prescriptions (G8553) [facility] Work Phone: Start: 01-31-2020 [place] influenza 2019 Novel Coronavirus (COVID-19), MARGARITA ([id number]) [facility] Work Phone: Start: 01-11-2020 Procedure Education Eprescribe d prescriptions (G8553) [facility] Work Phone: Start: 01-11-2020 Provider Instruction s for Treatment [facility] Work Phone: Start: 01-11-2020 Lipid panel LIPID PANEL (21549) [facility] Work Phone: Comment on above: May 2020 Start: 11-11-2019 Lipid panel LIPID PANEL (90899) [facility] Work Phone: Start: 11-09-2019 Procedure Education Eprescribe d prescriptions (G8553) [facility] Work Phone: Start: 11-09-2019 Provider Instruction s for Treatment [facility] Work Phone: Start: 11-09-2019 Comprehensive metabo lic panel Metabolic Panel, Comprehensive (22264) [facility] Work Phone: Start: 11-09-2019 Iron [Mass/Vol] IRON (09558) [facility] Work Phone: Start: 11-09-2019 Cobalamin (Vitamin B 12) [Mass/Vol] VITAMIN B12 AND FOLATES (51284) [facility] Work Phone: Start: 11-09-2019 Blood count complete auto&auto difrntl wbc CBC, PLATELETS & AUT DIFF (23783) [facility] Work Phone: Start: 11-09-2019 TSH Qn TSH (THYROID STIMULATING HORMONE) (83627) [facility] Work Phone: Start: 11-09-2019 Lipid panel LIPID PANEL (53463) [facility] Work Phone: Start: 04-06-2019 Bilirubin direct BILIRUBIN DIR ECT (43657) [facility] Work Phone: Start: 04-06-[address] CT (89644) [facility] Work Phone: Start: 04-06-2019 Bilirubin.direct [Mass/Vol] BILIRUBIN DIRECT (26849) [facility] Work Phone: Start: 04-06-2019 Blood count complete auto&auto difrntl wbc CBC, Platelets & Auto Diff (04049) [facility] Work Phone: Start: 04-06-2019 Comprehensive metabo lic panel Metabolic Panel, Comprehensive (79564) [facility] Work Phone: Start: 04-06-2019 Assay of thyroid stimulating hormone tsh TSH (56074) [facility] Work Phone: Start: 04-06-2019 TSH Qn TSH (54832) [facility] Work Phone: Start: 12-13-2018 Procedure Education Eprescribe d prescriptions (G8553) [facility] Work Phone: Start: 12-13-2018 Provider Instruction s for Treatment [facility] Work Phone: Start: 11-22-2018 Procedure Education Eprescribe d prescriptions (G8553) [facility] Work Phone: Start: 11-22-2018 Provider Instruction s for Treatment [facility] Work Phone: Start: 11-22-2018 Blood count complete automated CBC & PLATELETS (AUTO) (20558) [facility] Work Phone: Comment on above: STAT Start: 11-22-2018 Comprehensive metabo lic panel METABOLIC PANEL, COMPREHENSIVE (42328) [facility] Work Phone: Comment on above: STAT Start: 11-22-2018 Assay of thyroid stimulating hormone tsh TSH (10516) [facility] Work Phone: Start: 11-22-2018 TSH Qn TSH (01562) [facility] Work Phone: Start: 11-05-2018 Calcium urine quantitative timed specimen URINE CALCIUM ALVERTO TIMED (77201) [facility] Work Phone: Start: 10-05-2018 Comprehensive metabo lic panel Metabolic Panel, Comprehensive (00988) [facility] Work Phone: Start: 10-04-2018 Procedure Education Eprescribe d prescriptions (G8553) [facility] Work Phone: Start: 10-04-2018 Provider Instruction s for Treatment [facility] Work Phone: Start: 04-12-2018 Bilirubin direct Bilirubin, Di rect (47140) [facility] Work Phone: Start: 04-12-2018 Bilirubin.direct mas s conc Bilirubin, Direct (20696) [facility] Work Phone: Start: 04-12-2018 Bilirubin mass conc BILIRUBIN, TOTAL (90898) [facility] Work Phone: Start: 04-06-2018 Blood count complete automated CBC & PLATELETS (AUTO) (62850) [facility] Work Phone: Start: 04-06-2018 Lipid panel LIPID PANEL (33067) [facility] Work Phone: Start: 04-06-2018 25 hydroxy includes fractions if performed CALCIFEDIOL (98301) [facility] Work Phone: Start: 04-06-2018 Comprehensive metabo lic panel Metabolic Panel, Comprehensive (56668) [facility] Work Phone: Start: 04-06-2018 Procedure Education Eprescribe d prescriptions (G8553) [facility] Work Phone: Start: 04-06-2018 Provider Instruction s for Treatment Follow up in 6 months [facility] Work Phone: Start: 10-27-2017 Procedure Education Eprescribe d prescriptions (G8553) [facility] Work Phone: Start: 03-13-2017 Bilirubin direct BILIRUBIN DIR ECT (21582) [facility] Work Phone: Start: 03-13-[address] CT (85128) [facility]; [facility] Work Phone: Start: 03-13-2017 Bilirubin.direct mas s conc BILIRUBIN DIRECT (12399) [facility] Work Phone: Start: 11-17-2016 Procedure Education Eprescribe d prescriptions (G8553) [facility] Work Phone: Start: 07-21-2016 Procedure Education Eprescribe d prescriptions (G8553) [facility] Work Phone: Start: 07-21-2016 Provider Instruction s for Treatment Follow up in 3 months [facility] Work Phone: Start: 10-11-2015 Patient Education Bladder Infe ction: Brief Version *: uti [facility] Work Phone: Start: 10-11-2015 Procedure Education Eprescribe d prescriptions (G8553) [facility] Work Phone: Start: 06-20-2015 Procedure Education Eprescribe d prescriptions (G8553) [facility] Work Phone: Start: 2014 Pneumococcal Vaccine : 50+ (1 of 1 - PCV) Pneumococcal Vaccine: 50+ (1 of 1 - PCV) [facility] Start: 2014 SHINGRIX VACCINE (1 of 2) SHINGRIX VACCINE (1 of 2) [facility] Start: 2014 Zoster Vaccines (1 o f 2) Zoster Vaccines (1 of 2) [facility] Start: 07-12-2014 Provider Instruction s for Treatment [facility] Work Phone: Start: 06-12-2014 Blood count complete auto&auto difrntl wbc CBC W/AUTO DIFF WBC (57308) [facility] Work Phone: Start: 06-12-2014 Assay of thyroid stimulating hormone tsh TSH (05715) [facility] Work Phone: Start: 06-12-2014 Thyrotropin Qn TSH (46423) [facility] Work Phone: Start: 06-12-2014 Comprehensive metabo lic panel METABOLIC PANEL, COMPREHENSIVE (65356) [facility] Work Phone: Start: 06-12-2014 Procedure Education Eprescribe d prescriptions (G8553) [facility] Work Phone: Start: 07-26-2013 Basic metabolic pane l calcium total Metabolic Panel, Basic (82697) [facility] Work Phone: Comment on above: repeat in 1 month Start: 07-18-2013 Provider Instruction s for Treatment Poison Melinda Education [facility] Work Phone: Start: 06-06-2013 Urine microalbumin profile [facility] Start: 05-18-2013 Calcium urine quantitative timed specimen CALCIUM URINE 36307 (79583) [facility] Work Phone: Start: 04-04-2013 Lipid panel LIPID PANEL (53292) [facility] Work Phone: Start: 04-04-2013 Comprehensive metabo lic panel METABOLIC PANEL, COMPREHENSIVE (12669) [facility] Work Phone: Start: 04-04-2013 Blood count manual c ell count each CBC WITH MANUAL DIFF (19490) [facility] Work Phone: Start: 04-04-2013 Patient Education Allergies: allergi es [facility] Work Phone: Start: 2009 COLOGUARD (FIT-DNA) COLOGUARD (FIT-D NA) [facility] Start: 2009 Colonoscopy COLONOSCOPY [facility] Start: 2009 COLORECTAL CANCER SCREENING COLORECTAL CANCER SCREENING [facility] Start: [address] COLONOGRAPHY [facility] Start: 2009 DIABETES SCREEN DIABETES SCREEN [facility] Start: 2009 Diabetes Screening Diabetes Screenin g [facility] Start: 2009 FECAL OCCULT BLOOD FECAL OCCULT BLOO D [facility] Start: 2009 Lipid 1996 panel - Serum or Plasma Lipid Screening [facility] Start: 2009 Lipid panel Lipid Screening [facility] Start: 2009 LIPID SCREEN LIPID SCREEN [facility] Start: 2009 Screening for malign ant neoplasm of colon [facility] Start: 2009 SIGMOIDOSCOPY SIGMOIDOSCOPY [facility] Start: 1985 Screening for malign ant neoplasm of cervix [facility] Start: 10-11-1983 Hepatitis B Vaccine (1 of 3 - 19+ 3-dose series) Hepatitis B Vaccine (1 of 3 - 19+ 3-dose series) [facility] Start: 10-11-1983 Hepatitis B Vaccines (1 of 3 - 19+ 3-dose series) Hepatitis B Vaccines (1 of 3 - 19+ 3-dose series) [facility] Start: 1982 Anxiety Screening Anxiety Screening [facility] Start: 1982 Depression Screening Depression Scre ening [facility] Start: 1982 HEPATITIS C SCREENING HEPATITIS C [facility] Start: 1982 Hepatitis C screening Hepatitis C [facility] Start: 1982 HIV SCREENING HIV SCREENING [facility] Start: 1982 HIV screening HIV Screening [facility] Start: 1976 Adult depression screening assessment DEPRESSION SCREENING [facility] Start: 1964 HEPATITIS B (1 of 3 - 3-dose series) HEPATITIS B (1 of 3 - 3-dose series) [facility] Start: 1964 Hepatitis B Vaccine (1 of 3 - 3-dose series) Hepatitis B Vaccine (1 of 3 - 3-dose series) [facility] Start: 1964 HIV screening HIV Screening [facility] Start: 1964 Lipid panel Lipid Panel [facility] Start: 1964 Screening for malign ant neoplasm of colon [facility] Start: 1964 Yearly Adult Physical Yearly Adult P hysical [facility] Bacteria identified in Urine by Culture URINE CULTURE Microbiology Routine Burning with urination Ordered: 09/29/2023 [facility] Work Phone: Comment on above: Ordered: 09/29/2023 BACTERIAL VAGINOSIS NAAT BACTERIAL VAGINOSIS NAAT Lab Routine Vaginal itching 04/07/2024 4:29 PM EST [facility] JOSE/TRICHOMONAS NAAT JOSE/TRICHOMONAS NAAT Lab Routine Vaginal itching 04/07/2024 4:29 PM EST [facility] Work Phone: End: 12-21-2023 CT for calcium scoring WO contrast and CTA W contrast IV Heart and coronary arteries [facility] Service Area Work Phone: Comment on above: Once for 1 Occurrenc es starting 12/21/2023 until 12/21/2023 End: 07-07-2024 DBT Breast - bilateral screening RAMIN SCREENING W MARÍA ELENA Radiology Routine Encounter for screening mammogram for breast cancer 1 Occurrences starting 06/08/2023 until 07/07/2024 [facility] Work Phone: Comment on above: 1 Occurrences starti ng 06/08/2023 until 07/07/2024 End: 07-09-2025 DBT Breast - bilateral screening RAMIN SCREENING W MARÍA ELENA Radiology Routine Encounter for screening mammogram for breast cancer 1 Occurrences starting 06/09/2024 until 07/09/2025 [facility] Work Phone: Comment on above: 1 Occurrences starti ng 06/09/2024 until 07/09/2025 End: 06-30-2022 RAMIN SCREENING W MARÍA ELENA RAMIN SCREENING W MARÍA ELENA Radiology Routine Encounter for gynecological examination (general) (routine) without abnormal findings Encounter for screening mammogram for breast cancer 1 Occurrences starting 05/31/2021 until 06/30/2022 [facility] Work Phone: Comment on above: 1 Occurrences starti ng 05/31/2021 until 06/30/2022 End: 07-05-2023 RAMIN SCREENING W MARÍA ELENA RAMIN SCREENING W MARÍA ELENA Radiology Routine Encounter for gynecological examination (general) (routine) without abnormal findings Encounter for screening mammogram for breast cancer 1 Occurrences starting 06/05/2022 until 07/05/2023 [facility] Work Phone: Comment on above: 1 Occurrences starti ng 06/05/2022 until 07/05/2023 End: 07-07-2024 MG Breast - left Diagnostic for implant RAMIN DIAGNOSTIC LEFT Radiology Routine Abnormal mammogram 1 Occurrences starting 06/08/2023 until 07/07/2024 [facility] Work Phone: Comment on above: 1 Occurrences starti ng 06/08/2023 until 07/07/2024 End: 07-08-2025 US Breast - bilateral US BREAST COMPLETE BILATERAL Radiology Routine Dense breast tissue 1 Occurrences starting 06/08/2024 until 07/08/2025 [facility] Work Phone: Comment on above: 1 Occurrences starti ng 06/08/2024 until 07/08/2025 End: 07-07-2024 US Breast - left limited US BREAST LTD LEFT Radiology Routine Abnormal mammogram 1 Occurrences starting 06/08/2023 until 07/07/2024 [facility] Comment on above: 1 Occurrences starti ng 06/08/2023 until 07/07/2024 [facility] Work Phone: [facility] Work Phone: [facility] Work Phone: [facility] Work Phone: [facility] Work Phone: [facility] Work Phone: [facility] Work Phone: [facility] Work Phone: [facility] Work Phone: [facility] Work Phone: [facility] Work Phone: [facility] Work Phone: [facility] Work Phone: [facility] Work Phone[facility] Work Phone[facility] Work Phone: [facility]; [facility] Work Phone: [facility] Work Phone: [facility] Work Phone: [facility]; [facility] Work Phone: [facility]; [facility] Work Phone: [facility]; [facility] Work Phone: Immunizations Immunization Date Immunization Notes Care Provider [facility] 12-22-2022 influenza virus vaccine, unspecified formulation Rita Zuluaga APRN.CNP Work Phone: [facility] 04-26-2020 COVID-19 vaccine, ag e 12+ yr (PFIZER-BIONTECH - PURPLE TOP) Coral Ware MD Work Phone: [facility] 04-05-2020 COVID-19 vaccine, ag e 12+ yr (PFIZER-BIONTECH - PURPLE TOP) Coral Ware MD Work Phone: [facility] 06-07-2003 diphtheria, tetanus toxoids and acellular pertussis vaccine Coral Ware MD Work Phone: [facility] Work Phone: 06-07-2003 measles, mumps and rubella virus vaccine Coral Ware MD Work Phone: [facility] Work Phone: 06-07-2003 poliovirus vaccine, inactivated Coral Ware MD Work Phone: [facility] Work Phone: 08-08-1999 diphtheria, tetanus toxoids and acellular pertussis vaccine Coral Ware MD Work Phone: [facility] Work Phone: 08-08-1999 haemophilus influenz ae type b vaccine, HbOC conjugate Coral Ware MD Work Phone: [facility] Work Phone: 05-10-1999 measles, mumps and rubella virus vaccine Coral Ware MD Work Phone: [facility] Work Phone: 05-10-1999 poliovirus vaccine, inactivated Coral Ware MD Work Phone: [facility] Work Phone: 11-09-1998 diphtheria, tetanus toxoids and acellular pertussis vaccine Coral Ware MD Work Phone: [facility] Work Phone: 11-09-1998 haemophilus influenz ae type b vaccine, HbOC conjugate Coral Ware MD Work Phone: [facility] Work Phone: 11-09-1998 hepatitis B vaccine, pediatric or pediatric/adolescent dosage Coral Ware MD Work Phone: [facility] Work Phone: 11-09-1998 hepatitis B vaccine, unspecified formulation Coral Ware MD Work Phone: [facility] 09-12-1998 diphtheria, tetanus toxoids and acellular pertussis vaccine Coral Ware MD Work Phone: [facility] Work Phone: 09-12-1998 haemophilus influenz ae type b vaccine, HbOC conjugate Coral Ware MD Work Phone: [facility] Work Phone: 09-12-1998 poliovirus vaccine, inactivated Coral Ware MD Work Phone: [facility] Work Phone: 07-11-1998 diphtheria, tetanus toxoids and acellular pertussis vaccine Coral Ware MD Work Phone: [facility] Work Phone: 07-11-1998 haemophilus influenz ae type b vaccine, HbOC conjugate Coral Ware MD Work Phone: [facility] Work Phone: 07-11-1998 poliovirus vaccine, inactivated Coral Ware MD Work Phone: [facility] Work Phone: 06-15-1998 hepatitis B vaccine, pediatric or pediatric/adolescent dosage Coral Ware MD Work Phone: [facility] Work Phone: 05-07-1998 hepatitis B vaccine, pediatric or pediatric/adolescent dosage Coral Ware MD Work Phone: [facility] Work Phone: Payers Date Payer Category Payer Self-pay [id number] [facility] (Private) [facility] [id number] 2015 Private Health Insurance MMO SUP ERMED PPO 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 2015 Unknown [id number] 2013 Unknown [id number] 1965 Unknown [id number] 1964 Unknown [id number] Unknown 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 [facility] Work Phone: Alcohol Use: Alcohol Use: [facility] Work Phone: Tobacco use: Tobacco use: [facility] Work Phone: [facility] tobacco [facility] Start: 05-31-2021 End: 04-07-2024 Alcohol intake Current drinker of alcohol (finding) [facility] Start: 1965 Sex Assigned At Not on file [facility] Start: 05-21-2021 End: 12-21-2023 Exposure to SARS-CoV-2 (event) Not sure [facility] Start: 01-10-2019 [facility] if ever smoked [facility] Start: 12-27-2018 Non-smoker [facility] Start: 1965 Sex Assigned At Female [facility] Start: 01-08-2023 End: 06-09-2024 Tobacco use panel [facility] Work Phone: National Score (1-10 0), lower number is lower risk 75 [facility] Functional Status Date Assessment Result Facility 02-23-2014 Are you deaf, or do you have serious difficulty hearing No 02/23/2014 4:19 PM Jo Nolan Ma No [facility] 02-23-2014 Are you blind, or do you have serious difficulty seeing, even when wearing glasses No 02/23/2014 4:19 PM Jo Nolan Ma No [facility] 02-23-2014 Do you have serious difficulty walking or climbing stairs No 02/23/2014 4:19 PM Jo Nolan Ma No [facility] 02-23-2014 Do you have difficul ty dressing or bathing No 02/23/2014 4:19 PM Jo Nolan Ma No [facility] 02-23-2014 Because of a physica l, mental, or emotional condition, do you have difficulty doing errands alone such as visiting a physician's office or shopping No 02/23/2014 4:19 PM Jo Nolan Ma [facility] Mental Status Date Assessment Result Facility 02-23-2014 Because of a physica l, mental, or emotional condition, do you have serious difficulty concentrating, remembering, or making decisions No 02/23/2014 4:19 PM EST Masters Jo Castillo [facility] Clinical Notes 03-23-2013 to 06-09-2024 Flash Verma APRN.BUSINESS SERVICES SALES AGENT - 06/09/2024 3:49 PM Argelia Chung Mammo Tech - 06/08/2024 8:50 AM Hiram Barriga MD - 04/07/2024 3:33 PM ESTPatient InstructionsPatient Instructions Note Date & Type Note Facility 06-09-2024 Note HNO ID: [id number] Author: FLASH VERMA APRN.BUSINESS SERVICES SALES AGENT Service: ? Author Type: Nurse Practitioner Type: Progress Notes Filed: 06/09/2024 16:47 Note Text: Wire Repairer offered: Patient declines. 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 Has daughters as well. Mom was a [employer] MOLD CAPPER HELPER here. Postmenopausal: Yes hysterectomy at 45 yo HRT use: Yes, vaginal estrace cream Age at Menarche: 12 Still get period: No Menses: no menses- hysterectomy Sexually active: Yes Contraception: Surgical HPV vaccine: No Last pap smear: 01/01/2011 normal, HPV negative History of abnormal pap: No Colposcopy: No. Leep: No. Cone biopsy: No. Bothersome pelvic pain: No Last mammogram: 05/2024 [facility] normal History of abnormal mammogram: No OB History Gravida4 Para4 Term0 Preterm0 AB0 Living4 SAB0 IAB0 Ectopic0 Multiple0 Live Births0 FAMILY HISTORY Problem Relation Age of Onset Hypertension Mother Diabetes Father Hypertension Father Blood Disease Sister polycythenia Hypertension Sister Hypertension Brother Heart Maternal Grandfather Heart Paternal Grandmother CONGESTIVE HEART FAILURE Cancer Paternal Grandfather ? KIDNEY CANCER No Known Problems Daughter No Known Problems Daughter Hypertension Son No Known Problems Son SOCIAL HISTORY Social History Tobacco Use Smoking status: Never Smokeless tobacco: Never Vaping Use Vaping status: Never Used Substance Use Topics Alcohol use: Yes Comment: occasional Drug use: No REVIEW OF SYSTEMS Abdomen: No abdominal pain, nausea, vomiting, diarrhea, or constipation. No bloating, early satiety, indigestion, or increased flatulence. Bladder: No dysuria, gross hematuria, urinary frequency, urinary urgency, or incontinence Breast: No breast lumps, nipple d/c, overlying skin changes, redness or skin retraction Allergies and current medication updated:Yes SENSITIVE EXAM: The sensitive examination was discussed with the Patient or Patient's Authorized Toe Lining Closer. As applicable, any other physician, advance practice provider, medical student, or other health professional student that will be observing or involved in the sensitive examination for educational or training purposes was discussed with the Patient or Authorized Toe Lining Closer. The Patient or Authorized Toe Lining Closer has agreed to proceed with the sensitive examination. (Sensitive examination includes inspection and/or palpation of the breasts, pelvis, prostate and anorectal regions). EXAM: BP 108/60 Ht 5' 4.382 (1.64m) Wt 120 lb (54.4kg) LMP 06/27/2011 BMI 20.36 kg/(m2). GENERAL: pleasant, female in no apparent distress HEENT: Normocephalic, atraumatic, mucus membranes moist, and no lesions NECK: Supple, full range of motion, no adenopathy, and thyroid normal DERMATOLOGY: Normal, without lesions, non-icteric, and non-hirsute BREAST: soft, non-tender, symmetric, no dominant mass, normal nipple-areolar complex, no lymphadenopathy, and no nipple discharge CHEST: Normal inspiratory effort ABDOMEN: soft, non-tender, and no masses PELVIC: external genitalia normal, normal Bartholin's glands, urethra, Neola's glands, no vulvar lesions, good vaginal support, physiologic discharge present, normal appearing perineal body and perianal region, cervix surgically absent BIMANUAL: no adnexal masses, non-tender, and uterus surgically absent RECTOVAGINAL: deferred. NEURO: alert and oriented x3,exam grossly non-focal EXTREMITIES: normal ASSESSMENT/PLAN: 1) Health maintenance: Pap/HPV screening no longer needed Mammogram up to date Nutrition, exercise and routine health maintenance exams reviewed. Reviewed Vitamin D/Calcium. Colon cancer screening: planning for this year TSH/lipids/glucose: followed by PCP BMD: followed by PCP, osteoporosis 2) Follow up one year or sooner as needed Flash Verma APRN.[facility] 06-09-2024 History of Presen t illness Narrative Wire Repairer offered: Patient declines. 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 Has daughters as well. Mom was a [employer] MOLD CAPPER HELPER here. Postmenopausal: Yes hysterectomy at 45 yo HRT use: Yes, vaginal estrace cream Age at Menarche: 12 Still get period: No Menses: no menses- hysterectomy Sexually active: Yes Contraception: Surgical HPV vaccine: No Last pap smear: 01/01/2011 normal, HPV negative History of abnormal pap: No Colposcopy: No. Leep: No. Cone biopsy: No. Bothersome pelvic pain: No Last mammogram: 05/2024 [facility] normal History of abnormal mammogram: No OB History Gravida4 Para4 Term0 Preterm0 AB0 Living4 SAB0 IAB0 Ectopic0 Multiple0 Live Births0 FAMILY HISTORY Problem Relation Age of Onset Hypertension Mother Diabetes Father Hypertension Father Blood Disease Sister polycythenia Hypertension Sister Hypertension Brother Heart Maternal Grandfather Heart Paternal Grandmother CONGESTIVE HEART FAILURE Cancer Paternal Grandfather ? KIDNEY CANCER No Known Problems Daughter No Known Problems Daughter Hypertension Son No Known Problems Son SOCIAL HISTORY Social History Tobacco Use Smoking status: Never Smokeless tobacco: Never Vaping Use Vaping status: Never Used Substance Use Topics Alcohol use: Yes Comment: occasional Drug use: No REVIEW OF SYSTEMS Abdomen: No abdominal pain, nausea, vomiting, diarrhea, or constipation. No bloating, early satiety, indigestion, or increased flatulence. Bladder: No dysuria, gross hematuria, urinary frequency, urinary urgency, or incontinence Breast: No breast lumps, nipple d/c, overlying skin changes, redness or skin retraction Allergies and current medication updated:Yes SENSITIVE EXAM: The sensitive examination was discussed with the Patient or Patient's Authorized Toe Lining Closer. As applicable, any other physician, advance practice provider, medical student, or other health professional student that will be observing or involved in the sensitive examination for educational or training purposes was discussed with the Patient or Authorized Toe Lining Closer. The Patient or Authorized Toe Lining Closer has agreed to proceed with the sensitive examination. (Sensitive examination includes inspection and/or palpation of the breasts, pelvis, prostate and anorectal regions). EXAM: BP 108/60 Ht 5' 4.382 (1.64m) Wt 120 lb (54.4kg) LMP 06/27/2011 BMI 20.36 kg/(m^2). GENERAL: pleasant, female in no apparent distress HEENT: Normocephalic, atraumatic, mucus membranes moist, and no lesions NECK: Supple, full range of motion, no adenopathy, and thyroid normal DERMATOLOGY: Normal, without lesions, non-icteric, and non-hirsute BREAST: soft, non-tender, symmetric, no dominant mass, normal nipple-areolar complex, no lymphadenopathy, and no nipple discharge CHEST: Normal inspiratory effort ABDOMEN: soft, non-tender, and no masses PELVIC: external genitalia normal, normal Bartholin's glands, urethra, Neola's glands, no vulvar lesions, good vaginal support, physiologic discharge present, normal appearing perineal body and perianal region, cervix surgically absent BIMANUAL: no adnexal masses, non-tender, and uterus surgically absent RECTOVAGINAL: deferred. NEURO: alert and oriented x3,exam grossly non-focal EXTREMITIES: normal ASSESSMENT/PLAN: 1) Health maintenance: Pap/HPV screening no longer needed Mammogram up to date Nutrition, exercise and routine health maintenance exams reviewed. Reviewed Vitamin D/Calcium. Colon cancer screening: planning for this year TSH/lipids/glucose: followed by PCP BMD: followed by PCP, osteoporosis 2) Follow up one year or sooner as needed Flash Verma APRN.BUSINESS SERVICES SALES AGENT documented in this encounter [facility] 06-08-2024 History of Presen t illness Narrative Radiology Service Progress Note PATIENT NAME: Татьяна Gonzalez DATE OF SERVICE: June 08, 2024 TIME: 10:29 AM PATIENT IDENTITY VERIFICATION COMPLETED USING TWO (2) IDENTIFIERS: Name and Date of confirmed by patient verbally. FALL SCREENING: Has the patient had 2 falls in the last year or 1 fall with injury or currently using an Ambulatory Assistive Device (Walker, Cane, Wheelchair, Crutches, etc.)? No PATIENT GENDER DATA: Assigned female at . status: : No status: NO. PATIENT RELEVANT IMPLANT DATA REVIEWED: Not Applicable PATIENT PRESENTS WITH AN IMPLANTABLE OR ATTACHED NEON SIGN MAKER: No RADIOLOGY DEPARTMENT: Mammography PERIPHERAL IV DATA: Not applicable SIGNED BY: Christi Gonzalez June 08, 2024 10:29 AM documented in this encounter [facility] 06-08-2024 Note HNO ID: [id number] Author: ARGELIA INFANTE Mammo Tech Service: ? Author Type: Shipyard Supervisor Type: Progress Notes Filed: 06/08/2024 10:30 Note Text: Radiology Service Progress Note PATIENT NAME: Татьяна Gonzalez DATE OF SERVICE: June 08, 2024 TIME: 10:29 AM PATIENT IDENTITY VERIFICATION COMPLETED USING TWO (2) IDENTIFIERS: Name and Date of confirmed by patient verbally. FALL SCREENING: Has the patient had 2 falls in the last year or 1 fall with injury or currently using an Ambulatory Assistive Device (Walker, Cane, Wheelchair, Crutches, etc.)? No PATIENT GENDER DATA: Assigned female at . status: : No status: NO. PATIENT RELEVANT IMPLANT DATA REVIEWED: Not Applicable PATIENT PRESENTS WITH AN IMPLANTABLE OR ATTACHED NEON SIGN MAKER: No RADIOLOGY DEPARTMENT: Mammography PERIPHERAL IV DATA: Not applicable SIGNED BY: Christi Gonzalez June 08, 2024 10:29 AM [facility] 04-07-2024 Note HNO ID: [id number] Author: HIRAM GILBERT MD Service: ? Author Type: Physician Type: Progress Notes Filed: 04/07/2024 15:58 Note Text: Татьяна Gonzalez is a 58 year old female who presents for problem visit. HPI: Patient presents with vaginal irritation, itching and pain/dryness with intercourse. OB History Gravida4 Para4 Term0 Preterm0 AB0 Living4 SAB0 IAB0 Ectopic0 Multiple0 Live Births0 Delivery Room Supervisor History LMP: 06/27/2011, Hysterectomy Age at Menarche: Age at First : Age at Menopause: Delivery Room Supervisor History Comments: Sexual Activity: Yes; No partner data on record; TVH Contraception: Surgical PAST MEDICAL HISTORY Diagnosis Date Excessive or frequent menstruation Heavy periods resolved but prolonged High calcium levels Irregular menstrual cycle Irregular periods and prolonged Osteopenia Osteoporosis PAST SURGICAL HISTORY Procedure Laterality Date DELIVERY ONLY , low cervical X2 DILATION AND CURETTAGE DXAND/THER NONOBSTETRIC 07/11/2007 Dilation AND curettage LIG/TRNSXJ FLP TUBE ABDL/VAG APPR UNI/BI Tubal ligation NOVASURE 02/27/2009 hysteroscopy PAST SURGICAL HISTORY OF 01/09/2010 removal of cyst on (L) thigh REMOVAL GALLBLADDER 12/2018 VAGINAL HYSTERECTOMY UTERUS 250 GM/< 08/26/2011 TVH, heavy menses FAMILY HISTORY Problem Relation Age of Onset Hypertension Mother Diabetes Father Hypertension Father Blood Disease Sister polycythenia Hypertension Sister Hypertension Brother Heart Maternal Grandfather Heart Paternal Grandmother CONGESTIVE HEART FAILURE Cancer Paternal Grandfather ? KIDNEY CANCER No Known Problems Daughter No Known Problems Daughter Hypertension Son No Known Problems Son Social History Tobacco Use Smoking status: Never Smokeless tobacco: Never Vaping Use Vaping status: Never Used Substance Use Topics Alcohol use: Yes Comment: occasional Drug use: No Current Outpatient Medications Medication Sig TYMLOS 80 mcg (3,120 mcg/1.56 mL) pen injector RED YEAST RICE ORAL Take by mouth. indapamide (LOZOL) 2.5 mg tablet Take by mouth q 24 HR. CHOLECALCIFEROL, VITAMIN D3, (VITAMIN D3 ORAL) Take by mouth. (Patient not taking: Reported on 09/29/2023) POTASSIUM ORAL Take by mouth. DAILY MULTIVITAMIN TAB No current facility-administered medications for this visit. Allergies As of Date: 04/07/2024 (No Known Allergies) Fully Assessed 09/29/2023 Allergies and current medication updated:Yes SENSITIVE EXAM: The sensitive examination was discussed with the Patient or Patient's Authorized Toe Lining Closer. As applicable, any other physician, advance practice provider, medical student, or other health professional student that will be observing or involved in the sensitive examination for educational or training purposes was discussed with the Patient or Authorized Toe Lining Closer. The Patient or Authorized Toe Lining Closer has agreed to proceed with the sensitive examination. (Sensitive examination includes inspection and/or palpation of the breasts, pelvis, prostate and anorectal regions). EXAM: LMP 06/27/2011 GENERAL: pleasant, female in no apparent distress PELVIC: external genitalia normal, no vulvar lesions, no cervical lesions, normal appearing perineal body and perianal region; atrophic vagina ASSESSMENT AND PLAN: Assessment AND Plan Vaginal itching Orders: JOSE/TRICHOMONAS NAAT BACTERIAL VAGINOSIS NAAT Postmenopausal atrophic vaginitis Discussed R/B/a of treatment options. Estrace cream given AND use reviewed. Medical Decision Making: Problems: Moderate: New problem with uncertain prognosis Data: Unique test(s) ordered: 2 Risk: Moderate: Drug management Medical Decision Making Level: 4 - Moderate Hiram Gilbert MD [facility] 04-07-2024 History of Presen t illness Narrative Татьяна Gonzalez is a 58 year old female who presents for problem visit. HPI: Patient presents with vaginal irritation, itching and pain/dryness with intercourse. OB History Gravida4 Para4 Term0 Preterm0 AB0 Living4 SAB0 IAB0 Ectopic0 Multiple0 Live Births0 Delivery Room Supervisor History LMP: 06/27/2011, Hysterectomy Age at Menarche: Age at First : Age at Menopause: Delivery Room Supervisor History Comments: Sexual Activity: Yes; No partner data on record; TVH Contraception: Surgical PAST MEDICAL HISTORY Diagnosis Date Excessive or frequent menstruation Heavy periods resolved but prolonged High calcium levels Irregular menstrual cycle Irregular periods and prolonged Osteopenia Osteoporosis PAST SURGICAL HISTORY Procedure Laterality Date DELIVERY ONLY , low cervical X2 DILATION & CURETTAGE DX&/THER NONOBSTETRIC 07/11/2007 Dilation & curettage LIG/TRNSXJ FLP TUBE ABDL/VAG APPR UNI/BI Tubal ligation NOVASURE 02/27/2009 hysteroscopy PAST SURGICAL HISTORY OF 01/09/2010 removal of cyst on (L) thigh REMOVAL GALLBLADDER 12/2018 VAGINAL HYSTERECTOMY UTERUS 250 GM/< 08/26/2011 TVH, heavy menses FAMILY HISTORY Problem Relation Age of Onset Hypertension Mother Diabetes Father Hypertension Father Blood Disease Sister polycythenia Hypertension Sister Hypertension Brother Heart Maternal Grandfather Heart Paternal Grandmother CONGESTIVE HEART FAILURE Cancer Paternal Grandfather ? KIDNEY CANCER No Known Problems Daughter No Known Problems Daughter Hypertension Son No Known Problems Son Social History Tobacco Use Smoking status: Never Smokeless tobacco: Never Vaping Use Vaping status: Never Used Substance Use Topics Alcohol use: Yes Comment: occasional Drug use: No Current Outpatient Medications Medication Sig TYMLOS 80 mcg (3,120 mcg/1.56 mL) pen injector RED YEAST RICE ORAL Take by mouth. indapamide (LOZOL) 2.5 mg tablet Take by mouth q 24 HR. CHOLECALCIFEROL, VITAMIN D3, (VITAMIN D3 ORAL) Take by mouth. (Patient not taking: Reported on 09/29/2023) POTASSIUM ORAL Take by mouth. DAILY MULTIVITAMIN TAB No current facility-administered medications for this visit. Allergies As of Date: 04/07/2024 (No Known Allergies) Fully Assessed 09/29/2023 Allergies and current medication updated:Yes SENSITIVE EXAM: The sensitive examination was discussed with the Patient or Patient's Authorized Toe Lining Closer. As applicable, any other physician, advance practice provider, medical student, or other health professional student that will be observing or involved in the sensitive examination for educational or training purposes was discussed with the Patient or Authorized Toe Lining Closer. The Patient or Authorized Toe Lining Closer has agreed to proceed with the sensitive examination. (Sensitive examination includes inspection and/or palpation of the breasts, pelvis, prostate and anorectal regions). EXAM: LMP 06/27/2011 GENERAL: pleasant, female in no apparent distress PELVIC: external genitalia normal, no vulvar lesions, no cervical lesions, normal appearing perineal body and perianal region; atrophic vagina ASSESSMENT AND PLAN: Assessment & Plan Vaginal itching Orders: JOSE/TRICHOMONAS NAAT BACTERIAL VAGINOSIS NAAT Postmenopausal atrophic vaginitis Discussed R/B/a of treatment options. Estrace cream given & use reviewed. Medical Decision Making: Problems: Moderate: New problem with uncertain prognosis Data: Unique test(s) ordered: 2 Risk: Moderate: Drug management Medical Decision Making Level: 4 - Moderate Hiram Gilbert MD documented in this encounter [facility] 09-29-2023 Instructions Rita Zuluaga APRN.BUSINESS SERVICES SALES AGENT - 09/29/2023 8:25 AM EDT - Macrobid twice daily for 5 days - Will call if need to stop or change your antibiotics based on culture - If your symptoms continue after treatment or worsen please follow up with your primary care doctor or [facility] - Follow up with your primary care doctor in 2-3 weeks to make sure there is no longer blood in your urine - ER if you are unable to urinate, fever, or other severe or concerning symptoms URINARY TRACT INFECTION PATIENT INSTRUCTIONS: BLADDER INFECTION OVERVIEW Bladder infections are one of the most common infections, causing symptoms of burning with urination and needing to urinate frequently. A bladder infection is a type of urinary tract infection (UTI). Bladder infections are more common is women than men. Most women have an uncomplicated bladder infection that is easily treated with a short course of antibiotics. In men, bladder infections may also affect the prostate gland, and a longer course of treatment may be needed. BLADDER INFECTION CAUSES The urinary tract includes the kidneys (which filter urine), ureters (the tube that carries urine from the kidneys to the bladder), the bladder (which stores urine), and urethra (the tube that carries urine out of the bladder). Bacteria do not normally live in these areas. However, bacteria normally live close to the urethra in women and men who are not circumcised. Bladder infections occur when bacteria travel up the urethra into the bladder. Factors that increase the risk of developing a bladder infection include: Vaginal sex Use of spermicides History of past bladder infections Diabetes In men, not being circumcised or having anal sex increase the risk of bladder infections. BLADDER INFECTION SYMPTOMS The typical symptoms of a bladder infection include: Pain or burning when urinating Frequent need to urinate Urgent need to urinate Blood in the urine Fever, back pain, nausea, or vomiting are not common symptoms of a bladder infection, but can occur in people with a kidney infection (pyelonephritis). If you have these symptoms, you should call your doctor or nurse immediately. Is it a bladder infection or something else? -- Burning with urination can also occur in people with vaginitis (eg, yeast infection) or urethritis (inflammation of the urethra). For this reason, it is important to call your healthcare provider before assuming you have a bladder infection. BLADDER INFECTION DIAGNOSIS Simple bladder infections are usually diagnosed based upon your symptoms alone. However, most patients, especially those who have bladder infection symptoms for the first time, should see a healthcare provider for urine testing. Urine culture -- A urine culture is a test that uses a sample of urine to try and grow bacteria in a laboratory. It usually requires about 48 hours to get results. However, a urine culture is not always required to diagnose a bladder infection. Urine culture is often recommended if: You have never had a bladder infection before You have symptoms that are not typical for bladder infection You have had resistant bladder infections before You have frequent bladder infections You do not begin to feel better within 24 to 48 hours after starting antibiotics You are BLADDER INFECTION TREATMENT Bladder infection -- In young, healthy adolescents and adults with a bladder infection, the usual treatment includes a three to seven day course of antibiotics. The typical drugs chosen are: trimethoprim-sulfamethoxazole (Bactrim ), nitrofurantoin (Macrobid ), ciprofloxacin (Cipro ) or levofloxacin (Levaquin ). In men, the infection may involve your prostate gland and treatment is usually given for at least 7 days. Your symptoms should begin to resolve within one day after starting treatment. It is important to take the full course of antibiotics to completely eliminate the infection. If your symptoms persist for more than two or three days after starting treatment, call your healthcare provider. If needed, you can take a prescription medication that numbs the bladder and urethra (phenazopyridine [Pyridium ]) to reduce the burning pain of some UTIs. A similar medication is available without a prescription (eg, Uristat). Both medications change the color of the urine (usually blue or orange) and can interfere with laboratory testing. You should not take these medications for more than 48 hours due to the risk of side effects. These medications do not treat the infection and must be taken along with an antibiotic. Some providers recommend drinking more fluids while treating bladder infections to help flush bacteria from the bladder. Others believe that drinking more fluids may dilute the antibiotic in the bladder and make the medication less effective. No studies have been performed to address this issue. There are also no good studies on the effectiveness of cranberry juice for treating a bladder infection; we do not recommend using cranberry juice to treat bladder infections. Follow-up care -- Follow-up testing is not needed in healthy, young men or women with a bladder infection if symptoms resolve. women are usually asked to have a repeat urine culture one to two weeks after treatment has ended to make sure the bacteria are no longer in the urine. RECURRENT BLADDER INFECTIONS Bladder infections versus other causes -- Some adults, especially women, develop bladder infections frequently. In this case, it is important to confirm that your symptoms (eg, pain or burning, frequency, and urgency) are caused by a bladder infection. Symptoms are usually similar from one infection to another. The best way to confirm an infection is to have a urine culture. If your urine culture is negative for infection, other causes of pain, burning, and frequency should be investigated. There is no reason to take antibiotics if your urine culture is negative. Need for further testing -- If you continue to develop bladder infections, you may require further testing. If you continue to notice blood in your urine after your bladder infection has cleared, you should have further testing. Preventing recurrent UTIs -- Women with recurrent urinary tract infections may be advised to take steps to prevent bladder infections, including one or more of the following: Changes in control -- Women who develop frequent bladder infections and use spermicides, particularly those who also use a diaphragm, may be encouraged to use an alternate method of control. Cranberry products -- Taking cranberry juice or cranberry tablets has been promoted as one way to help prevent frequent bladder infections. However, this has not been proven. Drinking more fluid and urinating after intercourse -- Although studies have not proven that drinking more fluids or urinating soon after intercourse can prevent infection, some healthcare providers recommend these measures since they are not harmful. Drinking more fluid may help to wash out bacteria that enter the bladder. Postmenopausal women -- Postmenopausal women who develop recurrent bladder infections may benefit from using vaginal estrogen. Vaginal estrogen is available in a flexible ring that is worn in the vagina for three months (eg, Estring ), a small tablet (Vagifem ), or a cream (eg, Premarin or Estrace ). Vaginal estrogen is discussed in more detail in a separate topic review. Antibiotics -- A preventive antibiotic treatment may be recommended if you repeatedly develop bladder infections and have not responded to other preventive measures. Antibiotics are highly effective in preventing recurrent bladder infections and can be taken in several different ways. Preventive antibiotic -- You can take a low dose of an antibiotic once per day or three times per week for six months to several years. Antibiotics following intercourse -- In women who develop urinary tract infections after sex, taking a single low dose antibiotic after intercourse can help to prevent bladder infections. Self-treatment -- A plan to begin antibiotics at the first sign of a bladder infection may be recommended in some situations. Before starting this regimen, it is important that you have had testing (urine cultures) to confirm that your symptoms are caused by a bladder infection; some people have symptoms of a bladder infection but do not actually have an infection. This information is provided by the [facility] and is not intended to replace the medical advice of your doctor or health care provider. Please consult your health care provider for advice about a specific medical condition. For additional health information, please contact the [facility] Information at the [facility] or toll-free extension [phone]. If you prefer, you may visit [email or web address] or [email or web address]. documented in this encounter [facility] 09-29-2023 Note HNO ID: [id number] Author: RITA ZULUAGA APRN.CNP Service: ? Author Type: Nurse Practitioner Type: Progress Notes Filed: 09/29/2023 08:31 Note Text: Patient presents with: Urinary Problem: Burning,frequency, hematuria,flank pain x 2 days Symptoms started yesterday Last week she had back pain and is wondering if she may have passed a kidney stone The history is provided by the patient. Review of Systems Constitutional: Negative for chills and fever. Genitourinary: Positive for dysuria, frequency, hematuria and urgency. Negative for flank pain. Physical Exam Vitals reviewed. Constitutional: Appearance: Normal appearance. HENT: Head: Normocephalic. Eyes: Extraocular Movements: Extraocular movements intact. Cardiovascular: Rate and Rhythm: Normal rate and regular rhythm. Heart sounds: Normal heart sounds. Pulmonary: Effort: Pulmonary effort is normal. No respiratory distress. Breath sounds: Normal breath sounds. No wheezing, rhonchi or rales. Abdominal: Palpations: Abdomen is soft. Tenderness: There is no abdominal tenderness. There is no right CVA tenderness or left CVA tenderness. Neurological: Mental Status: She is alert. ASSESSMENT/PLAN: 1. Burning with urination - ICD9: 788.1, ICD10: R30.0 acute - UA positive for gretchen esterase, hematuria, and proteinuria - Send urine for culture - Begin treatment with Macrobid 100 mg BID for 5 days - Patient education for prevention given - UA DIP, URINE (POC) - URINE CULTURE - Will notify patient if need to stop or change antibiotics based on culture results - Reviewed follow up instructions and symptoms to present to ER - She verbalized understanding and agreement with this plan. Rita Zuluaga APRN.CNP [facility] 09-29-2023 History of Presen t illness Narrative Patient presents with: Urinary Problem: Burning,frequency, hematuria,flank pain x 2 days Symptoms started yesterday Last week she had back pain and is wondering if she may have passed a kidney stone The history is provided by the patient. Review of Systems Constitutional: Negative for chills and fever. Genitourinary: Positive for dysuria, frequency, hematuria and urgency. Negative for flank pain. Physical Exam Vitals reviewed. Constitutional: Appearance: Normal appearance. HENT: Head: Normocephalic. Eyes: Extraocular Movements: Extraocular movements intact. Cardiovascular: Rate and Rhythm: Normal rate and regular rhythm. Heart sounds: Normal heart sounds. Pulmonary: Effort: Pulmonary effort is normal. No respiratory distress. Breath sounds: Normal breath sounds. No wheezing, rhonchi or rales. Abdominal: Palpations: Abdomen is soft. Tenderness: There is no abdominal tenderness. There is no right CVA tenderness or left CVA tenderness. Neurological: Mental Status: She is alert. ASSESSMENT/PLAN: 1. Burning with urination - ICD9: 788.1, ICD10: R30.0 acute - UA positive for gretchen esterase, hematuria, and proteinuria - Send urine for culture - Begin treatment with Macrobid 100 mg BID for 5 days - Patient education for prevention given - UA DIP, URINE (POC) - URINE CULTURE - Will notify patient if need to stop or change antibiotics based on culture results - Reviewed follow up instructions and symptoms to present to ER - She verbalized understanding and agreement with this plan. Rita Zuluaga APRN.BUSINESS SERVICES SALES AGENT documented in this encounter [facility] 06-08-2023 Note IMPRESSION: INCOMPLE TE: NEEDS ADDITIONAL IMAGING EVALUATION The focal asymmetry in the left breast is indeterminate. Additional views with possible ultrasound are recommended. Isa dhillon/emil:06/08/2023 11:56:42 Air Defense Specialist(s): RT Melita(Mali)(M), [facility] letter sent: Additional Imaging Needed Mammogram BI-RADS: 0 Incomplete: needs additional imaging evaluation If this report indicates you need additional imaging, and it has NOT yet been performed, please call , to schedule. We sincerely thank you for choosing the [facility] for your breast imaging needs. Multiple national specialty organizations have released breast cancer screening guidelines for women at average risk for developing breast cancer - guidelines that are based on both evidence and opinion, yet differ on when to start and how often to screen for breast cancer. With representation from Breast Imaging, Internal Medicine, Women's Health, Family Medicine, and Medical/Surgical Oncology, the [facility] has carefully reviewed the data and reached the following consensus: 1) All women should engage in shared decision-making with their providers to decide when to start and how often to screen; 2) All women should have the opportunity to start screening mammography at age 40; 3) For women ages 45-55, we recommend annual screening mammograms; 4) For women ages 55 and over, we support both the transition from an annual to a biennial interval if this aligns more with patient's values and preferences, or continuation with annual screening; 5) All women should discuss with their providers when to stop screening mammograms. Recyclable Products Sorter: Emil Transcribe Date/Time: Jun 08 2023 7:40A Dictated by: ISA ZHONG MD This examination was interpreted and the report reviewed and electronically signed by: ISA ZHONG MD on Jun 08 2023 11:56AM [facility] DIV[facility] OF RADIOLOGY 06-08-2023 Note Formatting of this n ote might be different from the original. June 08, 2023 PID: [id number] Татьяна Gonzalez [address] [place] [address] Dear Ms. Gonzalez, Your recent breast imaging exam on 06/08/2023 showed a possible finding that requires additional imaging studies for a complete evaluation. Most such findings are probably benign (not cancer). Your mammogram demonstrates that you have dense breast tissue, which could hide abnormalities. Dense breast tissue, in and of itself, is a relatively common condition. Therefore, this information is not provided to cause undue concern; rather, it is to raise your awareness and promote discussion with your health care provider regarding the presence of dense breast tissue in addition to other risk factors. If you have a healthcare provider who ordered/prescribed your screening mammogram: Please call [phone] or EXT: [phone] to schedule an appointment for your additional imaging (if you have not already done so). If you DO NOT have a healthcare provider (ie you did not have an order/prescription for your screening mammogram): Please call to schedule an appointment for your additional imaging (if you have not already done so). You must have an order/prescription from your physician when calling to schedule your appointment. If your order/prescription is not electronic, you must bring the hard copy with you on the day of your exam to avoid delays. Your imaging studies and reports are kept on file at [facility] as part of your permanent medical record, and are available for your continuing care. Thank you for allowing us to help in meeting your health care needs. Sincerely, Dr. Zhong Interpreting Radiologist [facility] (Additional imaging) [facility] 06-08-2023 Miscellaneous Notes June 08, 2023 PID: [id number] Татьяна Gonzalez [address] [place] [address] Dear Ms. Gonzalez, Your recent breast imaging exam on 06/08/2023 showed a possible finding that requires additional imaging studies for a complete evaluation. Most such findings are probably benign (not cancer). Your mammogram demonstrates that you have dense breast tissue, which could hide abnormalities. Dense breast tissue, in and of itself, is a relatively common condition. Therefore, this information is not provided to cause undue concern; rather, it is to raise your awareness and promote discussion with your health care provider regarding the presence of dense breast tissue in addition to other risk factors. If you have a healthcare provider who ordered/prescribed your screening mammogram: Please call [phone] or EXT: [phone] to schedule an appointment for your additional imaging (if you have not already done so). If you DO NOT have a healthcare provider (ie you did not have an order/prescription for your screening mammogram): Please call to schedule an appointment for your additional imaging (if you have not already done so). You must have an order/prescription from your physician when calling to schedule your appointment. If your order/prescription is not electronic, you must bring the hard copy with you on the day of your exam to avoid delays. Your imaging studies and reports are kept on file at [facility] as part of your permanent medical record, and are available for your continuing care. Thank you for allowing us to help in meeting your health care needs. Sincerely, Dr. Zhong Interpreting Radiologist [facility] (Additional imaging) documented in this encounter [facility] 06-08-2023 History of Presen t illness Narrative Татьяна is a 57 year old who presents for an annual gynecologic exam without complaints. 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 Postmenopausal: yes, hysterectomy HRT use: No. 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 Room Supervisor History Comments: Sexual Activity: Yes; No partner data on record; TVH Contraception: Surgical PAST MEDICAL HISTORY Diagnosis Date Excessive or frequent menstruation Heavy periods resolved but prolonged High calcium levels Irregular menstrual cycle Irregular periods and prolonged Osteopenia Osteoporosis PAST SURGICAL HISTORY Procedure Laterality Date DELIVERY ONLY , low cervical X2 DILATION & CURETTAGE DX&/THER NONOBSTETRIC 07/11/2007 Dilation & curettage LIG/TRNSXJ FLP TUBE ABDL/VAG APPR UNI/BI Tubal ligation NOVASURE 02/27/2009 hysteroscopy PAST SURGICAL HISTORY OF 01/09/2010 removal of cyst on (L) thigh REMOVAL GALLBLADDER 12/2018 VAGINAL HYSTERECTOMY UTERUS 250 GM/< 08/26/2011 TVH, heavy menses FAMILY HISTORY Problem Relation Age of Onset Hypertension Mother Diabetes Father Hypertension Father Blood Disease Sister polycythenia Hypertension Sister Hypertension Brother Heart Maternal Grandfather Heart Paternal Grandmother CONGESTIVE HEART FAILURE Cancer Paternal Grandfather ? KIDNEY CANCER No Known Problems Daughter No Known Problems Daughter Hypertension Son No Known Problems Son SOCIAL HISTORY Social History Tobacco Use Smoking status: Never Smokeless tobacco: Never Vaping Use Vaping Use: Never used Substance Use Topics Alcohol use: Yes Comment: occasional Drug use: No REVIEW OF SYSTEMS Abdomen: No abdominal pain, nausea, vomiting, diarrhea, or constipation. No bloating, early satiety, indigestion, or increased flatulence. Bladder: No dysuria, gross hematuria, urinary frequency, urinary urgency, or incontinence Breast: No breast lumps, nipple d/c, overlying skin changes, redness or skin retraction Allergies and current medication updated:Yes EXAM: BP 106/70 Ht 5' 3.5 (1.61m) Wt 120 lb (54.4kg) LMP 06/27/2011 BMI 20.92 kg/(m^2). GENERAL: pleasant, female in no apparent distress HEENT: Normocephalic and atraumatic NECK: Supple, full range of motion, no adenopathy, and thyroid normal DERMATOLOGY: Normal, without lesions, non-icteric, and non-hirsute CHEST: Normal inspiratory effort ABDOMEN: soft, non-tender, and no masses PELVIC: external genitalia normal, normal Bartholin's glands, urethra, Neola's glands, no vulvar lesions, no cervical lesions, good vaginal support, physiologic discharge present, normal appearing perineal body and perianal region BIMANUAL: no adnexal masses and uterus surgically absent RECTOVAGINAL: deferred. NEURO: alert and oriented x3,exam grossly non-focal EXTREMITIES: normal ASSESSMENT/PLAN: 1) Health maintenance: Pap/HPV screening no longer needed Mammogram up to date Nutrition, exercise and routine health maintenance exams reviewed. Calcium/Vitamin D supplementation information provided- Patient hx of bone density scans and on medications - injections for osteopenia in back. Colon cancer screening: up to date with screening TSH/lipids/glucose: followed by PCP 2) Follow up one year or sooner as needed Piper Bo APRN.CNM documented in this encounter [facility] 06-08-2023 History of Presen t illness Narrative Radiology Service Progress Note PATIENT NAME: Татьяна Gonzalez DATE OF SERVICE: June 08, 2023 TIME: 7:55 AM PATIENT IDENTITY VERIFICATION COMPLETED USING TWO (2) IDENTIFIERS: Name and Date of confirmed by patient verbally. FALL SCREENING: Has the patient had 2 falls in the last year or 1 fall with injury or currently using an Ambulatory Assistive Device (Walker, Cane, Wheelchair, Crutches, etc.)? No PATIENT GENDER DATA: Female. status: : No status: NO. PATIENT RELEVANT IMPLANT DATA REVIEWED: Not Applicable PATIENT PRESENTS WITH AN IMPLANTABLE OR ATTACHED NEON SIGN MAKER: No RADIOLOGY DEPARTMENT: Mammography PERIPHERAL IV DATA: Not applicable SIGNED BY: Garcia [employer] Sherrie June 08, 2023 7:55 AM documented in this encounter [facility] 03-08-2023 Instructions Cb Zimmer APRN.[facility] - 03/08/2023 8:43 AM EST How to Manage Common Symptoms Associated with COVID for Adults Fever- Fever is a temperature over 100.4 F and can occur when the body is fighting an infection. To help treat a fever: Drink plenty of fluids and stay well hydrated. Eat small amounts of easy to digest food. Rest. Your body needs rest to recover, but getting up and moving around the house frequently is a good idea. You should try to continue doing your normal daily activities (bathing, toileting, grooming, cooking), though you will probably feel tired, and need to rest often. Avoid any heavy activity or exercise, as this will increase your body temperature. Dress in light clothing and stay covered in a light sheet. Keep the room temperature cool. Take a slightly warm (not cold or cool) bath, or apply damp washcloths to the forehead and wrists. Cough- Cough is a common symptom associated with COVID and can be bothersome. To help treat a cough: Stay well hydrated. Try warm water or tea with lemon and/or honey to help soothe the cough. Use a humidifier to add moisture to the air. Try a product with menthol, like a cough drop or a rub for your chest such as Vicks, which can help reduce cough. Try cough drops. Avoid smoking and other strong odors or perfumes. Try breathing exercises to keep your lungs open and clear. Take a big deep breath through your nose and hold for 5 seconds before slowly releasing. Repeat frequently, while you are awake. Congestion- Runny nose or nasal congestion can occur with COVID. Treatment can help relieve symptoms: Try OTC nasal saline spray, or nasal saline rinse to relieve mucus congestion. Nasal strips can help keep nasal passages open, to increase airflow. Elevating your head with an extra pillow in bed can help reduce congestion. Using a humidifier can increase moisture in the air, and make breathing easier. Sore Throat- Another common symptom with COVID, can be managed at home by: Stay well hydrated. Gargle with salt water - mix teaspoon salt with 1 cup of warm water and gargle. This helps to loosen mucus in the back of the throat and may reduce discomfort. Try ice chips, popsicles or lozenges to soothe the throat. Nausea/Vomiting/Diarrhea- These are common symptoms, and staying hydrated is most important. If you are nauseous or vomiting, start with small sips of water every 10-15 minutes and increase as tolerated. You can try sucking an ice cube too. If tolerating, you can try pedialyte or Gatorade, or flat sprite or mayo-lokesh. Start slowly and increase as you are able to. Instead of meals, try smaller, more frequent snacks. Try eating bland foods like crackers, toast, rice, and applesauce. Avoid spicy, greasy or fried foods and dairy containing foods. Even if you aren't feeling hungry due to lack of smell or taste, it is important to try to take in some food when you are able. After drinking and eating, rest in an upright position for up to two hours as needed to help decrease nauseous feelings. Try closing your eyes, avoid moving and watching TV. Avoid strong odors that can make you feel more nauseated. When to seek emergency medical attention Look for emergency warning signs for COVID-19. If having any of these symptoms, seek emergency medical care immediately: Trouble breathing Persistent pain or pressure in the chest New confusion Inability to wake or stay awake Bluish lips or face *This list is not all possible symptoms. Please call your medical provider for any other symptoms that are severe or concerning to you. documented in this encounter [facility] History of Presen t illness Narrative Subjective HPI Nontoxic-appearing female presents to urgent care with chief complaint of fever and cough. Duration of symptoms 3 days. Associated symptoms with today's chief complaint are on and off headache, muscle aches, fatigue, nonproductive cough, and fever. Patient stated symptoms started abruptly. Patient states they have used [id number] medication with some success. No OTC meds today. Was exposed to individuals with strep throat. 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 Patient denies any pain at this time. Patient denies any visual changes, visual disturbance, shortness of breath, rash, exercise intolerance, pleuritic pain, productive cough, abdominal pain, nausea, vomiting, chest pain, or change in bowel or bladder habits. Past medical history prescription medications allergies reviewed. .Patient presents with: Sore Throat: Ear pain, low fever x3 days, strep exposure PAST MEDICAL HISTORY Diagnosis Date Excessive or frequent menstruation Heavy periods resolved but prolonged Irregular menstrual cycle Irregular periods and prolonged Osteopenia Osteoporosis PAST SURGICAL HISTORY Procedure Laterality Date DELIVERY ONLY , low cervical X2 DILATION & CURETTAGE DX&/THER NONOBSTETRIC 07/11/2007 Dilation & curettage LIG/TRNSXJ FLP TUBE ABDL/VAG APPR UNI/BI Tubal ligation NOVASURE 02/27/2009 hysteroscopy PAST SURGICAL HISTORY OF 01/09/2010 removal of cyst on (L) thigh REMOVAL GALLBLADDER 12/2018 VAGINAL HYSTERECTOMY UTERUS 250 GM/< 08/26/2011 TVH, heavy menses ALLERGIES Patient has no known allergies. MEDICATIONS TYMLOS 80 mcg (3,120 mcg/1.56 mL) pen injector RED YEAST RICE ORAL Take by mouth. indapamide (LOZOL) 2.5 mg tablet Take by mouth q 24 HR. CHOLECALCIFEROL, VITAMIN D3, (VITAMIN D3 ORAL) Take by mouth. POTASSIUM ORAL Take by mouth. DAILY MULTIVITAMIN TAB benzonatate (TESSALON PERLE) 100 mg capsule Take 1 capsule by mouth three times a day as needed for cough for up to 7 days. FAMILY HISTORY Problem Relation Age of Onset Hypertension Mother Diabetes Father Hypertension Father Blood Disease Sister polycythenia Heart Maternal Grandfather Heart Paternal Grandmother CONGESTIVE HEART FAILURE Cancer Paternal Grandfather ? KIDNEY CANCER Social History Tobacco Use Smoking status: Never Smokeless tobacco: Never Vaping Use Vaping Use: Never used Substance Use Topics Alcohol use: Yes Comment: occasional Drug use: No BP 120/77 Pulse 97 Temp 37.8 C (100.1 F) Resp 18 Wt 55.8 kg (123 lb) LMP 06/27/2011 SpO2 99% BMI 21.45 kg/m Review of Systems Constitutional: Positive for chills, fever and malaise/fatigue. HENT: Positive for congestion and sore throat. Negative for ear discharge, ear pain and sinus pain. Eyes: Negative for blurred vision, pain, discharge and redness. Respiratory: Positive for cough. Negative for hemoptysis, sputum production, shortness of breath, wheezing and stridor. Cardiovascular: Negative for chest pain. Gastrointestinal: Negative for abdominal pain, diarrhea, nausea and vomiting. Musculoskeletal: Positive for myalgias. Skin: Negative for itching and rash. Neurological: Positive for headaches. Negative for dizziness. Objective Physical Exam Constitutional: General: She is not in acute distress. Appearance: She is not diaphoretic. HENT: Head: Normocephalic. Jaw: No trismus, tenderness, swelling or pain on movement. Right Ear: Tympanic membrane, ear canal and external ear normal. Left Ear: Tympanic membrane, ear canal and external ear normal. Nose: Congestion present. Mouth/Throat: Mouth: Mucous membranes are moist. Pharynx: Oropharynx is clear. Uvula midline. No pharyngeal swelling, oropharyngeal exudate, posterior oropharyngeal erythema or uvula swelling. Eyes: Conjunctiva/sclera: Conjunctivae normal. Pupils: Pupils are equal, round, and reactive to light. Cardiovascular: Rate and Rhythm: Normal rate and regular rhythm. Heart sounds: Normal heart sounds. Pulmonary: Effort: Pulmonary effort is normal. No tachypnea, accessory muscle usage or respiratory distress. Breath sounds: Normal breath sounds. No stridor. No wheezing, rhonchi or rales. Abdominal: General: There is no distension. Palpations: Abdomen is soft. Tenderness: There is no abdominal tenderness. There is no guarding or rebound. Musculoskeletal: Cervical back: Normal range of motion and neck supple. No edema, erythema, rigidity or tenderness. No pain with movement. Normal range of motion. Lymphadenopathy: Cervical: No cervical adenopathy. Skin: General: Skin is warm and dry. Neurological: Mental Status: She is alert and oriented to person, place, and time. ASSESSMENT/PLAN: 1. Sore throat - ICD9: 462, ICD10: J02.9 (primary diagnosis) - STREP A MOLECULAR (POC) - COVID & INFLUENZA A/B & RSV NAAT, ROUTINE 2. Viral illness - ICD9: 079.99, ICD10: B34.9 - COVID & INFLUENZA A/B & RSV NAAT, ROUTINE Strep test negative. Suspicious of viral etiology. No evidence of bacterial infection noted on today's exam. Test for COVID 19 influenza. If positive for COVID-19 patient would like to discuss antiviral therapies. Instructed to reach out to PCP if positive. Patient was educated on supportive therapies. Patient will follow up with primary care provider as needed. Patient was instructed to immediately proceed to emergency room for any new, worsening, or symptoms lasting longer than anticipated. The patient's clinical presentation is otherwise unremarkable at this time. Based on exam and clinical finding, the patient is stable for discharge. Plan of care was discussed with patient. Patient verbalizes understanding and agrees to plan of care. This note was generated using [employer] software. It may contain errors in wording, punctuation, or spelling. Cb Zimmer APRN.[place] documented in this encounter [facility] 01-08-2023 History of Presen t illness Narrative Татьяна Gonzalez is a 57 year old female who presents for problem visit for vul;meir lump. HPI: 57-year-old female notes left labial nodule that she noted approximately 6 months ago. It has not changed. It is not painful. She has no new sexual contacts or concerns for STIs. She has no pruritus. She found it incidentally when washing. No other complaints today. 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 Room Supervisor History Comments: Sexual Activity: Yes; No partner data on record; TVH Contraception: Surgical PAST MEDICAL HISTORY Diagnosis Date Excessive or frequent menstruation Heavy periods resolved but prolonged Irregular menstrual cycle Irregular periods and prolonged Osteopenia Osteoporosis PAST SURGICAL HISTORY Procedure Laterality Date DELIVERY ONLY , low cervical X2 DILATION & CURETTAGE DX&/THER NONOBSTETRIC 07/11/2007 Dilation & curettage LIG/TRNSXJ FLP TUBE ABDL/VAG APPR UNI/BI Tubal ligation NOVASURE 02/27/2009 hysteroscopy PAST SURGICAL HISTORY OF 01/09/2010 removal of cyst on (L) thigh REMOVAL GALLBLADDER 12/2018 VAGINAL HYSTERECTOMY UTERUS 250 GM/< 08/26/2011 TVH, heavy menses FAMILY HISTORY Problem Relation Age of Onset Hypertension Mother Diabetes Father Hypertension Father Blood Disease Sister polycythenia Heart Maternal Grandfather Heart Paternal Grandmother CONGESTIVE HEART FAILURE Cancer Paternal Grandfather ? KIDNEY CANCER Social History Tobacco Use Smoking status: Never Smokeless tobacco: Never Vaping Use Vaping Use: Never used Substance Use Topics Alcohol use: Yes Comment: occasional Drug use: No Current Outpatient Medications Medication Sig indapamide (LOZOL) 2.5 mg tablet Take by mouth q 24 HR. CHOLECALCIFEROL, VITAMIN D3, (VITAMIN D3 ORAL) Take by mouth. POTASSIUM ORAL Take by mouth. DAILY MULTIVITAMIN TAB No current facility-administered medications for this visit. Allergies As of Date: 01/08/2023 Allergen Noted Reaction ENVIRONMENTAL [OTHER] 04/15/2005 Fully Assessed 06/05/2022 Allergies and current medication updated:Yes EXAM: LMP 06/27/2011 GENERAL: pleasant, female in no apparent distress PELVIC: BIMANUAL: Grossly normal external genitalia, normal mons pubis and hair distribution pattern. In the left labia minora there is approximately 3 mm firm nodule consistent with an inclusion cyst. It is nontender there is no erythema. No other skin discoloration or abnormalities. Otherwise normal introitus and perineum. ASSESSMENT AND PLAN: Vulvar/labial inclusion cyst. Reviewed with patient benign nature of these. Monitor for now. If becomes bothersome or enlarged or erythema notify the office. She is comfortable with plan. Follow-up for annual or as needed. Coral Ware MD documented in this encounter [facility] 11-13-2022 Instructions Name Patient Instructions Indication:BMI 21.0-21.9, adult Start:11-Jun-2022 Instruction Type:Provider Instructions for Treatment How to Access Health Information Online using Patient Portal and 3rd [employer] Apps Indication:BMI 21.0-21.9, adult Start:11-Jun-2022 Instruction Type:Patient Education Patient Instructions Indication:Hypercholesteremi a Start: 3 Instruction Type:Provider Instructions for Treatment How to Access Health Information Online using Patient Portal and 3rd Libertarian Apps Indication:Hypercholesteremi a Start: 3 Instruction Type:Patient Education Patient Instructions Indication:Nonsmoker Start: 2 Instruction Type:Provider Instructions for Treatment How to Access Health Information Online using Patient Portal and 3rd Libertarian Apps Indication:Nonsmoker Start: 2 Instruction Type:Patient Education Patient Instructions Indication:BMI 20.0-20.9, adult Start:15-Apr-2021 Instruction Type:Provider Instructions for Treatment How to Access Health Information Online using Patient Portal and 3rd Libert[employer] Apps Indication:BMI 20.0-20.9, adult Start:15-Apr-2021 Instruction Type:Patient Education Patient Instructions Indication:Nonsmoker Start: 1 Instruction Type:Provider Instructions for Treatment How to Access Health Information Online using Patient Portal and 3rd Libertarian Apps Indication:Nonsmoker Start: 1 Instruction Type:Patient Education Patient Instructions Indication:Nonsmoker Start:14-May-2020 Instruction Type:Provider Instructions for Treatment How to Access Health Information Online using Patient Portal and 3rd Libertarian Apps Indication:Nonsmoker Start:14-May-2020 Instruction Type:Patient Education Patient Instructions Indication:Nonsmoker Start: 0 Instruction Type:Provider Instructions for Treatment How to Access Health Information Online using Patient Portal and 3rd Libert[employer] Apps Indication:Nonsmoker Start: 0 Instruction Type:Patient Education How to access health information online Indication:Nonsmoker Start:11-Jan-2020 Instruction Type:Patient Education How to access health information online - Detail Indication:Nonsmoker Start:11-Jan-2020 Instruction Type:Patient Education Patient Instructions Indication:Nonsmoker Start:11-Jan-2020 Instruction Type:Provider Instructions for Treatment How to access health information online Indication:Nonsmoker Start: 0 Instruction Type:Patient Education How to access health information online - Detail Indication:Nonsmoker Start: 0 Instruction Type:Patient Education Patient Instructions Indication:Screening for deficiency anemia Start: 0 Instruction Type:Provider Instructions for Treatment How to access health information online Indication:Nonsmoker Start:13-Dec-2018 Instruction Type:Patient Education How to access health information online - Detail Indication:Nonsmoker Start:13-Dec-2018 Instruction Type:Patient Education Patient Instructions Indication:BMI 21.0-21.9, adult Start:13-Dec-2018 Instruction Type:Provider Instructions for Treatment How to access health information online Indication:Nonsmoker Start: 9 Instruction Type:Patient Education How to access health information online - Detail Indication:Nonsmoker Start: Instruction Type:Patient Education Patient Instructions Indication:Palpitation Start: Instruction Type:Provider Instructions for Treatment How to access health information online Indication:Nonsmoker Start: Instruction Type:Patient Education How to access health information online - Detail Indication:Nonsmoker Start: Instruction Type:Patient Education Patient Instructions Indication:BMI 21.0-21.9, adult Start: 9 Instruction Type:Provider Instructions for Treatment How to access health information online Indication:Nonsmoker Start: 9 Instruction Type:Patient Education How to access health information online - Detail Indication:Nonsmoker Start: Instruction Type:Patient Education Patient Instructions Indication:Nonsmoker Start: Instruction Type:Provider Instructions for Treatment How to access health information online Indication:Nonsmoker Start: Instruction Type:Patient Education How to access health information online - Detail Indication:Nonsmoker Start: 8 Instruction Type:Patient Education Patient Instructions Indication:Nonsmoker Start: 8 Instruction Type:Provider Instructions for Treatment How to access health information online Indication:Osteopenia Start:17-Nov-2016 Instruction Type:Patient Education How to access health information online - Detail Indication:Osteopenia Start:17-Nov-2016 Instruction Type:Patient Education Patient Instructions Indication:Osteopenia Start:17-Nov-2016 Instruction Type:Provider Instructions for Treatment How to access health information online Indication: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,adult Start: Instruction Type:Patient Education How to access health information online - Detail Indication: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,adult Start: Instruction Type:Patient Education Patient Instructions Indication: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,adult Start: 7 Instruction Type:Provider Instructions for Treatment How to access health information online Indication:Dysuria Start:11-Oct-2015 Instruction Type:Patient Education How to access health information online - Detail Indication:Dysuria Start:11-Oct-2015 Instruction Type:Patient Education Patient Instructions Indication:Dysuria Start:11-Oct-2015 Instruction Type:Provider Instructions for Treatment How to access health information online Indication:Osteopenia Start: 6 Instruction Type:Patient Education How to access health information online - Detail Indication:Osteopenia Start: 6 Instruction Type:Patient Education Patient Instructions Indication:Osteopenia Start: 6 Instruction Type:Provider Instructions for Treatment Patient Instructions Indication:Osteopenia Start:12-Jun-2014 Instruction Type:Provider Instructions for Treatment Patient Instructions Indication:Osteopenia Start: 4 Instruction Type:Provider Instructions for Treatment Patient Instructions Indication:Allergic rhinitis Start: 4 Instruction Type:Provider Instructions for Treatment [facility] Work Phone: [phone] Miscellaneous Notes* Letter - Mammography Coordinator - 06/05/2022 10:18 AM EDT June 06, 2022 PID: [id number] Татьяна Gonzalez [address] [place] [address] Dear Ms. Gonzalez, We are pleased to inform you that the results of your recent breast imaging exam on 06/05/2022 are normal. Your mammogram demonstrates that you have dense breast tissue, which could hide abnormalities. Dense breast tissue, in and of itself, is a relatively common condition. Therefore, this information is not provided to cause undue concern; rather, it is to raise your awareness and promote discussion with your health care provider regarding the presence of dense breast tissue in addition to other riskfactors. Early detection of cancer is very important. We also understand recommendations regarding breast cancer screening are controversial. Please discuss with your primary care provider which strategy is best for you and whether a mammogram is right for you. Your imaging studies and report will be kept on file at [facility] as part of your permanent medical record and are available for your continuing care. Thank you for allowing us to help in meeting your health care needs. Sincerely, Dr. Moore Interpreting Radiologist [facility] (Normal over 40) [facility] History of Present illness Narrative* Coral Ware MD - 06/05/2022 8:58 AM EDT Татьяна is a 56 year old who presents for an annual gynecologic exam without complaints. Postmenopausal: yes HRT use: No. 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 History Comments: Sexual Activity: Yes; No partner data on record; TVH Contraception: Surgical PAST MEDICAL HISTORY Diagnosis Date Excessive or frequent menstruation Heavy periods resolved but prolonged Irregular menstrual cycle Irregular periods and prolonged Osteopenia Osteoporosis PAST SURGICAL HISTORY Procedure Laterality Date DELIVERY ONLY , low cervical X2 DILATION & CURETTAGE DX&/THER NONOBSTETRIC 07/11/2007 Dilation & curettage LIG/TRNSXJ FLP TUBE ABDL/VAG APPR UNI/BI Tubal ligation NOVASURE 02/27/2009 hysteroscopy PAST SURGICAL HISTORY OF 01/09/2010 removal of cyst on (L) thigh REMOVAL GALLBLADDER 12/2018 VAGINAL HYSTERECTOMY UTERUS 250 GM/< 08/26/2011 TVH, heavy menses FAMILY HISTORY Problem Relation Age of Onset Hypertension Mother Diabetes Father Hypertension Father Blood Disease Sister polycythenia Heart Maternal Grandfather Heart Paternal Grandmother CONGESTIVE HEART FAILURE Cancer Paternal Grandfather ? KIDNEY CANCER SOCIAL HISTORY Social History Tobacco Use Smoking status: Never Smokeless tobacco: Never Vaping Use Vaping Use: Never used Substance Use Topics Alcohol use: Yes Comment: occasional Drug use: No REVIEW OF SYSTEMS Abdomen: No abdominal pain, nausea, vomiting, diarrhea, or constipation. No bloating, early satiety, indigestion, or increased flatulence. Bladder: No dysuria, gross hematuria, urinary frequency, urinary urgency, or incontinence Breast: No breast lumps, nipple d/c, overlying skin changes, redness or skin retraction Allergies and current medication updated:Yes EXAM: BP 114/66 Ht 5' 3.5 (1.61m) Wt 118 lb (53.5kg) LMP 06/27/2011 BMI 20.57 kg/(m^2). GENERAL: pleasant, female in no apparent distress HEENT: Normocephalic, atraumatic, mucus membranes moist, and no lesions NECK: Supple, full range of motion, no adenopathy, and thyroid normal DERMATOLOGY: Normal, without lesions, non-icteric, and non-hirsute BREAST: soft, non-tender, symmetric, no dominant mass, normal nipple-areolar complex, no lymphadenopathy, and no nipple discharge CHEST: Normal inspiratory effort ABDOMEN: soft, non-tender, and no masses PELVIC: external genitalia normal, normal Bartholin's glands, urethra, Neola's glands, no vulvar lesions, good vaginal support, physiologic discharge present, normal appearing perineal body and perianal region, cervix surgically absent BIMANUAL: no adnexal masses, non-tender, and uterus surgically absent RECTOVAGINAL: deferred. NEURO: alert and oriented x3,exam grossly non-focal EXTREMITIES: normal ASSESSMENT/PLAN: 1) Health maintenance: Pap/HPV up to date. Mammogram ordered 2) Follow up one year or sooner as needed Coral Ware MD documented in this encounter[facility] History of Present illness Narrative* Raman Dhaliwal APRN.[facility] - 08/27/2021 9:05 AM EDT Images from the original note were not included. Subjective HPI HPI Татьяна Gonzalez is a 55 year old female who presents today for CC of itchy rash, all over. Thisstarted 2 days ago/worsening. Has tried otc medication for relief. Symptoms are worsened by nothingh. Risk factors hx of PI rash. .Patient presents with: poison melinda: x 2 days all over PAST MEDICAL HISTORY Diagnosis Date Excessive or frequent menstruation Heavy periods resolved but prolonged Irregular menstrual cycle Irregular periods and prolonged Osteopenia PAST SURGICAL HISTORY Procedure Laterality Date DELIVERY ONLY , low cervical X2 DILATION & CURETTAGE DX&/THER NONOBSTETRIC 07/11/2007 Dilation & curettage LIG/TRNSXJ FLP TUBE ABDL/VAG APPR UNI/BI Tubal ligation NOVASURE 02/27/2009 hysteroscopy PAST SURGICAL HISTORY OF 01/09/2010 removal of cyst on (L) thigh REMOVAL GALLBLADDER 12/2018 VAGINAL HYSTERECTOMY UTERUS 250 GM/< 08/26/2011 TVH, heavy menses ALLERGIES Environmental [Other] MEDICATIONS indapamide (LOZOL) 2.5 mg tablet Take by mouth q 24 HR. CHOLECALCIFEROL, VITAMIN D3, (VITAMIN D3 ORAL) Take by mouth. POTASSIUM ORAL Take by mouth. DAILY MULTIVITAMIN TAB predniSONE (DELTASONE) 10 mg tablet Take 4 tabs daily for 3 days, then 2 tabs daily for 3 days, then 1 tab daily for 3 days with food. triamcinolone acetonide (KENALOG) 0.1 % cream Apply 1 application to affected area three times daily for 10 days. Apply sparingly to area for rash/itching. FAMILY HISTORY Problem Relation Age of Onset Hypertension Mother Diabetes Father Hypertension Father Heart Maternal Grandfather Heart Paternal Grandmother CONGESTIVE HEART FAILURE Cancer Paternal Grandfather ? KIDNEY CANCER Blood Disease Sister polycythenia Social History Tobacco Use Smoking status: Never Smoker Smokeless tobacco: Never Used Vaping Use Vaping Use: Never used Substance Use Topics Alcohol use: Yes Comment: occasional Drug use: No Review of Systems Constitutional: Negative for chills and fever. Skin: Positive for itching and rash ( ). Objective Blood pressure 118/72, pulse 76, temperature 36.2 C (97.1 F), temperature source Tympanic, resp. rate 16, weight 52.5 kg (115 lb 12.8 oz), last menstrual period 06/27/2011, SpO2 100 %. Physical Exam Constitutional: General: She is not in acute distress. Appearance: She is not toxic-appearing or diaphoretic. HENT: Head: Normocephalic and atraumatic. Skin: General: Skin is warm and dry. Findings: Rash present. Rash is vesicular (distribution linear ). Neurological: Mental Status: She is alert and oriented to person, place, and time. ASSESSMENT/PLAN: 1. Rhus dermatitis - ICD9: 692.6, ICD10: L25.5 - Oral Steriod tx -Prednisone taper - Topical steriod tx with Rx for steriod cream/ointment- see orders - discussed skin care of rash - follow up if symptoms persist or worsen. - PREDNISONE 10 MG TABLET - TRIAMCINOLONE ACETONIDE 0.1 % TOPICAL CREAM Agrees to plan Raman Dhaliwal APRN.[place] documented in this encounterA[facility] Miscellaneous Notes* Letter - Mammography Coordinator - 05/31/2021 1:22 PM EDT May 31, 2021 PID: [id number] Татьяна Gonzalez [address] [place] [address] Dear Ms. Gonzalez, We are pleased to inform you that the results of your recent breast imaging exam on 05/31/2021 are normal. Your mammogram demonstrates that you have dense breast tissue, which could hide abnormalities. Dense breast tissue, in and of itself, is a relatively common condition. Therefore, this information is not provided to cause undue concern; rather, it is to raise your awareness and promote discussion with your health care provider regarding the presence of dense breast tissue in addition to other riskfactors. Early detection of cancer is very important. We also understand recommendations regarding breast cancer screening are controversial. Please discuss with your primary care provider which strategy is best for you and whether a mammogram is right for you. Your imaging studies and report will be kept on file at [facility] as part of your permanent medical record and are available for your continuing care. Thank you for allowing us to help in meeting your health care needs. Sincerely, Dr. Yi Interpreting Radiologist [facility] (Normal over 40) documented in this encounterAcmc [facility]04-22-2022 History of Present illness Narrative* Leida Cedeno RT(R) - 05/31/2021 9:10 AM EDT Radiology Service Progress Note PATIENT NAME: Татьяна Gonzalez DATE OF SERVICE: May 31, 2021 TIME: 9:15 AM PATIENT IDENTITY VERIFICATION COMPLETED USING TWO (2) IDENTIFIERS: Name and Date of confirmedby patient verbally. FALL SCREENING: Has the patient had 2 falls in the last year or 1 fall with injury or currently using an Ambulatory Assistive Device (Walker, Cane, Wheelchair, Crutches, etc.)? No PATIENT GENDER DATA: Female. status: : No status: NO. PATIENT RELEVANT IMPLANT DATA REVIEWED: Not Applicable RADIOLOGY DEPARTMENT: Mammography PERIPHERAL IV DATA: Not applicable SIGNED BY: RT Kianna(R) May 31, 2021 9:15 AM documented in this encounterAcmc [facility]04-22-2022 History of Present illness Narrative* Coral Ware MD - 05/31/2021 8:44 AM EDT Татьяна is a 55 year old who presents for an annual gynecologic exam without complaints. s/p hysterectomy Postmenopausal: yes HRT use: No. 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 Comments: Sexual Activity: Yes; No partner data on record; TVH Contraception: Surgical PAST MEDICAL HISTORY Diagnosis Date Excessive or frequent menstruation Heavy periods resolved but prolonged Irregular menstrual cycle Irregular periods and prolonged Osteopenia PAST SURGICAL HISTORY Procedure Laterality Date DELIVERY ONLY , low cervical X2 D&C, DIAG AND/OR THERAPEUTIC 07/11/2007 Dilation & curettage LIGATE FALLOPIAN TUBE Tubal ligation NOVASURE 02/27/2009 hysteroscopy PAST SURGICAL HISTORY OF 01/09/2010 removal of cyst on (L) thigh REMOVAL GALLBLADDER 12/2018 VAGINAL HYSTERECTOMY 08/26/2011 TVH, heavy menses FAMILY HISTORY Problem Relation Age of Onset Hypertension Mother Diabetes Father Hypertension Father Heart Maternal Grandfather Heart Paternal Grandmother CONGESTIVE HEART FAILURE Cancer Paternal Grandfather ? KIDNEY CANCER Blood Disease Sister polycythenia SOCIAL HISTORY Social History Tobacco Use Smoking status: Never Smoker Smokeless tobacco: Never Used Vaping Use Vaping Use: Never used Substance Use Topics Alcohol use: Yes Comment: occasional Drug use: No REVIEW OF SYSTEMS Abdomen: No abdominal pain, nausea, vomiting, diarrhea, or constipation. No bloating, early satiety, indigestion, or increased flatulence. Bladder: No dysuria, gross hematuria, urinary frequency, urinary urgency, or incontinence Breast: No breast lumps, nipple d/c, overlying skin changes, redness or skin retraction Allergies and current medication updated:Yes EXAM: LMP 06/27/2011 GENERAL: pleasant, female in no apparent distress HEENT: Normocephalic, atraumatic, mucus membranes moist and no lesions NECK: Supple, full range of motion, no adenopathy and thyroid normal DERMATOLOGY: Normal, without lesions, non-icteric and non-hirsute BREAST: soft, non-tender, symmetric, no dominant mass, normal nipple-areolar complex, no lymphadenopathy and no nipple discharge CHEST: Normal inspiratory effort ABDOMEN: soft, non-tender and no masses PELVIC: external genitalia normal, normal Bartholin's glands, urethra, Neola's glands, no vulvar lesions, good vaginal support, physiologic discharge present, normal appearing perineal body and perianal region, cervix surgically absent BIMANUAL: no adnexal masses, non-tender and uterus surgically absent RECTOVAGINAL: deferred. 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 Melanocytic nevi of face 03/23/2013 020 Melanocytic nevi of scalp and neck 03/23/2013 02/23/2019 Solar Lentigines 03/23/2013 02/23/2019 Actinic skin damage 03/23/2013 02/23/2019 Dermatofibromas of lower leg 03/23/2013 Other seborrheic keratosis 03/23/201302/23 Scars 03/23/2013 02/23/2019 Caf au lait spot 03/23/2013 02/23/2019 Excessive or frequent menstruation 04/03/2011 01/05/2012 Papanicolaou smear of cervix with atypical squamous cells of undetermined significance (ASC-US) 01/01/2011 01/05/2012 Symptomatic menopausal or female climacteric sta theodora 01/01/2011 02/23/2019 Open wound(s) (multiple) of unspecified site(s), without mention of complication 02/20/2010 08/18/2011 Epidermal Cyst of L medial thigh 08/05/2009 01/05/2012 Melanocytic nevus of scalp 08/05/200901/04 Melanocytic nevus of face 08/05/20092011 Melanocytic nevus of neck 08/05/20092011 Melanocytic Nevus of Upper Extremity: arms 08/0501/05/2012 Melanocytic nevus of trunk 08/05/200901/04 Melanocytic Nevus of Lower Extremity: legs 08/0508/18/2011 Solar Lentigines 08/05/2009 01/05/2012 Prha-aq-gdpw spots 08/05/2009 02/23/2019 Actinic Damage//Sun-Damaged Skin 08/05/2009 01/05/2012 Dermatofibroma 08/05/2009 02/23/2019 Excessive or frequent menstruation 07/09/2007 01/01/2011 Irregular menstrual cycle 07/09/20072011 NEVUS TRUNK///BENIGN JAVIER SKIN TRUNK 12/07/2006 01/05/2012 SCALP///BENIGN JAVIER SCALP/SKIN NECK 12/07/2006 01/05/2012 FACE///BENIGN JAVIER SKIN FACE NEC 12/07/2006 01/05/2012 ARMS NEVI///BENIGN JAVIER SKIN ARM 12/07/2006 01/05/2012 NEVI LEG///BENIGN JAVIER SKIN LEG 12/07/2006 1 03/06/2011 SOLAR LENTIGINES///DYSCHROMIA OTHER 12/07/2006 01/05/2012 ACTINIC DAMAGE///CHR SOLAR SKIN DAMAGE NOS 12/0701/05/2012 documented as of this encounter (statuses as of 05/31/2021) [facility] History of Past illness Narrative* Problem Noted Date Resolved Date Melanocytic nevi of trunk 03/23/20132019 Melanocytic nevi of upper extremity or shoulder 03/23/2013 02/23/2019 Melanocytic nevi of lower limb, including hip 02/23/2019 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 Melanocytic nevi of face 03/23/2013 020 Melanocytic nevi of scalp and neck 03/23/2013 02/23/2019 Solar Lentigines 03/23/2013 02/23/2019 Actinic skin damage 03/23/2013 02/23/2019 Dermatofibromas of lower leg 03/23/2013 Other seborrheic keratosis 03/23/201302/23 Scars 03/23/2013 02/23/2019 Caf au lait spot 03/23/2013 02/23/2019 Excessive or frequent menstruation 04/03/2011 01/05/2012 Papanicolaou smear of cervix with atypical squamous cells of undetermined significance (ASC-US) 01/01/2011 01/05/2012 Symptomatic menopausal or female climacteric sta theodora 01/01/2011 02/23/2019 Open wound(s) (multiple) of unspecified site(s), without mention of complication 02/20/2010 08/18/2011 Epidermal Cyst of L medial thigh 08/05/2009 01/05/2012 Melanocytic nevus of scalp 08/05/200901/04 Melanocytic nevus of face 08/05/20092011 Melanocytic nevus of neck 08/05/20092011 Melanocytic Nevus of Upper Extremity: arms 08/0501/05/2012 Melanocytic nevus of trunk 08/05/200901/04 Melanocytic Nevus of Lower Extremity: legs 08/0508/18/2011 Solar Lentigines 08/05/2009 01/05/2012 Ioji-wo-depf spots 08/05/2009 02/23/2019 Actinic Damage//Sun-Damaged Skin 08/05/2009 01/05/2012 Dermatofibroma 08/05/2009 02/23/2019 Excessive or frequent menstruation 07/09/2007 01/01/2011 Irregular menstrual cycle 07/09/20072011 NEVUS TRUNK///BENIGN JAVIER SKIN TRUNK 12/07/2006 01/05/2012 SCALP///BENIGN JAVIER SCALP/SKIN NECK 12/07/2006 01/05/2012 FACE///BENIGN JAVIER SKIN FACE NEC 12/07/2006 01/05/2012 ARMS NEVI///BENIGN JAVIER SKIN ARM 12/07/2006 01/05/2012 NEVI LEG///BENIGN JAVIER SKIN LEG 12/07/2006 1 03/06/2011 SOLAR LENTIGINES///DYSCHROMIA OTHER 12/07/2006 01/05/2012 ACTINIC DAMAGE///CHR SOLAR SKIN DAMAGE NOS 12/0701/05/2012 documented as of this encounter (statuses as of 06/01/2021) [facility] History of Past illness Narrative* Problem Noted Date Resolved Date Melanocytic nevi of trunk 03/23/20132019 Melanocytic nevi of upper extremity or shoulder 03/23/2013 02/23/2019 Melanocytic nevi of lower limb, including hip 02/23/2019 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 Melanocytic nevi of face 03/23/2013 020 Melanocytic nevi of scalp and neck 03/23/2013 02/23/2019 Solar Lentigines 03/23/2013 02/23/2019 Actinic skin damage 03/23/2013 02/23/2019 Dermatofibromas of lower leg 03/23/2013 Other seborrheic keratosis 03/23/201302/23 Scars 03/23/2013 02/23/2019 Caf au lait spot 03/23/2013 02/23/2019 Excessive or frequent menstruation 04/03/2011 01/05/2012 Papanicolaou smear of cervix with atypical squamous cells of undetermined significance (ASC-US) 01/01/2011 01/05/2012 Symptomatic menopausal or female climacteric sta theodora 01/01/2011 02/23/2019 Open wound(s) (multiple) of unspecified site(s), without mention of complication 02/20/2010 08/18/2011 Epidermal Cyst of L medial thigh 08/05/2009 01/05/2012 Melanocytic nevus of scalp 08/05/200901/04 Melanocytic nevus of face 08/05/20092011 Melanocytic nevus of neck 08/05/20092011 Melanocytic Nevus of Upper Extremity: arms 08/0501/05/2012 Melanocytic nevus of trunk 08/05/200901/04 Melanocytic Nevus of Lower Extremity: legs 08/0508/18/2011 Solar Lentigines 08/05/2009 01/05/2012 Siqv-iy-licu spots 08/05/2009 02/23/2019 Actinic Damage//Sun-Damaged Skin 08/05/2009 01/05/2012 Dermatofibroma 08/05/2009 02/23/2019 Excessive or frequent menstruation 07/09/2007 01/01/2011 Irregular menstrual cycle 07/09/20072011 NEVUS TRUNK///BENIGN JAVIER SKIN TRUNK 12/07/2006 01/05/2012 SCALP///BENIGN JAVIER SCALP/SKIN NECK 12/07/2006 01/05/2012 FACE///BENIGN JAVIER SKIN FACE NEC 12/07/2006 01/05/2012 ARMS NEVI///BENIGN JAVIER SKIN ARM 12/07/2006 01/05/2012 NEVI LEG///BENIGN JAVIER SKIN LEG 12/07/2006 1 03/06/2011 SOLAR LENTIGINES///DYSCHROMIA OTHER 12/07/2006 01/05/2012 ACTINIC DAMAGE///CHR SOLAR SKIN DAMAGE NOS 12/0701/05/2012 documented as of this encounter (statuses as of 06/04/2021) [facility] of Past illness Narrative* Problem Noted Date Resolved Date Melanocytic nevi of trunk 03/23/20132019 Melanocytic nevi of upper extremity or shoulder 03/23/2013 02/23/2019 Melanocytic nevi of lower limb, including hip 02/23/2019 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 Melanocytic nevi of face 03/23/2013 020 Melanocytic nevi of scalp and neck 03/23/2013 02/23/2019 Solar Lentigines 03/23/2013 02/23/2019 Actinic skin damage 03/23/2013 02/23/2019 Dermatofibromas of lower leg 03/23/2013 Other seborrheic keratosis 03/23/201302/23 Scars 03/23/2013 02/23/2019 Caf au lait spot 03/23/2013 02/23/2019 Excessive or frequent menstruation 04/03/2011 01/05/2012 Papanicolaou smear of cervix with atypical squamous cells of undetermined significance (ASC-US) 01/01/2011 01/05/2012 Symptomatic menopausal or female climacteric sta theodora 01/01/2011 02/23/2019 Open wound(s) (multiple) of unspecified site(s), without mention of complication 02/20/2010 08/18/2011 Epidermal Cyst of L medial thigh 08/05/2009 01/05/2012 Melanocytic nevus of scalp 08/05/200901/04 Melanocytic nevus of face 08/05/20092011 Melanocytic nevus of neck 08/05/20092011 Melanocytic Nevus of Upper Extremity: arms 08/0501/05/2012 Melanocytic nevus of trunk 08/05/200901/04 Melanocytic Nevus of Lower Extremity: legs 08/0508/18/2011 Solar Lentigines 08/05/2009 01/05/2012 Urhz-dy-awnm spots 08/05/2009 02/23/2019 Actinic Damage//Sun-Damaged Skin 08/05/2009 01/05/2012 Dermatofibroma 08/05/2009 02/23/2019 Excessive or frequent menstruation 07/09/2007 01/01/2011 Irregular menstrual cycle 07/09/20072011 NEVUS TRUNK///BENIGN JAVIER SKIN TRUNK 12/07/2006 01/05/2012 SCALP///BENIGN JAVIER SCALP/SKIN NECK 12/07/2006 01/05/2012 FACE///BENIGN JAVIER SKIN FACE NEC 12/07/2006 01/05/2012 ARMS NEVI///BENIGN JAVIER SKIN ARM 12/07/2006 01/05/2012 NEVI LEG///BENIGN JAVIER SKIN LEG 12/07/2006 1 03/06/2011 SOLAR LENTIGINES///DYSCHROMIA OTHER 12/07/2006 01/05/2012 ACTINIC DAMAGE///CHR SOLAR SKIN DAMAGE NOS 12/0701/05/2012 documented as of this encounter (statuses as of 08/27/2021) [facility] of Past illness Narrative* Problem Noted Date Resolved Date Melanocytic nevi of trunk 03/23/20132019 Melanocytic nevi of upper extremity or shoulder 03/23/2013 02/23/2019 Melanocytic nevi of lower limb, including hip 02/23/2019 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 Melanocytic nevi of face 03/23/2013 020 Melanocytic nevi of scalp and neck 03/23/2013 02/23/2019 Solar Lentigines 03/23/2013 02/23/2019 Actinic skin damage 03/23/2013 02/23/2019 Dermatofibromas of lower leg 03/23/2013 Other seborrheic keratosis 03/23/201302/23 Scars 03/23/2013 02/23/2019 Caf au lait spot 03/23/2013 02/23/2019 Excessive or frequent menstruation 04/03/2011 01/05/2012 Papanicolaou smear of cervix with atypical squamous cells of undetermined significance (ASC-US) 01/01/2011 01/05/2012 Symptomatic menopausal or female climacteric sta theodora 01/01/2011 02/23/2019 Open wound(s) (multiple) of unspecified site(s), without mention of complication 02/20/2010 08/18/2011 Epidermal Cyst of L medial thigh 08/05/2009 01/05/2012 Melanocytic nevus of scalp 08/05/200901/04 Melanocytic nevus of face 08/05/20092011 Melanocytic nevus of neck 08/05/20092011 Melanocytic Nevus of Upper Extremity: arms 08/0501/05/2012 Melanocytic nevus of trunk 08/05/200901/04 Melanocytic Nevus of Lower Extremity: legs 08/0508/18/2011 Solar Lentigines 08/05/2009 01/05/2012 Fzsj-um-nywd spots 08/05/2009 02/23/2019 Actinic Damage//Sun-Damaged Skin 08/05/2009 01/05/2012 Dermatofibroma 08/05/2009 02/23/2019 Excessive or frequent menstruation 07/09/2007 01/01/2011 Irregular menstrual cycle 07/09/20072011 NEVUS TRUNK///BENIGN JAVIER SKIN TRUNK 12/07/2006 01/05/2012 SCALP///BENIGN JAVIER SCALP/SKIN NECK 12/07/2006 01/05/2012 FACE///BENIGN JAVIER SKIN FACE NEC 12/07/2006 01/05/2012 ARMS NEVI///BENIGN JAVIER SKIN ARM 12/07/2006 01/05/2012 NEVI LEG///BENIGN JAVIER SKIN LEG 12/07/2006 1 03/06/2011 SOLAR LENTIGINES///DYSCHROMIA OTHER 12/07/2006 01/05/2012 ACTINIC DAMAGE///CHR SOLAR SKIN DAMAGE NOS 12/0701/05/2012 documented as of this encounter (statuses as of 06/05/2022) [facility] of Past illness Narrative* Problem Noted Date Resolved Date Melanocytic nevi of trunk 03/23/20132019 Melanocytic nevi of upper extremity or shoulder 03/23/2013 02/23/2019 Melanocytic nevi of lower limb, including hip 02/23/2019 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 Melanocytic nevi of face 03/23/2013 020 Melanocytic nevi of scalp and neck 03/23/2013 02/23/2019 Solar Lentigines 03/23/2013 02/23/2019 Actinic skin damage 03/23/2013 02/23/2019 Dermatofibromas of lower leg 03/23/2013 Other seborrheic keratosis 03/23/201302/23 Scars 03/23/2013 02/23/2019 Caf au lait spot 03/23/2013 02/23/2019 Excessive or frequent menstruation 04/03/2011 01/05/2012 Papanicolaou smear of cervix with atypical squamous cells of undetermined significance (ASC-US) 01/01/2011 01/05/2012 Symptomatic menopausal or female climacteric sta theodora 01/01/2011 02/23/2019 Open wound(s) (multiple) of unspecified site(s), without mention of complication 02/20/2010 08/18/2011 Epidermal Cyst of L medial thigh 08/05/2009 01/05/2012 Melanocytic nevus of scalp 08/05/200901/04 Melanocytic nevus of face 08/05/20092011 Melanocytic nevus of neck 08/05/20092011 Melanocytic Nevus of Upper Extremity: arms 08/0501/05/2012 Melanocytic nevus of trunk 08/05/200901/04 Melanocytic Nevus of Lower Extremity: legs 08/0508/18/2011 Solar Lentigines 08/05/2009 01/05/2012 Slst-yn-fgpu spots 08/05/2009 02/23/2019 Actinic Damage//Sun-Damaged Skin 08/05/2009 01/05/2012 Dermatofibroma 08/05/2009 02/23/2019 Excessive or frequent menstruation 07/09/2007 01/01/2011 Irregular menstrual cycle 07/09/20072011 NEVUS TRUNK///BENIGN JAVIER SKIN TRUNK 12/07/2006 01/05/2012 SCALP///BENIGN JAVIER SCALP/SKIN NECK 12/07/2006 01/05/2012 FACE///BENIGN JAVIER SKIN FACE NEC 12/07/2006 01/05/2012 ARMS NEVI///BENIGN JAVIER SKIN ARM 12/07/2006 01/05/2012 NEVI LEG///BENIGN JAVIER SKIN LEG 12/07/2006 1 03/06/2011 SOLAR LENTIGINES///DYSCHROMIA OTHER 12/07/2006 01/05/2012 ACTINIC DAMAGE///CHR SOLAR SKIN DAMAGE NOS 12/0701/05/2012 documented as of this encounter (statuses as of 06/07/2022) [facility] of Past illness Narrative* Problem Noted Date Diagnosed Date Resolved Date Melanocytic nevi of trunk 03/23/2013 Melanocytic nevi of upper ex tremity or shoulder 03/23/2013 02/23/2019 Melanocytic nevi of lower limb, including hip 03/23/19 14 02/23/2019 Congenital nevus of buttock 03/23/2013 02/23/2019 Melanocytic nevi of face 03/23/2013 Melanocytic nevi of scalp and neck 03/23/2013 02/23/2019 Solar Lentigines 03/23/2013 02/23/2019 Actinic skin damage 03/23/2013 02/23/19 20 Dermatofibromas of lower leg 03/23/2013 02/23/2019 Other seborrheic keratosis 03/23/2013 0 02/23/2019 Scars 03/23/2013 02/23/2019 Caf au lait spot 03/23/2013 02/23/2019 Excessive or frequent menstruation 04/03/2011 01/05/2012 Papanicolaou smear of cervix with atypical squamous cells of undetermined significance (ASC-US) 01/01/2011 01/05/2012 Symptomatic menopausal or fe male climacteric states 01/01/2011 02/23/2019 Open wound(s) (multiple) of unspecified site(s), without mention of complication 02/20/2010 08/18/2011 Epidermal Cyst of L medial thigh 08/05/2009 01/05/2012 Melanocytic nevus of scalp 08/05/2009 1 03/06/2011 Melanocytic nevus of face 08/05/2009 Melanocytic nevus of neck 08/05/2009 Melanocytic Nevus of Upper Extremity: arms 08/05/2009 01/05/2012 Melanocytic nevus of trunk 08/05/2009 1 03/06/2011 Melanocytic Nevus of Lower Extremity: legs 08/05/2009 08/18/2011 Solar Lentigines 08/05/2009 01/05/2012 Sswd-hz-jbhn spots 08/05/2009 0 Actinic Damage//Sun-Damaged Skin 08/05/2009 01/05/2012 Dermatofibroma 08/05/2009 02/23/2019 Excessive or frequent menstruation 07/09/2007 01/01/2011 Irregular menstrual cycle 07/09/2007 NEVUS TRUNK///BENIGN JAVIER SKIN TRUNK 12/07/2006 01/05/2012 SCALP///BENIGN JAVIER SCALP/SKIN NECK 12/07/2006 01/05/2012 FACE///BENIGN JAVIER SKIN FACE NEC 12/07/2006 01/05/2012 ARMS NEVI///BENIGN JAVIER SKIN ARM 12/07/2006 01/05/2012 NEVI LEG///BENIGN JAVIER SKIN LEG 12/07/2006 01/05/2012 SOLAR LENTIGINES///DYSCHROMIA OTHER 12/07/2006 01/05/2012 ACTINIC DAMAGE///CHR SOLAR SKIN DAMAGE NOS 12/07/2006 01/05/2012 documented as of this encounter (statuses as of 01/09/2023) [facility] of Past illness Narrative* Problem Noted Date Diagnosed Date Resolved Date Melanocytic nevi of trunk 03/23/2013 Melanocytic nevi of upper ex tremity or shoulder 03/23/2013 02/23/2019 Melanocytic nevi of lower limb, including hip 03/23/19 14 02/23/2019 Congenital nevus of buttock 03/23/2013 02/23/2019 Melanocytic nevi of face 03/23/2013 Melanocytic nevi of scalp and neck 03/23/2013 02/23/2019 Solar Lentigines 03/23/2013 02/23/2019 Actinic skin damage 03/23/2013 02/23/19 20 Dermatofibromas of lower leg 03/23/2013 02/23/2019 Other seborrheic keratosis 03/23/2013 0 02/23/2019 Scars 03/23/2013 02/23/2019 Caf au lait spot 03/23/2013 02/23/2019 Excessive or frequent menstruation 04/03/2011 01/05/2012 Papanicolaou smear of cervix with atypical squamous cells of undetermined significance (ASC-US) 01/01/2011 01/05/2012 Symptomatic menopausal or fe male climacteric states 01/01/2011 02/23/2019 Open wound(s) (multiple) of unspecified site(s), without mention of complication 02/20/2010 08/18/2011 Epidermal Cyst of L medial thigh 08/05/2009 01/05/2012 Melanocytic nevus of scalp 08/05/2009 1 03/06/2011 Melanocytic nevus of face 08/05/2009 Melanocytic nevus of neck 08/05/2009 Melanocytic Nevus of Upper Extremity: arms 08/05/2009 01/05/2012 Melanocytic nevus of trunk 08/05/2009 1 03/06/2011 Melanocytic Nevus of Lower Extremity: legs 08/05/2009 08/18/2011 Solar Lentigines 08/05/2009 01/05/2012 Txmg-jz-inow spots 08/05/2009 0 Actinic Damage//Sun-Damaged Skin 08/05/2009 01/05/2012 Dermatofibroma 08/05/2009 02/23/2019 Excessive or frequent menstruation 07/09/2007 01/01/2011 Irregular menstrual cycle 07/09/2007 NEVUS TRUNK///BENIGN JAVIER SKIN TRUNK 12/07/2006 01/05/2012 SCALP///BENIGN JAVIER SCALP/SKIN NECK 12/07/2006 01/05/2012 FACE///BENIGN JAVIER SKIN FACE NEC 12/07/2006 01/05/2012 ARMS NEVI///BENIGN JAVIER SKIN ARM 12/07/2006 01/05/2012 NEVI LEG///BENIGN JAVIER SKIN LEG 12/07/2006 01/05/2012 SOLAR LENTIGINES///DYSCHROMIA OTHER 12/07/2006 01/05/2012 ACTINIC DAMAGE///CHR SOLAR SKIN DAMAGE NOS 12/07/2006 01/05/2012 documented as of this encounter (statuses as of 03/08/2023) [facility] [place] [facility] Diagnosis Encounter for gynecological examination (general) (routine) without abnormal findings Encounter for screening mammogram for breast cancer documented in this encounter [facility] Diagnosis Encounter for gynecological examination (general) (routine) without abnormal findings Encounter for screening mammogram for breast cancer documented in this encounter [facility] [place] [facility]* Diagnosis Rhus dermatitis- Primary Contact dermatitis and other eczema due to plants (except food) [facility] [place] [facility]* Diagnosis Encounter for gynecological examination (general) (routine) without abnormal findings- Primary Encounter for screening mammogram for breast cancer documented [facility] [place] noteNo assessment information availableWMansfield [facility] Work Phone: Evaluation note* Diagnosis Inclusion cyst of vulva- Primary Other specified noninflammatory disorder of vulva and perineum [facility] this [facility] [place] [facility]* Diagnosis Sore throat- Primary Acute pharyngitis Viral illness Unspecified viral infection, in conditions classified elsewhere and of unspecified site [facility] [place] [facility]* Diagnosis Encounter for gynecological examination (general) (routine) without abnormal findings- Primary Encounter for screening mammogram for breast cancer documented [facility] this [facility] [place] [facility]* Diagnosis Abnormal mammogram- Primary Abnormal mammogram, unspecified documented in this encounter [facility] note* Diagnosis Encounter for gynecological examination (general) (routine) without abnormal findings Encounter for screening mammogram for breast cancer [facility] this [facility] [place] [facility]* Diagnosis Abnormal mammogram Abnormal mammogram, unspecified documented [facility] this [facility] [place] [facility]* Diagnosis Abnormal mammogram Abnormal mammogram, unspecified documented [facility] this [facility] [place] [facility]* Diagnosis Burning with urination- Primary Dysuria [facility] [place] [facility]* Diagnosis Pure hypercholesterolemia, unspecified documented in this encounter [facility] Work Phone: Evaluation note* Diagnosis Vaginal itching- Primary Pruritus of genital organs Postmenopausal atrophic vaginitis documented in this encounter [facility] note* Diagnosis Encounter for screening mammogram for breast cancer documented in this encounter [facility] note* Diagnosis Encounter for gynecological examination (general) (routine) without abnormal findings- Primary Encounter for screening for human papillomavirus (HPV) Special screening examination for human papillomavirus (HPV) Pap smear for cervical cancer screening Screening for malignant neoplasm of the cervix Encounter for screening mammogram for breast cancer documented in this encounter [facility] note* Diagnosis Dense breast tissue- Primary [facility] Name Dates Details Patient Instructions Indication:Nonsmoker Start:25-May-2020 Instruction Type:Provider Instructions for Treatment How to Access Health Informa tion Online using Patient Portal and [employer] Apps Indication:Nonsmoker Start:25-May-2020 Instruction Type:Patient Education Patient Instructions Indication:Nonsmoker Start:14-May-2020 Instruction Type:Provider Instructions for Treatment How to Access Health Informa tion Online using Patient Portal and [employer] Apps Indication:Nonsmoker Start:14-May-2020 Instruction Type:Patient Education Patient Instructions Indication:Nonsmoker Start:31-Jan-2020 Instruction Type:Provider Instructions for Treatment How to Access Health Informa tion Online using Patient Portal and [employer] Apps Indication:Nonsmoker Start:31-Jan-2020 Instruction Type:Patient Education How to access health informa tion online Indication:Nonsmoker Start:11-Jan-2020 Instruction Type:Patient Education How to access health informa tion online - Detail Indication:Nonsmoker Start:11-Jan-2020 Instruction Type:Patient Education Patient Instructions Indication:Nonsmoker Start:11-Jan-2020 Instruction Type:Provider Instructions for Treatment How to access health informa tion online Indication:Nonsmoker Start:09-Nov-2019 Instruction Type:Patient Education How to access health informa tion online - Detail Indication:Nonsmoker Start:09-Nov-2019 Instruction Type:Patient Education Patient Instructions Indication:Screening for deficiency anemia Start:09-Nov-2019 Instruction Type:Provider Instructions for Treatment How to access health informa tion online Indication:Nonsmoker Start:13-Dec-2018 Instruction Type:Patient Education How to access health informa tion online - Detail Indication:Nonsmoker Start:13-Dec-2018 Instruction Type:Patient Education Patient Instructions Indication:BMI 21.0-21.9, adult Start:13-Dec-2018 Instruction Type:Provider Instructions for Treatment How to access health informa tion online Indication:Nonsmoker Start:22-Nov-2018 Instruction Type:Patient Education How to access health informa tion online - Detail Indication:Nonsmoker Start:22-Nov-2018 Instruction Type:Patient Education Patient Instructions Indication:Palpitation Start:22-Nov-2018 Instruction Type:Provider Instructions for Treatment How to access health informa tion online Indication:Nonsmoker Start:04-Oct-2018 Instruction Type:Patient Education How to access health informa tion online - Detail Indication:Nonsmoker Start:04-Oct-2018 Instruction Type:Patient Education Patient Instructions Indication:BMI 21.0-21.9, adult Start:04-Oct-2018 Instruction Type:Provider Instructions for Treatment How to access health informa tion online Indication:Nonsmoker Start:06-Apr-2018 Instruction Type:Patient Education How to access health informa tion online - Detail Indication:Nonsmoker Start:06-Apr-2018 Instruction Type:Patient Education Patient Instructions Indication:Nonsmoker Start:06-Apr-2018 Instruction Type:Provider Instructions for Treatment How to access health informa tion online Indication:Nonsmoker Start:27-Oct-2017 Instruction Type:Patient Education How to access health informa tion online - Detail Indication:Nonsmoker Start:27-Oct-2017 Instruction Type:Patient Education Patient Instructions Indication:Nonsmoker Start:27-Oct-2017 Instruction Type:Provider Instructions for Treatment How to access health informa tion online Indication:Osteopenia Start:17-Nov-2016 Instruction Type:Patient Education How to access health informa tion online - Detail Indication:Osteopenia Start:17-Nov-2016 Instruction Type:Patient Education Patient Instructions Indication:Osteopenia Start:17-Nov-2016 Instruction Type:Provider Instructions for Treatment How to access health informa tion online Indication: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,adult Start:21-Jul-2016 Instruction Type:Patient Education How to access health informa tion online - Detail Indication: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,adult Start:21-Jul-2016 Instruction Type:Patient Education Patient Instructions Indication: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,adult Start:21-Jul-2016 Instruction Type:Provider Instructions for Treatment How to access health informa tion online Indication:Dysuria Start:11-Oct-2015 Instruction Type:Patient Education How to access health informa tion online - Detail Indication:Dysuria Start:11-Oct-2015 Instruction Type:Patient Education Patient Instructions Indication:Dysuria Start:11-Oct-2015 Instruction Type:Provider Instructions for Treatment How to access health informa tion online Indication:Osteopenia Start:20-Jun-2015 Instruction Type:Patient Education How to access health informa tion online - Detail Indication:Osteopenia Start:20-Jun-2015 Instruction Type:Patient Education Patient Instructions Indication:Osteopenia Start:20-Jun-2015 Instruction Type:Provider Instructions for Treatment Patient Instructions Indication:Osteopenia Start:12-Jun-2014 Instruction Type:Provider Instructions for Treatment Patient Instructions Indication:Osteopenia Start:20-Jun-2013 Instruction Type:Provider Instructions for Treatment Patient Instructions Indication:Allergic rhinitis Start:04-Apr-2013 Instruction Type:Provider Instructions for Treatment [facility]; [facility] Work Phone: Instructions* Name Dates Details How to access health informa tion online Indication:Nonsmoker Start:04-Oct-2018 Instruction Type:Patient Education How to access health informa tion online - Detail Indication:Nonsmoker Start:04-Oct-2018 Instruction Type:Patient Education Patient Instructions Indication:BMI 21.0-21.9, adult Start:04-Oct-2018 Instruction Type:Provider Instructions for Treatment How to access health informa tion online Indication:Nonsmoker Start:06-Apr-2018 Instruction Type:Patient Education How to access health informa tion online - Detail Indication:Nonsmoker Start:06-Apr-2018 Instruction Type:Patient Education Patient Instructions Indication:Nonsmoker Start:06-Apr-2018 Instruction Type:Provider Instructions for Treatment How to access health informa tion online Indication:Nonsmoker Start:27-Oct-2017 Instruction Type:Patient Education How to access health informa tion online - Detail Indication:Nonsmoker Start:27-Oct-2017 Instruction Type:Patient Education Patient Instructions Indication:Nonsmoker Start:27-Oct-2017 Instruction Type:Provider Instructions for Treatment How to access health informa tion online Indication:Osteopenia Start:17-Nov-2016 Instruction Type:Patient Education How to access health informa tion online - Detail Indication:Osteopenia Start:17-Nov-2016 Instruction Type:Patient Education Patient Instructions Indication:Osteopenia Start:17-Nov-2016 Instruction Type:Provider Instructions for Treatment How to access health informa tion online Indication: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,adult Start:21-Jul-2016 Instruction Type:Patient Education How to access health informa tion online - Detail Indication: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,adult Start:21-Jul-2016 Instruction Type:Patient Education Patient Instructions Indication: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,adult Start:21-Jul-2016 Instruction Type:Provider Instructions for Treatment How to access health informa tion online Indication:Dysuria Start:11-Oct-2015 Instruction Type:Patient Education How to access health informa tion online - Detail Indication:Dysuria Start:11-Oct-2015 Instruction Type:Patient Education Patient Instructions Indication:Dysuria Start:11-Oct-2015 Instruction Type:Provider Instructions for Treatment How to access health informa tion online Indication:Osteopenia Start:20-Jun-2015 Instruction Type:Patient Education How to access health informa tion online - Detail Indication:Osteopenia Start:20-Jun-2015 Instruction Type:Patient Education Patient Instructions Indication:Osteopenia Start:20-Jun-2015 Instruction Type:Provider Instructions for Treatment Patient Instructions Indication:Osteopenia Start:12-Jun-2014 Instruction Type:Provider Instructions for Treatment Patient Instructions Indication:Osteopenia Start:20-Jun-2013 Instruction Type:Provider Instructions for Treatment Patient Instructions Indication:Allergic rhinitis Start:04-Apr-2013 Instruction Type:Provider Instructions for Treatment [facility] Work Phone: Instructions* Name Dates Details Patient Instructions Indication:BMI 20.0-20.9, adult Start:15-Apr-2021 Instruction Type:Provider Instructions for Treatment How to Access Health Informa tion Online using Patient Portal and [employer]rd [employer] Apps Indication:BMI 20.0-20.9, adult Start:15-Apr-2021 Instruction Type:Patient Education Patient Instructions Indication:Nonsmoker Start:25-May-2020 Instruction Type:Provider Instructions for Treatment How to Access Health Informa tion Online using Patient Portal and [employer]rd [employer] Apps Indication:Nonsmoker Start:25-May-2020 Instruction Type:Patient Education Patient Instructions Indication:Nonsmoker Start:14-May-2020 Instruction Type:Provider Instructions for Treatment How to Access Health Informa tion Online using Patient Portal and [employer]rd [employer] Apps Indication:Nonsmoker Start:14-May-2020 Instruction Type:Patient Education Patient Instructions Indication:Nonsmoker Start:31-Jan-2020 Instruction Type:Provider Instructions for Treatment How to Access Health Informa tion Online using Patient Portal and [employer]rd [employer] Apps Indication:Nonsmoker Start:31-Jan-2020 Instruction Type:Patient Education How to access health informa tion online Indication:Nonsmoker Start:11-Jan-2020 Instruction Type:Patient Education How to access health informa tion online - Detail Indication:Nonsmoker Start:11-Jan-2020 Instruction Type:Patient Education Patient Instructions Indication:Nonsmoker Start:11-Jan-2020 Instruction Type:Provider Instructions for Treatment How to access health informa tion online Indication:Nonsmoker Start:09-Nov-2019 Instruction Type:Patient Education How to access health informa tion online - Detail Indication:Nonsmoker Start:09-Nov-2019 Instruction Type:Patient Education Patient Instructions Indication:Screening for deficiency anemia Start:09-Nov-2019 Instruction Type:Provider Instructions for Treatment How to access health informa tion online Indication:Nonsmoker Start:13-Dec-2018 Instruction Type:Patient Education How to access health informa tion online - Detail Indication:Nonsmoker Start:13-Dec-2018 Instruction Type:Patient Education Patient Instructions Indication:BMI 21.0-21.9, adult Start:13-Dec-2018 Instruction Type:Provider Instructions for Treatment How to access health informa tion online Indication:Nonsmoker Start:22-Nov-2018 Instruction Type:Patient Education How to access health informa tion online - Detail Indication:Nonsmoker Start:22-Nov-2018 Instruction Type:Patient Education Patient Instructions Indication:Palpitation Start:22-Nov-2018 Instruction Type:Provider Instructions for Treatment How to access health informa tion online Indication:Nonsmoker Start:04-Oct-2018 Instruction Type:Patient Education How to access health informa tion online - Detail Indication:Nonsmoker Start:04-Oct-2018 Instruction Type:Patient Education Patient Instructions Indication:BMI 21.0-21.9, adult Start:04-Oct-2018 Instruction Type:Provider Instructions for Treatment How to access health informa tion online Indication:Nonsmoker Start:06-Apr-2018 Instruction Type:Patient Education How to access health informa tion online - Detail Indication:Nonsmoker Start:06-Apr-2018 Instruction Type:Patient Education Patient Instructions Indication:Nonsmoker Start:06-Apr-2018 Instruction Type:Provider Instructions for Treatment How to access health informa tion online Indication:Nonsmoker Start:27-Oct-2017 Instruction Type:Patient Education How to access health informa tion online - Detail Indication:Nonsmoker Start:27-Oct-2017 Instruction Type:Patient Education Patient Instructions Indication:Nonsmoker Start:27-Oct-2017 Instruction Type:Provider Instructions for Treatment How to access health informa tion online Indication:Osteopenia Start:17-Nov-2016 Instruction Type:Patient Education How to access health informa tion online - Detail Indication:Osteopenia Start:17-Nov-2016 Instruction Type:Patient Education Patient Instructions Indication:Osteopenia Start:17-Nov-2016 Instruction Type:Provider Instructions for Treatment How to access health informa tion online Indication: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,adult Start:21-Jul-2016 Instruction Type:Patient Education How to access health informa tion online - Detail Indication: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,adult Start:21-Jul-2016 Instruction Type:Patient Education Patient Instructions Indication: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,adult Start:21-Jul-2016 Instruction Type:Provider Instructions for Treatment How to access health informa tion online Indication:Dysuria Start:11-Oct-2015 Instruction Type:Patient Education How to access health informa tion online - Detail Indication:Dysuria Start:11-Oct-2015 Instruction Type:Patient Education Patient Instructions Indication:Dysuria Start:11-Oct-2015 Instruction Type:Provider Instructions for Treatment How to access health informa tion online Indication:Osteopenia Start:20-Jun-2015 Instruction Type:Patient Education How to access health informa tion online - Detail Indication:Osteopenia Start:20-Jun-2015 Instruction Type:Patient Education Patient Instructions Indication:Osteopenia Start:20-Jun-2015 Instruction Type:Provider Instructions for Treatment Patient Instructions Indication:Osteopenia Start:12-Jun-2014 Instruction Type:Provider Instructions for Treatment Patient Instructions Indication:Osteopenia Start:20-Jun-2013 Instruction Type:Provider Instructions for Treatment Patient Instructions Indication:Allergic rhinitis Start:04-Apr-2013 Instruction Type:Provider Instructions for Treatment [facility]; [facility] Work Phone: Instructions* Name Dates Details Patient Instructions Indication:BMI 20.0-20.9, adult Start:15-Apr-2021 Instruction Type:Provider Instructions for Treatment How to Access Health Informa tion Online using Patient Portal and [employer]rd [employer] Apps Indication:BMI 20.0-20.9, adult Start:15-Apr-2021 Instruction Type:Patient Education Patient Instructions Indication:Nonsmoker Start:25-May-2020 Instruction Type:Provider Instructions for Treatment How to Access Health Informa tion Online using Patient Portal and [employer]rd [employer] Apps Indication:Nonsmoker Start:25-May-2020 Instruction Type:Patient Education Patient Instructions Indication:Nonsmoker Start:14-May-2020 Instruction Type:Provider Instructions for Treatment How to Access Health Informa tion Online using Patient Portal and [employer]rd [employer] Apps Indication:Nonsmoker Start:14-May-2020 Instruction Type:Patient Education Patient Instructions Indication:Nonsmoker Start:31-Jan-2020 Instruction Type:Provider Instructions for Treatment How to Access Health Informa tion Online using Patient Portal and [employer]rd [employer] Apps Indication:Nonsmoker Start:31-Jan-2020 Instruction Type:Patient Education How to access health informa tion online Indication:Nonsmoker Start:11-Jan-2020 Instruction Type:Patient Education How to access health informa tion online - Detail Indication:Nonsmoker Start:11-Jan-2020 Instruction Type:Patient Education Patient Instructions Indication:Nonsmoker Start:11-Jan-2020 Instruction Type:Provider Instructions for Treatment How to access health informa tion online Indication:Nonsmoker Start:09-Nov-2019 Instruction Type:Patient Education How to access health informa tion online - Detail Indication:Nonsmoker Start:09-Nov-2019 Instruction Type:Patient Education Patient Instructions Indication:Screening for deficiency anemia Start:09-Nov-2019 Instruction Type:Provider Instructions for Treatment How to access health informa tion online Indication:Nonsmoker Start:13-Dec-2018 Instruction Type:Patient Education How to access health informa tion online - Detail Indication:Nonsmoker Start:13-Dec-2018 Instruction Type:Patient Education Patient Instructions Indication:BMI 21.0-21.9, adult Start:13-Dec-2018 Instruction Type:Provider Instructions for Treatment How to access health informa tion online Indication:Nonsmoker Start:22-Nov-2018 Instruction Type:Patient Education How to access health informa tion online - Detail Indication:Nonsmoker Start:22-Nov-2018 Instruction Type:Patient Education Patient Instructions Indication:Palpitation Start:22-Nov-2018 Instruction Type:Provider Instructions for Treatment How to access health informa tion online Indication:Nonsmoker Start:04-Oct-2018 Instruction Type:Patient Education How to access health informa tion online - Detail Indication:Nonsmoker Start:04-Oct-2018 Instruction Type:Patient Education Patient Instructions Indication:BMI 21.0-21.9, adult Start:04-Oct-2018 Instruction Type:Provider Instructions for Treatment How to access health informa tion online Indication:Nonsmoker Start:06-Apr-2018 Instruction Type:Patient Education How to access health informa tion online - Detail Indication:Nonsmoker Start:06-Apr-2018 Instruction Type:Patient Education Patient Instructions Indication:Nonsmoker Start:06-Apr-2018 Instruction Type:Provider Instructions for Treatment How to access health informa tion online Indication:Nonsmoker Start:27-Oct-2017 Instruction Type:Patient Education How to access health informa tion online - Detail Indication:Nonsmoker Start:27-Oct-2017 Instruction Type:Patient Education Patient Instructions Indication:Nonsmoker Start:27-Oct-2017 Instruction Type:Provider Instructions for Treatment How to access health informa tion online Indication:Osteopenia Start:17-Nov-2016 Instruction Type:Patient Education How to access health informa tion online - Detail Indication:Osteopenia Start:17-Nov-2016 Instruction Type:Patient Education Patient Instructions Indication:Osteopenia Start:17-Nov-2016 Instruction Type:Provider Instructions for Treatment How to access health informa tion online Indication: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,adult Start:21-Jul-2016 Instruction Type:Patient Education How to access health informa tion online - Detail Indication: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,adult Start:21-Jul-2016 Instruction Type:Patient Education Patient Instructions Indication: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,adult Start:21-Jul-2016 Instruction Type:Provider Instructions for Treatment How to access health informa tion online Indication:Dysuria Start:11-Oct-2015 Instruction Type:Patient Education How to access health informa tion online - Detail Indication:Dysuria Start:11-Oct-2015 Instruction Type:Patient Education Patient Instructions Indication:Dysuria Start:11-Oct-2015 Instruction Type:Provider Instructions for Treatment How to access health informa tion online Indication:Osteopenia Start:20-Jun-2015 Instruction Type:Patient Education How to access health informa tion online - Detail Indication:Osteopenia Start:20-Jun-2015 Instruction Type:Patient Education Patient Instructions Indication:Osteopenia Start:20-Jun-2015 Instruction Type:Provider Instructions for Treatment Patient Instructions Indication:Osteopenia Start:12-Jun-2014 Instruction Type:Provider Instructions for Treatment Patient Instructions Indication:Osteopenia Start:20-Jun-2013 Instruction Type:Provider Instructions for Treatment Patient Instructions Indication:Allergic rhinitis Start:04-Apr-2013 Instruction Type:Provider Instructions for Treatment [facility]; [facility] Work Phone: Instructions* Name Dates Details Patient Instructions Indication:BMI 20.0-20.9, adult Start:15-Apr-2021 Instruction Type:Provider Instructions for Treatment How to Access Health Informa tion Online using Patient Portal and [employer]rd [employer] Apps Indication:BMI 20.0-20.9, adult Start:15-Apr-2021 Instruction Type:Patient Education Patient Instructions Indication:Nonsmoker Start:25-May-2020 Instruction Type:Provider Instructions for Treatment How to Access Health Informa tion Online using Patient Portal and [employer]rd [employer] Apps Indication:Nonsmoker Start:25-May-2020 Instruction Type:Patient Education Patient Instructions Indication:Nonsmoker Start:14-May-2020 Instruction Type:Provider Instructions for Treatment How to Access Health Informa tion Online using Patient Portal and [employer]rd [employer] Apps Indication:Nonsmoker Start:14-May-2020 Instruction Type:Patient Education Patient Instructions Indication:Nonsmoker Start:31-Jan-2020 Instruction Type:Provider Instructions for Treatment How to Access Health Informa tion Online using Patient Portal and [employer]rd [employer] Apps Indication:Nonsmoker Start:31-Jan-2020 Instruction Type:Patient Education How to access health informa tion online Indication:Nonsmoker Start:11-Jan-2020 Instruction Type:Patient Education How to access health informa tion online - Detail Indication:Nonsmoker Start:11-Jan-2020 Instruction Type:Patient Education Patient Instructions Indication:Nonsmoker Start:11-Jan-2020 Instruction Type:Provider Instructions for Treatment How to access health informa tion online Indication:Nonsmoker Start:09-Nov-2019 Instruction Type:Patient Education How to access health informa tion online - Detail Indication:Nonsmoker Start:09-Nov-2019 Instruction Type:Patient Education Patient Instructions Indication:Screening for deficiency anemia Start:09-Nov-2019 Instruction Type:Provider Instructions for Treatment How to access health informa tion online Indication:Nonsmoker Start:13-Dec-2018 Instruction Type:Patient Education How to access health informa tion online - Detail Indication:Nonsmoker Start:13-Dec-2018 Instruction Type:Patient Education Patient Instructions Indication:BMI 21.0-21.9, adult Start:13-Dec-2018 Instruction Type:Provider Instructions for Treatment How to access health informa tion online Indication:Nonsmoker Start:22-Nov-2018 Instruction Type:Patient Education How to access health informa tion online - Detail Indication:Nonsmoker Start:22-Nov-2018 Instruction Type:Patient Education Patient Instructions Indication:Palpitation Start:22-Nov-2018 Instruction Type:Provider Instructions for Treatment How to access health informa tion online Indication:Nonsmoker Start:04-Oct-2018 Instruction Type:Patient Education How to access health informa tion online - Detail Indication:Nonsmoker Start:04-Oct-2018 Instruction Type:Patient Education Patient Instructions Indication:BMI 21.0-21.9, adult Start:04-Oct-2018 Instruction Type:Provider Instructions for Treatment How to access health informa tion online Indication:Nonsmoker Start:06-Apr-2018 Instruction Type:Patient Education How to access health informa tion online - Detail Indication:Nonsmoker Start:06-Apr-2018 Instruction Type:Patient Education Patient Instructions Indication:Nonsmoker Start:06-Apr-2018 Instruction Type:Provider Instructions for Treatment How to access health informa tion online Indication:Nonsmoker Start:27-Oct-2017 Instruction Type:Patient Education How to access health informa tion online - Detail Indication:Nonsmoker Start:27-Oct-2017 Instruction Type:Patient Education Patient Instructions Indication:Nonsmoker Start:27-Oct-2017 Instruction Type:Provider Instructions for Treatment How to access health informa tion online Indication:Osteopenia Start:17-Nov-2016 Instruction Type:Patient Education How to access health informa tion online - Detail Indication:Osteopenia Start:17-Nov-2016 Instruction Type:Patient Education Patient Instructions Indication:Osteopenia Start:17-Nov-2016 Instruction Type:Provider Instructions for Treatment How to access health informa tion online Indication: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,adult Start:21-Jul-2016 Instruction Type:Patient Education How to access health informa tion online - Detail Indication: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,adult Start:21-Jul-2016 Instruction Type:Patient Education Patient Instructions Indication: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,adult Start:21-Jul-2016 Instruction Type:Provider Instructions for Treatment How to access health informa tion online Indication:Dysuria Start:11-Oct-2015 Instruction Type:Patient Education How to access health informa tion online - Detail Indication:Dysuria Start:11-Oct-2015 Instruction Type:Patient Education Patient Instructions Indication:Dysuria Start:11-Oct-2015 Instruction Type:Provider Instructions for Treatment How to access health informa tion online Indication:Osteopenia Start:20-Jun-2015 Instruction Type:Patient Education How to access health informa tion online - Detail Indication:Osteopenia Start:20-Jun-2015 Instruction Type:Patient Education Patient Instructions Indication:Osteopenia Start:20-Jun-2015 Instruction Type:Provider Instructions for Treatment Patient Instructions Indication:Osteopenia Start:12-Jun-2014 Instruction Type:Provider Instructions for Treatment Patient Instructions Indication:Osteopenia Start:20-Jun-2013 Instruction Type:Provider Instructions for Treatment Patient Instructions Indication:Allergic rhinitis Start:04-Apr-2013 Instruction Type:Provider Instructions for Treatment [facility]; [facility] Work Phone: Instructions* Name Dates Details Patient Instructions Indication:Nonsmoker Start:04-Sep-2021 Instruction Type:Provider Instructions for Treatment How to Access Health Informa tion Online using Patient Portal and [employer]rd [employer] Apps Indication:Nonsmoker Start:04-Sep-2021 Instruction Type:Patient Education Patient Instructions Indication:BMI 20.0-20.9, adult Start:15-Apr-2021 Instruction Type:Provider Instructions for Treatment How to Access Health Informa tion Online using Patient Portal and [employer] Apps Indication:BMI 20.0-20.9, adult Start:15-Apr-2021 Instruction Type:Patient Education Patient Instructions Indication:Nonsmoker Start:25-May-2020 Instruction Type:Provider Instructions for Treatment How to Access Health Informa tion Online using Patient Portal and [employer] Apps Indication:Nonsmoker Start:25-May-2020 Instruction Type:Patient Education Patient Instructions Indication:Nonsmoker Start:14-May-2020 Instruction Type:Provider Instructions for Treatment How to Access Health Informa tion Online using Patient Portal and [employer] Apps Indication:Nonsmoker Start:14-May-2020 Instruction Type:Patient Education Patient Instructions Indication:Nonsmoker Start:31-Jan-2020 Instruction Type:Provider Instructions for Treatment How to Access Health Informa tion Online using Patient Portal and [employer] Apps Indication:Nonsmoker Start:31-Jan-2020 Instruction Type:Patient Education How to access health informa tion online Indication:Nonsmoker Start:11-Jan-2020 Instruction Type:Patient Education How to access health informa tion online - Detail Indication:Nonsmoker Start:11-Jan-2020 Instruction Type:Patient Education Patient Instructions Indication:Nonsmoker Start:11-Jan-2020 Instruction Type:Provider Instructions for Treatment How to access health informa tion online Indication:Nonsmoker Start:09-Nov-2019 Instruction Type:Patient Education How to access health informa tion online - Detail Indication:Nonsmoker Start:09-Nov-2019 Instruction Type:Patient Education Patient Instructions Indication:Screening for deficiency anemia Start:09-Nov-2019 Instruction Type:Provider Instructions for Treatment How to access health informa tion online Indication:Nonsmoker Start:13-Dec-2018 Instruction Type:Patient Education How to access health informa tion online - Detail Indication:Nonsmoker Start:13-Dec-2018 Instruction Type:Patient Education Patient Instructions Indication:BMI 21.0-21.9, adult Start:13-Dec-2018 Instruction Type:Provider Instructions for Treatment How to access health informa tion online Indication:Nonsmoker Start:22-Nov-2018 Instruction Type:Patient Education How to access health informa tion online - Detail Indication:Nonsmoker Start:22-Nov-2018 Instruction Type:Patient Education Patient Instructions Indication:Palpitation Start:22-Nov-2018 Instruction Type:Provider Instructions for Treatment How to access health informa tion online Indication:Nonsmoker Start:04-Oct-2018 Instruction Type:Patient Education How to access health informa tion online - Detail Indication:Nonsmoker Start:04-Oct-2018 Instruction Type:Patient Education Patient Instructions Indication:BMI 21.0-21.9, adult Start:04-Oct-2018 Instruction Type:Provider Instructions for Treatment How to access health informa tion online Indication:Nonsmoker Start:06-Apr-2018 Instruction Type:Patient Education How to access health informa tion online - Detail Indication:Nonsmoker Start:06-Apr-2018 Instruction Type:Patient Education Patient Instructions Indication:Nonsmoker Start:06-Apr-2018 Instruction Type:Provider Instructions for Treatment How to access health informa tion online Indication:Nonsmoker Start:27-Oct-2017 Instruction Type:Patient Education How to access health informa tion online - Detail Indication:Nonsmoker Start:27-Oct-2017 Instruction Type:Patient Education Patient Instructions Indication:Nonsmoker Start:27-Oct-2017 Instruction Type:Provider Instructions for Treatment How to access health informa tion online Indication:Osteopenia Start:17-Nov-2016 Instruction Type:Patient Education How to access health informa tion online - Detail Indication:Osteopenia Start:17-Nov-2016 Instruction Type:Patient Education Patient Instructions Indication:Osteopenia Start:17-Nov-2016 Instruction Type:Provider Instructions for Treatment How to access health informa tion online Indication: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,adult Start:21-Jul-2016 Instruction Type:Patient Education How to access health informa tion online - Detail Indication: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,adult Start:21-Jul-2016 Instruction Type:Patient Education Patient Instructions Indication: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,adult Start:21-Jul-2016 Instruction Type:Provider Instructions for Treatment How to access health informa tion online Indication:Dysuria Start:11-Oct-2015 Instruction Type:Patient Education How to access health informa tion online - Detail Indication:Dysuria Start:11-Oct-2015 Instruction Type:Patient Education Patient Instructions Indication:Dysuria Start:11-Oct-2015 Instruction Type:Provider Instructions for Treatment How to access health informa tion online Indication:Osteopenia Start:20-Jun-2015 Instruction Type:Patient Education How to access health informa tion online - Detail Indication:Osteopenia Start:20-Jun-2015 Instruction Type:Patient Education Patient Instructions Indication:Osteopenia Start:20-Jun-2015 Instruction Type:Provider Instructions for Treatment Patient Instructions Indication:Osteopenia Start:12-Jun-2014 Instruction Type:Provider Instructions for Treatment Patient Instructions Indication:Osteopenia Start:20-Jun-2013 Instruction Type:Provider Instructions for Treatment Patient Instructions Indication:Allergic rhinitis Start:04-Apr-2013 Instruction Type:Provider Instructions for Treatment [facility]; [facility] Work Phone: Instructions* Name Dates Details Patient Instructions Indication:Nonsmoker Start:04-Sep-2021 Instruction Type:Provider Instructions for Treatment How to Access Health Informa tion Online using Patient Portal and [employer] Apps Indication:Nonsmoker Start:04-Sep-2021 Instruction Type:Patient Education Patient Instructions Indication:BMI 20.0-20.9, adult Start:15-Apr-2021 Instruction Type:Provider Instructions for Treatment How to Access Health Informa tion Online using Patient Portal and [employer] Apps Indication:BMI 20.0-20.9, adult Start:15-Apr-2021 Instruction Type:Patient Education Patient Instructions Indication:Nonsmoker Start:25-May-2020 Instruction Type:Provider Instructions for Treatment How to Access Health Informa tion Online using Patient Portal and [employer] Apps Indication:Nonsmoker Start:25-May-2020 Instruction Type:Patient Education Patient Instructions Indication:Nonsmoker Start:14-May-2020 Instruction Type:Provider Instructions for Treatment How to Access Health Informa tion Online using Patient Portal and [employer] Apps Indication:Nonsmoker Start:14-May-2020 Instruction Type:Patient Education Patient Instructions Indication:Nonsmoker Start:31-Jan-2020 Instruction Type:Provider Instructions for Treatment How to Access Health Informa tion Online using Patient Portal and [employer] Apps Indication:Nonsmoker Start:31-Jan-2020 Instruction Type:Patient Education How to access health informa tion online Indication:Nonsmoker Start:11-Jan-2020 Instruction Type:Patient Education How to access health informa tion online - Detail Indication:Nonsmoker Start:11-Jan-2020 Instruction Type:Patient Education Patient Instructions Indication:Nonsmoker Start:11-Jan-2020 Instruction Type:Provider Instructions for Treatment How to access health informa tion online Indication:Nonsmoker Start:09-Nov-2019 Instruction Type:Patient Education How to access health informa tion online - Detail Indication:Nonsmoker Start:09-Nov-2019 Instruction Type:Patient Education Patient Instructions Indication:Screening for deficiency anemia Start:09-Nov-2019 Instruction Type:Provider Instructions for Treatment How to access health informa tion online Indication:Nonsmoker Start:13-Dec-2018 Instruction Type:Patient Education How to access health informa tion online - Detail Indication:Nonsmoker Start:13-Dec-2018 Instruction Type:Patient Education Patient Instructions Indication:BMI 21.0-21.9, adult Start:13-Dec-2018 Instruction Type:Provider Instructions for Treatment How to access health informa tion online Indication:Nonsmoker Start:22-Nov-2018 Instruction Type:Patient Education How to access health informa tion online - Detail Indication:Nonsmoker Start:22-Nov-2018 Instruction Type:Patient Education Patient Instructions Indication:Palpitation Start:22-Nov-2018 Instruction Type:Provider Instructions for Treatment How to access health informa tion online Indication:Nonsmoker Start:04-Oct-2018 Instruction Type:Patient Education How to access health informa tion online - Detail Indication:Nonsmoker Start:04-Oct-2018 Instruction Type:Patient Education Patient Instructions Indication:BMI 21.0-21.9, adult Start:04-Oct-2018 Instruction Type:Provider Instructions for Treatment How to access health informa tion online Indication:Nonsmoker Start:06-Apr-2018 Instruction Type:Patient Education How to access health informa tion online - Detail Indication:Nonsmoker Start:06-Apr-2018 Instruction Type:Patient Education Patient Instructions Indication:Nonsmoker Start:06-Apr-2018 Instruction Type:Provider Instructions for Treatment How to access health informa tion online Indication:Nonsmoker Start:27-Oct-2017 Instruction Type:Patient Education How to access health informa tion online - Detail Indication:Nonsmoker Start:27-Oct-2017 Instruction Type:Patient Education Patient Instructions Indication:Nonsmoker Start:27-Oct-2017 Instruction Type:Provider Instructions for Treatment How to access health informa tion online Indication:Osteopenia Start:17-Nov-2016 Instruction Type:Patient Education How to access health informa tion online - Detail Indication:Osteopenia Start:17-Nov-2016 Instruction Type:Patient Education Patient Instructions Indication:Osteopenia Start:17-Nov-2016 Instruction Type:Provider Instructions for Treatment How to access health informa tion online Indication: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,adult Start:21-Jul-2016 Instruction Type:Patient Education How to access health informa tion online - Detail Indication: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,adult Start:21-Jul-2016 Instruction Type:Patient Education Patient Instructions Indication: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,adult Start:21-Jul-2016 Instruction Type:Provider Instructions for Treatment How to access health informa tion online Indication:Dysuria Start:11-Oct-2015 Instruction Type:Patient Education How to access health informa tion online - Detail Indication:Dysuria Start:11-Oct-2015 Instruction Type:Patient Education Patient Instructions Indication:Dysuria Start:11-Oct-2015 Instruction Type:Provider Instructions for Treatment How to access health informa tion online Indication:Osteopenia Start:20-Jun-2015 Instruction Type:Patient Education How to access health informa tion online - Detail Indication:Osteopenia Start:20-Jun-2015 Instruction Type:Patient Education Patient Instructions Indication:Osteopenia Start:20-Jun-2015 Instruction Type:Provider Instructions for Treatment Patient Instructions Indication:Osteopenia Start:12-Jun-2014 Instruction Type:Provider Instructions for Treatment Patient Instructions Indication:Osteopenia Start:20-Jun-2013 Instruction Type:Provider Instructions for Treatment Patient Instructions Indication:Allergic rhinitis Start:04-Apr-2013 Instruction Type:Provider Instructions for Treatment [facility]; [facility] Work Phone: Instructions* Name Dates Details Patient Instructions Indication:Nonsmoker Start:04-Sep-2021 Instruction Type:Provider Instructions for Treatment How to Access Health Informa tion Online using Patient Portal and [employer] Apps Indication:Nonsmoker Start:04-Sep-2021 Instruction Type:Patient Education Patient Instructions Indication:BMI 20.0-20.9, adult Start:15-Apr-2021 Instruction Type:Provider Instructions for Treatment How to Access Health Informa tion Online using Patient Portal and [employer] Apps Indication:BMI 20.0-20.9, adult Start:15-Apr-2021 Instruction Type:Patient Education Patient Instructions Indication:Nonsmoker Start:25-May-2020 Instruction Type:Provider Instructions for Treatment How to Access Health Informa tion Online using Patient Portal and [employer] Apps Indication:Nonsmoker Start:25-May-2020 Instruction Type:Patient Education Patient Instructions Indication:Nonsmoker Start:14-May-2020 Instruction Type:Provider Instructions for Treatment How to Access Health Informa tion Online using Patient Portal and [employer] Apps Indication:Nonsmoker Start:14-May-2020 Instruction Type:Patient Education Patient Instructions Indication:Nonsmoker Start:31-Jan-2020 Instruction Type:Provider Instructions for Treatment How to Access Health Informa tion Online using Patient Portal and [employer] Apps Indication:Nonsmoker Start:31-Jan-2020 Instruction Type:Patient Education How to access health informa tion online Indication:Nonsmoker Start:11-Jan-2020 Instruction Type:Patient Education How to access health informa tion online - Detail Indication:Nonsmoker Start:11-Jan-2020 Instruction Type:Patient Education Patient Instructions Indication:Nonsmoker Start:11-Jan-2020 Instruction Type:Provider Instructions for Treatment How to access health informa tion online Indication:Nonsmoker Start:09-Nov-2019 Instruction Type:Patient Education How to access health informa tion online - Detail Indication:Nonsmoker Start:09-Nov-2019 Instruction Type:Patient Education Patient Instructions Indication:Screening for deficiency anemia Start:09-Nov-2019 Instruction Type:Provider Instructions for Treatment How to access health informa tion online Indication:Nonsmoker Start:13-Dec-2018 Instruction Type:Patient Education How to access health informa tion online - Detail Indication:Nonsmoker Start:13-Dec-2018 Instruction Type:Patient Education Patient Instructions Indication:BMI 21.0-21.9, adult Start:13-Dec-2018 Instruction Type:Provider Instructions for Treatment How to access health informa tion online Indication:Nonsmoker Start:22-Nov-2018 Instruction Type:Patient Education How to access health informa tion online - Detail Indication:Nonsmoker Start:22-Nov-2018 Instruction Type:Patient Education Patient Instructions Indication:Palpitation Start:22-Nov-2018 Instruction Type:Provider Instructions for Treatment How to access health informa tion online Indication:Nonsmoker Start:04-Oct-2018 Instruction Type:Patient Education How to access health informa tion online - Detail Indication:Nonsmoker Start:04-Oct-2018 Instruction Type:Patient Education Patient Instructions Indication:BMI 21.0-21.9, adult Start:04-Oct-2018 Instruction Type:Provider Instructions for Treatment How to access health informa tion online Indication:Nonsmoker Start:06-Apr-2018 Instruction Type:Patient Education How to access health informa tion online - Detail Indication:Nonsmoker Start:06-Apr-2018 Instruction Type:Patient Education Patient Instructions Indication:Nonsmoker Start:06-Apr-2018 Instruction Type:Provider Instructions for Treatment How to access health informa tion online Indication:Nonsmoker Start:27-Oct-2017 Instruction Type:Patient Education How to access health informa tion online - Detail Indication:Nonsmoker Start:27-Oct-2017 Instruction Type:Patient Education Patient Instructions Indication:Nonsmoker Start:27-Oct-2017 Instruction Type:Provider Instructions for Treatment How to access health informa tion online Indication:Osteopenia Start:17-Nov-2016 Instruction Type:Patient Education How to access health informa tion online - Detail Indication:Osteopenia Start:17-Nov-2016 Instruction Type:Patient Education Patient Instructions Indication:Osteopenia Start:17-Nov-2016 Instruction Type:Provider Instructions for Treatment How to access health informa tion online Indication: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,adult Start:21-Jul-2016 Instruction Type:Patient Education How to access health informa tion online - Detail Indication: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,adult Start:21-Jul-2016 Instruction Type:Patient Education Patient Instructions Indication: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,adult Start:21-Jul-2016 Instruction Type:Provider Instructions for Treatment How to access health informa tion online Indication:Dysuria Start:11-Oct-2015 Instruction Type:Patient Education How to access health informa tion online - Detail Indication:Dysuria Start:11-Oct-2015 Instruction Type:Patient Education Patient Instructions Indication:Dysuria Start:11-Oct-2015 Instruction Type:Provider Instructions for Treatment How to access health informa tion online Indication:Osteopenia Start:20-Jun-2015 Instruction Type:Patient Education How to access health informa tion online - Detail Indication:Osteopenia Start:20-Jun-2015 Instruction Type:Patient Education Patient Instructions Indication:Osteopenia Start:20-Jun-2015 Instruction Type:Provider Instructions for Treatment Patient Instructions Indication:Osteopenia Start:12-Jun-2014 Instruction Type:Provider Instructions for Treatment Patient Instructions Indication:Osteopenia Start:20-Jun-2013 Instruction Type:Provider Instructions for Treatment Patient Instructions Indication:Allergic rhinitis Start:04-Apr-2013 Instruction Type:Provider Instructions for Treatment [facility]; [facility] Work Phone: Instructions* Name Dates Details Patient Instructions Indication:Nonsmoker Start:04-Sep-2021 Instruction Type:Provider Instructions for Treatment How to Access Health Informa tion Online using Patient Portal and [employer] Apps Indication:Nonsmoker Start:04-Sep-2021 Instruction Type:Patient Education Patient Instructions Indication:BMI 20.0-20.9, adult Start:15-Apr-2021 Instruction Type:Provider Instructions for Treatment How to Access Health Informa tion Online using Patient Portal and [employer] Apps Indication:BMI 20.0-20.9, adult Start:15-Apr-2021 Instruction Type:Patient Education Patient Instructions Indication:Nonsmoker Start:25-May-2020 Instruction Type:Provider Instructions for Treatment How to Access Health Informa tion Online using Patient Portal and [employer] Indication:Nonsmoker Start:25-May-2020 Instruction Type:Patient Education Patient Instructions Indication:Nonsmoker Start:14-May-2020 Instruction Type:Provider Instructions for Treatment How to Access Health Informa tion Online using Patient Portal and [employer] Apps Indication:Nonsmoker Start:14-May-2020 Instruction Type:Patient Education Patient Instructions Indication:Nonsmoker Start:31-Jan-2020 Instruction Type:Provider Instructions for Treatment How to Access Health Informa tion Online using Patient Portal and [employer] Apps Indication:Nonsmoker Start:31-Jan-2020 Instruction Type:Patient Education How to access health informa tion online Indication:Nonsmoker Start:11-Jan-2020 Instruction Type:Patient Education How to access health informa tion online - Detail Indication:Nonsmoker Start:11-Jan-2020 Instruction Type:Patient Education Patient Instructions Indication:Nonsmoker Start:11-Jan-2020 Instruction Type:Provider Instructions for Treatment How to access health informa tion online Indication:Nonsmoker Start:09-Nov-2019 Instruction Type:Patient Education How to access health informa tion online - Detail Indication:Nonsmoker Start:09-Nov-2019 Instruction Type:Patient Education Patient Instructions Indication:Screening for deficiency anemia Start:09-Nov-2019 Instruction Type:Provider Instructions for Treatment How to access health informa tion online Indication:Nonsmoker Start:13-Dec-2018 Instruction Type:Patient Education How to access health informa tion online - Detail Indication:Nonsmoker Start:13-Dec-2018 Instruction Type:Patient Education Patient Instructions Indication:BMI 21.0-21.9, adult Start:13-Dec-2018 Instruction Type:Provider Instructions for Treatment How to access health informa tion online Indication:Nonsmoker Start:22-Nov-2018 Instruction Type:Patient Education How to access health informa tion online - Detail Indication:Nonsmoker Start:22-Nov-2018 Instruction Type:Patient Education Patient Instructions Indication:Palpitation Start:22-Nov-2018 Instruction Type:Provider Instructions for Treatment How to access health informa tion online Indication:Nonsmoker Start:04-Oct-2018 Instruction Type:Patient Education How to access health informa tion online - Detail Indication:Nonsmoker Start:04-Oct-2018 Instruction Type:Patient Education Patient Instructions Indication:BMI 21.0-21.9, adult Start:04-Oct-2018 Instruction Type:Provider Instructions for Treatment How to access health informa tion online Indication:Nonsmoker Start:06-Apr-2018 Instruction Type:Patient Education How to access health informa tion online - Detail Indication:Nonsmoker Start:06-Apr-2018 Instruction Type:Patient Education Patient Instructions Indication:Nonsmoker Start:06-Apr-2018 Instruction Type:Provider Instructions for Treatment How to access health informa tion online Indication:Nonsmoker Start:27-Oct-2017 Instruction Type:Patient Education How to access health informa tion online - Detail Indication:Nonsmoker Start:27-Oct-2017 Instruction Type:Patient Education Patient Instructions Indication:Nonsmoker Start:27-Oct-2017 Instruction Type:Provider Instructions for Treatment How to access health informa tion online Indication:Osteopenia Start:17-Nov-2016 Instruction Type:Patient Education How to access health informa tion online - Detail Indication:Osteopenia Start:17-Nov-2016 Instruction Type:Patient Education Patient Instructions Indication:Osteopenia Start:17-Nov-2016 Instruction Type:Provider Instructions for Treatment How to access health informa tion online Indication: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,adult Start:21-Jul-2016 Instruction Type:Patient Education How to access health informa tion online - Detail Indication: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,adult Start:21-Jul-2016 Instruction Type:Patient Education Patient Instructions Indication: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,adult Start:21-Jul-2016 Instruction Type:Provider Instructions for Treatment How to access health informa tion online Indication:Dysuria Start:11-Oct-2015 Instruction Type:Patient Education How to access health informa tion online - Detail Indication:Dysuria Start:11-Oct-2015 Instruction Type:Patient Education Patient Instructions Indication:Dysuria Start:11-Oct-2015 Instruction Type:Provider Instructions for Treatment How to access health informa tion online Indication:Osteopenia Start:20-Jun-2015 Instruction Type:Patient Education How to access health informa tion online - Detail Indication:Osteopenia Start:20-Jun-2015 Instruction Type:Patient Education Patient Instructions Indication:Osteopenia Start:20-Jun-2015 Instruction Type:Provider Instructions for Treatment Patient Instructions Indication:Osteopenia Start:12-Jun-2014 Instruction Type:Provider Instructions for Treatment Patient Instructions Indication:Osteopenia Start:20-Jun-2013 Instruction Type:Provider Instructions for Treatment Patient Instructions Indication:Allergic rhinitis Start:04-Apr-2013 Instruction Type:Provider Instructions for Treatment [facility]; [facility] Work Phone: Instructions* Name Dates Details Patient Instructions Indication:Nonsmoker Start:04-Sep-2021 Instruction Type:Provider Instructions for Treatment How to Access Health Informa tion Online using Patient Portal and [employer]rd [employer] Apps Indication:Nonsmoker Start:04-Sep-2021 Instruction Type:Patient Education Patient Instructions Indication:BMI 20.0-20.9, adult Start:15-Apr-2021 Instruction Type:Provider Instructions for Treatment How to Access Health Informa tion Online using Patient Portal and [employer]rd [employer] Apps Indication:BMI 20.0-20.9, adult Start:15-Apr-2021 Instruction Type:Patient Education Patient Instructions Indication:Nonsmoker Start:25-May-2020 Instruction Type:Provider Instructions for Treatment How to Access Health Informa tion Online using Patient Portal and [employer]rd [employer] Apps Indication:Nonsmoker Start:25-May-2020 Instruction Type:Patient Education Patient Instructions Indication:Nonsmoker Start:14-May-2020 Instruction Type:Provider Instructions for Treatment How to Access Health Informa tion Online using Patient Portal and [employer]rd [employer] Apps Indication:Nonsmoker Start:14-May-2020 Instruction Type:Patient Education Patient Instructions Indication:Nonsmoker Start:31-Jan-2020 Instruction Type:Provider Instructions for Treatment How to Access Health Informa tion Online using Patient Portal and [employer]rd [employer] Apps Indication:Nonsmoker Start:31-Jan-2020 Instruction Type:Patient Education How to access health informa tion online Indication:Nonsmoker Start:11-Jan-2020 Instruction Type:Patient Education How to access health informa tion online - Detail Indication:Nonsmoker Start:11-Jan-2020 Instruction Type:Patient Education Patient Instructions Indication:Nonsmoker Start:11-Jan-2020 Instruction Type:Provider Instructions for Treatment How to access health informa tion online Indication:Nonsmoker Start:09-Nov-2019 Instruction Type:Patient Education How to access health informa tion online - Detail Indication:Nonsmoker Start:09-Nov-2019 Instruction Type:Patient Education Patient Instructions Indication:Screening for deficiency anemia Start:09-Nov-2019 Instruction Type:Provider Instructions for Treatment How to access health informa tion online Indication:Nonsmoker Start:13-Dec-2018 Instruction Type:Patient Education How to access health informa tion online - Detail Indication:Nonsmoker Start:13-Dec-2018 Instruction Type:Patient Education Patient Instructions Indication:BMI 21.0-21.9, adult Start:13-Dec-2018 Instruction Type:Provider Instructions for Treatment How to access health informa tion online Indication:Nonsmoker Start:22-Nov-2018 Instruction Type:Patient Education How to access health informa tion online - Detail Indication:Nonsmoker Start:22-Nov-2018 Instruction Type:Patient Education Patient Instructions Indication:Palpitation Start:22-Nov-2018 Instruction Type:Provider Instructions for Treatment How to access health informa tion online Indication:Nonsmoker Start:04-Oct-2018 Instruction Type:Patient Education How to access health informa tion online - Detail Indication:Nonsmoker Start:04-Oct-2018 Instruction Type:Patient Education Patient Instructions Indication:BMI 21.0-21.9, adult Start:04-Oct-2018 Instruction Type:Provider Instructions for Treatment How to access health informa tion online Indication:Nonsmoker Start:06-Apr-2018 Instruction Type:Patient Education How to access health informa tion online - Detail Indication:Nonsmoker Start:06-Apr-2018 Instruction Type:Patient Education Patient Instructions Indication:Nonsmoker Start:06-Apr-2018 Instruction Type:Provider Instructions for Treatment How to access health informa tion online Indication:Nonsmoker Start:27-Oct-2017 Instruction Type:Patient Education How to access health informa tion online - Detail Indication:Nonsmoker Start:27-Oct-2017 Instruction Type:Patient Education Patient Instructions Indication:Nonsmoker Start:27-Oct-2017 Instruction Type:Provider Instructions for Treatment How to access health informa tion online Indication:Osteopenia Start:17-Nov-2016 Instruction Type:Patient Education How to access health informa tion online - Detail Indication:Osteopenia Start:17-Nov-2016 Instruction Type:Patient Education Patient Instructions Indication:Osteopenia Start:17-Nov-2016 Instruction Type:Provider Instructions for Treatment How to access health informa tion online Indication: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,adult Start:21-Jul-2016 Instruction Type:Patient Education How to access health informa tion online - Detail Indication: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,adult Start:21-Jul-2016 Instruction Type:Patient Education Patient Instructions Indication: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,adult Start:21-Jul-2016 Instruction Type:Provider Instructions for Treatment How to access health informa tion online Indication:Dysuria Start:11-Oct-2015 Instruction Type:Patient Education How to access health informa tion online - Detail Indication:Dysuria Start:11-Oct-2015 Instruction Type:Patient Education Patient Instructions Indication:Dysuria Start:11-Oct-2015 Instruction Type:Provider Instructions for Treatment How to access health informa tion online Indication:Osteopenia Start:20-Jun-2015 Instruction Type:Patient Education How to access health informa tion online - Detail Indication:Osteopenia Start:20-Jun-2015 Instruction Type:Patient Education Patient Instructions Indication:Osteopenia Start:20-Jun-2015 Instruction Type:Provider Instructions for Treatment Patient Instructions Indication:Osteopenia Start:12-Jun-2014 Instruction Type:Provider Instructions for Treatment Patient Instructions Indication:Osteopenia Start:20-Jun-2013 Instruction Type:Provider Instructions for Treatment Patient Instructions Indication:Allergic rhinitis Start:04-Apr-2013 Instruction Type:Provider Instructions for Treatment [facility]; [facility] Work Phone: Instructions* Name Dates Details Patient Instructions Indication:Hypercholesteremia Start:09-May-2022 Instruction Type:Provider Instructions for Treatment How to Access Health Informa tion Online using Patient Portal and [employer] Apps Indication:Hypercholesteremia Start:09-May-2022 Instruction Type:Patient Education Patient Instructions Indication:Nonsmoker Start:04-Sep-2021 Instruction Type:Provider Instructions for Treatment How to Access Health Informa tion Online using Patient Portal and [employer]rd [employer] Apps Indication:Nonsmoker Start:04-Sep-2021 Instruction Type:Patient Education Patient Instructions Indication:BMI 20.0-20.9, adult Start:15-Apr-2021 Instruction Type:Provider Instructions for Treatment How to Access Health Informa tion Online using Patient Portal and [employer]rd [employer] Apps Indication:BMI 20.0-20.9, adult Start:15-Apr-2021 Instruction Type:Patient Education Patient Instructions Indication:Nonsmoker Start:25-May-2020 Instruction Type:Provider Instructions for Treatment How to Access Health Informa tion Online using Patient Portal and [employer]rd [employer] Apps Indication:Nonsmoker Start:25-May-2020 Instruction Type:Patient Education Patient Instructions Indication:Nonsmoker Start:14-May-2020 Instruction Type:Provider Instructions for Treatment How to Access Health Informa tion Online using Patient Portal and [employer]rd [employer] Apps Indication:Nonsmoker Start:14-May-2020 Instruction Type:Patient Education Patient Instructions Indication:Nonsmoker Start:31-Jan-2020 Instruction Type:Provider Instructions for Treatment How to Access Health Informa tion Online using Patient Portal and [employer]rd [employer] Apps Indication:Nonsmoker Start:31-Jan-2020 Instruction Type:Patient Education How to access health informa tion online Indication:Nonsmoker Start:11-Jan-2020 Instruction Type:Patient Education How to access health informa tion online - Detail Indication:Nonsmoker Start:11-Jan-2020 Instruction Type:Patient Education Patient Instructions Indication:Nonsmoker Start:11-Jan-2020 Instruction Type:Provider Instructions for Treatment How to access health informa tion online Indication:Nonsmoker Start:09-Nov-2019 Instruction Type:Patient Education How to access health informa tion online - Detail Indication:Nonsmoker Start:09-Nov-2019 Instruction Type:Patient Education Patient Instructions Indication:Screening for deficiency anemia Start:09-Nov-2019 Instruction Type:Provider Instructions for Treatment How to access health informa tion online Indication:Nonsmoker Start:13-Dec-2018 Instruction Type:Patient Education How to access health informa tion online - Detail Indication:Nonsmoker Start:13-Dec-2018 Instruction Type:Patient Education Patient Instructions Indication:BMI 21.0-21.9, adult Start:13-Dec-2018 Instruction Type:Provider Instructions for Treatment How to access health informa tion online Indication:Nonsmoker Start:22-Nov-2018 Instruction Type:Patient Education How to access health informa tion online - Detail Indication:Nonsmoker Start:22-Nov-2018 Instruction Type:Patient Education Patient Instructions Indication:Palpitation Start:22-Nov-2018 Instruction Type:Provider Instructions for Treatment How to access health informa tion online Indication:Nonsmoker Start:04-Oct-2018 Instruction Type:Patient Education How to access health informa tion online - Detail Indication:Nonsmoker Start:04-Oct-2018 Instruction Type:Patient Education Patient Instructions Indication:BMI 21.0-21.9, adult Start:04-Oct-2018 Instruction Type:Provider Instructions for Treatment How to access health informa tion online Indication:Nonsmoker Start:06-Apr-2018 Instruction Type:Patient Education How to access health informa tion online - Detail Indication:Nonsmoker Start:06-Apr-2018 Instruction Type:Patient Education Patient Instructions Indication:Nonsmoker Start:06-Apr-2018 Instruction Type:Provider Instructions for Treatment How to access health informa tion online Indication:Nonsmoker Start:27-Oct-2017 Instruction Type:Patient Education How to access health informa tion online - Detail Indication:Nonsmoker Start:27-Oct-2017 Instruction Type:Patient Education Patient Instructions Indication:Nonsmoker Start:27-Oct-2017 Instruction Type:Provider Instructions for Treatment How to access health informa tion online Indication:Osteopenia Start:17-Nov-2016 Instruction Type:Patient Education How to access health informa tion online - Detail Indication:Osteopenia Start:17-Nov-2016 Instruction Type:Patient Education Patient Instructions Indication:Osteopenia Start:17-Nov-2016 Instruction Type:Provider Instructions for Treatment How to access health informa tion online Indication: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,adult Start:21-Jul-2016 Instruction Type:Patient Education How to access health informa tion online - Detail Indication: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,adult Start:21-Jul-2016 Instruction Type:Patient Education Patient Instructions Indication: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,adult Start:21-Jul-2016 Instruction Type:Provider Instructions for Treatment How to access health informa tion online Indication:Dysuria Start:11-Oct-2015 Instruction Type:Patient Education How to access health informa tion online - Detail Indication:Dysuria Start:11-Oct-2015 Instruction Type:Patient Education Patient Instructions Indication:Dysuria Start:11-Oct-2015 Instruction Type:Provider Instructions for Treatment How to access health informa tion online Indication:Osteopenia Start:20-Jun-2015 Instruction Type:Patient Education How to access health informa tion online - Detail Indication:Osteopenia Start:20-Jun-2015 Instruction Type:Patient Education Patient Instructions Indication:Osteopenia Start:20-Jun-2015 Instruction Type:Provider Instructions for Treatment Patient Instructions Indication:Osteopenia Start:12-Jun-2014 Instruction Type:Provider Instructions for Treatment Patient Instructions Indication:Osteopenia Start:20-Jun-2013 Instruction Type:Provider Instructions for Treatment Patient Instructions Indication:Allergic rhinitis Start:04-Apr-2013 Instruction Type:Provider Instructions for Treatment [facility]; [facility] Work Phone: Instructions* Name Dates Details Patient Instructions Indication:Hypercholesteremia Start:09-May-2022 Instruction Type:Provider Instructions for Treatment How to Access Health Informa tion Online using Patient Portal and [employer]rd [employer] Apps Indication:Hypercholesteremia Start:09-May-2022 Instruction Type:Patient Education Patient Instructions Indication:Nonsmoker Start:04-Sep-2021 Instruction Type:Provider Instructions for Treatment How to Access Health Informa tion Online using Patient Portal and [employer]rd [employer] Apps Indication:Nonsmoker Start:04-Sep-2021 Instruction Type:Patient Education Patient Instructions Indication:BMI 20.0-20.9, adult Start:15-Apr-2021 Instruction Type:Provider Instructions for Treatment How to Access Health Informa tion Online using Patient Portal and [employer]rd [employer] Apps Indication:BMI 20.0-20.9, adult Start:15-Apr-2021 Instruction Type:Patient Education Patient Instructions Indication:Nonsmoker Start:25-May-2020 Instruction Type:Provider Instructions for Treatment How to Access Health Informa tion Online using Patient Portal and [employer]rd [employer] Apps Indication:Nonsmoker Start:25-May-2020 Instruction Type:Patient Education Patient Instructions Indication:Nonsmoker Start:14-May-2020 Instruction Type:Provider Instructions for Treatment How to Access Health Informa tion Online using Patient Portal and [employer]rd [employer] Apps Indication:Nonsmoker Start:14-May-2020 Instruction Type:Patient Education Patient Instructions Indication:Nonsmoker Start:31-Jan-2020 Instruction Type:Provider Instructions for Treatment How to Access Health Informa tion Online using Patient Portal and [employer]rd [employer] Apps Indication:Nonsmoker Start:31-Jan-2020 Instruction Type:Patient Education How to access health informa tion online Indication:Nonsmoker Start:11-Jan-2020 Instruction Type:Patient Education How to access health informa tion online - Detail Indication:Nonsmoker Start:11-Jan-2020 Instruction Type:Patient Education Patient Instructions Indication:Nonsmoker Start:11-Jan-2020 Instruction Type:Provider Instructions for Treatment How to access health informa tion online Indication:Nonsmoker Start:09-Nov-2019 Instruction Type:Patient Education How to access health informa tion online - Detail Indication:Nonsmoker Start:09-Nov-2019 Instruction Type:Patient Education Patient Instructions Indication:Screening for deficiency anemia Start:09-Nov-2019 Instruction Type:Provider Instructions for Treatment How to access health informa tion online Indication:Nonsmoker Start:13-Dec-2018 Instruction Type:Patient Education How to access health informa tion online - Detail Indication:Nonsmoker Start:13-Dec-2018 Instruction Type:Patient Education Patient Instructions Indication:BMI 21.0-21.9, adult Start:13-Dec-2018 Instruction Type:Provider Instructions for Treatment How to access health informa tion online Indication:Nonsmoker Start:22-Nov-2018 Instruction Type:Patient Education How to access health informa tion online - Detail Indication:Nonsmoker Start:22-Nov-2018 Instruction Type:Patient Education Patient Instructions Indication:Palpitation Start:22-Nov-2018 Instruction Type:Provider Instructions for Treatment How to access health informa tion online Indication:Nonsmoker Start:04-Oct-2018 Instruction Type:Patient Education How to access health informa tion online - Detail Indication:Nonsmoker Start:04-Oct-2018 Instruction Type:Patient Education Patient Instructions Indication:BMI 21.0-21.9, adult Start:04-Oct-2018 Instruction Type:Provider Instructions for Treatment How to access health informa tion online Indication:Nonsmoker Start:06-Apr-2018 Instruction Type:Patient Education How to access health informa tion online - Detail Indication:Nonsmoker Start:06-Apr-2018 Instruction Type:Patient Education Patient Instructions Indication:Nonsmoker Start:06-Apr-2018 Instruction Type:Provider Instructions for Treatment How to access health informa tion online Indication:Nonsmoker Start:27-Oct-2017 Instruction Type:Patient Education How to access health informa tion online - Detail Indication:Nonsmoker Start:27-Oct-2017 Instruction Type:Patient Education Patient Instructions Indication:Nonsmoker Start:27-Oct-2017 Instruction Type:Provider Instructions for Treatment How to access health informa tion online Indication:Osteopenia Start:17-Nov-2016 Instruction Type:Patient Education How to access health informa tion online - Detail Indication:Osteopenia Start:17-Nov-2016 Instruction Type:Patient Education Patient Instructions Indication:Osteopenia Start:17-Nov-2016 Instruction Type:Provider Instructions for Treatment How to access health informa tion online Indication: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,adult Start:21-Jul-2016 Instruction Type:Patient Education How to access health informa tion online - Detail Indication: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,adult Start:21-Jul-2016 Instruction Type:Patient Education Patient Instructions Indication: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,adult Start:21-Jul-2016 Instruction Type:Provider Instructions for Treatment How to access health informa tion online Indication:Dysuria Start:11-Oct-2015 Instruction Type:Patient Education How to access health informa tion online - Detail Indication:Dysuria Start:11-Oct-2015 Instruction Type:Patient Education Patient Instructions Indication:Dysuria Start:11-Oct-2015 Instruction Type:Provider Instructions for Treatment How to access health informa tion online Indication:Osteopenia Start:20-Jun-2015 Instruction Type:Patient Education How to access health informa tion online - Detail Indication:Osteopenia Start:20-Jun-2015 Instruction Type:Patient Education Patient Instructions Indication:Osteopenia Start:20-Jun-2015 Instruction Type:Provider Instructions for Treatment Patient Instructions Indication:Osteopenia Start:12-Jun-2014 Instruction Type:Provider Instructions for Treatment Patient Instructions Indication:Osteopenia Start:20-Jun-2013 Instruction Type:Provider Instructions for Treatment Patient Instructions Indication:Allergic rhinitis Start:04-Apr-2013 Instruction Type:Provider Instructions for Treatment [facility]; [facility] Work Phone: Instructions* Name Dates Details Patient Instructions Indication:BMI 21.0-21.9, adult Start:11-Jun-2022 Instruction Type:Provider Instructions for Treatment How to Access Health Informa tion Online using Patient Portal and [employer]rd [employer] Apps Indication:BMI 21.0-21.9, adult Start:11-Jun-2022 Instruction Type:Patient Education Patient Instructions Indication:Hypercholesteremia Start:09-May-2022 Instruction Type:Provider Instructions for Treatment How to Access Health Informa tion Online using Patient Portal and [employer]rd [employer] Apps Indication:Hypercholesteremia Start:09-May-2022 Instruction Type:Patient Education Patient Instructions Indication:Nonsmoker Start:04-Sep-2021 Instruction Type:Provider Instructions for Treatment How to Access Health Informa tion Online using Patient Portal and [employer]rd [employer] Apps Indication:Nonsmoker Start:04-Sep-2021 Instruction Type:Patient Education Patient Instructions Indication:BMI 20.0-20.9, adult Start:15-Apr-2021 Instruction Type:Provider Instructions for Treatment How to Access Health Informa tion Online using Patient Portal and [employer]rd [employer] Apps Indication:BMI 20.0-20.9, adult Start:15-Apr-2021 Instruction Type:Patient Education Patient Instructions Indication:Nonsmoker Start:25-May-2020 Instruction Type:Provider Instructions for Treatment How to Access Health Informa tion Online using Patient Portal and [employer]rd [employer] Apps Indication:Nonsmoker Start:25-May-2020 Instruction Type:Patient Education Patient Instructions Indication:Nonsmoker Start:14-May-2020 Instruction Type:Provider Instructions for Treatment How to Access Health Informa tion Online using Patient Portal and [employer] Apps Indication:Nonsmoker Start:14-May-2020 Instruction Type:Patient Education Patient Instructions Indication:Nonsmoker Start:31-Jan-2020 Instruction Type:Provider Instructions for Treatment How to Access Health Informa tion Online using Patient Portal and [employer]rd [employer] Apps Indication:Nonsmoker Start:31-Jan-2020 Instruction Type:Patient Education How to access health informa tion online Indication:Nonsmoker Start:11-Jan-2020 Instruction Type:Patient Education How to access health informa tion online - Detail Indication:Nonsmoker Start:11-Jan-2020 Instruction Type:Patient Education Patient Instructions Indication:Nonsmoker Start:11-Jan-2020 Instruction Type:Provider Instructions for Treatment How to access health informa tion online Indication:Nonsmoker Start:09-Nov-2019 Instruction Type:Patient Education How to access health informa tion online - Detail Indication:Nonsmoker Start:09-Nov-2019 Instruction Type:Patient Education Patient Instructions Indication:Screening for deficiency anemia Start:09-Nov-2019 Instruction Type:Provider Instructions for Treatment How to access health informa tion online Indication:Nonsmoker Start:13-Dec-2018 Instruction Type:Patient Education How to access health informa tion online - Detail Indication:Nonsmoker Start:13-Dec-2018 Instruction Type:Patient Education Patient Instructions Indication:BMI 21.0-21.9, adult Start:13-Dec-2018 Instruction Type:Provider Instructions for Treatment How to access health informa tion online Indication:Nonsmoker Start:22-Nov-2018 Instruction Type:Patient Education How to access health informa tion online - Detail Indication:Nonsmoker Start:22-Nov-2018 Instruction Type:Patient Education Patient Instructions Indication:Palpitation Start:22-Nov-2018 Instruction Type:Provider Instructions for Treatment How to access health informa tion online Indication:Nonsmoker Start:04-Oct-2018 Instruction Type:Patient Education How to access health informa tion online - Detail Indication:Nonsmoker Start:04-Oct-2018 Instruction Type:Patient Education Patient Instructions Indication:BMI 21.0-21.9, adult Start:04-Oct-2018 Instruction Type:Provider Instructions for Treatment How to access health informa tion online Indication:Nonsmoker Start:06-Apr-2018 Instruction Type:Patient Education How to access health informa tion online - Detail Indication:Nonsmoker Start:06-Apr-2018 Instruction Type:Patient Education Patient Instructions Indication:Nonsmoker Start:06-Apr-2018 Instruction Type:Provider Instructions for Treatment How to access health informa tion online Indication:Nonsmoker Start:27-Oct-2017 Instruction Type:Patient Education How to access health informa tion online - Detail Indication:Nonsmoker Start:27-Oct-2017 Instruction Type:Patient Education Patient Instructions Indication:Nonsmoker Start:27-Oct-2017 Instruction Type:Provider Instructions for Treatment How to access health informa tion online Indication:Osteopenia Start:17-Nov-2016 Instruction Type:Patient Education How to access health informa tion online - Detail Indication:Osteopenia Start:17-Nov-2016 Instruction Type:Patient Education Patient Instructions Indication:Osteopenia Start:17-Nov-2016 Instruction Type:Provider Instructions for Treatment How to access health informa tion online Indication: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,adult Start:21-Jul-2016 Instruction Type:Patient Education How to access health informa tion online - Detail Indication: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,adult Start:21-Jul-2016 Instruction Type:Patient Education Patient Instructions Indication: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,adult Start:21-Jul-2016 Instruction Type:Provider Instructions for Treatment How to access health informa tion online Indication:Dysuria Start:11-Oct-2015 Instruction Type:Patient Education How to access health informa tion online - Detail Indication:Dysuria Start:11-Oct-2015 Instruction Type:Patient Education Patient Instructions Indication:Dysuria Start:11-Oct-2015 Instruction Type:Provider Instructions for Treatment How to access health informa tion online Indication:Osteopenia Start:20-Jun-2015 Instruction Type:Patient Education How to access health informa tion online - Detail Indication:Osteopenia Start:20-Jun-2015 Instruction Type:Patient Education Patient Instructions Indication:Osteopenia Start:20-Jun-2015 Instruction Type:Provider Instructions for Treatment Patient Instructions Indication:Osteopenia Start:12-Jun-2014 Instruction Type:Provider Instructions for Treatment Patient Instructions Indication:Osteopenia Start:20-Jun-2013 Instruction Type:Provider Instructions for Treatment Patient Instructions Indication:Allergic rhinitis Start:04-Apr-2013 Instruction Type:Provider Instructions for Treatment [facility]; [facility] Work Phone: Instructions* Name Dates Details Patient Instructions Indication:BMI 21.0-21.9, adult Start:11-Jun-2022 Instruction Type:Provider Instructions for Treatment How to Access Health Informa tion Online using Patient Portal and [employer] Indication:BMI 21.0-21.9, adult Start:11-Jun-2022 Instruction Type:Patient Education Patient Instructions Indication:Hypercholesteremia Start:09-May-2022 Instruction Type:Provider Instructions for Treatment How to Access Health Informa tion Online using Patient Portal and [employer] Apps Indication:Hypercholesteremia Start:09-May-2022 Instruction Type:Patient Education Patient Instructions Indication:Nonsmoker Start:04-Sep-2021 Instruction Type:Provider Instructions for Treatment How to Access Health Informa tion Online using Patient Portal and [employer] Indication:Nonsmoker Start:04-Sep-2021 Instruction Type:Patient Education Patient Instructions Indication:BMI 20.0-20.9, adult Start:15-Apr-2021 Instruction Type:Provider Instructions for Treatment How to Access Health Informa tion Online using Patient Portal and [employer] Apps Indication:BMI 20.0-20.9, adult Start:15-Apr-2021 Instruction Type:Patient Education Patient Instructions Indication:Nonsmoker Start:25-May-2020 Instruction Type:Provider Instructions for Treatment How to Access Health Informa tion Online using Patient Portal and [employer] Indication:Nonsmoker Start:25-May-2020 Instruction Type:Patient Education Patient Instructions Indication:Nonsmoker Start:14-May-2020 Instruction Type:Provider Instructions for Treatment How to Access Health Informa tion Online using Patient Portal and [employer] Apps Indication:Nonsmoker Start:14-May-2020 Instruction Type:Patient Education Patient Instructions Indication:Nonsmoker Start:31-Jan-2020 Instruction Type:Provider Instructions for Treatment How to Access Health Informa tion Online using Patient Portal and [employer] Apps Indication:Nonsmoker Start:31-Jan-2020 Instruction Type:Patient Education How to access health informa tion online Indication:Nonsmoker Start:11-Jan-2020 Instruction Type:Patient Education How to access health informa tion online - Detail Indication:Nonsmoker Start:11-Jan-2020 Instruction Type:Patient Education Patient Instructions Indication:Nonsmoker Start:11-Jan-2020 Instruction Type:Provider Instructions for Treatment How to access health informa tion online Indication:Nonsmoker Start:09-Nov-2019 Instruction Type:Patient Education How to access health informa tion online - Detail Indication:Nonsmoker Start:09-Nov-2019 Instruction Type:Patient Education Patient Instructions Indication:Screening for deficiency anemia Start:09-Nov-2019 Instruction Type:Provider Instructions for Treatment How to access health informa tion online Indication:Nonsmoker Start:13-Dec-2018 Instruction Type:Patient Education How to access health informa tion online - Detail Indication:Nonsmoker Start:13-Dec-2018 Instruction Type:Patient Education Patient Instructions Indication:BMI 21.0-21.9, adult Start:13-Dec-2018 Instruction Type:Provider Instructions for Treatment How to access health informa tion online Indication:Nonsmoker Start:22-Nov-2018 Instruction Type:Patient Education How to access health informa tion online - Detail Indication:Nonsmoker Start:22-Nov-2018 Instruction Type:Patient Education Patient Instructions Indication:Palpitation Start:22-Nov-2018 Instruction Type:Provider Instructions for Treatment How to access health informa tion online Indication:Nonsmoker Start:04-Oct-2018 Instruction Type:Patient Education How to access health informa tion online - Detail Indication:Nonsmoker Start:04-Oct-2018 Instruction Type:Patient Education Patient Instructions Indication:BMI 21.0-21.9, adult Start:04-Oct-2018 Instruction Type:Provider Instructions for Treatment How to access health informa tion online Indication:Nonsmoker Start:06-Apr-2018 Instruction Type:Patient Education How to access health informa tion online - Detail Indication:Nonsmoker Start:06-Apr-2018 Instruction Type:Patient Education Patient Instructions Indication:Nonsmoker Start:06-Apr-2018 Instruction Type:Provider Instructions for Treatment How to access health informa tion online Indication:Nonsmoker Start:27-Oct-2017 Instruction Type:Patient Education How to access health informa tion online - Detail Indication:Nonsmoker Start:27-Oct-2017 Instruction Type:Patient Education Patient Instructions Indication:Nonsmoker Start:27-Oct-2017 Instruction Type:Provider Instructions for Treatment How to access health informa tion online Indication:Osteopenia Start:17-Nov-2016 Instruction Type:Patient Education How to access health informa tion online - Detail Indication:Osteopenia Start:17-Nov-2016 Instruction Type:Patient Education Patient Instructions Indication:Osteopenia Start:17-Nov-2016 Instruction Type:Provider Instructions for Treatment How to access health informa tion online Indication: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,adult Start:21-Jul-2016 Instruction Type:Patient Education How to access health informa tion online - Detail Indication: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,adult Start:21-Jul-2016 Instruction Type:Patient Education Patient Instructions Indication: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,adult Start:21-Jul-2016 Instruction Type:Provider Instructions for Treatment How to access health informa tion online Indication:Dysuria Start:11-Oct-2015 Instruction Type:Patient Education How to access health informa tion online - Detail Indication:Dysuria Start:11-Oct-2015 Instruction Type:Patient Education Patient Instructions Indication:Dysuria Start:11-Oct-2015 Instruction Type:Provider Instructions for Treatment How to access health informa tion online Indication:Osteopenia Start:20-Jun-2015 Instruction Type:Patient Education How to access health informa tion online - Detail Indication:Osteopenia Start:20-Jun-2015 Instruction Type:Patient Education Patient Instructions Indication:Osteopenia Start:20-Jun-2015 Instruction Type:Provider Instructions for Treatment Patient Instructions Indication:Osteopenia Start:12-Jun-2014 Instruction Type:Provider Instructions for Treatment Patient Instructions Indication:Osteopenia Start:20-Jun-2013 Instruction Type:Provider Instructions for Treatment Patient Instructions Indication:Allergic rhinitis Start:04-Apr-2013 Instruction Type:Provider Instructions for Treatment [facility]; [facility] Work Phone: Instructions* Name Dates Details Patient Instructions Indication:BMI 21.0-21.9, adult Start:11-Jun-2022 Instruction Type:Provider Instructions for Treatment How to Access Health Informa tion Online using Patient Portal and [employer]rd [employer] Apps Indication:BMI 21.0-21.9, adult Start:11-Jun-2022 Instruction Type:Patient Education Patient Instructions Indication:Hypercholesteremia Start:09-May-2022 Instruction Type:Provider Instructions for Treatment How to Access Health Informa tion Online using Patient Portal and [employer] Apps Indication:Hypercholesteremia Start:09-May-2022 Instruction Type:Patient Education Patient Instructions Indication:Nonsmoker Start:04-Sep-2021 Instruction Type:Provider Instructions for Treatment How to Access Health Informa tion Online using Patient Portal and [employer] Apps Indication:Nonsmoker Start:04-Sep-2021 Instruction Type:Patient Education Patient Instructions Indication:BMI 20.0-20.9, adult Start:15-Apr-2021 Instruction Type:Provider Instructions for Treatment How to Access Health Informa tion Online using Patient Portal and [employer] Apps Indication:BMI 20.0-20.9, adult Start:15-Apr-2021 Instruction Type:Patient Education Patient Instructions Indication:Nonsmoker Start:25-May-2020 Instruction Type:Provider Instructions for Treatment How to Access Health Informa tion Online using Patient Portal and [employer] Apps Indication:Nonsmoker Start:25-May-2020 Instruction Type:Patient Education Patient Instructions Indication:Nonsmoker Start:14-May-2020 Instruction Type:Provider Instructions for Treatment How to Access Health Informa tion Online using Patient Portal and [employer] Apps Indication:Nonsmoker Start:14-May-2020 Instruction Type:Patient Education Patient Instructions Indication:Nonsmoker Start:31-Jan-2020 Instruction Type:Provider Instructions for Treatment How to Access Health Informa tion Online using Patient Portal and [employer] Apps Indication:Nonsmoker Start:31-Jan-2020 Instruction Type:Patient Education How to access health informa tion online Indication:Nonsmoker Start:11-Jan-2020 Instruction Type:Patient Education How to access health informa tion online - Detail Indication:Nonsmoker Start:11-Jan-2020 Instruction Type:Patient Education Patient Instructions Indication:Nonsmoker Start:11-Jan-2020 Instruction Type:Provider Instructions for Treatment How to access health informa tion online Indication:Nonsmoker Start:09-Nov-2019 Instruction Type:Patient Education How to access health informa tion online - Detail Indication:Nonsmoker Start:09-Nov-2019 Instruction Type:Patient Education Patient Instructions Indication:Screening for deficiency anemia Start:09-Nov-2019 Instruction Type:Provider Instructions for Treatment How to access health informa tion online Indication:Nonsmoker Start:13-Dec-2018 Instruction Type:Patient Education How to access health informa tion online - Detail Indication:Nonsmoker Start:13-Dec-2018 Instruction Type:Patient Education Patient Instructions Indication:BMI 21.0-21.9, adult Start:13-Dec-2018 Instruction Type:Provider Instructions for Treatment How to access health informa tion online Indication:Nonsmoker Start:22-Nov-2018 Instruction Type:Patient Education How to access health informa tion online - Detail Indication:Nonsmoker Start:22-Nov-2018 Instruction Type:Patient Education Patient Instructions Indication:Palpitation Start:22-Nov-2018 Instruction Type:Provider Instructions for Treatment How to access health informa tion online Indication:Nonsmoker Start:04-Oct-2018 Instruction Type:Patient Education How to access health informa tion online - Detail Indication:Nonsmoker Start:04-Oct-2018 Instruction Type:Patient Education Patient Instructions Indication:BMI 21.0-21.9, adult Start:04-Oct-2018 Instruction Type:Provider Instructions for Treatment How to access health informa tion online Indication:Nonsmoker Start:06-Apr-2018 Instruction Type:Patient Education How to access health informa tion online - Detail Indication:Nonsmoker Start:06-Apr-2018 Instruction Type:Patient Education Patient Instructions Indication:Nonsmoker Start:06-Apr-2018 Instruction Type:Provider Instructions for Treatment How to access health informa tion online Indication:Nonsmoker Start:27-Oct-2017 Instruction Type:Patient Education How to access health informa tion online - Detail Indication:Nonsmoker Start:27-Oct-2017 Instruction Type:Patient Education Patient Instructions Indication:Nonsmoker Start:27-Oct-2017 Instruction Type:Provider Instructions for Treatment How to access health informa tion online Indication:Osteopenia Start:17-Nov-2016 Instruction Type:Patient Education How to access health informa tion online - Detail Indication:Osteopenia Start:17-Nov-2016 Instruction Type:Patient Education Patient Instructions Indication:Osteopenia Start:17-Nov-2016 Instruction Type:Provider Instructions for Treatment How to access health informa tion online Indication: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,adult Start:21-Jul-2016 Instruction Type:Patient Education How to access health informa tion online - Detail Indication: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,adult Start:21-Jul-2016 Instruction Type:Patient Education Patient Instructions Indication: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,adult Start:21-Jul-2016 Instruction Type:Provider Instructions for Treatment How to access health informa tion online Indication:Dysuria Start:11-Oct-2015 Instruction Type:Patient Education How to access health informa tion online - Detail Indication:Dysuria Start:11-Oct-2015 Instruction Type:Patient Education Patient Instructions Indication:Dysuria Start:11-Oct-2015 Instruction Type:Provider Instructions for Treatment How to access health informa tion online Indication:Osteopenia Start:20-Jun-2015 Instruction Type:Patient Education How to access health informa tion online - Detail Indication:Osteopenia Start:20-Jun-2015 Instruction Type:Patient Education Patient Instructions Indication:Osteopenia Start:20-Jun-2015 Instruction Type:Provider Instructions for Treatment Patient Instructions Indication:Osteopenia Start:12-Jun-2014 Instruction Type:Provider Instructions for Treatment Patient Instructions Indication:Osteopenia Start:20-Jun-2013 Instruction Type:Provider Instructions for Treatment Patient Instructions Indication:Allergic rhinitis Start:04-Apr-2013 Instruction Type:Provider Instructions for Treatment [facility]; [facility] Work Phone: Instructions* Name Dates Details Patient Instructions Indication:BMI 21.0-21.9, adult Start:11-Jun-2022 Instruction Type:Provider Instructions for Treatment How to Access Health Informa tion Online using Patient Portal and [employer] Apps Indication:BMI 21.0-21.9, adult Start:11-Jun-2022 Instruction Type:Patient Education Patient Instructions Indication:Hypercholesteremia Start:09-May-2022 Instruction Type:Provider Instructions for Treatment How to Access Health Informa tion Online using Patient Portal and [employer] Apps Indication:Hypercholesteremia Start:09-May-2022 Instruction Type:Patient Education Patient Instructions Indication:Nonsmoker Start:04-Sep-2021 Instruction Type:Provider Instructions for Treatment How to Access Health Informa tion Online using Patient Portal and [employer] Apps Indication:Nonsmoker Start:04-Sep-2021 Instruction Type:Patient Education Patient Instructions Indication:BMI 20.0-20.9, adult Start:15-Apr-2021 Instruction Type:Provider Instructions for Treatment How to Access Health Informa tion Online using Patient Portal and [employer] Apps Indication:BMI 20.0-20.9, adult Start:15-Apr-2021 Instruction Type:Patient Education Patient Instructions Indication:Nonsmoker Start:25-May-2020 Instruction Type:Provider Instructions for Treatment How to Access Health Informa tion Online using Patient Portal and [employer] Apps Indication:Nonsmoker Start:25-May-2020 Instruction Type:Patient Education Patient Instructions Indication:Nonsmoker Start:14-May-2020 Instruction Type:Provider Instructions for Treatment How to Access Health Informa tion Online using Patient Portal and [employer] Apps Indication:Nonsmoker Start:14-May-2020 Instruction Type:Patient Education Patient Instructions Indication:Nonsmoker Start:31-Jan-2020 Instruction Type:Provider Instructions for Treatment How to Access Health Informa tion Online using Patient Portal and [employer] Apps Indication:Nonsmoker Start:31-Jan-2020 Instruction Type:Patient Education How to access health informa tion online Indication:Nonsmoker Start:11-Jan-2020 Instruction Type:Patient Education How to access health informa tion online - Detail Indication:Nonsmoker Start:11-Jan-2020 Instruction Type:Patient Education Patient Instructions Indication:Nonsmoker Start:11-Jan-2020 Instruction Type:Provider Instructions for Treatment How to access health informa tion online Indication:Nonsmoker Start:09-Nov-2019 Instruction Type:Patient Education How to access health informa tion online - Detail Indication:Nonsmoker Start:09-Nov-2019 Instruction Type:Patient Education Patient Instructions Indication:Screening for deficiency anemia Start:09-Nov-2019 Instruction Type:Provider Instructions for Treatment How to access health informa tion online Indication:Nonsmoker Start:13-Dec-2018 Instruction Type:Patient Education How to access health informa tion online - Detail Indication:Nonsmoker Start:13-Dec-2018 Instruction Type:Patient Education Patient Instructions Indication:BMI 21.0-21.9, adult Start:13-Dec-2018 Instruction Type:Provider Instructions for Treatment How to access health informa tion online Indication:Nonsmoker Start:22-Nov-2018 Instruction Type:Patient Education How to access health informa tion online - Detail Indication:Nonsmoker Start:22-Nov-2018 Instruction Type:Patient Education Patient Instructions Indication:Palpitation Start:22-Nov-2018 Instruction Type:Provider Instructions for Treatment How to access health informa tion online Indication:Nonsmoker Start:04-Oct-2018 Instruction Type:Patient Education How to access health informa tion online - Detail Indication:Nonsmoker Start:04-Oct-2018 Instruction Type:Patient Education Patient Instructions Indication:BMI 21.0-21.9, adult Start:04-Oct-2018 Instruction Type:Provider Instructions for Treatment How to access health informa tion online Indication:Nonsmoker Start:06-Apr-2018 Instruction Type:Patient Education How to access health informa tion online - Detail Indication:Nonsmoker Start:06-Apr-2018 Instruction Type:Patient Education Patient Instructions Indication:Nonsmoker Start:06-Apr-2018 Instruction Type:Provider Instructions for Treatment How to access health informa tion online Indication:Nonsmoker Start:27-Oct-2017 Instruction Type:Patient Education How to access health informa tion online - Detail Indication:Nonsmoker Start:27-Oct-2017 Instruction Type:Patient Education Patient Instructions Indication:Nonsmoker Start:27-Oct-2017 Instruction Type:Provider Instructions for Treatment How to access health informa tion online Indication:Osteopenia Start:17-Nov-2016 Instruction Type:Patient Education How to access health informa tion online - Detail Indication:Osteopenia Start:17-Nov-2016 Instruction Type:Patient Education Patient Instructions Indication:Osteopenia Start:17-Nov-2016 Instruction Type:Provider Instructions for Treatment How to access health informa tion online Indication: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,adult Start:21-Jul-2016 Instruction Type:Patient Education How to access health informa tion online - Detail Indication: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,adult Start:21-Jul-2016 Instruction Type:Patient Education Patient Instructions Indication: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,adult Start:21-Jul-2016 Instruction Type:Provider Instructions for Treatment How to access health informa tion online Indication:Dysuria Start:11-Oct-2015 Instruction Type:Patient Education How to access health informa tion online - Detail Indication:Dysuria Start:11-Oct-2015 Instruction Type:Patient Education Patient Instructions Indication:Dysuria Start:11-Oct-2015 Instruction Type:Provider Instructions for Treatment How to access health informa tion online Indication:Osteopenia Start:20-Jun-2015 Instruction Type:Patient Education How to access health informa tion online - Detail Indication:Osteopenia Start:20-Jun-2015 Instruction Type:Patient Education Patient Instructions Indication:Osteopenia Start:20-Jun-2015 Instruction Type:Provider Instructions for Treatment Patient Instructions Indication:Osteopenia Start:12-Jun-2014 Instruction Type:Provider Instructions for Treatment Patient Instructions Indication:Osteopenia Start:20-Jun-2013 Instruction Type:Provider Instructions for Treatment Patient Instructions Indication:Allergic rhinitis Start:04-Apr-2013 Instruction Type:Provider Instructions for Treatment [facility]; [facility] Work Phone: Instructions* Name Dates Details Patient Instructions Indication:BMI 21.0-21.9, adult Start:11-Jun-2022 Instruction Type:Provider Instructions for Treatment How to Access Health Informa tion Online using Patient Portal and [employer] Indication:BMI 21.0-21.9, adult Start:11-Jun-2022 Instruction Type:Patient Education Patient Instructions Indication:Hypercholesteremia Start:09-May-2022 Instruction Type:Provider Instructions for Treatment How to Access Health Informa tion Online using Patient Portal and [employer] Indication:Hypercholesteremia Start:09-May-2022 Instruction Type:Patient Education Patient Instructions Indication:Nonsmoker Start:04-Sep-2021 Instruction Type:Provider Instructions for Treatment How to Access Health Informa tion Online using Patient Portal and [employer] Indication:Nonsmoker Start:04-Sep-2021 Instruction Type:Patient Education Patient Instructions Indication:BMI 20.0-20.9, adult Start:15-Apr-2021 Instruction Type:Provider Instructions for Treatment How to Access Health Informa tion Online using Patient Portal and [employer] Indication:BMI 20.0-20.9, adult Start:15-Apr-2021 Instruction Type:Patient Education Patient Instructions Indication:Nonsmoker Start:25-May-2020 Instruction Type:Provider Instructions for Treatment How to Access Health Informa tion Online using Patient Portal and [employer]rd [employer] Apps Indication:Nonsmoker Start:25-May-2020 Instruction Type:Patient Education Patient Instructions Indication:Nonsmoker Start:14-May-2020 Instruction Type:Provider Instructions for Treatment How to Access Health Informa tion Online using Patient Portal and [employer]rd [employer] Apps Indication:Nonsmoker Start:14-May-2020 Instruction Type:Patient Education Patient Instructions Indication:Nonsmoker Start:31-Jan-2020 Instruction Type:Provider Instructions for Treatment How to Access Health Informa tion Online using Patient Portal and [employer]rd [employer] Apps Indication:Nonsmoker Start:31-Jan-2020 Instruction Type:Patient Education How to access health informa tion online Indication:Nonsmoker Start:11-Jan-2020 Instruction Type:Patient Education How to access health informa tion online - Detail Indication:Nonsmoker Start:11-Jan-2020 Instruction Type:Patient Education Patient Instructions Indication:Nonsmoker Start:11-Jan-2020 Instruction Type:Provider Instructions for Treatment How to access health informa tion online Indication:Nonsmoker Start:09-Nov-2019 Instruction Type:Patient Education How to access health informa tion online - Detail Indication:Nonsmoker Start:09-Nov-2019 Instruction Type:Patient Education Patient Instructions Indication:Screening for deficiency anemia Start:09-Nov-2019 Instruction Type:Provider Instructions for Treatment How to access health informa tion online Indication:Nonsmoker Start:13-Dec-2018 Instruction Type:Patient Education How to access health informa tion online - Detail Indication:Nonsmoker Start:13-Dec-2018 Instruction Type:Patient Education Patient Instructions Indication:BMI 21.0-21.9, adult Start:13-Dec-2018 Instruction Type:Provider Instructions for Treatment How to access health informa tion online Indication:Nonsmoker Start:22-Nov-2018 Instruction Type:Patient Education How to access health informa tion online - Detail Indication:Nonsmoker Start:22-Nov-2018 Instruction Type:Patient Education Patient Instructions Indication:Palpitation Start:22-Nov-2018 Instruction Type:Provider Instructions for Treatment How to access health informa tion online Indication:Nonsmoker Start:04-Oct-2018 Instruction Type:Patient Education How to access health informa tion online - Detail Indication:Nonsmoker Start:04-Oct-2018 Instruction Type:Patient Education Patient Instructions Indication:BMI 21.0-21.9, adult Start:04-Oct-2018 Instruction Type:Provider Instructions for Treatment How to access health informa tion online Indication:Nonsmoker Start:06-Apr-2018 Instruction Type:Patient Education How to access health informa tion online - Detail Indication:Nonsmoker Start:06-Apr-2018 Instruction Type:Patient Education Patient Instructions Indication:Nonsmoker Start:06-Apr-2018 Instruction Type:Provider Instructions for Treatment How to access health informa tion online Indication:Nonsmoker Start:27-Oct-2017 Instruction Type:Patient Education How to access health informa tion online - Detail Indication:Nonsmoker Start:27-Oct-2017 Instruction Type:Patient Education Patient Instructions Indication:Nonsmoker Start:27-Oct-2017 Instruction Type:Provider Instructions for Treatment How to access health informa tion online Indication:Osteopenia Start:17-Nov-2016 Instruction Type:Patient Education How to access health informa tion online - Detail Indication:Osteopenia Start:17-Nov-2016 Instruction Type:Patient Education Patient Instructions Indication:Osteopenia Start:17-Nov-2016 Instruction Type:Provider Instructions for Treatment How to access health informa tion online Indication: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,adult Start:21-Jul-2016 Instruction Type:Patient Education How to access health informa tion online - Detail Indication: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,adult Start:21-Jul-2016 Instruction Type:Patient Education Patient Instructions Indication: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,adult Start:21-Jul-2016 Instruction Type:Provider Instructions for Treatment How to access health informa tion online Indication:Dysuria Start:11-Oct-2015 Instruction Type:Patient Education How to access health informa tion online - Detail Indication:Dysuria Start:11-Oct-2015 Instruction Type:Patient Education Patient Instructions Indication:Dysuria Start:11-Oct-2015 Instruction Type:Provider Instructions for Treatment How to access health informa tion online Indication:Osteopenia Start:20-Jun-2015 Instruction Type:Patient Education How to access health informa tion online - Detail Indication:Osteopenia Start:20-Jun-2015 Instruction Type:Patient Education Patient Instructions Indication:Osteopenia Start:20-Jun-2015 Instruction Type:Provider Instructions for Treatment Patient Instructions Indication:Osteopenia Start:12-Jun-2014 Instruction Type:Provider Instructions for Treatment Patient Instructions Indication:Osteopenia Start:20-Jun-2013 Instruction Type:Provider Instructions for Treatment Patient Instructions Indication:Allergic rhinitis Start:04-Apr-2013 Instruction Type:Provider Instructions for Treatment [facility]; [facility] Work Phone: Instructions* Name Dates Details Patient Instructions Indication:BMI 21.0-21.9, adult Start:11-Jun-2022 Instruction Type:Provider Instructions for Treatment How to Access Health Informa tion Online using Patient Portal and [employer]rd [employer] Apps Indication:BMI 21.0-21.9, adult Start:11-Jun-2022 Instruction Type:Patient Education Patient Instructions Indication:Hypercholesteremia Start:09-May-2022 Instruction Type:Provider Instructions for Treatment How to Access Health Informa tion Online using Patient Portal and [employer]rd [employer] Apps Indication:Hypercholesteremia Start:09-May-2022 Instruction Type:Patient Education Patient Instructions Indication:Nonsmoker Start:04-Sep-2021 Instruction Type:Provider Instructions for Treatment How to Access Health Informa tion Online using Patient Portal and [employer]rd [employer] Apps Indication:Nonsmoker Start:04-Sep-2021 Instruction Type:Patient Education Patient Instructions Indication:BMI 20.0-20.9, adult Start:15-Apr-2021 Instruction Type:Provider Instructions for Treatment How to Access Health Informa tion Online using Patient Portal and [employer]rd [employer] Apps Indication:BMI 20.0-20.9, adult Start:15-Apr-2021 Instruction Type:Patient Education Patient Instructions Indication:Nonsmoker Start:25-May-2020 Instruction Type:Provider Instructions for Treatment How to Access Health Informa tion Online using Patient Portal and [employer]rd [employer] Apps Indication:Nonsmoker Start:25-May-2020 Instruction Type:Patient Education Patient Instructions Indication:Nonsmoker Start:14-May-2020 Instruction Type:Provider Instructions for Treatment How to Access Health Informa tion Online using Patient Portal and [employer]rd [employer] Apps Indication:Nonsmoker Start:14-May-2020 Instruction Type:Patient Education Patient Instructions Indication:Nonsmoker Start:31-Jan-2020 Instruction Type:Provider Instructions for Treatment How to Access Health Informa tion Online using Patient Portal and [employer]rd [employer] Apps Indication:Nonsmoker Start:31-Jan-2020 Instruction Type:Patient Education How to access health informa tion online Indication:Nonsmoker Start:11-Jan-2020 Instruction Type:Patient Education How to access health informa tion online - Detail Indication:Nonsmoker Start:11-Jan-2020 Instruction Type:Patient Education Patient Instructions Indication:Nonsmoker Start:11-Jan-2020 Instruction Type:Provider Instructions for Treatment How to access health informa tion online Indication:Nonsmoker Start:09-Nov-2019 Instruction Type:Patient Education How to access health informa tion online - Detail Indication:Nonsmoker Start:09-Nov-2019 Instruction Type:Patient Education Patient Instructions Indication:Screening for deficiency anemia Start:09-Nov-2019 Instruction Type:Provider Instructions for Treatment How to access health informa tion online Indication:Nonsmoker Start:13-Dec-2018 Instruction Type:Patient Education How to access health informa tion online - Detail Indication:Nonsmoker Start:13-Dec-2018 Instruction Type:Patient Education Patient Instructions Indication:BMI 21.0-21.9, adult Start:13-Dec-2018 Instruction Type:Provider Instructions for Treatment How to access health informa tion online Indication:Nonsmoker Start:22-Nov-2018 Instruction Type:Patient Education How to access health informa tion online - Detail Indication:Nonsmoker Start:22-Nov-2018 Instruction Type:Patient Education Patient Instructions Indication:Palpitation Start:22-Nov-2018 Instruction Type:Provider Instructions for Treatment How to access health informa tion online Indication:Nonsmoker Start:04-Oct-2018 Instruction Type:Patient Education How to access health informa tion online - Detail Indication:Nonsmoker Start:04-Oct-2018 Instruction Type:Patient Education Patient Instructions Indication:BMI 21.0-21.9, adult Start:04-Oct-2018 Instruction Type:Provider Instructions for Treatment How to access health informa tion online Indication:Nonsmoker Start:06-Apr-2018 Instruction Type:Patient Education How to access health informa tion online - Detail Indication:Nonsmoker Start:06-Apr-2018 Instruction Type:Patient Education Patient Instructions Indication:Nonsmoker Start:06-Apr-2018 Instruction Type:Provider Instructions for Treatment How to access health informa tion online Indication:Nonsmoker Start:27-Oct-2017 Instruction Type:Patient Education How to access health informa tion online - Detail Indication:Nonsmoker Start:27-Oct-2017 Instruction Type:Patient Education Patient Instructions Indication:Nonsmoker Start:27-Oct-2017 Instruction Type:Provider Instructions for Treatment How to access health informa tion online Indication:Osteopenia Start:17-Nov-2016 Instruction Type:Patient Education How to access health informa tion online - Detail Indication:Osteopenia Start:17-Nov-2016 Instruction Type:Patient Education Patient Instructions Indication:Osteopenia Start:17-Nov-2016 Instruction Type:Provider Instructions for Treatment How to access health informa tion online Indication: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,adult Start:21-Jul-2016 Instruction Type:Patient Education How to access health informa tion online - Detail Indication: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,adult Start:21-Jul-2016 Instruction Type:Patient Education Patient Instructions Indication: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,adult Start:21-Jul-2016 Instruction Type:Provider Instructions for Treatment How to access health informa tion online Indication:Dysuria Start:11-Oct-2015 Instruction Type:Patient Education How to access health informa tion online - Detail Indication:Dysuria Start:11-Oct-2015 Instruction Type:Patient Education Patient Instructions Indication:Dysuria Start:11-Oct-2015 Instruction Type:Provider Instructions for Treatment How to access health informa tion online Indication:Osteopenia Start:20-Jun-2015 Instruction Type:Patient Education How to access health informa tion online - Detail Indication:Osteopenia Start:20-Jun-2015 Instruction Type:Patient Education Patient Instructions Indication:Osteopenia Start:20-Jun-2015 Instruction Type:Provider Instructions for Treatment Patient Instructions Indication:Osteopenia Start:12-Jun-2014 Instruction Type:Provider Instructions for Treatment Patient Instructions Indication:Osteopenia Start:20-Jun-2013 Instruction Type:Provider Instructions for Treatment Patient Instructions Indication:Allergic rhinitis Start:04-Apr-2013 Instruction Type:Provider Instructions for Treatment [facility]; [facility] Work Phone: Instructions* Name Dates Details Patient Instructions Indication:BMI 21.0-21.9, adult Start:11-Jun-2022 Instruction Type:Provider Instructions for Treatment How to Access Health Informa tion Online using Patient Portal and [employer]rd [employer] Apps Indication:BMI 21.0-21.9, adult Start:11-Jun-2022 Instruction Type:Patient Education Patient Instructions Indication:Hypercholesteremia Start:09-May-2022 Instruction Type:Provider Instructions for Treatment How to Access Health Informa tion Online using Patient Portal and [employer]rd [employer] Apps Indication:Hypercholesteremia Start:09-May-2022 Instruction Type:Patient Education Patient Instructions Indication:Nonsmoker Start:04-Sep-2021 Instruction Type:Provider Instructions for Treatment How to Access Health Informa tion Online using Patient Portal and [employer]rd [employer] Apps Indication:Nonsmoker Start:04-Sep-2021 Instruction Type:Patient Education Patient Instructions Indication:BMI 20.0-20.9, adult Start:15-Apr-2021 Instruction Type:Provider Instructions for Treatment How to Access Health Informa tion Online using Patient Portal and [employer]rd [employer] Apps Indication:BMI 20.0-20.9, adult Start:15-Apr-2021 Instruction Type:Patient Education Patient Instructions Indication:Nonsmoker Start:25-May-2020 Instruction Type:Provider Instructions for Treatment How to Access Health Informa tion Online using Patient Portal and [employer]rd [employer] Apps Indication:Nonsmoker Start:25-May-2020 Instruction Type:Patient Education Patient Instructions Indication:Nonsmoker Start:14-May-2020 Instruction Type:Provider Instructions for Treatment How to Access Health Informa tion Online using Patient Portal and [employer]rd [employer] Apps Indication:Nonsmoker Start:14-May-2020 Instruction Type:Patient Education Patient Instructions Indication:Nonsmoker Start:31-Jan-2020 Instruction Type:Provider Instructions for Treatment How to Access Health Informa tion Online using Patient Portal and [employer]rd [employer] Apps Indication:Nonsmoker Start:31-Jan-2020 Instruction Type:Patient Education How to access health informa tion online Indication:Nonsmoker Start:11-Jan-2020 Instruction Type:Patient Education How to access health informa tion online - Detail Indication:Nonsmoker Start:11-Jan-2020 Instruction Type:Patient Education Patient Instructions Indication:Nonsmoker Start:11-Jan-2020 Instruction Type:Provider Instructions for Treatment How to access health informa tion online Indication:Nonsmoker Start:09-Nov-2019 Instruction Type:Patient Education How to access health informa tion online - Detail Indication:Nonsmoker Start:09-Nov-2019 Instruction Type:Patient Education Patient Instructions Indication:Screening for deficiency anemia Start:09-Nov-2019 Instruction Type:Provider Instructions for Treatment How to access health informa tion online Indication:Nonsmoker Start:13-Dec-2018 Instruction Type:Patient Education How to access health informa tion online - Detail Indication:Nonsmoker Start:13-Dec-2018 Instruction Type:Patient Education Patient Instructions Indication:BMI 21.0-21.9, adult Start:13-Dec-2018 Instruction Type:Provider Instructions for Treatment How to access health informa tion online Indication:Nonsmoker Start:22-Nov-2018 Instruction Type:Patient Education How to access health informa tion online - Detail Indication:Nonsmoker Start:22-Nov-2018 Instruction Type:Patient Education Patient Instructions Indication:Palpitation Start:22-Nov-2018 Instruction Type:Provider Instructions for Treatment How to access health informa tion online Indication:Nonsmoker Start:04-Oct-2018 Instruction Type:Patient Education How to access health informa tion online - Detail Indication:Nonsmoker Start:04-Oct-2018 Instruction Type:Patient Education Patient Instructions Indication:BMI 21.0-21.9, adult Start:04-Oct-2018 Instruction Type:Provider Instructions for Treatment How to access health informa tion online Indication:Nonsmoker Start:06-Apr-2018 Instruction Type:Patient Education How to access health informa tion online - Detail Indication:Nonsmoker Start:06-Apr-2018 Instruction Type:Patient Education Patient Instructions Indication:Nonsmoker Start:06-Apr-2018 Instruction Type:Provider Instructions for Treatment How to access health informa tion online Indication:Nonsmoker Start:27-Oct-2017 Instruction Type:Patient Education How to access health informa tion online - Detail Indication:Nonsmoker Start:27-Oct-2017 Instruction Type:Patient Education Patient Instructions Indication:Nonsmoker Start:27-Oct-2017 Instruction Type:Provider Instructions for Treatment How to access health informa tion online Indication:Osteopenia Start:17-Nov-2016 Instruction Type:Patient Education How to access health informa tion online - Detail Indication:Osteopenia Start:17-Nov-2016 Instruction Type:Patient Education Patient Instructions Indication:Osteopenia Start:17-Nov-2016 Instruction Type:Provider Instructions for Treatment How to access health informa tion online Indication: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,adult Start:21-Jul-2016 Instruction Type:Patient Education How to access health informa tion online - Detail Indication: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,adult Start:21-Jul-2016 Instruction Type:Patient Education Patient Instructions Indication: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,adult Start:21-Jul-2016 Instruction Type:Provider Instructions for Treatment How to access health informa tion online Indication:Dysuria Start:11-Oct-2015 Instruction Type:Patient Education How to access health informa tion online - Detail Indication:Dysuria Start:11-Oct-2015 Instruction Type:Patient Education Patient Instructions Indication:Dysuria Start:11-Oct-2015 Instruction Type:Provider Instructions for Treatment How to access health informa tion online Indication:Osteopenia Start:20-Jun-2015 Instruction Type:Patient Education How to access health informa tion online - Detail Indication:Osteopenia Start:20-Jun-2015 Instruction Type:Patient Education Patient Instructions Indication:Osteopenia Start:20-Jun-2015 Instruction Type:Provider Instructions for Treatment Patient Instructions Indication:Osteopenia Start:12-Jun-2014 Instruction Type:Provider Instructions for Treatment Patient Instructions Indication:Osteopenia Start:20-Jun-2013 Instruction Type:Provider Instructions for Treatment Patient Instructions Indication:Allergic rhinitis Start:04-Apr-2013 Instruction Type:Provider Instructions for Treatment [facility]; [facility] Work Phone: Instructions* Name Dates Details Patient Instructions Indication:BMI 21.0-21.9, adult Start:11-Jun-2022 Instruction Type:Provider Instructions for Treatment How to Access Health Informa tion Online using Patient Portal and [employer]rd [employer] Apps Indication:BMI 21.0-21.9, adult Start:11-Jun-2022 Instruction Type:Patient Education Patient Instructions Indication:Hypercholesteremia Start:09-May-2022 Instruction Type:Provider Instructions for Treatment How to Access Health Informa tion Online using Patient Portal and [employer]rd [employer] Apps Indication:Hypercholesteremia Start:09-May-2022 Instruction Type:Patient Education Patient Instructions Indication:Nonsmoker Start:04-Sep-2021 Instruction Type:Provider Instructions for Treatment How to Access Health Informa tion Online using Patient Portal and [employer]rd [employer] Apps Indication:Nonsmoker Start:04-Sep-2021 Instruction Type:Patient Education Patient Instructions Indication:BMI 20.0-20.9, adult Start:15-Apr-2021 Instruction Type:Provider Instructions for Treatment How to Access Health Informa tion Online using Patient Portal and [employer]rd [employer] Apps Indication:BMI 20.0-20.9, adult Start:15-Apr-2021 Instruction Type:Patient Education Patient Instructions Indication:Nonsmoker Start:25-May-2020 Instruction Type:Provider Instructions for Treatment How to Access Health Informa tion Online using Patient Portal and [employer]rd [employer] Apps Indication:Nonsmoker Start:25-May-2020 Instruction Type:Patient Education Patient Instructions Indication:Nonsmoker Start:14-May-2020 Instruction Type:Provider Instructions for Treatment How to Access Health Informa tion Online using Patient Portal and [employer]rd [employer] Apps Indication:Nonsmoker Start:14-May-2020 Instruction Type:Patient Education Patient Instructions Indication:Nonsmoker Start:31-Jan-2020 Instruction Type:Provider Instructions for Treatment How to Access Health Informa tion Online using Patient Portal and [employer]rd [employer] Apps Indication:Nonsmoker Start:31-Jan-2020 Instruction Type:Patient Education How to access health informa tion online Indication:Nonsmoker Start:11-Jan-2020 Instruction Type:Patient Education How to access health informa tion online - Detail Indication:Nonsmoker Start:11-Jan-2020 Instruction Type:Patient Education Patient Instructions Indication:Nonsmoker Start:11-Jan-2020 Instruction Type:Provider Instructions for Treatment How to access health informa tion online Indication:Nonsmoker Start:09-Nov-2019 Instruction Type:Patient Education How to access health informa tion online - Detail Indication:Nonsmoker Start:09-Nov-2019 Instruction Type:Patient Education Patient Instructions Indication:Screening for deficiency anemia Start:09-Nov-2019 Instruction Type:Provider Instructions for Treatment How to access health informa tion online Indication:Nonsmoker Start:13-Dec-2018 Instruction Type:Patient Education How to access health informa tion online - Detail Indication:Nonsmoker Start:13-Dec-2018 Instruction Type:Patient Education Patient Instructions Indication:BMI 21.0-21.9, adult Start:13-Dec-2018 Instruction Type:Provider Instructions for Treatment How to access health informa tion online Indication:Nonsmoker Start:22-Nov-2018 Instruction Type:Patient Education How to access health informa tion online - Detail Indication:Nonsmoker Start:22-Nov-2018 Instruction Type:Patient Education Patient Instructions Indication:Palpitation Start:22-Nov-2018 Instruction Type:Provider Instructions for Treatment How to access health informa tion online Indication:Nonsmoker Start:04-Oct-2018 Instruction Type:Patient Education How to access health informa tion online - Detail Indication:Nonsmoker Start:04-Oct-2018 Instruction Type:Patient Education Patient Instructions Indication:BMI 21.0-21.9, adult Start:04-Oct-2018 Instruction Type:Provider Instructions for Treatment How to access health informa tion online Indication:Nonsmoker Start:06-Apr-2018 Instruction Type:Patient Education How to access health informa tion online - Detail Indication:Nonsmoker Start:06-Apr-2018 Instruction Type:Patient Education Patient Instructions Indication:Nonsmoker Start:06-Apr-2018 Instruction Type:Provider Instructions for Treatment How to access health informa tion online Indication:Nonsmoker Start:27-Oct-2017 Instruction Type:Patient Education How to access health informa tion online - Detail Indication:Nonsmoker Start:27-Oct-2017 Instruction Type:Patient Education Patient Instructions Indication:Nonsmoker Start:27-Oct-2017 Instruction Type:Provider Instructions for Treatment How to access health informa tion online Indication:Osteopenia Start:17-Nov-2016 Instruction Type:Patient Education How to access health informa tion online - Detail Indication:Osteopenia Start:17-Nov-2016 Instruction Type:Patient Education Patient Instructions Indication:Osteopenia Start:17-Nov-2016 Instruction Type:Provider Instructions for Treatment How to access health informa tion online Indication: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,adult Start:21-Jul-2016 Instruction Type:Patient Education How to access health informa tion online - Detail Indication: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,adult Start:21-Jul-2016 Instruction Type:Patient Education Patient Instructions Indication: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,adult Start:21-Jul-2016 Instruction Type:Provider Instructions for Treatment How to access health informa tion online Indication:Dysuria Start:11-Oct-2015 Instruction Type:Patient Education How to access health informa tion online - Detail Indication:Dysuria Start:11-Oct-2015 Instruction Type:Patient Education Patient Instructions Indication:Dysuria Start:11-Oct-2015 Instruction Type:Provider Instructions for Treatment How to access health informa tion online Indication:Osteopenia Start:20-Jun-2015 Instruction Type:Patient Education How to access health informa tion online - Detail Indication:Osteopenia Start:20-Jun-2015 Instruction Type:Patient Education Patient Instructions Indication:Osteopenia Start:20-Jun-2015 Instruction Type:Provider Instructions for Treatment Patient Instructions Indication:Osteopenia Start:12-Jun-2014 Instruction Type:Provider Instructions for Treatment Patient Instructions Indication:Osteopenia Start:20-Jun-2013 Instruction Type:Provider Instructions for Treatment Patient Instructions Indication:Allergic rhinitis Start:04-Apr-2013 Instruction Type:Provider Instructions for Treatment [facility] Work Phone: Instructions* Name Dates Details Patient Instructions Indication:BMI 21.0-21.9, adult Start:11-Jun-2022 Instruction Type:Provider Instructions for Treatment How to Access Health Informa tion Online using Patient Portal and 3rd [employer] Apps Indication:BMI 21.0-21.9, adult Start:11-Jun-2022 Instruction Type:Patient Education Patient Instructions Indication:Hypercholesteremia Start:09-May-2022 Instruction Type:Provider Instructions for Treatment How to Access Health Informa tion Online using Patient Portal and 3rd [employer] Apps Indication:Hypercholesteremia Start:09-May-2022 Instruction Type:Patient Education Patient Instructions Indication:Nonsmoker Start:04-Sep-2021 Instruction Type:Provider Instructions for Treatment How to Access Health Informa tion Online using Patient Portal and 3rd [employer] Apps Indication:Nonsmoker Start:04-Sep-2021 Instruction Type:Patient Education Patient Instructions Indication:BMI 20.0-20.9, adult Start:15-Apr-2021 Instruction Type:Provider Instructions for Treatment How to Access Health Informa tion Online using Patient Portal and 3rd [employer] Apps Indication:BMI 20.0-20.9, adult Start:15-Apr-2021 Instruction Type:Patient Education Patient Instructions Indication:Nonsmoker Start:25-May-2020 Instruction Type:Provider Instructions for Treatment How to Access Health Informa tion Online using Patient Portal and 3rd [employer] Apps Indication:Nonsmoker Start:25-May-2020 Instruction Type:Patient Education Patient Instructions Indication:Nonsmoker Start:14-May-2020 Instruction Type:Provider Instructions for Treatment How to Access Health Informa tion Online using Patient Portal and 3rd [employer] Apps Indication:Nonsmoker Start:14-May-2020 Instruction Type:Patient Education Patient Instructions Indication:Nonsmoker Start:31-Jan-2020 Instruction Type:Provider Instructions for Treatment How to Access Health Informa tion Online using Patient Portal and 3rd [employer] Apps Indication:Nonsmoker Start:31-Jan-2020 Instruction Type:Patient Education How to access health informa tion online Indication:Nonsmoker Start:11-Jan-2020 Instruction Type:Patient Education How to access health informa tion online - Detail Indication:Nonsmoker Start:11-Jan-2020 Instruction Type:Patient Education Patient Instructions Indication:Nonsmoker Start:11-Jan-2020 Instruction Type:Provider Instructions for Treatment How to access health informa tion online Indication:Nonsmoker Start:09-Nov-2019 Instruction Type:Patient Education How to access health informa tion online - Detail Indication:Nonsmoker Start:09-Nov-2019 Instruction Type:Patient Education Patient Instructions Indication:Screening for deficiency anemia Start:09-Nov-2019 Instruction Type:Provider Instructions for Treatment How to access health informa tion online Indication:Nonsmoker Start:13-Dec-2018 Instruction Type:Patient Education How to access health informa tion online - Detail Indication:Nonsmoker Start:13-Dec-2018 Instruction Type:Patient Education Patient Instructions Indication:BMI 21.0-21.9, adult Start:13-Dec-2018 Instruction Type:Provider Instructions for Treatment How to access health informa tion online Indication:Nonsmoker Start:22-Nov-2018 Instruction Type:Patient Education How to access health informa tion online - Detail Indication:Nonsmoker Start:22-Nov-2018 Instruction Type:Patient Education Patient Instructions Indication:Palpitation Start:22-Nov-2018 Instruction Type:Provider Instructions for Treatment How to access health informa tion online Indication:Nonsmoker Start:04-Oct-2018 Instruction Type:Patient Education How to access health informa tion online - Detail Indication:Nonsmoker Start:04-Oct-2018 Instruction Type:Patient Education Patient Instructions Indication:BMI 21.0-21.9, adult Start:04-Oct-2018 Instruction Type:Provider Instructions for Treatment How to access health informa tion online Indication:Nonsmoker Start:06-Apr-2018 Instruction Type:Patient Education How to access health informa tion online - Detail Indication:Nonsmoker Start:06-Apr-2018 Instruction Type:Patient Education Patient Instructions Indication:Nonsmoker Start:06-Apr-2018 Instruction Type:Provider Instructions for Treatment How to access health informa tion online Indication:Nonsmoker Start:27-Oct-2017 Instruction Type:Patient Education How to access health informa tion online - Detail Indication:Nonsmoker Start:27-Oct-2017 Instruction Type:Patient Education Patient Instructions Indication:Nonsmoker Start:27-Oct-2017 Instruction Type:Provider Instructions for Treatment How to access health informa tion online Indication:Osteopenia Start:17-Nov-2016 Instruction Type:Patient Education How to access health informa tion online - Detail Indication:Osteopenia Start:17-Nov-2016 Instruction Type:Patient Education Patient Instructions Indication:Osteopenia Start:17-Nov-2016 Instruction Type:Provider Instructions for Treatment How to access health informa tion online Indication: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,adult Start:21-Jul-2016 Instruction Type:Patient Education How to access health informa tion online - Detail Indication: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,adult Start:21-Jul-2016 Instruction Type:Patient Education Patient Instructions Indication: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,adult Start:21-Jul-2016 Instruction Type:Provider Instructions for Treatment How to access health informa tion online Indication:Dysuria Start:11-Oct-2015 Instruction Type:Patient Education How to access health informa tion online - Detail Indication:Dysuria Start:11-Oct-2015 Instruction Type:Patient Education Patient Instructions Indication:Dysuria Start:11-Oct-2015 Instruction Type:Provider Instructions for Treatment How to access health informa tion online Indication:Osteopenia Start:20-Jun-2015 Instruction Type:Patient Education How to access health informa tion online - Detail Indication:Osteopenia Start:20-Jun-2015 Instruction Type:Patient Education Patient Instructions Indication:Osteopenia Start:20-Jun-2015 Instruction Type:Provider Instructions for Treatment Patient Instructions Indication:Osteopenia Start:12-Jun-2014 Instruction Type:Provider Instructions for Treatment Patient Instructions Indication:Osteopenia Start:20-Jun-2013 Instruction Type:Provider Instructions for Treatment Patient Instructions Indication:Allergic rhinitis Start:04-Apr-2013 Instruction Type:Provider Instructions for Treatment [facility] Work Phone: reason for referral (narrative)* Diagnostic Procedure Only (Routine) - Pending Review Specialty Diagnoses / Procedures Referred By Rj t Referred To Contact [facility] Diagnoses Encounter for gynecological examination (general) (routine) without abnormal findings Encounter for screening mammogram for breast cancer Procedures RAMIN SCREENING W MARÍA ELENA SCREENING DIGITAL BREAST TOMOSYNTHESIS BI SCREENING MAMMOGRAPHY BI 2-VIEW BREAST INC Coral Martinez MD [address] [place] [address] [facility] [address] [place] [address] Referral ID Status Reason Start Date Expiration Date Visits Requested Visits Authorized [id number] Pending Review Auto-Generat ed Referral 05/31/2021 06/30/2022 1 1 T [facility] for referral (narrative)* Diagnostic Procedure Only (Routine) - Pending Review Specialty Diagnoses / Procedures Referred By Rj troy Referred To Contact [facility] Diagnoses Encounter for gynecological examination (general) (routine) without abnormal findings Encounter for screening mammogram for breast cancer Procedures RAMIN SCREENING W MARÍA ELENA SCREENING DIGITAL BREAST TOMOSYNTHESIS BI SCREENING MAMMOGRAPHY BI 2-VIEW BREAST INC Coral Martinez MD [address] [place] [address] [facility] [address] [place] [address] Referral ID Status Reason Start Date Expiration Date Visits Requested Visits Authorized [id number] Pending Review Auto-Generat ed Referral 06/05/2022 07/05/2023 1 1 T [facility] for referral (narrative)* Diagnostic Procedure Only (Routine) - Authorized Specialty Diagnoses / Procedures Referred By Rj troy Referred To Contact [facility] Diagnoses Encounter for screening mammogram for breast cancer Procedures RAMIN SCREENING W MARÍA ELENA SCREENING DIGITAL BREAST TOMOSYNTHESIS BI SCREENING MAMMOGRAPHY BI 2-VIEW BREAST INC Piper Johnson APRN.CNM [address] [place] [address] [facility] [address] [place] [address] Referral ID Status Reason Start Date Expiration Date Visits Requested Visits Authorized [id number] Authorized Auto-Generat ed Referral 06/08/2023 07/07/2024 1 1 [facility] for referral (narrative)* Diagnostic Procedure Only (Routine) - Pending Review Specialty Diagnoses / Procedures Referred By Rj troy Referred To Contact [facility] Diagnoses Abnormal mammogram Procedures US BREAST LTD LEFT US BREAST UNI REAL TIME WITH IMAGE LIMITED Coral Ware MD [address] [place] [address] [facility] [address] [place] [address] Referral ID Status Reason Start Date Expiration Date Visits Requested Visits Authorized [id number] Pending Review Auto-Generat ed Referral 06/08/2023 07/07/2024 1 1 * Diagnostic Procedure Only (Routine) - Pending Review Specialty Diagnoses / Procedures Referred By Rj troy Referred To Contact [facility] Diagnoses Abnormal mammogram Procedures RAMIN DIAGNOSTIC LEFT DIAGNOSTIC MAMMOGRAPHY COMPUTER-AIDED DETCJ UNI Coral Ware MD [address] [place] [address] [facility] [address] [place] [address] Referral ID Status Reason Start Date Expiration Date Visits Requested Visits Authorized [id number] Pending Review Auto-Generat ed Referral 06/08/2023 07/07/2024 1 1 [facility] for referral (narrative)* Diagnostic Procedure Only (Routine) - Closed Specialty Diagnoses / Procedures Referred By Rj troy Referred To Contact [facility] Diagnoses Encounter for gynecological examination (general) (routine) without abnormal findings Encounter for screening mammogram for breast cancer Procedures RAMIN SCREENING W MARÍA ELENA SCREENING DIGITAL BREAST TOMOSYNTHESIS BI SCREENING MAMMOGRAPHY BI 2-VIEW BREAST INC CAD Coral Ware MD [address] [place] [address] [facility] [address] [place] [address] Referral ID Status Reason Start Date Expiration Date V isits Requested Visits Authorized [id number] Closed Auto-Generate d Referral 06/05/2022 07/05/2023 1 1 [facility] for referral (narrative)* Diagnostic Procedure Only (Routine) - Closed Specialty Diagnoses / Procedures Referred By jR troy Referred To Contact [facility] Diagnoses Abnormal mammogram Procedures US BREAST LTD LEFT US BREAST UNI REAL TIME WITH IMAGE LIMITED Coral Ware MD [address] [place] [address] [facility] [address] [place] [address] Referral ID Status Reason Start Date Expiration Date V isits Requested Visits Authorized [id number] Closed Auto-Generate d Referral 06/08/2023 07/07/2024 1 1 [facility] for visit Narrative* Diagnostic Procedure Only (Routine) - Closed Specialty Diagnoses / Procedures Referred By Rj troy Referred To Contact [facility] Diagnoses Encounter for gynecological examination (general) (routine) without abnormal findings Encounter for screening mammogram for breast cancer Procedures RAMIN SCREENING W MARÍA ELENA SCREENING DIGITAL BREAST TOMOSYNTHESIS BI SCREENING MAMMOGRAPHY BI 2-VIEW BREAST INC CAD Coral Ware MD [address] [place] [address] [facility] [address] [place] [address] Referral ID Status Reason Start Date Expiration Date V isits Requested Visits Authorized [id number] Closed Auto-Generate d Referral 06/05/2022 07/05/2023 1 1 [facility] for visit Narrative* Diagnostic Procedure Only (Routine) - Closed Specialty Diagnoses / Procedures Referred By Rj troy Referred To Contact [facility] Diagnoses Abnormal mammogram Procedures US BREAST LTD LEFT US BREAST UNI REAL TIME WITH IMAGE LIMITED Coral Ware MD [address] [place] [address] [facility] [address] [place] [address] Referral ID Status Reason Start Date Expiration Date V isits Requested Visits Authorized [id number] Closed Auto-Generate d Referral 06/08/2023 07/07/2024 1 1 [facility] for visit Narrative* Diagnostic Procedure Only (Routine) - Closed Specialty Diagnoses / Procedures Referred By Contac t Referred To Contact [facility] Diagnoses Abnormal mammogram Procedures RAMIN DIAGNOSTIC LEFT DIAGNOSTIC MAMMOGRAPHY COMPUTER-AIDED DETCJ UNI Coral Ware MD [address] [place] [address] [facility] [address] [place] [address] Referral ID Status Reason Start Date Expiration Date V isits Requested Visits Authorized [id number] Closed Auto-Generate d Referral 06/08/2023 07/07/2024 1 1 [facility] for visit Narrative* Imaging (Routine) - Pending Review Specialty Diagnoses / Procedures Referred By Rj troy Referred To Contact Radiology Diagnoses Pure hypercholesterolemia, unspecified Procedures CT cardiac scoring wo IV contrast Jose Gutierrez, HEALTHCARE ACCOUNT MANAGER-[employer] SALES [employer] [address] [place] [address] Phone: tel: fax: Referral ID Status Reason Start Date Expiration Date Visits Requested Visits Authorized [id number] Pending Review Perform Procedure 11/18/2023 11/17/2024 [address] [facility] Work Phone: [facility] for visit Narrative* Diagnostic Procedure Only (Routine) - Closed Specialty Diagnoses / Procedures Referred By Rj troy Referred To Contact [facility] Diagnoses Encounter for screening mammogram for breast cancer Procedures RAMIN SCREENING W MARÍA ELENA SCREENING DIGITAL BREAST TOMOSYNTHESIS BI SCREENING MAMMOGRAPHY BI 2-VIEW BREAST INC CAD Piper Bo APRN.[facility] [address] [place] [address] Phone: tel: fax: [facility] [address] [place] [address] Referral ID Status Reason Start Date Expiration Date V isits Requested Visits Authorized [id number] Closed Auto-Generate d Referral 06/08/2023 07/07/2024 1 1 [facility] Family History Unknown Family Member Name Dates Details Brother 1 Comments:htn Status:Active Father Comments:htn dm cad = f rom mi- 78 Status:Active Mother Comments:htn Status:Active Unknown Family Member Name Dates Details Brother 1 Comments:htn Status:Active Father Comments:htn dm cad = f rom Status:Active Mother Comments:htn Status:Active Unknown Family Member Name Dates Details Brother 1 Comments:htn Status:Active Father Comments:htn dm cad = f rom Status:Active Mother Comments:htn Status:Active Unknown Family Member Name Dates Details Brother 1 Comments:htn Status:Active Father Comments:htn dm cad = f rom Status:Active Mother Comments:htn Status:Active Unknown Family Member Name Dates Details Brother 1 Comments:htn Status:Active Father Comments:htn dm cad = f rom mi Status:Active Mother Comments:htn Status:Active Unknown Family Member Name Dates Details Brother 1 Comments:htn Status:Active Father Comments:htn dm cad = f rom Status:Active Mother Comments:htn Status:Active Unknown Family Member Name Dates Details Brother 1 Comments:htn Status:Active Father Comments:htn dm cad = f rom Status:Active Mother Comments:htn Status:Active Unknown Family Member Name Dates Details Brother 1 Comments:htn Status:Active Father Comments:htn dm cad = f rom Status:Active Mother Comments:htn Status:Active Unknown Family Member Name Dates Details Brother 1 Comments:htn Status:Active Father Comments:htn dm cad = f rom Status:Active Mother Comments:htn Status:Active Unknown Family Member Name Dates Details Brother 1 Comments:htn Status:Active Father Comments:htn dm cad = f rom Status:Active Mother Comments:htn Status:Active Unknown Family Member Name Dates Details Brother 1 Comments:htn Status:Active Father Comments:htn dm cad = f rom Status:Active Mother Comments:htn Status:Active Unknown Family Member Name Dates Details Brother 1 Comments:htn Status:Active Father Comments:htn dm cad = f rom Status:Active Mother Comments:htn Status:Active Unknown Family Member Name Dates Details Brother 1 Comments:htn Status:Active Father Comments:htn dm cad = f rom Status:Active Mother Comments:htn Status:Active Unknown Family Member Name Dates Details Brother 1 Comments:htn Status:Active Father Comments:htn dm cad = f rom Status:Active Mother Comments:htn Status:Active Unknown Family Member Name Dates Details Brother 1 Comments:htn Status:Active Father Comments:htn dm cad = f rom mi Status:Active Mother Comments:htn Status:Active Unknown Family Member Name Dates Details Brother 1 Comments:htn Status:Active Father Comments:htn dm cad = f rom Status:Active Mother Comments:htn Status:Active Unknown Family Member Name Dates Details Brother 1 Comments:htn Status:Active Father Comments:htn dm cad = f rom Status:Active Mother Comments:htn Status:Active Unknown Family Member Name Dates Details Brother 1 Comments:htn Status:Active Father Comments:htn dm cad = f rom mi Status:Active Mother Comments:htn Status:Active Unknown Family Member Name Dates Details Brother 1 Comments:htn Status:Active Father Comments:htn dm cad = f rom Status:Active Mother Comments:htn Status:Active Unknown Family Member Name Dates Details Brother 1 Comments:htn Status:Active Father Comments:htn dm cad = f rom Status:Active Mother Comments:htn Status:Active Unknown Family Member Name Dates Details Brother 1 Comments:htn Status:Active Father Comments:htn dm cad = f rom mi Status:Active Mother Comments:htn Status:Active Unknown Family Member Name Dates Details Brother 1 Comments:htn Status:Active Father Comments:htn dm cad = f rom Status:Active Mother Comments:htn Status:Active Unknown Family Member Name Dates Details Brother 1 Comments:htn Status:Active Father Comments:htn dm cad = f rom Status:Active Mother Comments:htn Status:Active Unknown Family Member Name Dates Details Brother 1 Comments:htn Status:Active Father Comments:htn dm cad = f rom Status:Active Mother Comments:htn Status:Active Unknown Family Member Name Dates Details Brother 1 Comments:htn Status:Active Father Comments:htn dm cad = f rom mi Status:Active Mother Comments:htn Status:Active Unknown Family Member Name Dates Details Brother 1 Comments:htn Status:Active Father Comments:htn dm cad = f rom Status:Active Mother Comments:htn Status:Active Unknown Family Member Name Dates Details Brother 1 Comments:htn Status:Active Father Comments:htn dm cad = f rom mi Status:Active Mother Comments:htn Status:Active Unknown Family Member Name Dates Details Brother 1 Comments:htn Status:Active Father Comments:htn dm cad = f rom mi Status:Active Mother Comments:htn Status:Active Unknown Family Member Name Dates Details Brother 1 Comments:htn Status:Active Father Comments:htn dm cad = f rom Status:Active Mother Comments:htn Status:Active Unknown Family Member Name Dates Details Brother 1 Comments:htn Status:Active Father Comments:htn dm cad = f rom Status:Active Mother Comments:htn Status:Active Unknown Family Member Name Dates Details Brother 1 Comments:htn Status:Active Father Comments:htn dm cad = f rom Status:Active Mother Comments:htn Status:Active Unknown Family Member Name Dates Details Brother 1 Comments:htn Status:Active Father Comments:htn dm cad = f rom Status:Active Mother Comments:htn Status:Active Unknown Family Member Name Dates Details Brother 1 Comments:htn Status:Active Father Comments:htn dm cad = f rom Status:Active Mother Comments:htn Status:Active Unknown Family Member Name Dates Details Brother 1 Comments:htn Status:Active Father Comments:htn dm cad = f rom Status:Active Mother Comments:htn Status:Active Unknown Family Member Name Dates Details Brother 1 Comments:htn Status:Active Father Comments:htn dm cad = f rom Status:Active Mother Comments:htn Status:Active Unknown Family Member Name Dates Details Brother 1 Comments:htn Status:Active Father Comments:htn dm cad = f rom Status:Active Mother Comments:htn Status:Active Unknown Family Member Name Dates Details Brother 1 Comments:htn Status:Active Father Comments:htn dm cad = f rom Status:Active Mother Comments:htn Status:Active Unknown Family Member Name Dates Details Brother 1 Comments:htn Status:Active Father Comments:htn dm cad = f rom mi Status:Active Mother Comments:htn Status:Active Unknown Family Member Name Dates Details Brother 1 Comments:htn Status:Active Father Comments:htn dm cad = f rom Status:Active Mother Comments:htn Status:Active Unknown Family Member Name Dates Details Brother 1 Comments:htn Status:Active Father Comments:htn dm cad = f rom Status:Active Mother Comments:htn Status:Active Unknown Family Member Name Dates Details Brother 1 Comments:htn Status:Active Father Comments:htn dm cad = f rom mi Status:Active Mother Comments:htn Status:Active Unknown Family Member Name Dates Details Brother 1 Comments:htn Status:Active Father Comments:htn dm cad = f rom Status:Active Mother Comments:htn Status:Active Unknown Family Member Name Dates Details Brother 1 Comments:htn Status:Active Father Comments:htn dm cad = f rom mi Status:Active Mother Comments:htn Status:Active Relationship Condition Age at Onset Recorded Date/T aylin brother Hypertension Unknown father Hypertension Unknown Diabetes mellitus Unknown Coronary artery disease Unknown Myocardial infarction Unknown Cerebrovascular accident (CVA) Unknown Malignant neoplasm Unknown mother Hypertension Unknown Unknown Family Member Name Dates Details Brother 1 Comments:htn Status:Active Father Comments:htn dm cad = f rom Status:Active Mother Comments:htn Status:Active Unknown Family Member Name Dates Details Brother 1 Comments:htn Status:Active Father Comments:htn dm cad = f rom Status:Active Mother Comments:htn Status:Active Unknown Family Member Name Dates Details Brother 1 Comments:htn Status:Active Father Comments:htn dm cad = f rom Status:Active Mother Comments:htn Status:Active Unknown Family Member Name Dates Details Brother 1 Comments:htn Status:Active Father Comments:htn dm cad = f rom Status:Active Mother Comments:htn Status:Active Unknown Family Member Name Dates Details Brother 1 Comments:htn Status:Active Father Comments:htn dm cad = f rom Status:Active Mother Comments:htn Status:Active Unknown Family Member Name Dates Details Brother 1 Comments:htn Status:Active Father Comments:htn dm cad = f rom Status:Active Mother Comments:htn Status:Active Unknown Family Member Name Dates Details Brother 1 Comments:htn Status:Active Father Comments:htn dm cad = f rom mi Status:Active Mother Comments:htn Status:Active Unknown Family Member Name Dates Details Brother 1 Comments:htn Status:Active Father Comments:htn dm cad = f rom Status:Active Mother Comments:htn Status:Active Unknown Family Member Name Dates Details Brother 1 Comments:htn Status:Active Father Comments:htn dm cad = f rom mi Status:Active Mother Comments:htn Status:Active Instructions Name Dates Details Nonsmoker : How to access he alth information online Indication:Nonsmoker Nonsmoker : How to access he alth information online - Detail Indication:Nonsmoker Nonsmoker : Patient Instruct ions Indication:Nonsmoker Osteopenia : How to access h ealth information online Indication:Osteopenia Osteopenia : How to access h ealth information online - Detail Indication:Osteopenia Osteopenia : Patient Instruc tions Indication:Osteopenia 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,adult : Ho w to access health information online Indication: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,adult 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,adult : Ho w to access health information online - Detail Indication: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,adult 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,adult : Pa tient Instructions Indication: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,adult Dysuria : How to access heal th information online Indication:Dysuria Dysuria : How to access heal th information online - Detail Indication:Dysuria Dysuria : Patient Instructio ns Indication:Dysuria Allergic rhinitis : Patient Instructions Indication:Allergic rhinitis Name Dates Details Nonsmoker : How to access he alth information online Indication:Nonsmoker Nonsmoker : How to access he alth information online - Detail Indication:Nonsmoker Nonsmoker : Patient Instruct ions Indication:Nonsmoker Osteopenia : How to access h ealth information online Indication:Osteopenia Osteopenia : How to access h ealth information online - Detail Indication:Osteopenia Osteopenia : Patient Instruc tions Indication:Osteopenia 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,adult : Ho w to access health information online Indication: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,adult 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,adult : Ho w to access health information online - Detail Indication: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,adult 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,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 Indication: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,adult Dysuria : How to access heal th information online Indication:Dysuria Dysuria : How to access heal th information online - Detail Indication:Dysuria Dysuria : Patient Instructio ns Indication:Dysuria Allergic rhinitis : Patient Instructions Indication:Allergic rhinitis Name Dates Details Nonsmoker : How to access he alth information online Indication:Nonsmoker Nonsmoker : How to access he alth information online - Detail Indication:Nonsmoker Nonsmoker : Patient Instruct ions Indication:Nonsmoker Osteopenia : How to access h ealth information online Indication:Osteopenia Osteopenia : How to access h ealth information online - Detail Indication:Osteopenia Osteopenia : Patient Instruc tions Indication:Osteopenia 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,adult : Ho w to access health information online Indication: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,adult 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,adult : Ho w to access health information online - Detail Indication: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,adult 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,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 Indication: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,adult Dysuria : How to access heal th information online Indication:Dysuria Dysuria : How to access heal th information online - Detail Indication:Dysuria Dysuria : Patient Instructio ns Indication:Dysuria Allergic rhinitis : Patient Instructions Indication:Allergic rhinitis Name Dates Details Nonsmoker : How to access he alth information online Indication:Nonsmoker Nonsmoker : How to access he alth information online - Detail Indication:Nonsmoker Nonsmoker : Patient Instruct ions Indication:Nonsmoker Osteopenia : How to access h ealth information online Indication:Osteopenia Osteopenia : How to access h ealth information online - Detail Indication:Osteopenia Osteopenia : Patient Instruc tions Indication:Osteopenia 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,adult : Ho w to access health information online Indication: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,adult 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,adult : Ho w to access health information online - Detail Indication: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,adult 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,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 Indication: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,adult Dysuria : How to access heal th information online Indication:Dysuria Dysuria : How to access heal th information online - Detail Indication:Dysuria Dysuria : Patient Instructio ns Indication:Dysuria Allergic rhinitis : Patient Instructions Indication:Allergic rhinitis Name Dates Details How to access health informa tion online Indication:Nonsmoker Start:04-Oct-2018 Instruction Type:Patient Education How to access health informa tion online - Detail Indication:Nonsmoker Start:04-Oct-2018 Instruction Type:Patient Education Patient Instructions Indication:Nonsmoker Start:04-Oct-2018 Instruction Type:Provider Instructions for Treatment How to access health informa tion online Indication:Nonsmoker Start:06-Apr-2018 Instruction Type:Patient Education How to access health informa tion online - Detail Indication:Nonsmoker Start:06-Apr-2018 Instruction Type:Patient Education Patient Instructions Indication:Nonsmoker Start:06-Apr-2018 Instruction Type:Provider Instructions for Treatment How to access health informa tion online Indication:Nonsmoker Start:27-Oct-2017 Instruction Type:Patient Education How to access health informa tion online - Detail Indication:Nonsmoker Start:27-Oct-2017 Instruction Type:Patient Education Patient Instructions Indication:Nonsmoker Start:27-Oct-2017 Instruction Type:Provider Instructions for Treatment How to access health informa tion online Indication:Osteopenia Start:17-Nov-2016 Instruction Type:Patient Education How to access health informa tion online - Detail Indication:Osteopenia Start:17-Nov-2016 Instruction Type:Patient Education Patient Instructions Indication:Osteopenia Start:17-Nov-2016 Instruction Type:Provider Instructions for Treatment How to access health informa tion online Indication: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,adult Start:21-Jul-2016 Instruction Type:Patient Education How to access health informa tion online - Detail Indication: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,adult Start:21-Jul-2016 Instruction Type:Patient Education Patient Instructions Indication: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,adult Start:21-Jul-2016 Instruction Type:Provider Instructions for Treatment How to access health informa tion online Indication:Dysuria Start:11-Oct-2015 Instruction Type:Patient Education How to access health informa tion online - Detail Indication:Dysuria Start:11-Oct-2015 Instruction Type:Patient Education Patient Instructions Indication:Dysuria Start:11-Oct-2015 Instruction Type:Provider Instructions for Treatment How to access health informa tion online Indication:Osteopenia Start:20-Jun-2015 Instruction Type:Patient Education How to access health informa tion online - Detail Indication:Osteopenia Start:20-Jun-2015 Instruction Type:Patient Education Patient Instructions Indication:Osteopenia Start:20-Jun-2015 Instruction Type:Provider Instructions for Treatment Patient Instructions Indication:Osteopenia Start:12-Jun-2014 Instruction Type:Provider Instructions for Treatment Patient Instructions Indication:Osteopenia Start:20-Jun-2013 Instruction Type:Provider Instructions for Treatment Patient Instructions Indication:Allergic rhinitis Start:04-Apr-2013 Instruction Type:Provider Instructions for Treatment Name Dates Details How to access health informa tion online Indication:Nonsmoker Start:04-Oct-2018 Instruction Type:Patient Education How to access health informa tion online - Detail Indication:Nonsmoker Start:04-Oct-2018 Instruction Type:Patient Education Patient Instructions Indication:BMI 21.0-21.9, adult Start:04-Oct-2018 Instruction Type:Provider Instructions for Treatment How to access health informa tion online Indication:Nonsmoker Start:06-Apr-2018 Instruction Type:Patient Education How to access health informa tion online - Detail Indication:Nonsmoker Start:06-Apr-2018 Instruction Type:Patient Education Patient Instructions Indication:Nonsmoker Start:06-Apr-2018 Instruction Type:Provider Instructions for Treatment How to access health informa tion online Indication:Nonsmoker Start:27-Oct-2017 Instruction Type:Patient Education How to access health informa tion online - Detail Indication:Nonsmoker Start:27-Oct-2017 Instruction Type:Patient Education Patient Instructions Indication:Nonsmoker Start:27-Oct-2017 Instruction Type:Provider Instructions for Treatment How to access health informa tion online Indication:Osteopenia Start:17-Nov-2016 Instruction Type:Patient Education How to access health informa tion online - Detail Indication:Osteopenia Start:17-Nov-2016 Instruction Type:Patient Education Patient Instructions Indication:Osteopenia Start:17-Nov-2016 Instruction Type:Provider Instructions for Treatment How to access health informa tion online Indication: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,adult Start:21-Jul-2016 Instruction Type:Patient Education How to access health informa tion online - Detail Indication: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,adult Start:21-Jul-2016 Instruction Type:Patient Education Patient Instructions Indication: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,adult Start:21-Jul-2016 Instruction Type:Provider Instructions for Treatment How to access health informa tion online Indication:Dysuria Start:11-Oct-2015 Instruction Type:Patient Education How to access health informa tion online - Detail Indication:Dysuria Start:11-Oct-2015 Instruction Type:Patient Education Patient Instructions Indication:Dysuria Start:11-Oct-2015 Instruction Type:Provider Instructions for Treatment How to access health informa tion online Indication:Osteopenia Start:20-Jun-2015 Instruction Type:Patient Education How to access health informa tion online - Detail Indication:Osteopenia Start:20-Jun-2015 Instruction Type:Patient Education Patient Instructions Indication:Osteopenia Start:20-Jun-2015 Instruction Type:Provider Instructions for Treatment Patient Instructions Indication:Osteopenia Start:12-Jun-2014 Instruction Type:Provider Instructions for Treatment Patient Instructions Indication:Osteopenia Start:20-Jun-2013 Instruction Type:Provider Instructions for Treatment Patient Instructions Indication:Allergic rhinitis Start:04-Apr-2013 Instruction Type:Provider Instructions for Treatment Name Dates Details How to access health informa tion online Indication:Nonsmoker Start:04-Oct-2018 Instruction Type:Patient Education How to access health informa tion online - Detail Indication:Nonsmoker Start:04-Oct-2018 Instruction Type:Patient Education Patient Instructions Indication:BMI 21.0-21.9, adult Start:04-Oct-2018 Instruction Type:Provider Instructions for Treatment How to access health informa tion online Indication:Nonsmoker Start:06-Apr-2018 Instruction Type:Patient Education How to access health informa tion online - Detail Indication:Nonsmoker Start:06-Apr-2018 Instruction Type:Patient Education Patient Instructions Indication:Nonsmoker Start:06-Apr-2018 Instruction Type:Provider Instructions for Treatment How to access health informa tion online Indication:Nonsmoker Start:27-Oct-2017 Instruction Type:Patient Education How to access health informa tion online - Detail Indication:Nonsmoker Start:27-Oct-2017 Instruction Type:Patient Education Patient Instructions Indication:Nonsmoker Start:27-Oct-2017 Instruction Type:Provider Instructions for Treatment How to access health informa tion online Indication:Osteopenia Start:17-Nov-2016 Instruction Type:Patient Education How to access health informa tion online - Detail Indication:Osteopenia Start:17-Nov-2016 Instruction Type:Patient Education Patient Instructions Indication:Osteopenia Start:17-Nov-2016 Instruction Type:Provider Instructions for Treatment How to access health informa tion online Indication: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,adult Start:21-Jul-2016 Instruction Type:Patient Education How to access health informa tion online - Detail Indication: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,adult Start:21-Jul-2016 Instruction Type:Patient Education Patient Instructions Indication: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,adult Start:21-Jul-2016 Instruction Type:Provider Instructions for Treatment How to access health informa tion online Indication:Dysuria Start:11-Oct-2015 Instruction Type:Patient Education How to access health informa tion online - Detail Indication:Dysuria Start:11-Oct-2015 Instruction Type:Patient Education Patient Instructions Indication:Dysuria Start:11-Oct-2015 Instruction Type:Provider Instructions for Treatment How to access health informa tion online Indication:Osteopenia Start:20-Jun-2015 Instruction Type:Patient Education How to access health informa tion online - Detail Indication:Osteopenia Start:20-Jun-2015 Instruction Type:Patient Education Patient Instructions Indication:Osteopenia Start:20-Jun-2015 Instruction Type:Provider Instructions for Treatment Patient Instructions Indication:Osteopenia Start:12-Jun-2014 Instruction Type:Provider Instructions for Treatment Patient Instructions Indication:Osteopenia Start:20-Jun-2013 Instruction Type:Provider Instructions for Treatment Patient Instructions Indication:Allergic rhinitis Start:04-Apr-2013 Instruction Type:Provider Instructions for Treatment Name Dates Details How to access health informa tion online Indication:Nonsmoker Start:04-Oct-2018 Instruction Type:Patient Education How to access health informa tion online - Detail Indication:Nonsmoker Start:04-Oct-2018 Instruction Type:Patient Education Patient Instructions Indication:BMI 21.0-21.9, adult Start:04-Oct-2018 Instruction Type:Provider Instructions for Treatment How to access health informa tion online Indication:Nonsmoker Start:06-Apr-2018 Instruction Type:Patient Education How to access health informa tion online - Detail Indication:Nonsmoker Start:06-Apr-2018 Instruction Type:Patient Education Patient Instructions Indication:Nonsmoker Start:06-Apr-2018 Instruction Type:Provider Instructions for Treatment How to access health informa tion online Indication:Nonsmoker Start:27-Oct-2017 Instruction Type:Patient Education How to access health informa tion online - Detail Indication:Nonsmoker Start:27-Oct-2017 Instruction Type:Patient Education Patient Instructions Indication:Nonsmoker Start:27-Oct-2017 Instruction Type:Provider Instructions for Treatment How to access health informa tion online Indication:Osteopenia Start:17-Nov-2016 Instruction Type:Patient Education How to access health informa tion online - Detail Indication:Osteopenia Start:17-Nov-2016 Instruction Type:Patient Education Patient Instructions Indication:Osteopenia Start:17-Nov-2016 Instruction Type:Provider Instructions for Treatment How to access health informa tion online Indication: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,adult Start:21-Jul-2016 Instruction Type:Patient Education How to access health informa tion online - Detail Indication: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,adult Start:21-Jul-2016 Instruction Type:Patient Education Patient Instructions Indication: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,adult Start:21-Jul-2016 Instruction Type:Provider Instructions for Treatment How to access health informa tion online Indication:Dysuria Start:11-Oct-2015 Instruction Type:Patient Education How to access health informa tion online - Detail Indication:Dysuria Start:11-Oct-2015 Instruction Type:Patient Education Patient Instructions Indication:Dysuria Start:11-Oct-2015 Instruction Type:Provider Instructions for Treatment How to access health informa tion online Indication:Osteopenia Start:20-Jun-2015 Instruction Type:Patient Education How to access health informa tion online - Detail Indication:Osteopenia Start:20-Jun-2015 Instruction Type:Patient Education Patient Instructions Indication:Osteopenia Start:20-Jun-2015 Instruction Type:Provider Instructions for Treatment Patient Instructions Indication:Osteopenia Start:12-Jun-2014 Instruction Type:Provider Instructions for Treatment Patient Instructions Indication:Osteopenia Start:20-Jun-2013 Instruction Type:Provider Instructions for Treatment Patient Instructions Indication:Allergic rhinitis Start:04-Apr-2013 Instruction Type:Provider Instructions for Treatment Name Dates Details How to access health informa tion online Indication:Nonsmoker Start:22-Nov-2018 Instruction Type:Patient Education How to access health informa tion online - Detail Indication:Nonsmoker Start:22-Nov-2018 Instruction Type:Patient Education Patient Instructions Indication:Palpitation Start:22-Nov-2018 Instruction Type:Provider Instructions for Treatment How to access health informa tion online Indication:Nonsmoker Start:04-Oct-2018 Instruction Type:Patient Education How to access health informa tion online - Detail Indication:Nonsmoker Start:04-Oct-2018 Instruction Type:Patient Education Patient Instructions Indication:BMI 21.0-21.9, adult Start:04-Oct-2018 Instruction Type:Provider Instructions for Treatment How to access health informa tion online Indication:Nonsmoker Start:06-Apr-2018 Instruction Type:Patient Education How to access health informa tion online - Detail Indication:Nonsmoker Start:06-Apr-2018 Instruction Type:Patient Education Patient Instructions Indication:Nonsmoker Start:06-Apr-2018 Instruction Type:Provider Instructions for Treatment How to access health informa tion online Indication:Nonsmoker Start:27-Oct-2017 Instruction Type:Patient Education How to access health informa tion online - Detail Indication:Nonsmoker Start:27-Oct-2017 Instruction Type:Patient Education Patient Instructions Indication:Nonsmoker Start:27-Oct-2017 Instruction Type:Provider Instructions for Treatment How to access health informa tion online Indication:Osteopenia Start:17-Nov-2016 Instruction Type:Patient Education How to access health informa tion online - Detail Indication:Osteopenia Start:17-Nov-2016 Instruction Type:Patient Education Patient Instructions Indication:Osteopenia Start:17-Nov-2016 Instruction Type:Provider Instructions for Treatment How to access health informa tion online Indication: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,adult Start:21-Jul-2016 Instruction Type:Patient Education How to access health informa tion online - Detail Indication: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,adult Start:21-Jul-2016 Instruction Type:Patient Education Patient Instructions Indication: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,adult Start:21-Jul-2016 Instruction Type:Provider Instructions for Treatment How to access health informa tion online Indication:Dysuria Start:11-Oct-2015 Instruction Type:Patient Education How to access health informa tion online - Detail Indication:Dysuria Start:11-Oct-2015 Instruction Type:Patient Education Patient Instructions Indication:Dysuria Start:11-Oct-2015 Instruction Type:Provider Instructions for Treatment How to access health informa tion online Indication:Osteopenia Start:20-Jun-2015 Instruction Type:Patient Education How to access health informa tion online - Detail Indication:Osteopenia Start:20-Jun-2015 Instruction Type:Patient Education Patient Instructions Indication:Osteopenia Start:20-Jun-2015 Instruction Type:Provider Instructions for Treatment Patient Instructions Indication:Osteopenia Start:12-Jun-2014 Instruction Type:Provider Instructions for Treatment Patient Instructions Indication:Osteopenia Start:20-Jun-2013 Instruction Type:Provider Instructions for Treatment Patient Instructions Indication:Allergic rhinitis Start:04-Apr-2013 Instruction Type:Provider Instructions for Treatment Name Dates Details How to access health informa tion online Indication:Nonsmoker Start:22-Nov-2018 Instruction Type:Patient Education How to access health informa tion online - Detail Indication:Nonsmoker Start:22-Nov-2018 Instruction Type:Patient Education Patient Instructions Indication:Palpitation Start:22-Nov-2018 Instruction Type:Provider Instructions for Treatment How to access health informa tion online Indication:Nonsmoker Start:04-Oct-2018 Instruction Type:Patient Education How to access health informa tion online - Detail Indication:Nonsmoker Start:04-Oct-2018 Instruction Type:Patient Education Patient Instructions Indication:BMI 21.0-21.9, adult Start:04-Oct-2018 Instruction Type:Provider Instructions for Treatment How to access health informa tion online Indication:Nonsmoker Start:06-Apr-2018 Instruction Type:Patient Education How to access health informa tion online - Detail Indication:Nonsmoker Start:06-Apr-2018 Instruction Type:Patient Education Patient Instructions Indication:Nonsmoker Start:06-Apr-2018 Instruction Type:Provider Instructions for Treatment How to access health informa tion online Indication:Nonsmoker Start:27-Oct-2017 Instruction Type:Patient Education How to access health informa tion online - Detail Indication:Nonsmoker Start:27-Oct-2017 Instruction Type:Patient Education Patient Instructions Indication:Nonsmoker Start:27-Oct-2017 Instruction Type:Provider Instructions for Treatment How to access health informa tion online Indication:Osteopenia Start:17-Nov-2016 Instruction Type:Patient Education How to access health informa tion online - Detail Indication:Osteopenia Start:17-Nov-2016 Instruction Type:Patient Education Patient Instructions Indication:Osteopenia Start:17-Nov-2016 Instruction Type:Provider Instructions for Treatment How to access health informa tion online Indication: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,adult Start:21-Jul-2016 Instruction Type:Patient Education How to access health informa tion online - Detail Indication: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,adult Start:21-Jul-2016 Instruction Type:Patient Education Patient Instructions Indication: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,adult Start:21-Jul-2016 Instruction Type:Provider Instructions for Treatment How to access health informa tion online Indication:Dysuria Start:11-Oct-2015 Instruction Type:Patient Education How to access health informa tion online - Detail Indication:Dysuria Start:11-Oct-2015 Instruction Type:Patient Education Patient Instructions Indication:Dysuria Start:11-Oct-2015 Instruction Type:Provider Instructions for Treatment How to access health informa tion online Indication:Osteopenia Start:20-Jun-2015 Instruction Type:Patient Education How to access health informa tion online - Detail Indication:Osteopenia Start:20-Jun-2015 Instruction Type:Patient Education Patient Instructions Indication:Osteopenia Start:20-Jun-2015 Instruction Type:Provider Instructions for Treatment Patient Instructions Indication:Osteopenia Start:12-Jun-2014 Instruction Type:Provider Instructions for Treatment Patient Instructions Indication:Osteopenia Start:20-Jun-2013 Instruction Type:Provider Instructions for Treatment Patient Instructions Indication:Allergic rhinitis Start:04-Apr-2013 Instruction Type:Provider Instructions for Treatment Name Dates Details How to access health informa tion online Indication:Nonsmoker Start:22-Nov-2018 Instruction Type:Patient Education How to access health informa tion online - Detail Indication:Nonsmoker Start:22-Nov-2018 Instruction Type:Patient Education Patient Instructions Indication:Palpitation Start:22-Nov-2018 Instruction Type:Provider Instructions for Treatment How to access health informa tion online Indication:Nonsmoker Start:04-Oct-2018 Instruction Type:Patient Education How to access health informa tion online - Detail Indication:Nonsmoker Start:04-Oct-2018 Instruction Type:Patient Education Patient Instructions Indication:BMI 21.0-21.9, adult Start:04-Oct-2018 Instruction Type:Provider Instructions for Treatment How to access health informa tion online Indication:Nonsmoker Start:06-Apr-2018 Instruction Type:Patient Education How to access health informa tion online - Detail Indication:Nonsmoker Start:06-Apr-2018 Instruction Type:Patient Education Patient Instructions Indication:Nonsmoker Start:06-Apr-2018 Instruction Type:Provider Instructions for Treatment How to access health informa tion online Indication:Nonsmoker Start:27-Oct-2017 Instruction Type:Patient Education How to access health informa tion online - Detail Indication:Nonsmoker Start:27-Oct-2017 Instruction Type:Patient Education Patient Instructions Indication:Nonsmoker Start:27-Oct-2017 Instruction Type:Provider Instructions for Treatment How to access health informa tion online Indication:Osteopenia Start:17-Nov-2016 Instruction Type:Patient Education How to access health informa tion online - Detail Indication:Osteopenia Start:17-Nov-2016 Instruction Type:Patient Education Patient Instructions Indication:Osteopenia Start:17-Nov-2016 Instruction Type:Provider Instructions for Treatment How to access health informa tion online Indication: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,adult Start:21-Jul-2016 Instruction Type:Patient Education How to access health informa tion online - Detail Indication: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,adult Start:21-Jul-2016 Instruction Type:Patient Education Patient Instructions Indication: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,adult Start:21-Jul-2016 Instruction Type:Provider Instructions for Treatment How to access health informa tion online Indication:Dysuria Start:11-Oct-2015 Instruction Type:Patient Education How to access health informa tion online - Detail Indication:Dysuria Start:11-Oct-2015 Instruction Type:Patient Education Patient Instructions Indication:Dysuria Start:11-Oct-2015 Instruction Type:Provider Instructions for Treatment How to access health informa tion online Indication:Osteopenia Start:20-Jun-2015 Instruction Type:Patient Education How to access health informa tion online - Detail Indication:Osteopenia Start:20-Jun-2015 Instruction Type:Patient Education Patient Instructions Indication:Osteopenia Start:20-Jun-2015 Instruction Type:Provider Instructions for Treatment Patient Instructions Indication:Osteopenia Start:12-Jun-2014 Instruction Type:Provider Instructions for Treatment Patient Instructions Indication:Osteopenia Start:20-Jun-2013 Instruction Type:Provider Instructions for Treatment Patient Instructions Indication:Allergic rhinitis Start:04-Apr-2013 Instruction Type:Provider Instructions for Treatment Name Dates Details How to access health informa tion online Indication:Nonsmoker Start:13-Dec-2018 Instruction Type:Patient Education How to access health informa tion online - Detail Indication:Nonsmoker Start:13-Dec-2018 Instruction Type:Patient Education Patient Instructions Indication:BMI 21.0-21.9, adult Start:13-Dec-2018 Instruction Type:Provider Instructions for Treatment How to access health informa tion online Indication:Nonsmoker Start:22-Nov-2018 Instruction Type:Patient Education How to access health informa tion online - Detail Indication:Nonsmoker Start:22-Nov-2018 Instruction Type:Patient Education Patient Instructions Indication:Palpitation Start:22-Nov-2018 Instruction Type:Provider Instructions for Treatment How to access health informa tion online Indication:Nonsmoker Start:04-Oct-2018 Instruction Type:Patient Education How to access health informa tion online - Detail Indication:Nonsmoker Start:04-Oct-2018 Instruction Type:Patient Education Patient Instructions Indication:BMI 21.0-21.9, adult Start:04-Oct-2018 Instruction Type:Provider Instructions for Treatment How to access health informa tion online Indication:Nonsmoker Start:06-Apr-2018 Instruction Type:Patient Education How to access health informa tion online - Detail Indication:Nonsmoker Start:06-Apr-2018 Instruction Type:Patient Education Patient Instructions Indication:Nonsmoker Start:06-Apr-2018 Instruction Type:Provider Instructions for Treatment How to access health informa tion online Indication:Nonsmoker Start:27-Oct-2017 Instruction Type:Patient Education How to access health informa tion online - Detail Indication:Nonsmoker Start:27-Oct-2017 Instruction Type:Patient Education Patient Instructions Indication:Nonsmoker Start:27-Oct-2017 Instruction Type:Provider Instructions for Treatment How to access health informa tion online Indication:Osteopenia Start:17-Nov-2016 Instruction Type:Patient Education How to access health informa tion online - Detail Indication:Osteopenia Start:17-Nov-2016 Instruction Type:Patient Education Patient Instructions Indication:Osteopenia Start:17-Nov-2016 Instruction Type:Provider Instructions for Treatment How to access health informa tion online Indication: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,adult Start:21-Jul-2016 Instruction Type:Patient Education How to access health informa tion online - Detail Indication: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,adult Start:21-Jul-2016 Instruction Type:Patient Education Patient Instructions Indication: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,adult Start:21-Jul-2016 Instruction Type:Provider Instructions for Treatment How to access health informa tion online Indication:Dysuria Start:11-Oct-2015 Instruction Type:Patient Education How to access health informa tion online - Detail Indication:Dysuria Start:11-Oct-2015 Instruction Type:Patient Education Patient Instructions Indication:Dysuria Start:11-Oct-2015 Instruction Type:Provider Instructions for Treatment How to access health informa tion online Indication:Osteopenia Start:20-Jun-2015 Instruction Type:Patient Education How to access health informa tion online - Detail Indication:Osteopenia Start:20-Jun-2015 Instruction Type:Patient Education Patient Instructions Indication:Osteopenia Start:20-Jun-2015 Instruction Type:Provider Instructions for Treatment Patient Instructions Indication:Osteopenia Start:12-Jun-2014 Instruction Type:Provider Instructions for Treatment Patient Instructions Indication:Osteopenia Start:20-Jun-2013 Instruction Type:Provider Instructions for Treatment Patient Instructions Indication:Allergic rhinitis Start:04-Apr-2013 Instruction Type:Provider Instructions for Treatment Name Dates Details How to access health informa tion online Indication:Nonsmoker Start:13-Dec-2018 Instruction Type:Patient Education How to access health informa tion online - Detail Indication:Nonsmoker Start:13-Dec-2018 Instruction Type:Patient Education Patient Instructions Indication:BMI 21.0-21.9, adult Start:13-Dec-2018 Instruction Type:Provider Instructions for Treatment How to access health informa tion online Indication:Nonsmoker Start:22-Nov-2018 Instruction Type:Patient Education How to access health informa tion online - Detail Indication:Nonsmoker Start:22-Nov-2018 Instruction Type:Patient Education Patient Instructions Indication:Palpitation Start:22-Nov-2018 Instruction Type:Provider Instructions for Treatment How to access health informa tion online Indication:Nonsmoker Start:04-Oct-2018 Instruction Type:Patient Education How to access health informa tion online - Detail Indication:Nonsmoker Start:04-Oct-2018 Instruction Type:Patient Education Patient Instructions Indication:BMI 21.0-21.9, adult Start:04-Oct-2018 Instruction Type:Provider Instructions for Treatment How to access health informa tion online Indication:Nonsmoker Start:06-Apr-2018 Instruction Type:Patient Education How to access health informa tion online - Detail Indication:Nonsmoker Start:06-Apr-2018 Instruction Type:Patient Education Patient Instructions Indication:Nonsmoker Start:06-Apr-2018 Instruction Type:Provider Instructions for Treatment How to access health informa tion online Indication:Nonsmoker Start:27-Oct-2017 Instruction Type:Patient Education How to access health informa tion online - Detail Indication:Nonsmoker Start:27-Oct-2017 Instruction Type:Patient Education Patient Instructions Indication:Nonsmoker Start:27-Oct-2017 Instruction Type:Provider Instructions for Treatment How to access health informa tion online Indication:Osteopenia Start:17-Nov-2016 Instruction Type:Patient Education How to access health informa tion online - Detail Indication:Osteopenia Start:17-Nov-2016 Instruction Type:Patient Education Patient Instructions Indication:Osteopenia Start:17-Nov-2016 Instruction Type:Provider Instructions for Treatment How to access health informa tion online Indication: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,adult Start:21-Jul-2016 Instruction Type:Patient Education How to access health informa tion online - Detail Indication: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,adult Start:21-Jul-2016 Instruction Type:Patient Education Patient Instructions Indication: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,adult Start:21-Jul-2016 Instruction Type:Provider Instructions for Treatment How to access health informa tion online Indication:Dysuria Start:11-Oct-2015 Instruction Type:Patient Education How to access health informa tion online - Detail Indication:Dysuria Start:11-Oct-2015 Instruction Type:Patient Education Patient Instructions Indication:Dysuria Start:11-Oct-2015 Instruction Type:Provider Instructions for Treatment How to access health informa tion online Indication:Osteopenia Start:20-Jun-2015 Instruction Type:Patient Education How to access health informa tion online - Detail Indication:Osteopenia Start:20-Jun-2015 Instruction Type:Patient Education Patient Instructions Indication:Osteopenia Start:20-Jun-2015 Instruction Type:Provider Instructions for Treatment Patient Instructions Indication:Osteopenia Start:12-Jun-2014 Instruction Type:Provider Instructions for Treatment Patient Instructions Indication:Osteopenia Start:20-Jun-2013 Instruction Type:Provider Instructions for Treatment Patient Instructions Indication:Allergic rhinitis Start:04-Apr-2013 Instruction Type:Provider Instructions for Treatment Name Dates Details How to access health informa tion online Indication:Nonsmoker Start:13-Dec-2018 Instruction Type:Patient Education How to access health informa tion online - Detail Indication:Nonsmoker Start:13-Dec-2018 Instruction Type:Patient Education Patient Instructions Indication:BMI 21.0-21.9, adult Start:13-Dec-2018 Instruction Type:Provider Instructions for Treatment How to access health informa tion online Indication:Nonsmoker Start:22-Nov-2018 Instruction Type:Patient Education How to access health informa tion online - Detail Indication:Nonsmoker Start:22-Nov-2018 Instruction Type:Patient Education Patient Instructions Indication:Palpitation Start:22-Nov-2018 Instruction Type:Provider Instructions for Treatment How to access health informa tion online Indication:Nonsmoker Start:04-Oct-2018 Instruction Type:Patient Education How to access health informa tion online - Detail Indication:Nonsmoker Start:04-Oct-2018 Instruction Type:Patient Education Patient Instructions Indication:BMI 21.0-21.9, adult Start:04-Oct-2018 Instruction Type:Provider Instructions for Treatment How to access health informa tion online Indication:Nonsmoker Start:06-Apr-2018 Instruction Type:Patient Education How to access health informa tion online - Detail Indication:Nonsmoker Start:06-Apr-2018 Instruction Type:Patient Education Patient Instructions Indication:Nonsmoker Start:06-Apr-2018 Instruction Type:Provider Instructions for Treatment How to access health informa tion online Indication:Nonsmoker Start:27-Oct-2017 Instruction Type:Patient Education How to access health informa tion online - Detail Indication:Nonsmoker Start:27-Oct-2017 Instruction Type:Patient Education Patient Instructions Indication:Nonsmoker Start:27-Oct-2017 Instruction Type:Provider Instructions for Treatment How to access health informa tion online Indication:Osteopenia Start:17-Nov-2016 Instruction Type:Patient Education How to access health informa tion online - Detail Indication:Osteopenia Start:17-Nov-2016 Instruction Type:Patient Education Patient Instructions Indication:Osteopenia Start:17-Nov-2016 Instruction Type:Provider Instructions for Treatment How to access health informa tion online Indication: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,adult Start:21-Jul-2016 Instruction Type:Patient Education How to access health informa tion online - Detail Indication: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,adult Start:21-Jul-2016 Instruction Type:Patient Education Patient Instructions Indication: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,adult Start:21-Jul-2016 Instruction Type:Provider Instructions for Treatment How to access health informa tion online Indication:Dysuria Start:11-Oct-2015 Instruction Type:Patient Education How to access health informa tion online - Detail Indication:Dysuria Start:11-Oct-2015 Instruction Type:Patient Education Patient Instructions Indication:Dysuria Start:11-Oct-2015 Instruction Type:Provider Instructions for Treatment How to access health informa tion online Indication:Osteopenia Start:20-Jun-2015 Instruction Type:Patient Education How to access health informa tion online - Detail Indication:Osteopenia Start:20-Jun-2015 Instruction Type:Patient Education Patient Instructions Indication:Osteopenia Start:20-Jun-2015 Instruction Type:Provider Instructions for Treatment Patient Instructions Indication:Osteopenia Start:12-Jun-2014 Instruction Type:Provider Instructions for Treatment Patient Instructions Indication:Osteopenia Start:20-Jun-2013 Instruction Type:Provider Instructions for Treatment Patient Instructions Indication:Allergic rhinitis Start:04-Apr-2013 Instruction Type:Provider Instructions for Treatment Name Dates Details How to access health informa tion online Indication:Nonsmoker Start:09-Nov-2019 Instruction Type:Patient Education How to access health informa tion online - Detail Indication:Nonsmoker Start:09-Nov-2019 Instruction Type:Patient Education Patient Instructions Indication:Screening for deficiency anemia Start:09-Nov-2019 Instruction Type:Provider Instructions for Treatment How to access health informa tion online Indication:Nonsmoker Start:13-Dec-2018 Instruction Type:Patient Education How to access health informa tion online - Detail Indication:Nonsmoker Start:13-Dec-2018 Instruction Type:Patient Education Patient Instructions Indication:BMI 21.0-21.9, adult Start:13-Dec-2018 Instruction Type:Provider Instructions for Treatment How to access health informa tion online Indication:Nonsmoker Start:22-Nov-2018 Instruction Type:Patient Education How to access health informa tion online - Detail Indication:Nonsmoker Start:22-Nov-2018 Instruction Type:Patient Education Patient Instructions Indication:Palpitation Start:22-Nov-2018 Instruction Type:Provider Instructions for Treatment How to access health informa tion online Indication:Nonsmoker Start:04-Oct-2018 Instruction Type:Patient Education How to access health informa tion online - Detail Indication:Nonsmoker Start:04-Oct-2018 Instruction Type:Patient Education Patient Instructions Indication:BMI 21.0-21.9, adult Start:04-Oct-2018 Instruction Type:Provider Instructions for Treatment How to access health informa tion online Indication:Nonsmoker Start:06-Apr-2018 Instruction Type:Patient Education How to access health informa tion online - Detail Indication:Nonsmoker Start:06-Apr-2018 Instruction Type:Patient Education Patient Instructions Indication:Nonsmoker Start:06-Apr-2018 Instruction Type:Provider Instructions for Treatment How to access health informa tion online Indication:Nonsmoker Start:27-Oct-2017 Instruction Type:Patient Education How to access health informa tion online - Detail Indication:Nonsmoker Start:27-Oct-2017 Instruction Type:Patient Education Patient Instructions Indication:Nonsmoker Start:27-Oct-2017 Instruction Type:Provider Instructions for Treatment How to access health informa tion online Indication:Osteopenia Start:17-Nov-2016 Instruction Type:Patient Education How to access health informa tion online - Detail Indication:Osteopenia Start:17-Nov-2016 Instruction Type:Patient Education Patient Instructions Indication:Osteopenia Start:17-Nov-2016 Instruction Type:Provider Instructions for Treatment How to access health informa tion online Indication: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,adult Start:21-Jul-2016 Instruction Type:Patient Education How to access health informa tion online - Detail Indication: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,adult Start:21-Jul-2016 Instruction Type:Patient Education Patient Instructions Indication: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,adult Start:21-Jul-2016 Instruction Type:Provider Instructions for Treatment How to access health informa tion online Indication:Dysuria Start:11-Oct-2015 Instruction Type:Patient Education How to access health informa tion online - Detail Indication:Dysuria Start:11-Oct-2015 Instruction Type:Patient Education Patient Instructions Indication:Dysuria Start:11-Oct-2015 Instruction Type:Provider Instructions for Treatment How to access health informa tion online Indication:Osteopenia Start:20-Jun-2015 Instruction Type:Patient Education How to access health informa tion online - Detail Indication:Osteopenia Start:20-Jun-2015 Instruction Type:Patient Education Patient Instructions Indication:Osteopenia Start:20-Jun-2015 Instruction Type:Provider Instructions for Treatment Patient Instructions Indication:Osteopenia Start:12-Jun-2014 Instruction Type:Provider Instructions for Treatment Patient Instructions Indication:Osteopenia Start:20-Jun-2013 Instruction Type:Provider Instructions for Treatment Patient Instructions Indication:Allergic rhinitis Start:04-Apr-2013 Instruction Type:Provider Instructions for Treatment Name Dates Details How to access health informa tion online Indication:Nonsmoker Start:09-Nov-2019 Instruction Type:Patient Education How to access health informa tion online - Detail Indication:Nonsmoker Start:09-Nov-2019 Instruction Type:Patient Education Patient Instructions Indication:Screening for deficiency anemia Start:09-Nov-2019 Instruction Type:Provider Instructions for Treatment How to access health informa tion online Indication:Nonsmoker Start:13-Dec-2018 Instruction Type:Patient Education How to access health informa tion online - Detail Indication:Nonsmoker Start:13-Dec-2018 Instruction Type:Patient Education Patient Instructions Indication:BMI 21.0-21.9, adult Start:13-Dec-2018 Instruction Type:Provider Instructions for Treatment How to access health informa tion online Indication:Nonsmoker Start:22-Nov-2018 Instruction Type:Patient Education How to access health informa tion online - Detail Indication:Nonsmoker Start:22-Nov-2018 Instruction Type:Patient Education Patient Instructions Indication:Palpitation Start:22-Nov-2018 Instruction Type:Provider Instructions for Treatment How to access health informa tion online Indication:Nonsmoker Start:04-Oct-2018 Instruction Type:Patient Education How to access health informa tion online - Detail Indication:Nonsmoker Start:04-Oct-2018 Instruction Type:Patient Education Patient Instructions Indication:BMI 21.0-21.9, adult Start:04-Oct-2018 Instruction Type:Provider Instructions for Treatment How to access health informa tion online Indication:Nonsmoker Start:06-Apr-2018 Instruction Type:Patient Education How to access health informa tion online - Detail Indication:Nonsmoker Start:06-Apr-2018 Instruction Type:Patient Education Patient Instructions Indication:Nonsmoker Start:06-Apr-2018 Instruction Type:Provider Instructions for Treatment How to access health informa tion online Indication:Nonsmoker Start:27-Oct-2017 Instruction Type:Patient Education How to access health informa tion online - Detail Indication:Nonsmoker Start:27-Oct-2017 Instruction Type:Patient Education Patient Instructions Indication:Nonsmoker Start:27-Oct-2017 Instruction Type:Provider Instructions for Treatment How to access health informa tion online Indication:Osteopenia Start:17-Nov-2016 Instruction Type:Patient Education How to access health informa tion online - Detail Indication:Osteopenia Start:17-Nov-2016 Instruction Type:Patient Education Patient Instructions Indication:Osteopenia Start:17-Nov-2016 Instruction Type:Provider Instructions for Treatment How to access health informa tion online Indication: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,adult Start:21-Jul-2016 Instruction Type:Patient Education How to access health informa tion online - Detail Indication: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,adult Start:21-Jul-2016 Instruction Type:Patient Education Patient Instructions Indication: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,adult Start:21-Jul-2016 Instruction Type:Provider Instructions for Treatment How to access health informa tion online Indication:Dysuria Start:11-Oct-2015 Instruction Type:Patient Education How to access health informa tion online - Detail Indication:Dysuria Start:11-Oct-2015 Instruction Type:Patient Education Patient Instructions Indication:Dysuria Start:11-Oct-2015 Instruction Type:Provider Instructions for Treatment How to access health informa tion online Indication:Osteopenia Start:20-Jun-2015 Instruction Type:Patient Education How to access health informa tion online - Detail Indication:Osteopenia Start:20-Jun-2015 Instruction Type:Patient Education Patient Instructions Indication:Osteopenia Start:20-Jun-2015 Instruction Type:Provider Instructions for Treatment Patient Instructions Indication:Osteopenia Start:12-Jun-2014 Instruction Type:Provider Instructions for Treatment Patient Instructions Indication:Osteopenia Start:20-Jun-2013 Instruction Type:Provider Instructions for Treatment Patient Instructions Indication:Allergic rhinitis Start:04-Apr-2013 Instruction Type:Provider Instructions for Treatment Name Dates Details How to access health informa tion online Indication:Nonsmoker Start:09-Nov-2019 Instruction Type:Patient Education How to access health informa tion online - Detail Indication:Nonsmoker Start:09-Nov-2019 Instruction Type:Patient Education Patient Instructions Indication:Screening for deficiency anemia Start:09-Nov-2019 Instruction Type:Provider Instructions for Treatment How to access health informa tion online Indication:Nonsmoker Start:13-Dec-2018 Instruction Type:Patient Education How to access health informa tion online - Detail Indication:Nonsmoker Start:13-Dec-2018 Instruction Type:Patient Education Patient Instructions Indication:BMI 21.0-21.9, adult Start:13-Dec-2018 Instruction Type:Provider Instructions for Treatment How to access health informa tion online Indication:Nonsmoker Start:22-Nov-2018 Instruction Type:Patient Education How to access health informa tion online - Detail Indication:Nonsmoker Start:22-Nov-2018 Instruction Type:Patient Education Patient Instructions Indication:Palpitation Start:22-Nov-2018 Instruction Type:Provider Instructions for Treatment How to access health informa tion online Indication:Nonsmoker Start:04-Oct-2018 Instruction Type:Patient Education How to access health informa tion online - Detail Indication:Nonsmoker Start:04-Oct-2018 Instruction Type:Patient Education Patient Instructions Indication:BMI 21.0-21.9, adult Start:04-Oct-2018 Instruction Type:Provider Instructions for Treatment How to access health informa tion online Indication:Nonsmoker Start:06-Apr-2018 Instruction Type:Patient Education How to access health informa tion online - Detail Indication:Nonsmoker Start:06-Apr-2018 Instruction Type:Patient Education Patient Instructions Indication:Nonsmoker Start:06-Apr-2018 Instruction Type:Provider Instructions for Treatment How to access health informa tion online Indication:Nonsmoker Start:27-Oct-2017 Instruction Type:Patient Education How to access health informa tion online - Detail Indication:Nonsmoker Start:27-Oct-2017 Instruction Type:Patient Education Patient Instructions Indication:Nonsmoker Start:27-Oct-2017 Instruction Type:Provider Instructions for Treatment How to access health informa tion online Indication:Osteopenia Start:17-Nov-2016 Instruction Type:Patient Education How to access health informa tion online - Detail Indication:Osteopenia Start:17-Nov-2016 Instruction Type:Patient Education Patient Instructions Indication:Osteopenia Start:17-Nov-2016 Instruction Type:Provider Instructions for Treatment How to access health informa tion online Indication: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,adult Start:21-Jul-2016 Instruction Type:Patient Education How to access health informa tion online - Detail Indication: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,adult Start:21-Jul-2016 Instruction Type:Patient Education Patient Instructions Indication: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,adult Start:21-Jul-2016 Instruction Type:Provider Instructions for Treatment How to access health informa tion online Indication:Dysuria Start:11-Oct-2015 Instruction Type:Patient Education How to access health informa tion online - Detail Indication:Dysuria Start:11-Oct-2015 Instruction Type:Patient Education Patient Instructions Indication:Dysuria Start:11-Oct-2015 Instruction Type:Provider Instructions for Treatment How to access health informa tion online Indication:Osteopenia Start:20-Jun-2015 Instruction Type:Patient Education How to access health informa tion online - Detail Indication:Osteopenia Start:20-Jun-2015 Instruction Type:Patient Education Patient Instructions Indication:Osteopenia Start:20-Jun-2015 Instruction Type:Provider Instructions for Treatment Patient Instructions Indication:Osteopenia Start:12-Jun-2014 Instruction Type:Provider Instructions for Treatment Patient Instructions Indication:Osteopenia Start:20-Jun-2013 Instruction Type:Provider Instructions for Treatment Patient Instructions Indication:Allergic rhinitis Start:04-Apr-2013 Instruction Type:Provider Instructions for Treatment Name Dates Details How to access health informa tion online Indication:Nonsmoker Start:09-Nov-2019 Instruction Type:Patient Education How to access health informa tion online - Detail Indication:Nonsmoker Start:09-Nov-2019 Instruction Type:Patient Education Patient Instructions Indication:Screening for deficiency anemia Start:09-Nov-2019 Instruction Type:Provider Instructions for Treatment How to access health informa tion online Indication:Nonsmoker Start:13-Dec-2018 Instruction Type:Patient Education How to access health informa tion online - Detail Indication:Nonsmoker Start:13-Dec-2018 Instruction Type:Patient Education Patient Instructions Indication:BMI 21.0-21.9, adult Start:13-Dec-2018 Instruction Type:Provider Instructions for Treatment How to access health informa tion online Indication:Nonsmoker Start:22-Nov-2018 Instruction Type:Patient Education How to access health informa tion online - Detail Indication:Nonsmoker Start:22-Nov-2018 Instruction Type:Patient Education Patient Instructions Indication:Palpitation Start:22-Nov-2018 Instruction Type:Provider Instructions for Treatment How to access health informa tion online Indication:Nonsmoker Start:04-Oct-2018 Instruction Type:Patient Education How to access health informa tion online - Detail Indication:Nonsmoker Start:04-Oct-2018 Instruction Type:Patient Education Patient Instructions Indication:BMI 21.0-21.9, adult Start:04-Oct-2018 Instruction Type:Provider Instructions for Treatment How to access health informa tion online Indication:Nonsmoker Start:06-Apr-2018 Instruction Type:Patient Education How to access health informa tion online - Detail Indication:Nonsmoker Start:06-Apr-2018 Instruction Type:Patient Education Patient Instructions Indication:Nonsmoker Start:06-Apr-2018 Instruction Type:Provider Instructions for Treatment How to access health informa tion online Indication:Nonsmoker Start:27-Oct-2017 Instruction Type:Patient Education How to access health informa tion online - Detail Indication:Nonsmoker Start:27-Oct-2017 Instruction Type:Patient Education Patient Instructions Indication:Nonsmoker Start:27-Oct-2017 Instruction Type:Provider Instructions for Treatment How to access health informa tion online Indication:Osteopenia Start:17-Nov-2016 Instruction Type:Patient Education How to access health informa tion online - Detail Indication:Osteopenia Start:17-Nov-2016 Instruction Type:Patient Education Patient Instructions Indication:Osteopenia Start:17-Nov-2016 Instruction Type:Provider Instructions for Treatment How to access health informa tion online Indication: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,adult Start:21-Jul-2016 Instruction Type:Patient Education How to access health informa tion online - Detail Indication: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,adult Start:21-Jul-2016 Instruction Type:Patient Education Patient Instructions Indication: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,adult Start:21-Jul-2016 Instruction Type:Provider Instructions for Treatment How to access health informa tion online Indication:Dysuria Start:11-Oct-2015 Instruction Type:Patient Education How to access health informa tion online - Detail Indication:Dysuria Start:11-Oct-2015 Instruction Type:Patient Education Patient Instructions Indication:Dysuria Start:11-Oct-2015 Instruction Type:Provider Instructions for Treatment How to access health informa tion online Indication:Osteopenia Start:20-Jun-2015 Instruction Type:Patient Education How to access health informa tion online - Detail Indication:Osteopenia Start:20-Jun-2015 Instruction Type:Patient Education Patient Instructions Indication:Osteopenia Start:20-Jun-2015 Instruction Type:Provider Instructions for Treatment Patient Instructions Indication:Osteopenia Start:12-Jun-2014 Instruction Type:Provider Instructions for Treatment Patient Instructions Indication:Osteopenia Start:20-Jun-2013 Instruction Type:Provider Instructions for Treatment Patient Instructions Indication:Allergic rhinitis Start:04-Apr-2013 Instruction Type:Provider Instructions for Treatment Name Dates Details How to access health informa tion online Indication:Nonsmoker Start:09-Nov-2019 Instruction Type:Patient Education How to access health informa tion online - Detail Indication:Nonsmoker Start:09-Nov-2019 Instruction Type:Patient Education Patient Instructions Indication:Screening for deficiency anemia Start:09-Nov-2019 Instruction Type:Provider Instructions for Treatment How to access health informa tion online Indication:Nonsmoker Start:13-Dec-2018 Instruction Type:Patient Education How to access health informa tion online - Detail Indication:Nonsmoker Start:13-Dec-2018 Instruction Type:Patient Education Patient Instructions Indication:BMI 21.0-21.9, adult Start:13-Dec-2018 Instruction Type:Provider Instructions for Treatment How to access health informa tion online Indication:Nonsmoker Start:22-Nov-2018 Instruction Type:Patient Education How to access health informa tion online - Detail Indication:Nonsmoker Start:22-Nov-2018 Instruction Type:Patient Education Patient Instructions Indication:Palpitation Start:22-Nov-2018 Instruction Type:Provider Instructions for Treatment How to access health informa tion online Indication:Nonsmoker Start:04-Oct-2018 Instruction Type:Patient Education How to access health informa tion online - Detail Indication:Nonsmoker Start:04-Oct-2018 Instruction Type:Patient Education Patient Instructions Indication:BMI 21.0-21.9, adult Start:04-Oct-2018 Instruction Type:Provider Instructions for Treatment How to access health informa tion online Indication:Nonsmoker Start:06-Apr-2018 Instruction Type:Patient Education How to access health informa tion online - Detail Indication:Nonsmoker Start:06-Apr-2018 Instruction Type:Patient Education Patient Instructions Indication:Nonsmoker Start:06-Apr-2018 Instruction Type:Provider Instructions for Treatment How to access health informa tion online Indication:Nonsmoker Start:27-Oct-2017 Instruction Type:Patient Education How to access health informa tion online - Detail Indication:Nonsmoker Start:27-Oct-2017 Instruction Type:Patient Education Patient Instructions Indication:Nonsmoker Start:27-Oct-2017 Instruction Type:Provider Instructions for Treatment How to access health informa tion online Indication:Osteopenia Start:17-Nov-2016 Instruction Type:Patient Education How to access health informa tion online - Detail Indication:Osteopenia Start:17-Nov-2016 Instruction Type:Patient Education Patient Instructions Indication:Osteopenia Start:17-Nov-2016 Instruction Type:Provider Instructions for Treatment How to access health informa tion online Indication: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,adult Start:21-Jul-2016 Instruction Type:Patient Education How to access health informa tion online - Detail Indication: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,adult Start:21-Jul-2016 Instruction Type:Patient Education Patient Instructions Indication: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,adult Start:21-Jul-2016 Instruction Type:Provider Instructions for Treatment How to access health informa tion online Indication:Dysuria Start:11-Oct-2015 Instruction Type:Patient Education How to access health informa tion online - Detail Indication:Dysuria Start:11-Oct-2015 Instruction Type:Patient Education Patient Instructions Indication:Dysuria Start:11-Oct-2015 Instruction Type:Provider Instructions for Treatment How to access health informa tion online Indication:Osteopenia Start:20-Jun-2015 Instruction Type:Patient Education How to access health informa tion online - Detail Indication:Osteopenia Start:20-Jun-2015 Instruction Type:Patient Education Patient Instructions Indication:Osteopenia Start:20-Jun-2015 Instruction Type:Provider Instructions for Treatment Patient Instructions Indication:Osteopenia Start:12-Jun-2014 Instruction Type:Provider Instructions for Treatment Patient Instructions Indication:Osteopenia Start:20-Jun-2013 Instruction Type:Provider Instructions for Treatment Patient Instructions Indication:Allergic rhinitis Start:04-Apr-2013 Instruction Type:Provider Instructions for Treatment Name Dates Details How to access health informa tion online Indication:Nonsmoker Start:09-Nov-2019 Instruction Type:Patient Education How to access health informa tion online - Detail Indication:Nonsmoker Start:09-Nov-2019 Instruction Type:Patient Education Patient Instructions Indication:Screening for deficiency anemia Start:09-Nov-2019 Instruction Type:Provider Instructions for Treatment How to access health informa tion online Indication:Nonsmoker Start:13-Dec-2018 Instruction Type:Patient Education How to access health informa tion online - Detail Indication:Nonsmoker Start:13-Dec-2018 Instruction Type:Patient Education Patient Instructions Indication:BMI 21.0-21.9, adult Start:13-Dec-2018 Instruction Type:Provider Instructions for Treatment How to access health informa tion online Indication:Nonsmoker Start:22-Nov-2018 Instruction Type:Patient Education How to access health informa tion online - Detail Indication:Nonsmoker Start:22-Nov-2018 Instruction Type:Patient Education Patient Instructions Indication:Palpitation Start:22-Nov-2018 Instruction Type:Provider Instructions for Treatment How to access health informa tion online Indication:Nonsmoker Start:04-Oct-2018 Instruction Type:Patient Education How to access health informa tion online - Detail Indication:Nonsmoker Start:04-Oct-2018 Instruction Type:Patient Education Patient Instructions Indication:BMI 21.0-21.9, adult Start:04-Oct-2018 Instruction Type:Provider Instructions for Treatment How to access health informa tion online Indication:Nonsmoker Start:06-Apr-2018 Instruction Type:Patient Education How to access health informa tion online - Detail Indication:Nonsmoker Start:06-Apr-2018 Instruction Type:Patient Education Patient Instructions Indication:Nonsmoker Start:06-Apr-2018 Instruction Type:Provider Instructions for Treatment How to access health informa tion online Indication:Nonsmoker Start:27-Oct-2017 Instruction Type:Patient Education How to access health informa tion online - Detail Indication:Nonsmoker Start:27-Oct-2017 Instruction Type:Patient Education Patient Instructions Indication:Nonsmoker Start:27-Oct-2017 Instruction Type:Provider Instructions for Treatment How to access health informa tion online Indication:Osteopenia Start:17-Nov-2016 Instruction Type:Patient Education How to access health informa tion online - Detail Indication:Osteopenia Start:17-Nov-2016 Instruction Type:Patient Education Patient Instructions Indication:Osteopenia Start:17-Nov-2016 Instruction Type:Provider Instructions for Treatment How to access health informa tion online Indication: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,adult Start:21-Jul-2016 Instruction Type:Patient Education How to access health informa tion online - Detail Indication: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,adult Start:21-Jul-2016 Instruction Type:Patient Education Patient Instructions Indication: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,adult Start:21-Jul-2016 Instruction Type:Provider Instructions for Treatment How to access health informa tion online Indication:Dysuria Start:11-Oct-2015 Instruction Type:Patient Education How to access health informa tion online - Detail Indication:Dysuria Start:11-Oct-2015 Instruction Type:Patient Education Patient Instructions Indication:Dysuria Start:11-Oct-2015 Instruction Type:Provider Instructions for Treatment How to access health informa tion online Indication:Osteopenia Start:20-Jun-2015 Instruction Type:Patient Education How to access health informa tion online - Detail Indication:Osteopenia Start:20-Jun-2015 Instruction Type:Patient Education Patient Instructions Indication:Osteopenia Start:20-Jun-2015 Instruction Type:Provider Instructions for Treatment Patient Instructions Indication:Osteopenia Start:12-Jun-2014 Instruction Type:Provider Instructions for Treatment Patient Instructions Indication:Osteopenia Start:20-Jun-2013 Instruction Type:Provider Instructions for Treatment Patient Instructions Indication:Allergic rhinitis Start:04-Apr-2013 Instruction Type:Provider Instructions for Treatment Name Dates Details How to access health informa tion online Indication:Nonsmoker Start:09-Nov-2019 Instruction Type:Patient Education How to access health informa tion online - Detail Indication:Nonsmoker Start:09-Nov-2019 Instruction Type:Patient Education Patient Instructions Indication:Screening for deficiency anemia Start:09-Nov-2019 Instruction Type:Provider Instructions for Treatment How to access health informa tion online Indication:Nonsmoker Start:13-Dec-2018 Instruction Type:Patient Education How to access health informa tion online - Detail Indication:Nonsmoker Start:13-Dec-2018 Instruction Type:Patient Education Patient Instructions Indication:BMI 21.0-21.9, adult Start:13-Dec-2018 Instruction Type:Provider Instructions for Treatment How to access health informa tion online Indication:Nonsmoker Start:22-Nov-2018 Instruction Type:Patient Education How to access health informa tion online - Detail Indication:Nonsmoker Start:22-Nov-2018 Instruction Type:Patient Education Patient Instructions Indication:Palpitation Start:22-Nov-2018 Instruction Type:Provider Instructions for Treatment How to access health informa tion online Indication:Nonsmoker Start:04-Oct-2018 Instruction Type:Patient Education How to access health informa tion online - Detail Indication:Nonsmoker Start:04-Oct-2018 Instruction Type:Patient Education Patient Instructions Indication:BMI 21.0-21.9, adult Start:04-Oct-2018 Instruction Type:Provider Instructions for Treatment How to access health informa tion online Indication:Nonsmoker Start:06-Apr-2018 Instruction Type:Patient Education How to access health informa tion online - Detail Indication:Nonsmoker Start:06-Apr-2018 Instruction Type:Patient Education Patient Instructions Indication:Nonsmoker Start:06-Apr-2018 Instruction Type:Provider Instructions for Treatment How to access health informa tion online Indication:Nonsmoker Start:27-Oct-2017 Instruction Type:Patient Education How to access health informa tion online - Detail Indication:Nonsmoker Start:27-Oct-2017 Instruction Type:Patient Education Patient Instructions Indication:Nonsmoker Start:27-Oct-2017 Instruction Type:Provider Instructions for Treatment How to access health informa tion online Indication:Osteopenia Start:17-Nov-2016 Instruction Type:Patient Education How to access health informa tion online - Detail Indication:Osteopenia Start:17-Nov-2016 Instruction Type:Patient Education Patient Instructions Indication:Osteopenia Start:17-Nov-2016 Instruction Type:Provider Instructions for Treatment How to access health informa tion online Indication: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,adult Start:21-Jul-2016 Instruction Type:Patient Education How to access health informa tion online - Detail Indication: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,adult Start:21-Jul-2016 Instruction Type:Patient Education Patient Instructions Indication: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,adult Start:21-Jul-2016 Instruction Type:Provider Instructions for Treatment How to access health informa tion online Indication:Dysuria Start:11-Oct-2015 Instruction Type:Patient Education How to access health informa tion online - Detail Indication:Dysuria Start:11-Oct-2015 Instruction Type:Patient Education Patient Instructions Indication:Dysuria Start:11-Oct-2015 Instruction Type:Provider Instructions for Treatment How to access health informa tion online Indication:Osteopenia Start:20-Jun-2015 Instruction Type:Patient Education How to access health informa tion online - Detail Indication:Osteopenia Start:20-Jun-2015 Instruction Type:Patient Education Patient Instructions Indication:Osteopenia Start:20-Jun-2015 Instruction Type:Provider Instructions for Treatment Patient Instructions Indication:Osteopenia Start:12-Jun-2014 Instruction Type:Provider Instructions for Treatment Patient Instructions Indication:Osteopenia Start:20-Jun-2013 Instruction Type:Provider Instructions for Treatment Patient Instructions Indication:Allergic rhinitis Start:04-Apr-2013 Instruction Type:Provider Instructions for Treatment Name Dates Details Patient Instructions Indication:Nonsmoker Start:31-Jan-2020 Instruction Type:Provider Instructions for Treatment How to Access Health Informa tion Online using Patient Portal and [employer] Apps Indication:Nonsmoker Start:31-Jan-2020 Instruction Type:Patient Education How to access health informa tion online Indication:Nonsmoker Start:11-Jan-2020 Instruction Type:Patient Education How to access health informa tion online - Detail Indication:Nonsmoker Start:11-Jan-2020 Instruction Type:Patient Education Patient Instructions Indication:Nonsmoker Start:11-Jan-2020 Instruction Type:Provider Instructions for Treatment How to access health informa tion online Indication:Nonsmoker Start:09-Nov-2019 Instruction Type:Patient Education How to access health informa tion online - Detail Indication:Nonsmoker Start:09-Nov-2019 Instruction Type:Patient Education Patient Instructions Indication:Screening for deficiency anemia Start:09-Nov-2019 Instruction Type:Provider Instructions for Treatment How to access health informa tion online Indication:Nonsmoker Start:13-Dec-2018 Instruction Type:Patient Education How to access health informa tion online - Detail Indication:Nonsmoker Start:13-Dec-2018 Instruction Type:Patient Education Patient Instructions Indication:BMI 21.0-21.9, adult Start:13-Dec-2018 Instruction Type:Provider Instructions for Treatment How to access health informa tion online Indication:Nonsmoker Start:22-Nov-2018 Instruction Type:Patient Education How to access health informa tion online - Detail Indication:Nonsmoker Start:22-Nov-2018 Instruction Type:Patient Education Patient Instructions Indication:Palpitation Start:22-Nov-2018 Instruction Type:Provider Instructions for Treatment How to access health informa tion online Indication:Nonsmoker Start:04-Oct-2018 Instruction Type:Patient Education How to access health informa tion online - Detail Indication:Nonsmoker Start:04-Oct-2018 Instruction Type:Patient Education Patient Instructions Indication:BMI 21.0-21.9, adult Start:04-Oct-2018 Instruction Type:Provider Instructions for Treatment How to access health informa tion online Indication:Nonsmoker Start:06-Apr-2018 Instruction Type:Patient Education How to access health informa tion online - Detail Indication:Nonsmoker Start:06-Apr-2018 Instruction Type:Patient Education Patient Instructions Indication:Nonsmoker Start:06-Apr-2018 Instruction Type:Provider Instructions for Treatment How to access health informa tion online Indication:Nonsmoker Start:27-Oct-2017 Instruction Type:Patient Education How to access health informa tion online - Detail Indication:Nonsmoker Start:27-Oct-2017 Instruction Type:Patient Education Patient Instructions Indication:Nonsmoker Start:27-Oct-2017 Instruction Type:Provider Instructions for Treatment How to access health informa tion online Indication:Osteopenia Start:17-Nov-2016 Instruction Type:Patient Education How to access health informa tion online - Detail Indication:Osteopenia Start:17-Nov-2016 Instruction Type:Patient Education Patient Instructions Indication:Osteopenia Start:17-Nov-2016 Instruction Type:Provider Instructions for Treatment How to access health informa tion online Indication: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,adult Start:21-Jul-2016 Instruction Type:Patient Education How to access health informa tion online - Detail Indication: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,adult Start:21-Jul-2016 Instruction Type:Patient Education Patient Instructions Indication: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,adult Start:21-Jul-2016 Instruction Type:Provider Instructions for Treatment How to access health informa tion online Indication:Dysuria Start:11-Oct-2015 Instruction Type:Patient Education How to access health informa tion online - Detail Indication:Dysuria Start:11-Oct-2015 Instruction Type:Patient Education Patient Instructions Indication:Dysuria Start:11-Oct-2015 Instruction Type:Provider Instructions for Treatment How to access health informa tion online Indication:Osteopenia Start:20-Jun-2015 Instruction Type:Patient Education How to access health informa tion online - Detail Indication:Osteopenia Start:20-Jun-2015 Instruction Type:Patient Education Patient Instructions Indication:Osteopenia Start:20-Jun-2015 Instruction Type:Provider Instructions for Treatment Patient Instructions Indication:Osteopenia Start:12-Jun-2014 Instruction Type:Provider Instructions for Treatment Patient Instructions Indication:Osteopenia Start:20-Jun-2013 Instruction Type:Provider Instructions for Treatment Patient Instructions Indication:Allergic rhinitis Start:04-Apr-2013 Instruction Type:Provider Instructions for Treatment Name Dates Details Patient Instructions Indication:Nonsmoker Start:31-Jan-2020 Instruction Type:Provider Instructions for Treatment How to Access Health Informa tion Online using Patient Portal and [employer] Indication:Nonsmoker Start:31-Jan-2020 Instruction Type:Patient Education How to access health informa tion online Indication:Nonsmoker Start:11-Jan-2020 Instruction Type:Patient Education How to access health informa tion online - Detail Indication:Nonsmoker Start:11-Jan-2020 Instruction Type:Patient Education Patient Instructions Indication:Nonsmoker Start:11-Jan-2020 Instruction Type:Provider Instructions for Treatment How to access health informa tion online Indication:Nonsmoker Start:09-Nov-2019 Instruction Type:Patient Education How to access health informa tion online - Detail Indication:Nonsmoker Start:09-Nov-2019 Instruction Type:Patient Education Patient Instructions Indication:Screening for deficiency anemia Start:09-Nov-2019 Instruction Type:Provider Instructions for Treatment How to access health informa tion online Indication:Nonsmoker Start:13-Dec-2018 Instruction Type:Patient Education How to access health informa tion online - Detail Indication:Nonsmoker Start:13-Dec-2018 Instruction Type:Patient Education Patient Instructions Indication:BMI 21.0-21.9, adult Start:13-Dec-2018 Instruction Type:Provider Instructions for Treatment How to access health informa tion online Indication:Nonsmoker Start:22-Nov-2018 Instruction Type:Patient Education How to access health informa tion online - Detail Indication:Nonsmoker Start:22-Nov-2018 Instruction Type:Patient Education Patient Instructions Indication:Palpitation Start:22-Nov-2018 Instruction Type:Provider Instructions for Treatment How to access health informa tion online Indication:Nonsmoker Start:04-Oct-2018 Instruction Type:Patient Education How to access health informa tion online - Detail Indication:Nonsmoker Start:04-Oct-2018 Instruction Type:Patient Education Patient Instructions Indication:BMI 21.0-21.9, adult Start:04-Oct-2018 Instruction Type:Provider Instructions for Treatment How to access health informa tion online Indication:Nonsmoker Start:06-Apr-2018 Instruction Type:Patient Education How to access health informa tion online - Detail Indication:Nonsmoker Start:06-Apr-2018 Instruction Type:Patient Education Patient Instructions Indication:Nonsmoker Start:06-Apr-2018 Instruction Type:Provider Instructions for Treatment How to access health informa tion online Indication:Nonsmoker Start:27-Oct-2017 Instruction Type:Patient Education How to access health informa tion online - Detail Indication:Nonsmoker Start:27-Oct-2017 Instruction Type:Patient Education Patient Instructions Indication:Nonsmoker Start:27-Oct-2017 Instruction Type:Provider Instructions for Treatment How to access health informa tion online Indication:Osteopenia Start:17-Nov-2016 Instruction Type:Patient Education How to access health informa tion online - Detail Indication:Osteopenia Start:17-Nov-2016 Instruction Type:Patient Education Patient Instructions Indication:Osteopenia Start:17-Nov-2016 Instruction Type:Provider Instructions for Treatment How to access health informa tion online Indication: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,adult Start:21-Jul-2016 Instruction Type:Patient Education How to access health informa tion online - Detail Indication: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,adult Start:21-Jul-2016 Instruction Type:Patient Education Patient Instructions Indication: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,adult Start:21-Jul-2016 Instruction Type:Provider Instructions for Treatment How to access health informa tion online Indication:Dysuria Start:11-Oct-2015 Instruction Type:Patient Education How to access health informa tion online - Detail Indication:Dysuria Start:11-Oct-2015 Instruction Type:Patient Education Patient Instructions Indication:Dysuria Start:11-Oct-2015 Instruction Type:Provider Instructions for Treatment How to access health informa tion online Indication:Osteopenia Start:20-Jun-2015 Instruction Type:Patient Education How to access health informa tion online - Detail Indication:Osteopenia Start:20-Jun-2015 Instruction Type:Patient Education Patient Instructions Indication:Osteopenia Start:20-Jun-2015 Instruction Type:Provider Instructions for Treatment Patient Instructions Indication:Osteopenia Start:12-Jun-2014 Instruction Type:Provider Instructions for Treatment Patient Instructions Indication:Osteopenia Start:20-Jun-2013 Instruction Type:Provider Instructions for Treatment Patient Instructions Indication:Allergic rhinitis Start:04-Apr-2013 Instruction Type:Provider Instructions for Treatment Name Dates Details How to access health informa tion online Indication:Nonsmoker Start:22-Nov-2018 Instruction Type:Patient Education How to access health informa tion online - Detail Indication:Nonsmoker Start:22-Nov-2018 Instruction Type:Patient Education Patient Instructions Indication:Palpitation Start:22-Nov-2018 Instruction Type:Provider Instructions for Treatment How to access health informa tion online Indication:Nonsmoker Start:04-Oct-2018 Instruction Type:Patient Education How to access health informa tion online - Detail Indication:Nonsmoker Start:04-Oct-2018 Instruction Type:Patient Education Patient Instructions Indication:BMI 21.0-21.9, adult Start:04-Oct-2018 Instruction Type:Provider Instructions for Treatment How to access health informa tion online Indication:Nonsmoker Start:06-Apr-2018 Instruction Type:Patient Education How to access health informa tion online - Detail Indication:Nonsmoker Start:06-Apr-2018 Instruction Type:Patient Education Patient Instructions Indication:Nonsmoker Start:06-Apr-2018 Instruction Type:Provider Instructions for Treatment How to access health informa tion online Indication:Nonsmoker Start:27-Oct-2017 Instruction Type:Patient Education How to access health informa tion online - Detail Indication:Nonsmoker Start:27-Oct-2017 Instruction Type:Patient Education Patient Instructions Indication:Nonsmoker Start:27-Oct-2017 Instruction Type:Provider Instructions for Treatment How to access health informa tion online Indication:Osteopenia Start:17-Nov-2016 Instruction Type:Patient Education How to access health informa tion online - Detail Indication:Osteopenia Start:17-Nov-2016 Instruction Type:Patient Education Patient Instructions Indication:Osteopenia Start:17-Nov-2016 Instruction Type:Provider Instructions for Treatment How to access health informa tion online Indication: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,adult Start:21-Jul-2016 Instruction Type:Patient Education How to access health informa tion online - Detail Indication: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,adult Start:21-Jul-2016 Instruction Type:Patient Education Patient Instructions Indication: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,adult Start:21-Jul-2016 Instruction Type:Provider Instructions for Treatment How to access health informa tion online Indication:Dysuria Start:11-Oct-2015 Instruction Type:Patient Education How to access health informa tion online - Detail Indication:Dysuria Start:11-Oct-2015 Instruction Type:Patient Education Patient Instructions Indication:Dysuria Start:11-Oct-2015 Instruction Type:Provider Instructions for Treatment How to access health informa tion online Indication:Osteopenia Start:20-Jun-2015 Instruction Type:Patient Education How to access health informa tion online - Detail Indication:Osteopenia Start:20-Jun-2015 Instruction Type:Patient Education Patient Instructions Indication:Osteopenia Start:20-Jun-2015 Instruction Type:Provider Instructions for Treatment Patient Instructions Indication:Osteopenia Start:12-Jun-2014 Instruction Type:Provider Instructions for Treatment Patient Instructions Indication:Osteopenia Start:20-Jun-2013 Instruction Type:Provider Instructions for Treatment Patient Instructions Indication:Allergic rhinitis Start:04-Apr-2013 Instruction Type:Provider Instructions for Treatment Name Dates Details How to access health informa tion online Indication:Nonsmoker Start:11-Jan-2020 Instruction Type:Patient Education How to access health informa tion online - Detail Indication:Nonsmoker Start:11-Jan-2020 Instruction Type:Patient Education Patient Instructions Indication:Nonsmoker Start:11-Jan-2020 Instruction Type:Provider Instructions for Treatment How to access health informa tion online Indication:Nonsmoker Start:09-Nov-2019 Instruction Type:Patient Education How to access health informa tion online - Detail Indication:Nonsmoker Start:09-Nov-2019 Instruction Type:Patient Education Patient Instructions Indication:Screening for deficiency anemia Start:09-Nov-2019 Instruction Type:Provider Instructions for Treatment How to access health informa tion online Indication:Nonsmoker Start:13-Dec-2018 Instruction Type:Patient Education How to access health informa tion online - Detail Indication:Nonsmoker Start:13-Dec-2018 Instruction Type:Patient Education Patient Instructions Indication:BMI 21.0-21.9, adult Start:13-Dec-2018 Instruction Type:Provider Instructions for Treatment How to access health informa tion online Indication:Nonsmoker Start:22-Nov-2018 Instruction Type:Patient Education How to access health informa tion online - Detail Indication:Nonsmoker Start:22-Nov-2018 Instruction Type:Patient Education Patient Instructions Indication:Palpitation Start:22-Nov-2018 Instruction Type:Provider Instructions for Treatment How to access health informa tion online Indication:Nonsmoker Start:04-Oct-2018 Instruction Type:Patient Education How to access health informa tion online - Detail Indication:Nonsmoker Start:04-Oct-2018 Instruction Type:Patient Education Patient Instructions Indication:BMI 21.0-21.9, adult Start:04-Oct-2018 Instruction Type:Provider Instructions for Treatment How to access health informa tion online Indication:Nonsmoker Start:06-Apr-2018 Instruction Type:Patient Education How to access health informa tion online - Detail Indication:Nonsmoker Start:06-Apr-2018 Instruction Type:Patient Education Patient Instructions Indication:Nonsmoker Start:06-Apr-2018 Instruction Type:Provider Instructions for Treatment How to access health informa tion online Indication:Nonsmoker Start:27-Oct-2017 Instruction Type:Patient Education How to access health informa tion online - Detail Indication:Nonsmoker Start:27-Oct-2017 Instruction Type:Patient Education Patient Instructions Indication:Nonsmoker Start:27-Oct-2017 Instruction Type:Provider Instructions for Treatment How to access health informa tion online Indication:Osteopenia Start:17-Nov-2016 Instruction Type:Patient Education How to access health informa tion online - Detail Indication:Osteopenia Start:17-Nov-2016 Instruction Type:Patient Education Patient Instructions Indication:Osteopenia Start:17-Nov-2016 Instruction Type:Provider Instructions for Treatment How to access health informa tion online Indication: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,adult Start:21-Jul-2016 Instruction Type:Patient Education How to access health informa tion online - Detail Indication: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,adult Start:21-Jul-2016 Instruction Type:Patient Education Patient Instructions Indication: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,adult Start:21-Jul-2016 Instruction Type:Provider Instructions for Treatment How to access health informa tion online Indication:Dysuria Start:11-Oct-2015 Instruction Type:Patient Education How to access health informa tion online - Detail Indication:Dysuria Start:11-Oct-2015 Instruction Type:Patient Education Patient Instructions Indication:Dysuria Start:11-Oct-2015 Instruction Type:Provider Instructions for Treatment How to access health informa tion online Indication:Osteopenia Start:20-Jun-2015 Instruction Type:Patient Education How to access health informa tion online - Detail Indication:Osteopenia Start:20-Jun-2015 Instruction Type:Patient Education Patient Instructions Indication:Osteopenia Start:20-Jun-2015 Instruction Type:Provider Instructions for Treatment Patient Instructions Indication:Osteopenia Start:12-Jun-2014 Instruction Type:Provider Instructions for Treatment Patient Instructions Indication:Osteopenia Start:20-Jun-2013 Instruction Type:Provider Instructions for Treatment Patient Instructions Indication:Allergic rhinitis Start:04-Apr-2013 Instruction Type:Provider Instructions for Treatment Name Dates Details Patient Instructions Indication:Nonsmoker Start:31-Jan-2020 Instruction Type:Provider Instructions for Treatment How to Access Health Informa tion Online using Patient Portal and [employer] Apps Indication:Nonsmoker Start:31-Jan-2020 Instruction Type:Patient Education How to access health informa tion online Indication:Nonsmoker Start:11-Jan-2020 Instruction Type:Patient Education How to access health informa tion online - Detail Indication:Nonsmoker Start:11-Jan-2020 Instruction Type:Patient Education Patient Instructions Indication:Nonsmoker Start:11-Jan-2020 Instruction Type:Provider Instructions for Treatment How to access health informa tion online Indication:Nonsmoker Start:09-Nov-2019 Instruction Type:Patient Education How to access health informa tion online - Detail Indication:Nonsmoker Start:09-Nov-2019 Instruction Type:Patient Education Patient Instructions Indication:Screening for deficiency anemia Start:09-Nov-2019 Instruction Type:Provider Instructions for Treatment How to access health informa tion online Indication:Nonsmoker Start:13-Dec-2018 Instruction Type:Patient Education How to access health informa tion online - Detail Indication:Nonsmoker Start:13-Dec-2018 Instruction Type:Patient Education Patient Instructions Indication:BMI 21.0-21.9, adult Start:13-Dec-2018 Instruction Type:Provider Instructions for Treatment How to access health informa tion online Indication:Nonsmoker Start:22-Nov-2018 Instruction Type:Patient Education How to access health informa tion online - Detail Indication:Nonsmoker Start:22-Nov-2018 Instruction Type:Patient Education Patient Instructions Indication:Palpitation Start:22-Nov-2018 Instruction Type:Provider Instructions for Treatment How to access health informa tion online Indication:Nonsmoker Start:04-Oct-2018 Instruction Type:Patient Education How to access health informa tion online - Detail Indication:Nonsmoker Start:04-Oct-2018 Instruction Type:Patient Education Patient Instructions Indication:BMI 21.0-21.9, adult Start:04-Oct-2018 Instruction Type:Provider Instructions for Treatment How to access health informa tion online Indication:Nonsmoker Start:06-Apr-2018 Instruction Type:Patient Education How to access health informa tion online - Detail Indication:Nonsmoker Start:06-Apr-2018 Instruction Type:Patient Education Patient Instructions Indication:Nonsmoker Start:06-Apr-2018 Instruction Type:Provider Instructions for Treatment How to access health informa tion online Indication:Nonsmoker Start:27-Oct-2017 Instruction Type:Patient Education How to access health informa tion online - Detail Indication:Nonsmoker Start:27-Oct-2017 Instruction Type:Patient Education Patient Instructions Indication:Nonsmoker Start:27-Oct-2017 Instruction Type:Provider Instructions for Treatment How to access health informa tion online Indication:Osteopenia Start:17-Nov-2016 Instruction Type:Patient Education How to access health informa tion online - Detail Indication:Osteopenia Start:17-Nov-2016 Instruction Type:Patient Education Patient Instructions Indication:Osteopenia Start:17-Nov-2016 Instruction Type:Provider Instructions for Treatment How to access health informa tion online Indication: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,adult Start:21-Jul-2016 Instruction Type:Patient Education How to access health informa tion online - Detail Indication: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,adult Start:21-Jul-2016 Instruction Type:Patient Education Patient Instructions Indication: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,adult Start:21-Jul-2016 Instruction Type:Provider Instructions for Treatment How to access health informa tion online Indication:Dysuria Start:11-Oct-2015 Instruction Type:Patient Education How to access health informa tion online - Detail Indication:Dysuria Start:11-Oct-2015 Instruction Type:Patient Education Patient Instructions Indication:Dysuria Start:11-Oct-2015 Instruction Type:Provider Instructions for Treatment How to access health informa tion online Indication:Osteopenia Start:20-Jun-2015 Instruction Type:Patient Education How to access health informa tion online - Detail Indication:Osteopenia Start:20-Jun-2015 Instruction Type:Patient Education Patient Instructions Indication:Osteopenia Start:20-Jun-2015 Instruction Type:Provider Instructions for Treatment Patient Instructions Indication:Osteopenia Start:12-Jun-2014 Instruction Type:Provider Instructions for Treatment Patient Instructions Indication:Osteopenia Start:20-Jun-2013 Instruction Type:Provider Instructions for Treatment Patient Instructions Indication:Allergic rhinitis Start:04-Apr-2013 Instruction Type:Provider Instructions for Treatment Name Dates Details How to access health informa tion online Indication:Nonsmoker Start:09-Nov-2019 Instruction Type:Patient Education How to access health informa tion online - Detail Indication:Nonsmoker Start:09-Nov-2019 Instruction Type:Patient Education Patient Instructions Indication:Screening for deficiency anemia Start:09-Nov-2019 Instruction Type:Provider Instructions for Treatment How to access health informa tion online Indication:Nonsmoker Start:13-Dec-2018 Instruction Type:Patient Education How to access health informa tion online - Detail Indication:Nonsmoker Start:13-Dec-2018 Instruction Type:Patient Education Patient Instructions Indication:BMI 21.0-21.9, adult Start:13-Dec-2018 Instruction Type:Provider Instructions for Treatment How to access health informa tion online Indication:Nonsmoker Start:22-Nov-2018 Instruction Type:Patient Education How to access health informa tion online - Detail Indication:Nonsmoker Start:22-Nov-2018 Instruction Type:Patient Education Patient Instructions Indication:Palpitation Start:22-Nov-2018 Instruction Type:Provider Instructions for Treatment How to access health informa tion online Indication:Nonsmoker Start:04-Oct-2018 Instruction Type:Patient Education How to access health informa tion online - Detail Indication:Nonsmoker Start:04-Oct-2018 Instruction Type:Patient Education Patient Instructions Indication:BMI 21.0-21.9, adult Start:04-Oct-2018 Instruction Type:Provider Instructions for Treatment How to access health informa tion online Indication:Nonsmoker Start:06-Apr-2018 Instruction Type:Patient Education How to access health informa tion online - Detail Indication:Nonsmoker Start:06-Apr-2018 Instruction Type:Patient Education Patient Instructions Indication:Nonsmoker Start:06-Apr-2018 Instruction Type:Provider Instructions for Treatment How to access health informa tion online Indication:Nonsmoker Start:27-Oct-2017 Instruction Type:Patient Education How to access health informa tion online - Detail Indication:Nonsmoker Start:27-Oct-2017 Instruction Type:Patient Education Patient Instructions Indication:Nonsmoker Start:27-Oct-2017 Instruction Type:Provider Instructions for Treatment How to access health informa tion online Indication:Osteopenia Start:17-Nov-2016 Instruction Type:Patient Education How to access health informa tion online - Detail Indication:Osteopenia Start:17-Nov-2016 Instruction Type:Patient Education Patient Instructions Indication:Osteopenia Start:17-Nov-2016 Instruction Type:Provider Instructions for Treatment How to access health informa tion online Indication: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,adult Start:21-Jul-2016 Instruction Type:Patient Education How to access health informa tion online - Detail Indication: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,adult Start:21-Jul-2016 Instruction Type:Patient Education Patient Instructions Indication: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,adult Start:21-Jul-2016 Instruction Type:Provider Instructions for Treatment How to access health informa tion online Indication:Dysuria Start:11-Oct-2015 Instruction Type:Patient Education How to access health informa tion online - Detail Indication:Dysuria Start:11-Oct-2015 Instruction Type:Patient Education Patient Instructions Indication:Dysuria Start:11-Oct-2015 Instruction Type:Provider Instructions for Treatment How to access health informa tion online Indication:Osteopenia Start:20-Jun-2015 Instruction Type:Patient Education How to access health informa tion online - Detail Indication:Osteopenia Start:20-Jun-2015 Instruction Type:Patient Education Patient Instructions Indication:Osteopenia Start:20-Jun-2015 Instruction Type:Provider Instructions for Treatment Patient Instructions Indication:Osteopenia Start:12-Jun-2014 Instruction Type:Provider Instructions for Treatment Patient Instructions Indication:Osteopenia Start:20-Jun-2013 Instruction Type:Provider Instructions for Treatment Patient Instructions Indication:Allergic rhinitis Start:04-Apr-2013 Instruction Type:Provider Instructions for Treatment Name Dates Details How to access health informa tion online Indication:Nonsmoker Start:06-Apr-2018 Instruction Type:Patient Education How to access health informa tion online - Detail Indication:Nonsmoker Start:06-Apr-2018 Instruction Type:Patient Education Patient Instructions Indication:Nonsmoker Start:06-Apr-2018 Instruction Type:Provider Instructions for Treatment How to access health informa tion online Indication:Nonsmoker Start:27-Oct-2017 Instruction Type:Patient Education How to access health informa tion online - Detail Indication:Nonsmoker Start:27-Oct-2017 Instruction Type:Patient Education Patient Instructions Indication:Nonsmoker Start:27-Oct-2017 Instruction Type:Provider Instructions for Treatment How to access health informa tion online Indication:Osteopenia Start:17-Nov-2016 Instruction Type:Patient Education How to access health informa tion online - Detail Indication:Osteopenia Start:17-Nov-2016 Instruction Type:Patient Education Patient Instructions Indication:Osteopenia Start:17-Nov-2016 Instruction Type:Provider Instructions for Treatment How to access health informa tion online Indication: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,adult Start:21-Jul-2016 Instruction Type:Patient Education How to access health informa tion online - Detail Indication: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,adult Start:21-Jul-2016 Instruction Type:Patient Education Patient Instructions Indication: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,adult Start:21-Jul-2016 Instruction Type:Provider Instructions for Treatment How to access health informa tion online Indication:Dysuria Start:11-Oct-2015 Instruction Type:Patient Education How to access health informa tion online - Detail Indication:Dysuria Start:11-Oct-2015 Instruction Type:Patient Education Patient Instructions Indication:Dysuria Start:11-Oct-2015 Instruction Type:Provider Instructions for Treatment How to access health informa tion online Indication:Osteopenia Start:20-Jun-2015 Instruction Type:Patient Education How to access health informa tion online - Detail Indication:Osteopenia Start:20-Jun-2015 Instruction Type:Patient Education Patient Instructions Indication:Osteopenia Start:20-Jun-2015 Instruction Type:Provider Instructions for Treatment Patient Instructions Indication:Osteopenia Start:12-Jun-2014 Instruction Type:Provider Instructions for Treatment Patient Instructions Indication:Osteopenia Start:20-Jun-2013 Instruction Type:Provider Instructions for Treatment Patient Instructions Indication:Allergic rhinitis Start:04-Apr-2013 Instruction Type:Provider Instructions for Treatment Name Dates Details Patient Instructions Indication:Nonsmoker Start:14-May-2020 Instruction Type:Provider Instructions for Treatment How to Access Health Informa tion Online using Patient Portal and [employer] Indication:Nonsmoker Start:14-May-2020 Instruction Type:Patient Education Patient Instructions Indication:Nonsmoker Start:31-Jan-2020 Instruction Type:Provider Instructions for Treatment How to Access Health Informa tion Online using Patient Portal and [employer] Indication:Nonsmoker Start:31-Jan-2020 Instruction Type:Patient Education How to access health informa tion online Indication:Nonsmoker Start:11-Jan-2020 Instruction Type:Patient Education How to access health informa tion online - Detail Indication:Nonsmoker Start:11-Jan-2020 Instruction Type:Patient Education Patient Instructions Indication:Nonsmoker Start:11-Jan-2020 Instruction Type:Provider Instructions for Treatment How to access health informa tion online Indication:Nonsmoker Start:09-Nov-2019 Instruction Type:Patient Education How to access health informa tion online - Detail Indication:Nonsmoker Start:09-Nov-2019 Instruction Type:Patient Education Patient Instructions Indication:Screening for deficiency anemia Start:09-Nov-2019 Instruction Type:Provider Instructions for Treatment How to access health informa tion online Indication:Nonsmoker Start:13-Dec-2018 Instruction Type:Patient Education How to access health informa tion online - Detail Indication:Nonsmoker Start:13-Dec-2018 Instruction Type:Patient Education Patient Instructions Indication:BMI 21.0-21.9, adult Start:13-Dec-2018 Instruction Type:Provider Instructions for Treatment How to access health informa tion online Indication:Nonsmoker Start:22-Nov-2018 Instruction Type:Patient Education How to access health informa tion online - Detail Indication:Nonsmoker Start:22-Nov-2018 Instruction Type:Patient Education Patient Instructions Indication:Palpitation Start:22-Nov-2018 Instruction Type:Provider Instructions for Treatment How to access health informa tion online Indication:Nonsmoker Start:04-Oct-2018 Instruction Type:Patient Education How to access health informa tion online - Detail Indication:Nonsmoker Start:04-Oct-2018 Instruction Type:Patient Education Patient Instructions Indication:BMI 21.0-21.9, adult Start:04-Oct-2018 Instruction Type:Provider Instructions for Treatment How to access health informa tion online Indication:Nonsmoker Start:06-Apr-2018 Instruction Type:Patient Education How to access health informa tion online - Detail Indication:Nonsmoker Start:06-Apr-2018 Instruction Type:Patient Education Patient Instructions Indication:Nonsmoker Start:06-Apr-2018 Instruction Type:Provider Instructions for Treatment How to access health informa tion online Indication:Nonsmoker Start:27-Oct-2017 Instruction Type:Patient Education How to access health informa tion online - Detail Indication:Nonsmoker Start:27-Oct-2017 Instruction Type:Patient Education Patient Instructions Indication:Nonsmoker Start:27-Oct-2017 Instruction Type:Provider Instructions for Treatment How to access health informa tion online Indication:Osteopenia Start:17-Nov-2016 Instruction Type:Patient Education How to access health informa tion online - Detail Indication:Osteopenia Start:17-Nov-2016 Instruction Type:Patient Education Patient Instructions Indication:Osteopenia Start:17-Nov-2016 Instruction Type:Provider Instructions for Treatment How to access health informa tion online Indication: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,adult Start:21-Jul-2016 Instruction Type:Patient Education How to access health informa tion online - Detail Indication: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,adult Start:21-Jul-2016 Instruction Type:Patient Education Patient Instructions Indication: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,adult Start:21-Jul-2016 Instruction Type:Provider Instructions for Treatment How to access health informa tion online Indication:Dysuria Start:11-Oct-2015 Instruction Type:Patient Education How to access health informa tion online - Detail Indication:Dysuria Start:11-Oct-2015 Instruction Type:Patient Education Patient Instructions Indication:Dysuria Start:11-Oct-2015 Instruction Type:Provider Instructions for Treatment How to access health informa tion online Indication:Osteopenia Start:20-Jun-2015 Instruction Type:Patient Education How to access health informa tion online - Detail Indication:Osteopenia Start:20-Jun-2015 Instruction Type:Patient Education Patient Instructions Indication:Osteopenia Start:20-Jun-2015 Instruction Type:Provider Instructions for Treatment Patient Instructions Indication:Osteopenia Start:12-Jun-2014 Instruction Type:Provider Instructions for Treatment Patient Instructions Indication:Osteopenia Start:20-Jun-2013 Instruction Type:Provider Instructions for Treatment Patient Instructions Indication:Allergic rhinitis Start:04-Apr-2013 Instruction Type:Provider Instructions for Treatment Name Dates Details Patient Instructions Indication:Nonsmoker Start:14-May-2020 Instruction Type:Provider Instructions for Treatment How to Access Health Informa tion Online using Patient Portal and [employer] Apps Indication:Nonsmoker Start:14-May-2020 Instruction Type:Patient Education Patient Instructions Indication:Nonsmoker Start:31-Jan-2020 Instruction Type:Provider Instructions for Treatment How to Access Health Informa tion Online using Patient Portal and 3rd [employer]arian Apps Indication:Nonsmoker Start:31-Jan-2020 Instruction Type:Patient Education How to access health informa tion online Indication:Nonsmoker Start:11-Jan-2020 Instruction Type:Patient Education How to access health informa tion online - Detail Indication:Nonsmoker Start:11-Jan-2020 Instruction Type:Patient Education Patient Instructions Indication:Nonsmoker Start:11-Jan-2020 Instruction Type:Provider Instructions for Treatment How to access health informa tion online Indication:Nonsmoker Start:09-Nov-2019 Instruction Type:Patient Education How to access health informa tion online - Detail Indication:Nonsmoker Start:09-Nov-2019 Instruction Type:Patient Education Patient Instructions Indication:Screening for deficiency anemia Start:09-Nov-2019 Instruction Type:Provider Instructions for Treatment How to access health informa tion online Indication:Nonsmoker Start:13-Dec-2018 Instruction Type:Patient Education How to access health informa tion online - Detail Indication:Nonsmoker Start:13-Dec-2018 Instruction Type:Patient Education Patient Instructions Indication:BMI 21.0-21.9, adult Start:13-Dec-2018 Instruction Type:Provider Instructions for Treatment How to access health informa tion online Indication:Nonsmoker Start:22-Nov-2018 Instruction Type:Patient Education How to access health informa tion online - Detail Indication:Nonsmoker Start:22-Nov-2018 Instruction Type:Patient Education Patient Instructions Indication:Palpitation Start:22-Nov-2018 Instruction Type:Provider Instructions for Treatment How to access health informa tion online Indication:Nonsmoker Start:04-Oct-2018 Instruction Type:Patient Education How to access health informa tion online - Detail Indication:Nonsmoker Start:04-Oct-2018 Instruction Type:Patient Education Patient Instructions Indication:BMI 21.0-21.9, adult Start:04-Oct-2018 Instruction Type:Provider Instructions for Treatment How to access health informa tion online Indication:Nonsmoker Start:06-Apr-2018 Instruction Type:Patient Education How to access health informa tion online - Detail Indication:Nonsmoker Start:06-Apr-2018 Instruction Type:Patient Education Patient Instructions Indication:Nonsmoker Start:06-Apr-2018 Instruction Type:Provider Instructions for Treatment How to access health informa tion online Indication:Nonsmoker Start:27-Oct-2017 Instruction Type:Patient Education How to access health informa tion online - Detail Indication:Nonsmoker Start:27-Oct-2017 Instruction Type:Patient Education Patient Instructions Indication:Nonsmoker Start:27-Oct-2017 Instruction Type:Provider Instructions for Treatment How to access health informa tion online Indication:Osteopenia Start:17-Nov-2016 Instruction Type:Patient Education How to access health informa tion online - Detail Indication:Osteopenia Start:17-Nov-2016 Instruction Type:Patient Education Patient Instructions Indication:Osteopenia Start:17-Nov-2016 Instruction Type:Provider Instructions for Treatment How to access health informa tion online Indication: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,adult Start:21-Jul-2016 Instruction Type:Patient Education How to access health informa tion online - Detail Indication: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,adult Start:21-Jul-2016 Instruction Type:Patient Education Patient Instructions Indication: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,adult Start:21-Jul-2016 Instruction Type:Provider Instructions for Treatment How to access health informa tion online Indication:Dysuria Start:11-Oct-2015 Instruction Type:Patient Education How to access health informa tion online - Detail Indication:Dysuria Start:11-Oct-2015 Instruction Type:Patient Education Patient Instructions Indication:Dysuria Start:11-Oct-2015 Instruction Type:Provider Instructions for Treatment How to access health informa tion online Indication:Osteopenia Start:20-Jun-2015 Instruction Type:Patient Education How to access health informa tion online - Detail Indication:Osteopenia Start:20-Jun-2015 Instruction Type:Patient Education Patient Instructions Indication:Osteopenia Start:20-Jun-2015 Instruction Type:Provider Instructions for Treatment Patient Instructions Indication:Osteopenia Start:12-Jun-2014 Instruction Type:Provider Instructions for Treatment Patient Instructions Indication:Osteopenia Start:20-Jun-2013 Instruction Type:Provider Instructions for Treatment Patient Instructions Indication:Allergic rhinitis Start:04-Apr-2013 Instruction Type:Provider Instructions for Treatment Name Dates Details Patient Instructions Indication:Nonsmoker Start:25-May-2020 Instruction Type:Provider Instructions for Treatment How to Access Health Informa tion Online using Patient Portal and 3rd Libertarian Apps Indication:Nonsmoker Start:25-May-2020 Instruction Type:Patient Education Patient Instructions Indication:Nonsmoker Start:14-May-2020 Instruction Type:Provider Instructions for Treatment How to Access Health Informa tion Online using Patient Portal and 3rd [employer] Apps Indication:Nonsmoker Start:14-May-2020 Instruction Type:Patient Education Patient Instructions Indication:Nonsmoker Start:31-Jan-2020 Instruction Type:Provider Instructions for Treatment How to Access Health Informa tion Online using Patient Portal and 3rd Libertarian Apps Indication:Nonsmoker Start:31-Jan-2020 Instruction Type:Patient Education How to access health informa tion online Indication:Nonsmoker Start:11-Jan-2020 Instruction Type:Patient Education How to access health informa tion online - Detail Indication:Nonsmoker Start:11-Jan-2020 Instruction Type:Patient Education Patient Instructions Indication:Nonsmoker Start:11-Jan-2020 Instruction Type:Provider Instructions for Treatment How to access health informa tion online Indication:Nonsmoker Start:09-Nov-2019 Instruction Type:Patient Education How to access health informa tion online - Detail Indication:Nonsmoker Start:09-Nov-2019 Instruction Type:Patient Education Patient Instructions Indication:Screening for deficiency anemia Start:09-Nov-2019 Instruction Type:Provider Instructions for Treatment How to access health informa tion online Indication:Nonsmoker Start:13-Dec-2018 Instruction Type:Patient Education How to access health informa tion online - Detail Indication:Nonsmoker Start:13-Dec-2018 Instruction Type:Patient Education Patient Instructions Indication:BMI 21.0-21.9, adult Start:13-Dec-2018 Instruction Type:Provider Instructions for Treatment How to access health informa tion online Indication:Nonsmoker Start:22-Nov-2018 Instruction Type:Patient Education How to access health informa tion online - Detail Indication:Nonsmoker Start:22-Nov-2018 Instruction Type:Patient Education Patient Instructions Indication:Palpitation Start:22-Nov-2018 Instruction Type:Provider Instructions for Treatment How to access health informa tion online Indication:Nonsmoker Start:04-Oct-2018 Instruction Type:Patient Education How to access health informa tion online - Detail Indication:Nonsmoker Start:04-Oct-2018 Instruction Type:Patient Education Patient Instructions Indication:BMI 21.0-21.9, adult Start:04-Oct-2018 Instruction Type:Provider Instructions for Treatment How to access health informa tion online Indication:Nonsmoker Start:06-Apr-2018 Instruction Type:Patient Education How to access health informa tion online - Detail Indication:Nonsmoker Start:06-Apr-2018 Instruction Type:Patient Education Patient Instructions Indication:Nonsmoker Start:06-Apr-2018 Instruction Type:Provider Instructions for Treatment How to access health informa tion online Indication:Nonsmoker Start:27-Oct-2017 Instruction Type:Patient Education How to access health informa tion online - Detail Indication:Nonsmoker Start:27-Oct-2017 Instruction Type:Patient Education Patient Instructions Indication:Nonsmoker Start:27-Oct-2017 Instruction Type:Provider Instructions for Treatment How to access health informa tion online Indication:Osteopenia Start:17-Nov-2016 Instruction Type:Patient Education How to access health informa tion online - Detail Indication:Osteopenia Start:17-Nov-2016 Instruction Type:Patient Education Patient Instructions Indication:Osteopenia Start:17-Nov-2016 Instruction Type:Provider Instructions for Treatment How to access health informa tion online Indication: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,adult Start:21-Jul-2016 Instruction Type:Patient Education How to access health informa tion online - Detail Indication: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,adult Start:21-Jul-2016 Instruction Type:Patient Education Patient Instructions Indication: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,adult Start:21-Jul-2016 Instruction Type:Provider Instructions for Treatment How to access health informa tion online Indication:Dysuria Start:11-Oct-2015 Instruction Type:Patient Education How to access health informa tion online - Detail Indication:Dysuria Start:11-Oct-2015 Instruction Type:Patient Education Patient Instructions Indication:Dysuria Start:11-Oct-2015 Instruction Type:Provider Instructions for Treatment How to access health informa tion online Indication:Osteopenia Start:20-Jun-2015 Instruction Type:Patient Education How to access health informa tion online - Detail Indication:Osteopenia Start:20-Jun-2015 Instruction Type:Patient Education Patient Instructions Indication:Osteopenia Start:20-Jun-2015 Instruction Type:Provider Instructions for Treatment Patient Instructions Indication:Osteopenia Start:12-Jun-2014 Instruction Type:Provider Instructions for Treatment Patient Instructions Indication:Osteopenia Start:20-Jun-2013 Instruction Type:Provider Instructions for Treatment Patient Instructions Indication:Allergic rhinitis Start:04-Apr-2013 Instruction Type:Provider Instructions for Treatment Chief Complaint and Reason for Visit Chief Complaint OSTEO Advance Directives Advance Directive Response Recorded Date/ Time Living Will Yes December 27 019 2:33pm Power of Outdoor Education Teacher Yes December 27, 2018 2:33pm Summary Purpose Health Concerns Infection Onset Date Last Indicated Resolved Time COVID-19 Rule-Out 03/08/2023 03/08/2023 Additional Source Comments Source Comments (unrecognize d section and content) In the event this informatio n is protected by the Federal Confidentiality of Alcohol and Drug Abuse Patient Records regulations: The Federal rules restrict any use of the information to criminally investigate or prosecute any alcohol or drug abuse patient.[facility] the event this information is protected by the Federal Confidentiality of Alcohol and Drug Abuse Patient Records regulations: The Federal rules restrict any use of the information to criminally investigate or prosecute any alcohol or drug abuse patient.[facility]igh[facility] the event this information is protected by the Federal Confidentiality of Alcohol and Drug Abuse Patient Records regulations: The Federal rules restrict any use of the information to criminally investigate or prosecute any alcohol or drug abuse patient.[facility]ighIn the event this information is protected by the Federal Confidentiality of Alcohol and Drug Abuse Patient Records regulations: The Federal rules restrict any use of the information to criminally investigate or prosecute any alcohol or drug abuse patient.[facility]ighIn the event this information is protected by the Federal Confidentiality of Alcohol and Drug Abuse Patient Records regulations: The Federal rules restrict any use of the information to criminally investigate or prosecute any alcohol or drug abuse patient.[facility]ighIn the event this information is protected by the Federal Confidentiality of Alcohol and Drug Abuse Patient Records regulations: The Federal rules restrict any use of the information to criminally investigate or prosecute any alcohol or drug abuse patient.[facility]ighIn the event this information is protected by the Federal Confidentiality of Alcohol and Drug Abuse Patient Records regulations: The Federal rules restrict any use of the information to criminally investigate or prosecute any alcohol or drug abuse patient.[facility]ighIn the event this information is protected by the Federal Confidentiality of Alcohol and Drug Abuse Patient Records regulations: The Federal rules restrict any use of the information to criminally investigate or prosecute any alcohol or drug abuse patient.[facility]ighIn the event this information is protected by the Federal Confidentiality of Alcohol and Drug Abuse Patient Records regulations: The Federal rules restrict any use of the information to criminally investigate or prosecute any alcohol or drug abuse patient.[facility]ighIn the event this information is protected by the Federal Confidentiality of Alcohol and Drug Abuse Patient Records regulations: The Federal rules restrict any use of the information to criminally investigate or prosecute any alcohol or drug abuse patient.[facility]ighIn the event this information is protected by the Federal Confidentiality of Alcohol and Drug Abuse Patient Records regulations: The Federal rules restrict any use of the information to criminally investigate or prosecute any alcohol or drug abuse patient.[facility]ighIn the event this information is protected by the Federal Confidentiality of Alcohol and Drug Abuse Patient Records regulations: The Federal rules restrict any use of the information to criminally investigate or prosecute any alcohol or drug abuse patient.[facility]ighIn the event this information is protected by the Federal Confidentiality of Alcohol and Drug Abuse Patient Records regulations: The Federal rules restrict any use of the information to criminally investigate or prosecute any alcohol or drug abuse patient.[facility]ighIn the event this information is protected by the Federal Confidentiality of Alcohol and Drug Abuse Patient Records regulations: The Federal rules restrict any use of the information to criminally investigate or prosecute any alcohol or drug abuse patient.[facility]ighIn the event this information is protected by the Federal Confidentiality of Alcohol and Drug Abuse Patient Records regulations: The Federal rules restrict any use of the information to criminally investigate or prosecute any alcohol or drug abuse patient.[facility]ighIn the event this information is protected by the Federal Confidentiality of Alcohol and Drug Abuse Patient Records regulations: The Federal rules restrict any use of the information to criminally investigate or prosecute any alcohol or drug abuse patient.[facility]ighIn the event this information is protected by the Federal Confidentiality of Alcohol and Drug Abuse Patient Records regulations: The Federal rules restrict any use of the information to criminally investigate or prosecute any alcohol or drug abuse patient.[facility]ighIn the event this information is protected by the Federal Confidentiality of Alcohol and Drug Abuse Patient Records regulations: The Federal rules restrict any use of the information to criminally investigate or prosecute any alcohol or drug abuse patient.[facility]ighIn the event this information is protected by the Federal Confidentiality of Alcohol and Drug Abuse Patient Records regulations: The Federal rules restrict any use of the information to criminally investigate or prosecute any alcohol or drug abuse patient.[facility]ighIn the event this information is protected by the Federal Confidentiality of Alcohol and Drug Abuse Patient Records regulations: The Federal rules restrict any use of the information to criminally investigate or prosecute any alcohol or drug abuse patient.[facility] Reason for Visit (unrecogniz ed section and content) Reason Comments Yearly Exam With Mammogram Reason Comments poison melinda x 2 days all over Reason Comments Sore Throat Ear pain, low fever x3 days, strep exposure Reason Comments Well Woman Reason Comments Urinary Problem Burning,frequency, h ematuria,flank pain x 2 days Reason Comments Vaginal Problem Vaginal itching Care Teams (unrecognized sec tion and content) Mechanical Detailer Relationship Specialty Start Date End Date Paulo Hernandez, BUSINESS SERVICES SALES AGENT [address] [facility] [address] [place] [address] PCP - General Internal Medicine 02/21/19 Mechanical Detailer Relationship Specialty Start Date End Date Paulo Hernandez, BUSINESS SERVICES SALES AGENT [address] [facility] [address] [place] [address] PCP - General Internal Medicine 02/21/19 Mechanical Detailer Relationship Specialty Start Date End Date Paulo Hernandez, BUSINESS SERVICES SALES AGENT [address] [facility] [address] [place] [address] PCP - General Internal Medicine 02/21/19 Mechanical Detailer Relationship Specialty Start Date End Date Paulo Hernandez, BUSINESS SERVICES SALES AGENT [address] [facility] [address] [place] [address] PCP - General Internal Medicine 02/21/19 Mechanical Detailer Relationship Specialty Start Date End Date Paulo Hernandez, BUSINESS SERVICES SALES AGENT [address] [facility] [address] [place] [address] PCP - General Internal Medicine 02/21/19 Team Status: Active Member Role Status Dates Paulo Hernandez MOLD CAPPER HELPER, MOLD CAPPER HELPER-C Family Provider Active Paulo Castillokandy MOLD CAPPER HELPER, MOLD CAPPER HELPER-C Primary Care Provider Active Team Status: Inactive Member Role Status Dates Paulo Jonathankandy MOLD CAPPER HELPER, MOLD CAPPER HELPER-C Primary Care Provider Active Jose Gutierrez MOLD CAPPER HELPER-C Attending Provider, Referring Pr radhika Active Mechanical Detailer Relationship Specialty Start Date End Date Paulo Hernandez CNP [address] [facility] [address] [place] [address] PCP - General Internal Medicine 02/21/19 Mechanical Detailer Relationship Specialty Start Date End Date Paulo Hernandez CNP [address] [facility] [address] [place] [address] PCP - General Internal Medicine 02/21/19 Mechanical Detailer Relationship Specialty Start Date End Date Paulo Hernandez CNP [address] [facility] [address] [place] [address] PCP - General Internal Medicine 02/21/19 Mechanical Detailer Relationship Specialty Start Date End Date Paulo Hernandez CNP [address] [facility] [address] [place] [address] PCP - General Internal Medicine 02/21/19 Mechanical Detailer Relationship Specialty Start Date End Date Paulo Hernandez CNP [address] [facility] [address] [place] [address] PCP - General Internal Medicine 02/21/19 Mechanical Detailer Relationship Specialty Start Date End Date Paulo Hernandez CNP [address] [facility] [address] [place] [address] PCP - General Internal Medicine 02/21/19 Mechanical Detailer Relationship Specialty Start Date End Date Paulo Hernandez CNP [address] [place] [address] PCP - General Internal Medicine 02/21/19 Mechanical Detailer Relationship Specialty Start Date End Date PaulaPaulo singletaryCAROLINA [address] [facility] [address] [place] [address] PCP - General Internal Medicine 02/21/19 Mechanical Detailer Relationship Specialty Start Date End Date Paulo HernadnezCAROLINA [address] [facility] [address] [place] [address] PCP - General Internal Medicine 02/21/19 Mechanical Detailer Relationship Specialty Start Date End Date Jose Gutierrez CNP [address] [facility] [address] [place] [address] PCP - General Family Medicine 09/29/23 Mechanical Detailer Relationship Specialty Start Date End Date Jose Gutierrez APRN-BUSINESS SERVICES SALES AGENT [address] [place] [address] PCP - MMO ACO PCP 06/09/22 Mechanical Detailer Relationship Specialty Start Date End Date Jose Gutierrez CNP [address] [facility] [address] [place] [address] PCP - General Family Medicine 09/29/23 Mechanical Detailer Relationship Specialty Start Date End Date Jose Gutierrez CNP [address] [facility] [address] [place] [address] PCP - General Family Medicine 09/29/23 Mechanical Detailer Relationship Specialty Start Date End Date Jose Gutierrez CNP [address] [facility] [address] [place] [address] PCP - General Family Medicine 09/29/23 Mechanical Detailer Relationship Specialty Start Date End Date Jose GutierrezCAROLINA [address] [facility] [address] [place] [address] PCP - General Family Medicine 09/29/23 Goals (unrecognized section and content) Goals may be documented in a n alternate section INFORMATION SOURCE (unrecogn ized section and content) DATE CREATED AUTHOR 06/11/2022 [facility] DATE CREATED AUTHOR AUTHOR'S ORGANIZ ATION 12/29/2023 [facility] DATE CREATED AUTHOR AUTHOR'S ORGANIZ ATION 06/14/2024 [facility] DATE CREATED AUTHOR AUTHOR'S ORGANIZ ATION 06/16/2024 [facility] FOR RECORDS PERTAINING TO PATIENTS WHO ARE OR HAVE BEEN ENROLLED IN A CHEMICAL DEPENDENCY/SUBSTANCEABUSE PROGRAM, SOME INFORMATION MAY BE OMITTED. This clinical summary was aggregated from multiple sources. Caution should be exercised in using it in the provision of clinical care. This summary normalizes information from multiple sources, and as a consequence, information in this document may materially change the coding, format and clinical context of patient data. In addition, data may be omitted in some cases. CLINICAL DECISIONS SHOULD BE BASED ON THE PRIMARY CLINICAL RECORDS. [employer] provides no warranty or guarantee of the accuracy or completeness of information in this document.
[2025-01-27 10:06] LABS: Hematocrit 40.9 % (37-47); Hemoglobin 13.9 g/dL (12.0-15.0); Immature Granulocytes Count 0.060 X10^3/uL (0.0-0.0); Mean Corp Hgb Conc 34.0 g/dL (32-36); Mean Corpuscular Volume 88.1 fL (81-99); Mean Platelet Vol. 9.7 fl (6.2-12.0); NRBC Flagged by Analyzer 0 % (0-5); Platelet Count 394 K/mm3 (150-450); RBC Distribution Width CV 13.1 % (11.6-14.6); RBC Distribution Width SD 42.1 fl (35.1-43.9); Red Blood Count 4.64 M/mm3 (4.2-5.4); White Blood Count 6.5 K/mm3 (4.4-11.0)
[2025-01-27 11:24] LABS: AST(SGOT) 23 U/L (<=31); Alanine Aminotransfer ALT/SGPT 12 U/L (<=34); Albumin, Serum 4.3 g/dL (3.4-4.8); Alkaline Phosphatase 72 U/L (35-104); Anion Gap 12 (5-15); BUN 13 mg/dL (4-19); BUN/Creat Ratio 19.1 RATIO (10-20); Calcium,Total 9.3 mg/dL (7.6-11.0); Carbon Dioxide 25.6 mmol/L (21.0-32.0); Chloride 103 mmol/L (98-108); Cholesterol 230 mg/dL (<=200); Globulin 2.7 g/dL (2.2-4.2); Glucose 97 mg/dL (70-99); Low Density Lipoprotein Calc. 145 mg/dL; Magnesium 2.2 mg/dL (1.5-2.2); Potassium 3.4 mmol/L (3.3-5.1); Triglycerides 88 mg/dL; Very Low Density Lipoprotein 18 mg/dL (5-40); Vitamin D,25 Hydroxy 37.3 ng/mL (30-100); cholesterol:hdl ratio screen 3.29
== END | disposition home or self-care (01) ==
LOC: CIMLAB 07:19
PROVIDERS: PCP Nurse Practitioner Family; Referring Provider Nurse Practitioner Family; Visit Provider Nurse Practitioner Family
DX: M81.0 Age-related osteoporosis without current pathological fracture (principal)
CPT/HCPCS: 36415; 80053; 80061; 82306; 83735; 85025